=== PATIENT | female | born 1980 | race Caucasian/White ===

== ENCOUNTER 2017-07-21 16:32 | Emergency (ER) | payer BC, SELFPAY ==
[2017-07-21 16:56] VITALS: BP 135/77; PULSE 70; RESP 16; TEMP 36.8; O2SAT 99; BMI 23.8
--- NOTE | 2017-07-21 18:08 | HMH.EDUTC ---
[facility] [place] Disposition Clinical Impression: Lateral epicondylitis of elbow Qualifiers: Laterality: left Qualified Code(s): M77.12 - Lateral epicondylitis, left elbow Disposition: Home, Self-Care Condition on Discharge: Good Instructions: DI for Lateral Epicondylitis (Tennis Elbow) Additional Instructions: Read attached education Review the home exercises I gave you (printed from [employer]entials [employer] MS Care 4 Text) Ice 15-20 minutes 3-4 times a day Tennis Elbow band if you would like Naproxen twice a day since steroids didn't seem to help. * No additional anti-inflammatories like motrin, aleve, advil with the above amount of naproxen. You CAN still take Tylenol every 4 hours as needed if you need something more for pain. Prescriptions: Naproxen [Naprosyn 500mg tablet] 500 mg PO BID #28 tab Referrals: Kenneth Peterson MD [Primary Care Provider] - (For any new, worsening or persistant symptoms. If not improving and you feel you need a joint injection, see PCP for referral unless he is able to do it. 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 Started w/ mild intermittent pain in elbow and has progressed to nearly constant ache w/ pain in left AC worse with full extension or flexion of elbow or when gripping with left hand. 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 Left thumb starting to feel numb at times but reports it really isn't numb just feels that way . Worse w/ certain movements, especially if carrying something in the palm of her hand. Just finished steroids for pneumonia but no improvement in pain. Tylenol hasn't helped. Hasn't taken or tried anything else. Hasn't seen PCP, Dr. Peterson, for this. Same symptoms but in right wrist years ago. Started, progressed and felt this same way. Saw sports medicine and resolved w/ joint injection. - Related Data Home Medications Medication Instructions Recorded Confirmed diazePAM [diazePAM 5mg Tablet] 5 mg PO DAILY 07/21/17 07/21/17 Previous Rx's Medication Instructions Recorded Naproxen [Naprosyn 500mg tablet] 500 mg PO BID #28 tab 07/21/17 Allergies Allergy/AdvReac Type Severity Reaction Status Date / Time No Known Allergies Allergy Verified 07/21/17 17:03 - Worker's Comp Is this a Worker's Comp case?: No [facility] History I have reviewed the patient's past medical history: Yes (anxiety) Other Surgeries: Yes: Other (hysterectomy) - *Social History Smoking Status: Current every day smoker Tobacco Type: cigarettes Alcohol Intake: never - Psychiatric History Expresses thoughts of harming self/others: None Suicide Plan Description: No Plan ROS Obtained: Yes Systems reviewed as appropriate & no additional complaints - Constitutional Constitutional: Denies body ache, Denies fever(s) - Cardiovascular Cardiovascular: Denies chest pain - Respiratory Respiratory: No dyspnea - Muscul
--- NOTE | 2017-07-21 18:11 | ED_ITS ---
[facility] [place] Clinical Impression: Lateral epicondylitis of elbow Qualifiers: Laterality: left Qualified Code(s): M77.12 - Lateral epicondylitis, left elbow Disposition: Home, Self-Care Condition on Discharge: Good Instructions: DI for Lateral Epicondylitis (Tennis Elbow) Additional Instructions: Read attached education Review the home exercises I gave you (printed from Essentials for MS Care 4 Text ) Ice 15-20 minutes 3-4 times a day Tennis Elbow band if you would like Naproxen twice a day since steroids didn't seem to help. * No additional anti-inflammatories like motrin, aleve, advil with the above amount of naproxen. You CAN still take Tylenol every 4 hours as needed if you need something more for pain. Prescriptions: Naproxen [Naprosyn 500mg tablet] 500 mg PO BID #28 tab Referrals: Kenneth Peterson MD [Primary Care Provider] - (For any new, worsening or persistant symptoms. If not improving and you feel you need a joint injection, see PCP for referral unless he is able to do it. 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 Started w/ mild intermittent pain in elbow and has progressed to nearly constant ache w/ pain in left AC worse with full extension or flexion of elbow or when gripping with left hand. 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 Left thumb starting to feel numb at times but reports it really isn't numb just feels that way . Worse w/ certain movements, especially if carrying something in the palm of her hand. Just finished steroids for pneumonia but no improvement in pain. Tylenol hasn't helped. Hasn't taken or tried anything else. Hasn't seen PCP, Dr. Peterson, for this. Same symptoms but in right wrist years ago. Started, progressed and felt this same way. Saw sports medicine and resolved w/ joint injection. - Related Data Home Medications Medication Instructions Recorded Confirmed diazePAM [diazePAM 5mg Tablet] 5 mg PO DAILY 07/21/17 07/21/17 Previous Rx's Medication Instructions Recorded Naproxen [Naprosyn 500mg tablet] 500 mg PO BID #28 tab 07/21/17 Allergies Allergy/AdvReac Type Severity Reaction Status Date / Time No Known Allergies Allergy Verified 07/21/17 17:03 - Worker's Comp Is this a Worker's Comp case?: No H History I have reviewed
== END 2017-07-21 18:21 | disposition home or self-care (01) ==
PROVIDERS: Emergency Provider Nurse Practitioner Family; Family Provider Family Medicine; PCP Family Medicine
DX: M77.12 Lateral epicondylitis, left elbow (principal); F41.9 Anxiety disorder, unspecified; Z79.899 Other long term (current) drug therapy; F17.210 Nicotine dependence, cigarettes, uncomplicated
CPT/HCPCS: 99202

== ENCOUNTER → 2017-08-25 10:45 | Outpatient (CLI) | payer BC, SELFPAY ==
--- NOTE | 2017-08-25 10:49 | CT_ITS ---
CT abdomen pelvis wo con CLINICAL INDICATION: ITS.REASON: KIDNEY STONES,DYSURIA ORDERING PHYSICIAN: Giana Orona PATIENT AGE: 36 years COMPARISON: 09/22/2016 TECHNIQUE: Axial images obtained with sagittal and coronal reformats. PROCEDURE: Oral Contrast: None IV Contrast: None . FINDINGS: Lower thorax: There is a pectus excavatum deformity. Minimal atelectatic or fibrotic changes are present in the left lung base. Prior cholecystectomy. No focal liver lesion. The spleen, pancreas, and adrenal glands are unremarkable. There is a 6 mm nonobstructing stone in the mid aspect of the right kidney. There are 3 nonobstructing stones in the left kidney with the largest in the lower pole and 3 mm. No hydronephrosis. No ureteral calculi. Urinary bladder is decompressed and has an unremarkable appearance. No intestinal obstruction or free air. No focal inflammatory change. Prior hysterectomy. No pelvic mass or abnormal fluid collection. No acute bony anomalies. IMPRESSION: Nonobstructive bilateral renal calculi as described above. Otherwise negative CT abdomen pelvis without contrast
== END ==
PROVIDERS: Family Provider Family Medicine; PCP Family Medicine; Visit Provider Nurse Practitioner
DX: N20.0 Calculus of kidney (principal); R30.0 Dysuria
CPT/HCPCS: 74176

== ENCOUNTER → 2017-09-22 10:57 | Outpatient (CLI) | payer BC, SELFPAY ==
--- NOTE | 2017-09-22 11:03 | MR_ITS ---
MR lumbar spine wo/w con COMPARISON: Plain films lumbar spine 03/17/2016 HISTORY: Low back pain with radiation down both legs TECHNIQUE: Standard sagittal and axial sequences were performed along with a myelogram sequence and post gadolinium T1 axial and T1 sagittal images. FINDINGS: There is normal curvature and alignment. The marrow signal is normal in all lumbar vertebrae. The spinal canal is normal in size throughout. There is no abnormal disc protrusion. The facet joints appear normal throughout the lumbar spine. The myelogram sequence is entirely normal. Post gadolinium sequences show no abnormal enhancement. IMPRESSION: Unremarkable MRI scan of the lumbar spine without and with gadolinium contrast
== END ==
PROVIDERS: Family Provider Family Medicine; PCP Family Medicine; Visit Provider Nurse Practitioner
DX: M54.5 Low back pain (principal)
CPT/HCPCS: 72158; 76376; A9576

== ENCOUNTER → 2017-10-04 12:50 | Outpatient (CLI) | payer BC, SELFPAY ==
[2017-10-04 14:00] LABS: Free T4 (Free Thyroxine) 0.95 ng/dl (0.76-1.46); Thyroid Stimulating Hormone 0.98 uIU/ml (0.358-3.740)
[2017-10-05 08:25] LABS: Thyroid Peroxidase Antibodies 53 IU/mL (0-34)
[2017-10-05 15:34] LABS: Thyroglobulin Level 1.4 IU/mL (0.0-0.9); Triiodothyronine (T3) Free 3.3 pg/mL (2.0-4.4)
[2017-10-06 12:35] LABS: T4 (Thyroxine) 8.6 ug/dl (4.7-13.3)
== END ==
PROVIDERS: Visit Provider Internal Medicine Endocrinology, Diabetes & Metabolism
DX: E03.8 Other specified hypothyroidism (principal); E06.3 Autoimmune thyroiditis
CPT/HCPCS: 36415; 84436; 84439; 84443; 84481; 86376; 86800

== ENCOUNTER → 2018-02-27 13:44 | Outpatient (CLI) | payer BC, SELFPAY ==
[2018-02-27 16:22] LABS: Free T4 (Free Thyroxine) 1.19 ng/dl (0.76-1.46)
[2018-03-02 08:25] LABS: Triiodothyronine (T3) Free 3.4 pg/mL (2.0-4.4)
== END ==
PROVIDERS: Visit Provider Internal Medicine Endocrinology, Diabetes & Metabolism
DX: E03.8 Other specified hypothyroidism (principal); E06.3 Autoimmune thyroiditis
CPT/HCPCS: 36415; 84439; 84443; 84481

== ENCOUNTER → 2018-05-23 16:40 | Outpatient (CLI) | payer BC, SELFPAY ==
[2018-05-24 00:01] LABS: Free T4 (Free Thyroxine) 1.23 ng/dl (0.76-1.46); Thyroid Stimulating Hormone 0.03 uIU/ml (0.358-3.740)
[2018-05-25 16:13] LABS: Triiodothyronine (T3) Free 4.2 pg/mL (2.0-4.4)
== END ==
PROVIDERS: Visit Provider Internal Medicine Endocrinology, Diabetes & Metabolism
DX: E03.8 Other specified hypothyroidism (principal); E06.3 Autoimmune thyroiditis
CPT/HCPCS: 36415; 84436; 84439; 84443; 84480; 84481

== ENCOUNTER 2018-07-06 12:07 | Outpatient (CLI) | payer BC, SELFPAY ==
[2018-07-06 12:15] VITALS: BP 111/72; PULSE 70; RESP 20; TEMP 36.9; O2SAT 95
[2018-07-06 13:10] VITALS: BP 112/75; PULSE 68; RESP 20; TEMP 36.9; O2SAT 95
[2018-07-06 14:10] VITALS: BP 122/74; PULSE 68; RESP 20; TEMP 36.9; O2SAT 95
[2018-07-06 15:00] VITALS: BP 112/74; PULSE 68; RESP 20; TEMP 36.9; O2SAT 95
[2018-07-06 15:30] VITALS: BP 115/77; PULSE 68; RESP 20; TEMP 36.9; O2SAT 95
== END 2018-07-06 15:30 | disposition home or self-care (01) ==
LOC: INF 12:09
PROVIDERS: PCP Nurse Practitioner; Visit Provider Nurse Practitioner
DX: J18.1 Lobar pneumonia, unspecified organism (principal)
CPT/HCPCS: 96360; 96361; 96367; J2543

== ENCOUNTER → 2018-08-10 10:08 | Outpatient (CLI) | payer BC, SELFPAY ==
--- NOTE | 2018-08-10 10:17 | XR_ITS ---
XR chest 2V HISTORY: ITS.REASON: CHRONIC COUGHING, SOB, TOBACCO ABUSE ORDERING PHYSICIAN: Sandrita Whiting PATIENT AGE: 37 years COMPARISON: 10/09/2017 FINDINGS: Prominent pectus excavatum deformity is present with silhouetting out of the right heart The cardiomediastinal silhouette and pulmonary vascularity are within normal limits. The lungs are clear without infiltrates, suspicious nodules, or pleural effusions. No acute bony abnormalities. IMPRESSION: Pectus excavatum, no change with no acute finding
== END ==
PROVIDERS: PCP Family Medicine; Visit Provider Nurse Practitioner Family
DX: R06.02 Shortness of breath (principal); R05 Cough; Z72.0 Tobacco use
CPT/HCPCS: 71046

== ENCOUNTER → 2018-08-28 09:00 | Outpatient (CLI) | payer BC, SELFPAY ==
--- NOTE | 2018-08-28 09:06 | XR_ITS ---
XR abdomen min 2V HISTORY: ITS.REASON: RT FLANK PAIN ORDERING PHYSICIAN: Kenneth Peterson MD PATIENT AGE: 37 years COMPARISON: None FINDINGS: There are bilateral renal calculi measuring up to 3 mm in the upper pole on the right and 3 x 1 mm in the lower pole on the left. There are surgical clips in the right upper and right lower upper quadrant. Pelvic calcifications are present and may be due to phleboliths. IMPRESSION: Bilateral nephrolithiasis
== END ==
PROVIDERS: PCP Family Medicine; Visit Provider Family Medicine
DX: R10.9 Unspecified abdominal pain (principal)
CPT/HCPCS: 74019

== ENCOUNTER → 2019-07-11 09:50 | Outpatient (CLI) | payer BC, SELFPAY ==
--- NOTE | 2019-07-11 09:54 | CT_ITS ---
PROCEDURE: CT HEAD/BRAIN WO/W CON CLINICAL INDICATION: MIGRAINE, TINGLING Headache with blurred vision COMPARISON: No exams were available for comparison TECHNIQUE: IV Contrast: 100ML OPITRAY 320 Axial images obtained. All CT scans at the facility use one or more dose reduction, viz: automated exposure control, ma/kV adjustment per patient size (including targeted exams where dose is matched to indication, i.e. head), or iterative reconstruction technique. FINDINGS: No midline shift, mass effect, intracranial hemorrhage, hydrocephalus, or extra-axial fluid collection is evident. No enhancing lesions are evident. The calvarium has an unremarkable appearance. No mastoid effusion. Moderate opacification involves the right and central aspect of the sphenoid sinus with an air-fluid level IMPRESSION: 1. No acute intracranial findings. 2. Sphenoid sinus disease Dictated by: Lboo Drummond MD 07/11/2019 12:23 Electronically signed by Lobo Drummond MD in [place] 07/11/2019 12:23
== END ==
PROVIDERS: PCP Family Medicine; Visit Provider Family Medicine
DX: G43.909 Migraine, unspecified, not intractable, without status migrainosus (principal); R20.2 Paresthesia of skin
CPT/HCPCS: 70470; Q9967

== ENCOUNTER → 2020-01-21 15:02 | Outpatient (POV) | payer BC, SELFPAY | PROVIDERS: PCP Internal Medicine Adolescent Medicine; Visit Provider Dermatology | DX: Z00.00 Encounter for general adult medical examination without abnormal findings (principal) ==

== ENCOUNTER 2020-06-11 16:02 | Emergency (ER) | payer BC, SELFPAY ==
[2020-06-11 16:13] VITALS: BP 122/74; PULSE 84; RESP 16; TEMP 36.9; O2SAT 98; BMI 29.8
--- NOTE | 2020-06-11 16:19 | HMH.EDUTC ---
[facility] [place] Disposition Clinical Impression: Cellulitis and abscess of right leg Disposition: Home, Self-Care Condition on Discharge: Good Instructions: Trimethoprim/Sulfamethoxazole (Alternative Therapy), Cellulitis, Cephalexin, Mupirocin, DI for Skin Abscess Additional Instructions: *Start antibiotic(s) immediately and be sure to take as ordered for the FULL length of time although you may be feeling better or start to see improvement in the next 24-48 hours *Monitor closely. Outlined redness so that you can monitor easier. Follow up immediately for new or worsening symptoms including but not limited to redness, swelling, streaking from site fever or chills. *Warm compress 15 minutes 3-4 times day *Never squeeze or pop these on your own. Seek immediate medical attention next time this occurs *Monitor Temp. Tylenol every 4 hours as needed and ibuprofen every 6 hours as needed (as long as your primary care doctor has told you that it is ok to take both. For fever, aches, pain. ER if no less that 101 despite Tylenol and ibuprofen Follow up with your family doctor/primary care physician in the next 48-72 hours if no improvement Follow up in the next 48 hours to get your wound culture results Return if needed Straight to ER if any life threatening symptoms Prescriptions: Sulfamethoxazole/Trimethoprim [Bactrim DS tablet] 1 each PO BID 10 Days #20 tab Transmission Status: Received by [facility] cephALEXin [Keflex 500mg Cap] 500 mg PO Q6H #40 cap Transmission Status: Received by [facility] Mupirocin Calcium [Mupirocin 2% Cream 15gm] 1 applicatio TP BID #1 tube Transmission Status: Received by [facility] Referrals: Kenneth Peterson MD [Primary Care Provider] - As needed Time of Disposition: 16:30 Medical Decision Making - Alcon Inquiry Pt receiving controlled substance: No Alcon was queried for this patient: No Vital Signs: 06/11/20 16:13 06/11/20 16:39 Temperature 98.4 F 98.1 F Temperature Source Oral Oral Pulse Rate 87 Pulse Rate [Right] 84 Respiratory Rate 16 16 Blood Pressure 133/87 Blood Pressure [Right Arm] 122/74 Blood Pressure Mean [Right Arm] 90 Blood Pressure Source Automatic Cuff Blood Pressure Source [Right Arm] Automatic Cuff Blood Pressure Position Sitting Blood Pressure Position [Right Arm] Sitting 02 Sat by Pulse Oximetry 98 Oxygen Delivery Method Room Air Room Air [facility] [place] HPI - General Stated complaint: spot on R thigh Time Seen by Provider: 06/11/20 16:19 Mode of Arrival: Ambulatory Source of Information: Patient Limitations: No Limitations Description of Symptoms (Recalled from Triage Doc. by RN): Pt has large knot on the inside of her right thigh HEENT Symptoms (Recalled from RN notes): No Resp Symptoms (Recalled from RN notes): No Skin Symptoms (Recalled from RN notes): Yes (pt has large knot on the inside of her right thigh) MS Symptoms (Recalled from RN notes): No Functional Status (Recalled from RN notes): na - History of Present Illness Provider Complaint: Patient states that she has had several small pimple like lesions on the inside of her right thigh area that she has popped and they went away States that she noticed she had red warm area that had hard center on her right upper thigh area that today seems to be more sore, tender to the touch and warm - Related Data Home Medications Medication Instructions Recorded Confirmed Venlafaxine HCl [Effexor Xr] 37.5 mg PO DAILY 10/09/17 04/16/19 estradiol 2 mg tablet See Rx Instructions PO .COMPLEX 90 10/09/17 04/16/19 Days #90 Previous Rx's Medication Instructions Recorded Mupirocin Calcium [Mupirocin 2% 1 applicatio TP BID #1 tube 06/11/20 Cream 15gm] Sulfamethoxazole/Trimethoprim 1 each PO BID 10 Days #20 tab 06/11/20 [Bactrim DS tablet] cephALEXin [Keflex 500mg Cap] 500 mg PO Q6H #40 cap 06/11/20 Allergies Allergy/AdvReac Type Severity Reaction Status Date / Time No Known Allergies
[2020-06-11 16:39] VITALS: BP 133/87; PULSE 87; RESP 16; TEMP 36.7; O2SAT 98
== END 2020-06-11 16:40 | disposition home or self-care (01) ==
PROVIDERS: Emergency Provider Nurse Practitioner; PCP Family Medicine
DX: L03.115 Cellulitis of right lower limb (principal); F41.8 Other specified anxiety disorders; E03.9 Hypothyroidism, unspecified; F17.210 Nicotine dependence, cigarettes, uncomplicated; Z79.899 Other long term (current) drug therapy
CPT/HCPCS: 87070; 87205; 99201

== ENCOUNTER 2020-06-14 09:22 | Emergency (ER) | payer BC, SELFPAY ==
[2020-06-14] VITALS (7 sets, daily range): BP systolic 111–143; BP diastolic 68–82; PULSE 54–88; RESP 16–20; TEMP 36.6; O2SAT 97–100; BMI 25.8; BMI 258201.4
--- NOTE | 2020-06-14 09:21 | ECG_ITS ---
APPROVED REPORT Exam: Resting ECG HR:65 bpm ECG Measurements Heart Rate 65 AXES VA 148 P 46 QRSd 86 QRS -12 QT 444 T 6 QTc 461 Conclusion Normal sinus rhythm Prolonged QT Abnormal ECG Electronically signed by : Kenneth Mcqueen, 06/16/2020 19:38:37
--- NOTE | 2020-06-14 09:25 | XR_ITS ---
PROCEDURE: XR CHEST PORTABLE CLINICAL HISTORY: chest pain COMPARISON: CR CXR2V XR chest 2V from 10/09/2017 CR CXR2V XR chest 2V from 08/10/2018 FINDINGS: There is a pectus deformity which is causing obscuration of the right heart border and increased density in the right lower lobe. No evidence of CHF. Normal heart size. The lungs are clear without infiltrates, suspicious nodules, or pleural effusions. No acute bony abnormalities. IMPRESSION: Pectus deformity otherwise negative Dictated by: Lobo Drummond MD 06/14/2020 10:55 Lobo Drummond MD in [place] 06/14/2020 10:55
[2020-06-14 09:53] LABS: Basophils # 0.1 K/mm3 (0-0.2); Basophils % 0.6 % (0.1-2.0); Eosinophils # 0.2 K/mm3 (0.0-0.4); Eosinophils % 1.3 % (0.1-12.0); Hematocrit 46.7 % (37.0-47.0); Hemoglobin 14.5 g/dL (12.2-16.2); Lymphocytes # 3.2 K/mm3 (0.7-4.5); Lymphocytes % 25.9 % (10-50); Mean Corpuscular Hemoglobin 29.1 pg (27.0-31.2); Mean Corpuscular Volume 93.8 fl (81-99); Mean Platelet Volume 9.2 fl (7.4-10.4); Monocytes # 0.5 K/mm3 (0.1-1.0); Monocytes % 4.1 % (1.7-9.3); Neutrophils # 8.4 K/mm3 (1.8-7.8); Neutrophils % 68.1 % (37.0-80.0); Platelet Count 210 K/mm3 (142-424); Red Blood Count 4.98 M/mm3 (4.20-5.40); Red Cell Distribution Width 13.3 % (11.5-17.5); White Blood Count 12.4 K/mm3 (4.8-10.8)
--- NOTE | 2020-06-14 10:00 | PC.NURSE ---
FAMILY AT BEDSIDE UPDATED ON PLAN OF CARE
[2020-06-14 10:05] LABS: Chloride 106 mmol/L (98-107)
[2020-06-14 10:06] LABS: Potassium 4.5 mmoL/L (3.5-5.1); Sodium 140 mmol/L (136-145)
--- NOTE | 2020-06-14 10:06 | HMH.EDGENADL ---
ED Disposition Clinical Impression: Odynophagia, Atypical chest pain, Abscess of right thigh Disposition: Home, Self-Care Condition on Discharge: Good Instructions: DI for Atypical Chest Pain, DI for Skin Abscess Additional Instructions: Continue clindamycin, drink a full glass of water with each dose. Protonix as prescribed. See Dr. Diaz tomorrow for treatment of your abscess. Nothing to eat or drink after midnight tonight. Call him 8-9 AM tomorrow to set up appointment to be seen tomorrow morning and then he will arrange surgery for tomorrow afternoon. Additional instructions for CHEST PAIN: See your physician as soon as possible for further evaluation. Return immediately if worsening chest pain, vomiting, shortness of breath, fever, coughing of blood. Prescriptions: Pantoprazole Sodium [Protonix 40mg tablet] 40 mg PO DAILY #15 tab Transmission Status: Pending to [facility] Referrals: Kenneth Peterson MD [Primary Care Provider] - - Critical Care Critical Care Time: No Attestation: On , the high probability of a clinically significant, sudden or life threatening deterioration of the following system(s) required my full and direct attention, intervention and personal management. The time I documented below is in addition to time spent performing reported procedures but includes the following listed in this critical care notation. Medical Decision Making - Medical Records Medical records reviewed: Yes: I reviewed the patient's medical records. MR Comment: Reviewed urgent treatment center visit 06/11/2020. The abscess was aspirated at that time and culture was sent. No growth. The patient was started on Bactrim, Keflex, and mupirocin. - Alcon Inquiry Pt receiving controlled substance: No Vital Signs: 06/14/20 09:23 06/14/20 10:23 06/14/20 10:53 Temperature 98 F Temperature Source Oral Pulse Rate [Radial] 78 63 61 Respiratory Rate 16 16 16 Blood Pressure [Right Arm] 143/78 H 135/80 120/70 Blood Pressure Mean [Right Arm] 99 98 86 Blood Pressure Source [Right Arm] Automatic Cuff Automatic Cuff Blood Pressure Position [Right Arm] Sitting Sitting Sitting 02 Sat by Pulse Oximetry 98 100 97 Oxygen Delivery Method Room Air 06/14/20 12:53 Temperature Temperature Source Pulse Rate [Radial] 54 L Respiratory Rate 20 Blood Pressure [Right Arm] 111/69 Blood Pressure Mean [Right Arm] 83 Blood Pressure Source [Right Arm] Automatic Cuff Blood Pressure Position [Right Arm] Sitting 02 Sat by Pulse Oximetry Oxygen Delivery Method - Lab Data Lab Results 06/14/20 09:30: WBC 12.4 H, RBC 4.98, Hgb 14.5, Hct 46.7, MCV 93.8, MCH 29.1, MCHC 31.0 L, RDW 13.3, Plt Count 210, MPV 9.2, Neut % (Auto) 68.1, Lymph % (Auto) 25.9, [place] % (Auto) 4.1, Eos % (Auto) 1.3, Baso % (Auto) 0.6, Neut # (Auto) 8.4 H, Lymph # (Auto) 3.2, [place] # (Auto) 0.5, Eos # (Auto) 0.2, Baso # (Auto) 0.1 06/14/20 09:30: Sodium 140, Potassium 4.5, Chloride 106, Carbon Dioxide 26, Anion Gap 12.5, BUN 14, Creatinine 0.70, Estimated Creat Clear 126, Estimated GFR 94, Est GFR ( Amer) 114, Glucose 95, Calcium 9.3, Total Bilirubin 0.8, Direct Bilirubin 0.4, Conjugated Bilirubin 0.0, Indirect Bilirubin 0.4, Unconjugated Bilirubin 0.4, AST 46 H, ALT 25, Alkaline Phosphatase 74, Troponin I < 0.01, Total Protein 8.0, Albumin 4.6, Amylase 75, Lipase 96 06/14/20 10:40: Urine Color Yellow, Urine Appearance Clear, Urine pH 7.0, Ur Specific Roberts 1.010, Urine Protein Negative, Urine Glucose (UA) Negative, Urine Ketones Negative, Urine Blood Trace-l, Urine Nitrate Negative, Urine Bilirubin Negative, Urine Urobilinogen 0.2, Ur Leukocyte Esterase Negative, Urine RBC None, Urine WBC None, Ur Squamous Epith Cells 3-5, Urine Bacteria None 06/14/20 12:45: Troponin I < 0.01 Result diagrams: 06/14/20 09:30 06/14/20 09:30 Orders (Tests/Meds): ED MEDICATIONS Generic Name Dose Route Start Last Admin Trade Name Freq PRN Reason Stop Dose
[2020-06-14 10:08] LABS: Amylase 75 U/L (30-110)
[2020-06-14 10:09] LABS: Alanine Aminotransferase 25 U/L (12-78); Albumin Level 4.6 g/dl (3.5-5.0); Alkaline Phosphatase 74 U/L (38-126); Anion Gap 12.5 mEq/L (5-15); Aspartate Amino Transferase 46 U/L (14-36); Bilirubin,Direct 0.4 mg/dl (0.0-0.4); Bilirubin,Indirect 0.4 mg/dL (0.0-0.9); Bilirubin,Total 0.8 mg/dl (0.2-1.3); Bilirubin,Unconjugated 0.4 mg/dL (0.0-1.1); Blood Urea Nitrogen 14 mg/dl (7-17); Calcium 9.3 mg/dl (8.4-10.2); Carbon Dioxide 26 mmol/L (22.0-30.0); Creatinine Clearance Estimated 126 mL/min (50-200); Estimated Glomerular Filt Rate 94 ml/min (>60); GFR (African American) 114 ML/MIN (>60); Glucose 95 mg/dl (74-100); Lipase 96 U/L (23-300)
[2020-06-14 10:28] LABS: Troponin I < 0.01 ng/ml (0.00-0.034)
[2020-06-14 11:06] LABS: Microscopic, Urine URINE MICROSCOPIC (MICROSCOPIC)
[2020-06-14 11:08] LABS: Appearance,Urine CLEAR (Clear); Bilirubin,Urine Negative (Negative); Blood, Urine TRACE-L (Negative); Color,Urine YELLOW (Yellow); Glucose,Urine (UA) Negative (Negative); Ketones,Urine Negative (Negative); Leukocyte Esterase,Urine Negative (Negative); Nitrate,Urine Negative (Negative); Protein,Urine Negative (Negative); Urobilinogen,Urine 0.2 EU/dl (0.2)
--- NOTE | 2020-06-14 11:13 | PC.NURSE ---
paged dr kat
--- NOTE | 2020-06-14 12:00 | PC.NURSE ---
PT OFFERS NO C/O AT PRESENT
[2020-06-14 13:16] LABS: Troponin I < 0.01 ng/ml (0.00-0.034)
--- NOTE | 2020-06-14 14:00 | PC.NURSE ---
IV INFUSING NO COMPLICATIONS
== END 2020-06-14 15:02 | disposition home or self-care (01) ==
PROVIDERS: Emergency Provider Emergency Medicine; PCP Family Medicine
DX: R13.10 Dysphagia, unspecified (principal); R07.89 Other chest pain; L02.415 Cutaneous abscess of right lower limb; E03.9 Hypothyroidism, unspecified; F41.8 Other specified anxiety disorders; F17.210 Nicotine dependence, cigarettes, uncomplicated
CPT/HCPCS: 71045; 80048; 80076; 81001; 82150; 83690; 84484; 85025; 93005; 96365; 96375; 96376; 99284; J2405; J3370

== ENCOUNTER 2020-06-15 11:25 | Day surgery (SDC) | payer BC, SELFPAY ==
[2020-06-15] VITALS (13 sets, daily range): BP systolic 104–140; BP diastolic 59–85; PULSE 58–72; RESP 12–20; TEMP 36.3–36.6; O2SAT 92–99; BMI 27.7
[2020-06-15 12:28] LABS: Coronavirus 19 IgG Antibody Negative (Negative); Coronavirus 19 IgM Antibody Negative (Negative)
--- NOTE | 2020-06-15 15:45 | P.OP_ITS ---
Date of procedure: 06/15/20 Pre-op Diagnosis:: Right thigh abscess Post-op Diagnosis:: Same Procedure performed:: Incision and drainage right thigh abscess with debridement of skin and subcutaneous tissues Surgeon:: Александр Diaz MD CAR STORER:: Nigel Pereira Anesthesia: LMA Estimated blood loss (mL): 10 Clinical Note:: Patient is a 39-year-old female referred by the emergency department for right thigh abscess. She states that this area has been present for about 1 week. She denies any inciting event. It started as a small purplish area. She was s een in the [facility] several days ago and started on oral antibiotics. She followed up with her primary care provider on 06/13/20 and antibiotics were switched to clindamycin for possible MRSA. Discussion was held at that time that she may require referral to surgery for incision and drainage. She presented to the emergency department the following day on 06/14/2020 for other issues and the abscess was asked to be addressed as well. Consideration was being given for possible incision and drainage under local however patient had reservations due to the severe tenderness and large size. Surgery was contacted and arrangements were made for outpatient follow-up today. She was seen in the office earlier today. She had an appreciable abscess and soft tissue infection of the right medial proximal thigh. Plan was made for incision and drainage. Operative findings:: Subcutaneous abscess. There was some evidence of ischemia and early necrosis of the superficial tissues and limited debridement of this was carried out. Operative note:: Patient was taken to the operating room. She was given preoperative intravenous antibiotics. In the operating room she was placed in a supine position. Anesthesia was induced via LMA. She was positioned in semifrog-leg position to allow access to the area of soft tissue infection. The area was prepped and draped in the standard surgical fashion. Limited incision was made in the central area of fluctuance. There was thick pus which exuded from the incision. This was sent for culture. The wound was probed. There was some debris which was evacuated. Even prior to incision that there appeared to be some ischemia and early necrosis of the overlying skin. Limited debridement was carried out of this using electrocautery. Wound was probed and any loculations were freed. Wound was irrigated. Hemostasis was achieved with electrocautery. Local anesthetic was infiltrated. Wound was packed with saline moistened 4 x 4 gauze and covered with clean dry sterile dressing. Condition: stable Disposition: PACU Specimens:: Debrided tissue, culture sent Complications:: None immediately apparent
--- NOTE | 2020-06-15 15:49 | P.PN_ITS ---
[facility] Anesthesia Checklist - Structural Data Admitted From: Home Planned Operative Procedure/s: I/d r leg abcess Consent for Planned Operative Procedure(s) Verified: Yes - Additional verifications Anesthesia Reactions: No Hx Blood Transfusions: No Blood Transfusion Reaction: No - Airway Assessment C-Spine Mobility Assessed: Yes TMJ Mobility Assessed: Yes Dentition: Good Dentition - Neurological Assessment Level of Consciousness: Awake, Alert, Appropriate - Anesthesia Plan Anesthesia Risk discussed: Yes Anesthesia Plan: Verified ASA Class: I Anesthesia Type: General [facility] History I have reviewed the patient's past medical history: Yes Medical History: Reports:: Anxiety, Depression Denies:: Cancer, Diabetes Mellitus Type 1, Diabetes Mellitus Type 2, Hypertension, Internal Pacemaker, MRSA, Seizures *Have you ever received a pneumonia vaccine?: No *Have you received a flu vaccine this season?: Yes Other Medical History: Reports: Thyroid Disease. Denies: Blood Transfusion Reaction Anesthesia experience/problems:: none Other Surgeries: Yes: , Hysterectomy-Total, Other. No: Pacemaker Amputation: No Fractures: No - *Social History Last grade of school completed: High school graduate Smoking Status: Current every day smoker Tobacco Type: cigarettes # Packs/Day (cigarettes): 1 Alcohol Intake: never Substance Use Type: denies use *Occupational Status:: employed Housing: house Household Members: spouse *Travel in the last 8 weeks: None - Psychiatric History Pschychiatric History:: Reports:: Anxiety, Depression Family Hx:: No significant family history
--- NOTE | 2020-06-15 15:50 | HMH.ANESI ---
[facility] Anesthesia Record Part I Intake, IV Amount: 1,500 Estimated blood loss (mL): 0 Urine output (mL): 0 Blood Pressure: 119/72 SaO2: 93 Pulse Rate: 72 Respiratory Rate: 12 Temperature: 97.7 F Patient is:: Awake, Stable Stable to PACU at:: 15:45
== END 2020-06-15 16:58 | disposition home or self-care (01) ==
LOC: OR 11:25
PROVIDERS: PCP Family Medicine; Visit Provider Surgery
PROC: (CPT 10061; principal; 2020-06-15 14:15)
DX: L02.415 Cutaneous abscess of right lower limb (principal); F41.9 Anxiety disorder, unspecified; F32.9 Major depressive disorder, single episode, unspecified; E07.9 Disorder of thyroid, unspecified; Z72.0 Tobacco use
CPT/HCPCS: 10061; 36415; 86328; 87070; 87075; 87205; 96374; J2405

== ENCOUNTER 2020-06-16 12:50 | Outpatient (CLI) | payer BC, SELFPAY | END 2020-06-16 13:12 | disposition home or self-care (01) | LOC: INF 12:51 | PROVIDERS: PCP Family Medicine; Visit Provider Surgery | DX: L02.415 Cutaneous abscess of right lower limb (principal); Z48.01 Encounter for change or removal of surgical wound dressing | CPT/HCPCS: G0463 ==

== ENCOUNTER 2020-06-17 12:45 | Outpatient (CLI) | payer BC, SELFPAY | END 2020-06-17 13:00 | disposition home or self-care (01) | LOC: INF 12:45 | PROVIDERS: Visit Provider Surgery | DX: L02.415 Cutaneous abscess of right lower limb (principal); Z48.01 Encounter for change or removal of surgical wound dressing | CPT/HCPCS: G0463 ==

== ENCOUNTER 2020-06-18 12:40 | Outpatient (CLI) | payer BC, SELFPAY | END 2020-06-18 13:00 | disposition home or self-care (01) | LOC: INF 12:43 | PROVIDERS: Visit Provider Surgery | DX: L03.115 Cellulitis of right lower limb (principal); Z48.01 Encounter for change or removal of surgical wound dressing | CPT/HCPCS: G0463 ==

== ENCOUNTER 2020-06-19 12:48 | Outpatient (CLI) | payer BC, SELFPAY | END 2020-06-19 13:05 | disposition home or self-care (01) | LOC: INF 12:48 | PROVIDERS: Visit Provider Surgery | DX: L03.115 Cellulitis of right lower limb (principal); Z48.01 Encounter for change or removal of surgical wound dressing | CPT/HCPCS: G0463 ==

== ENCOUNTER → 2020-06-20 12:46 | Outpatient (CLI) | payer BC, SELFPAY ==
[2020-06-20 13:37] VITALS: BP 134/79; PULSE 85; RESP 18; TEMP 36.7; O2SAT 98; BMI 27.4
== END ==
PROVIDERS: PCP Family Medicine; Visit Provider Surgery
DX: L02.415 Cutaneous abscess of right lower limb (principal); Z48.01 Encounter for change or removal of surgical wound dressing
CPT/HCPCS: G0463

== ENCOUNTER → 2020-06-21 12:49 | Outpatient (CLI) | payer BC, SELFPAY ==
[2020-06-21 13:00] VITALS: BP 118/86; PULSE 68; RESP 19; TEMP 36.9; O2SAT 100
== END ==
PROVIDERS: PCP Family Medicine; Visit Provider Surgery
DX: L02.415 Cutaneous abscess of right lower limb (principal); Z48.01 Encounter for change or removal of surgical wound dressing
CPT/HCPCS: G0463

== ENCOUNTER 2020-06-23 12:57 | Outpatient (CLI) | payer BC, SELFPAY | END 2020-06-23 13:05 | disposition home or self-care (01) | LOC: INF 12:57 | PROVIDERS: Visit Provider Surgery | DX: L03.115 Cellulitis of right lower limb (principal); Z48.01 Encounter for change or removal of surgical wound dressing | CPT/HCPCS: G0463 ==

== ENCOUNTER 2020-06-24 13:49 | Outpatient (CLI) | payer BC, SELFPAY | END 2020-06-24 14:00 | disposition home or self-care (01) | LOC: INF 13:49 | PROVIDERS: Visit Provider Surgery | DX: L03.115 Cellulitis of right lower limb (principal); Z48.01 Encounter for change or removal of surgical wound dressing | CPT/HCPCS: G0463 ==

== ENCOUNTER 2020-06-25 13:15 | Outpatient (CLI) | payer BC, SELFPAY | END 2020-06-25 13:30 | disposition home or self-care (01) | LOC: INF 13:29 | PROVIDERS: Visit Provider Surgery | DX: L03.115 Cellulitis of right lower limb (principal); Z48.01 Encounter for change or removal of surgical wound dressing | CPT/HCPCS: G0463 ==

== ENCOUNTER 2020-06-26 12:51 | Outpatient (CLI) | payer BC, SELFPAY | END 2020-06-26 13:15 | disposition home or self-care (01) | LOC: INF 12:52 | PROVIDERS: Visit Provider Surgery | DX: L03.115 Cellulitis of right lower limb (principal); Z48.01 Encounter for change or removal of surgical wound dressing | CPT/HCPCS: G0463 ==

== ENCOUNTER 2020-07-13 17:17 | Emergency (ER) | payer BC, SELFPAY ==
[2020-07-13 18:40] VITALS: BP 120/81; PULSE 74; RESP 19; TEMP 36.9; O2SAT 99; BMI 27.4
--- NOTE | 2020-07-13 18:57 | HMH.EDUTC ---
[facility] [place] Disposition Clinical Impression: Urinary problem in female Disposition: Home, Self-Care Condition on Discharge: Good Additional Instructions: Make sure that you are drinking plenty of fluids to help to flush out the kidney Follow up with your family Doctor if symptoms continue or worsen Follow up with Dr Hein in Urology if needed Straight to ER if any life threatening symptoms Referrals: Kenneth Peterson MD [Primary Care Provider] - As needed Fred Hein MD [Staff Physician] - Time of Disposition: 19:10 Medical Decision Making - Alcon Inquiry Pt receiving controlled substance: No Alcon was queried for this patient: No Vital Signs: 07/13/20 18:40 Temperature 98.4 F Temperature Source Oral Pulse Rate [Right Brachial] 74 Respiratory Rate 19 Blood Pressure [Right Arm] 120/81 Blood Pressure Mean [Right Arm] 94 Blood Pressure Source [Right Arm] Automatic Cuff Blood Pressure Position [Right Arm] Sitting 02 Sat by Pulse Oximetry 99 Oxygen Delivery Method Room Air - Lab Data Lab results reviewed: Yes: I reviewed the patient's lab results. Medical Decision Narrative: Discussed UA results with patient and she still denies low back ache or gross hematuria Reports feeling of urgency and frequency discussed that we could transfer patient to ED for further evaluation and patient declined [facility] [place] HPI - General Stated complaint: Burning and frequency of urinating Time Seen by Provider: 07/13/20 18:57 Mode of Arrival: Ambulatory Source of Information: Patient Limitations: No Limitations Description of Symptoms (Recalled from Triage Doc. by RN): PATIENT C/O FREQUENT URINATION AND PAIN WITH URINATION X 4 DAYS HEENT Symptoms (Recalled from RN notes): No Resp Symptoms (Recalled from RN notes): No Skin Symptoms (Recalled from RN notes): No MS Symptoms (Recalled from RN notes): No Functional Status (Recalled from RN notes): WNL - History of Present Illness Provider Complaint: Patient states that she has been having feeling of frequency and urgency for last several days State that she thinks she may have passed a kidney stone a few weeks back. States that she noticed she was urinating more freqently than usual and had a little burning when she urinated and was concerned that she may have a UTI and wanted to get checked States that she has took over the counter AZO but not helped much - Related Data Home Medications Medication Instructions Recorded Confirmed estradiol 2 mg tablet See Rx Instructions PO .COMPLEX 90 10/09/17 07/13/20 Days #90 Levothyroxine Sodium [Synthroid 50 mcg PO DAILY 06/15/20 07/13/20 50mcg (0.05mg) tab] Mupirocin Calcium [Mupirocin 2% 1 applicatio TP BID 06/15/20 07/13/20 Cream 15gm] cephALEXin [Keflex 500mg Cap] 500 mg PO Q6H 06/15/20 06/22/20 Allergies Allergy/AdvReac Type Severity Reaction Status Date / Time No Known Allergies Allergy Verified 06/22/20 11:18 - Worker's Comp Is this a Worker's Comp case?: No [facility] History - Hepatitis A Screen Drug use history?: No High risk sexual behaviors?: No History of sexually transmitted infection?: No Currently employed?: No Childcare worker?: No Do you have indoor plumbing?: Yes Do you have electricity?: Yes Attestation statement:: This patient has been screened for Hepatitis A risk factors. I have reviewed the patient's past medical history: Yes Medical History: Reports:: Anxiety, Depression Denies:: Cancer, Diabetes Mellitus Type 1, Diabetes Mellitus Type 2, Hypertension, Internal Pacemaker, MRSA, Seizures Other Medical History: Reports: Thyroid Disease. Denies: Blood Transfusion Reaction Other Surgeries: Yes: , Hysterectomy-Total, Other. No: Pacemaker Amputation: No Fractures: No Comment: I & D thigh - Social History Smoking Status: Current every day smoker Tobacco Type: cigarettes # Packs/Day (cigarettes): 1 Alcohol Intake: never Substance Use Type: denies use Occupational Status: other
[2020-07-13 19:22] VITALS: BP 120/81; PULSE 74; RESP 19; TEMP 36.9; O2SAT 99
[2020-07-13 20:51] LABS: Apearance,Urine Clear (Clear); Bilirubin,Urine Negative (Negative); Blood, Urine Trace (Negative); Color,Urine Yellow (Yellow); Glucose,Urine (UA) Negative (Negative); Ketones,Urine 15 (Negative); PH,Urine 6.5 (5.0-8.5); Protein,Urine Negative (Negative); Specific Gravity, Urine 1.015 (1.005-1.030)
[2020-07-13 20:52] LABS: UTC Leukocyte Esterase,Urine Negative (Negative); UTC Nitrate,Urine Negative (Negative); Urobilinogen,Urine 1 EU/dl (0.2)
== END 2020-07-13 19:23 | disposition home or self-care (01) ==
PROVIDERS: Emergency Provider Nurse Practitioner; PCP Family Medicine
DX: N39.9 Disorder of urinary system, unspecified (principal); F41.8 Other specified anxiety disorders; F17.210 Nicotine dependence, cigarettes, uncomplicated; Z79.899 Other long term (current) drug therapy
CPT/HCPCS: 81003; 99202; G0463

== ENCOUNTER → 2021-03-01 12:03 | Outpatient (CLI) | payer BC, SELFPAY | PROVIDERS: PCP Family Medicine; Visit Provider Family Medicine | DX: Z20.822 Contact with and (suspected) exposure to COVID-19 (principal) | CPT/HCPCS: U0003 ==

== ENCOUNTER → 2021-04-29 09:01 | Outpatient (CLI) | payer BC, SELFPAY ==
--- NOTE | 2021-04-29 09:05 | XR_ITS ---
PROCEDURE: XR FOOT WT BEARING LT 3V CLINICAL INDICATION: pain COMPARISON: No exams were available for comparison FINDINGS: No fracture or dislocation. No lytic or blastic change. There is normal mineralization. The joint spaces are well-preserved. No significant degenerative/arthritic changes. No erosive changes evident. Other findings:None. IMPRESSION: No acute findings. Dictated by: Lobo Drummond MD 04/29/2021 14:22 Lobo Drummond MD in [place] 04/29/2021 14:22
--- NOTE | 2021-04-29 09:05 | XR_ITS ---
PROCEDURE: XR FOOT WT BEARING RT 3V CLINICAL INDICATION: pain COMPARISON: No exams were available for comparison FINDINGS: No fracture or dislocation. No lytic or blastic change. There is normal mineralization. The joint spaces are well-preserved. No significant degenerative/arthritic changes. No erosive changes evident. Other findings:Small calcaneal spur IMPRESSION: No acute findings. Dictated by: Lobo Drummond MD 04/29/2021 14:22 Lobo Drummond MD in [place] 04/29/2021 14:22
== END ==
PROVIDERS: PCP Family Medicine; Visit Provider Podiatrist
DX: M79.672 Pain in left foot (principal); M79.671 Pain in right foot
CPT/HCPCS: 73630

== ENCOUNTER 2021-07-01 09:38 | Emergency (ER) | payer BC, SELFPAY ==
[2021-07-01 10:47] VITALS: BP 138/72; PULSE 73; RESP 18; TEMP 36.8; O2SAT 100; BMI 28.2
--- NOTE | 2021-07-01 11:30 | HMH.EDUTC ---
[facility] [place] Clinical Impression: Splinter, Felon of digit Disposition: Home, Self-Care Condition on Discharge: Good Instructions: DI for Splinter Removal, DI for Felon Additional Instructions: Follow up with your regular doctor. You should follow up even if your finger begins to feel better because fingers are very important and infection in a finger can make you very sick. Take ibuprofen for pain. I sent in a prescription for ibuprofen 800 mg. Take the anitbiotics as directed. Apply the topical antibiotic as directed. If your symptoms worsen, please return and go to the ER. They could give medication in your IV that would make removal of the splinter more tolerable for you. GO TO THE ER FOR ANY WORSENING SYMPTOMS OR CONCERNS Soak your finger in warm epsom salts water three times per day for at least 10 minutes each time. Elevate your finger as much times as possible to help reduce swelling. This will reduce the pain also. I encourage your to stay home from work and keep your finger elevated as much time as possible for the next couple of days to help decrease swelling and pain. Prescriptions: Sulfamethoxazole/Trimethoprim [Bactrim DS tablet] 1 each PO BID 10 Days #20 tab Transmission Status: Received by [facility] Mupirocin [Bactroban 2% Ointment 22gm tube] 1 applicatio TP TID 7 Days #1 gm Transmission Status: Received by [facility] cephALEXin [cephALEXin 500mg capsule] 500 mg PO Q6H 10 Days #40 cap Transmission Status: Received by [facility] Referrals: Kenneth Peterson MD [Primary Care Provider] - Forms: Work/School Release Time of Disposition: 13:09 Medical Decision Making - Medical Records Medical records reviewed: No: I reviewed the patient's medical records. - Alcon Inquiry Pt receiving controlled substance: No Vital Signs: 07/01/21 10:47 07/01/21 13:16 Temperature 98.2 F 98.2 F Temperature Source Oral Pulse Rate 73 Pulse Rate [Left] 73 Respiratory Rate 18 18 Blood Pressure 138/72 Blood Pressure [Right Arm] 138/72 Blood Pressure Mean [Right Arm] 94 02 Sat by Pulse Oximetry 100 Orders (Tests/Meds): ED MEDICATIONS Discontinued Medications Generic Name Dose Route Start Last Admin Trade Name Freq PRN Reason Stop Dose Admin Ceftriaxone Sodium 1 gm 07/01/21 12:58 Ceftriaxone 1gm Vial IM 07/01/21 12:59 ONCE ONE Lidocaine HCl 0 ml 07/01/21 11:39 07/01/21 11:40 Lidocaine 1% Pf 2ml Ampule SQ 07/01/21 11:40 2 mg ONCE ONE Administration Lidocaine HCl 0 ml 07/01/21 12:58 Lidocaine 1% 5ml Pf Vial IM 07/01/21 12:59 ONCE ONE Tetanus/Reduced Diphtheria/Acell Pertussis 0.5 ml 07/01/21 11:34 07/01/21 11:41 Tet/Diphth/Pert-Adult 0.5ml Syringe IM 07/01/21 11:35 0.5 ml .ONCE ONE Administration Medical Decision Narrative: She refused an x-ray of the finger to evaluate for foreign body. She refused to allow me to do a digital block on the finger. I tried a local injection of lidocaine. I was unable to get it numb enough this way to prevent her from hurting during the procedure. She requested for me to stop and prescribe antibiotics because of pain during the procedure. [facility] [place] - General Stated complaint: right pointer finger infected splinter Time Seen by Provider: 07/01/21 11:30 Mode of Arrival: Ambulatory Source of Information: Patient Limitations: No Limitations Description of Symptoms (Recalled from Triage Doc. by RN): pt states she got a splinter in her R index finger on 06/29. pt states she has gotten part of it out. pts finger is swollen and red. HEENT Symptoms (Recalled from RN notes): No Resp Symptoms (Recalled from RN notes): No Skin Symptoms (Recalled from RN notes): Yes (splinter in R index finger) MS Symptoms (Recalled from RN notes): No Functional Status (Recalled from RN notes): wnl - History of Present Illness Provider Complaint: She states that 3 days ago she was
[2021-07-01 13:16] VITALS: BP 138/72; PULSE 73; RESP 18; TEMP 36.8
== END 2021-07-01 13:33 | disposition home or self-care (01) ==
PROVIDERS: Emergency Provider Nurse Practitioner Family; PCP Family Medicine
DX: S60.450A Superficial foreign body of right index finger, initial encounter (principal); Z23 Encounter for immunization
CPT/HCPCS: 10120; 90471; 90715; 96372; 99203; G0463

== ENCOUNTER → 2021-07-29 12:56 | Outpatient (CLI) | payer BC, SELFPAY | PROVIDERS: Visit Provider Nurse Practitioner | DX: Z20.822 Contact with and (suspected) exposure to COVID-19 (principal) | CPT/HCPCS: C9803; U0003; U0005 ==

== ENCOUNTER 2021-07-31 09:04 | Emergency (ER) | payer BC, SELFPAY ==
[2021-07-31 09:28] VITALS: BP 116/83; PULSE 68; RESP 18; TEMP 37.1; O2SAT 100; BMI 32.2
--- NOTE | 2021-07-31 10:05 | HMH.EDUTC ---
[facility] [place] Disposition Clinical Impression: Close exposure to COVID-19 virus Disposition: Home, Self-Care Condition on Discharge: Good Instructions: DI for COVID-19 (Suspected or Confirmed ) Additional Instructions: covid swab was sent to lab, call tomorrow for results. self isolate until test results are known to be negative No sign of a bacterial infection. Likely viral. Viruses can take 7-14 days to run their course. Nasal saline and bulb syringe or nose Yany to remove nasal drainage to help with nasal congestion. Hard to eat, drink, sleep with nasal congestion so important to keep this cleaned out. Monitor temp. Tylenol or Motrin as needed for pain or fever Encourage fluids, water, Gatorade, Powerade, Pedialyte if /toddler/child Warm salt water gargles Warm fluids Sore throat lozenges Sleep elevated Humidifier/vaporizer Follow-up immediately for new or worsening symptoms or no noticeable improvement over the next 48-72 hours. Referrals: Kenneth Peterson MD [Primary Care Provider] - Time of Disposition: 10:09 Medical Decision Making - Alcon Inquiry Pt receiving controlled substance: No Vital Signs: 07/31/21 09:28 Temperature 98.8 F Temperature Source Oral Pulse Rate [Left] 68 Respiratory Rate 18 Blood Pressure [Right Arm] 116/83 Blood Pressure Mean [Right Arm] 94 02 Sat by Pulse Oximetry 100 Orders (Tests/Meds): ORDERS Category Date Time Status Covid-19 Nasal PCR ([facility]) Routine Lab 07/31/21 09:30 Received [facility] [place] HPI - General Chief complaint: Urgent [facility] Stated complaint: body aches, chills, congestion, h/a Time Seen by Provider: 07/31/21 10:06 Mode of Arrival: Ambulatory Source of Information: Patient Limitations: No Limitations Description of Symptoms (Recalled from Triage Doc. by RN): pt c/o myalgia, chills, congestion and GARCIA. son is positive for covid. HEENT Symptoms (Recalled from RN notes): Yes (GARCIA and congestion) Resp Symptoms (Recalled from RN notes): No Skin Symptoms (Recalled from RN notes): No MS Symptoms (Recalled from RN notes): No Functional Status (Recalled from RN notes): wnl - Related Data Home Medications Medication Instructions Recorded Confirmed estradiol 2 mg tablet See Rx Instructions PO .COMPLEX 90 10/09/17 07/13/20 Days #90 Levothyroxine Sodium [Synthroid 50 mcg PO DAILY 06/15/20 07/13/20 50mcg (0.05mg) tab] Mupirocin Calcium [Mupirocin 2% 1 applicatio TP BID 06/15/20 07/13/20 Cream 15gm] cephALEXin [Keflex 500mg Cap] 500 mg PO Q6H 06/15/20 06/22/20 Previous Rx's Medication Instructions Recorded Mupirocin [Bactroban 2% Ointment 1 applicatio TP TID 7 Days #1 gm 07/01/21 22gm tube] Sulfamethoxazole/Trimethoprim 1 each PO BID 10 Days #20 tab 07/01/21 [Bactrim DS tablet] cephALEXin [cephALEXin 500mg 500 mg PO Q6H 10 Days #40 cap 07/01/21 capsule] Allergies Allergy/AdvReac Type Severity Reaction Status Date / Time No Known Allergies Allergy Verified 06/22/20 11:18 - Worker's Comp Is this a Worker's Comp case?: No [facility] History - Hepatitis A Screen Drug use history?: No High risk sexual behaviors?: No History of sexually transmitted infection?: No Currently employed?: No Childcare worker?: No Do you have indoor plumbing?: Yes Do you have electricity?: Yes Attestation statement:: This patient has been screened for Hepatitis A risk factors. I have reviewed the patient's past medical history: Yes Medical History: Reports:: Anxiety, Depression Denies:: Cancer, Diabetes Mellitus Type 1, Diabetes Mellitus Type 2, Hypertension, Internal Pacemaker, MRSA, Seizures Other Medical History: Reports: Thyroid Disease. Denies: Blood Transfusion Reaction Other Surgeries: Yes: , Hysterectomy-Total, Other. No: Pacemaker Amputation: No Fractures: No Comment: I & D thigh - Social History Smoking Status: Current every day smoker Tobacco Type: cigarettes # Packs/Day (cigarettes): 1 Alcohol Int
[2021-07-31 10:25] VITALS: BP 116/83; PULSE 68; RESP 18; TEMP 37.1
== END 2021-07-31 10:26 | disposition home or self-care (01) ==
PROVIDERS: Emergency Provider Nurse Practitioner Family; PCP Family Medicine
DX: Z20.822 Contact with and (suspected) exposure to COVID-19 (principal); R51.9 Headache, unspecified; F41.8 Other specified anxiety disorders; F17.210 Nicotine dependence, cigarettes, uncomplicated
CPT/HCPCS: 99202; C9803; G0463; U0003; U0005

== ENCOUNTER 2022-01-01 17:17 | Emergency (ER) | payer BC, SELFPAY ==
[2022-01-01 17:30] VITALS: BP 129/88; PULSE 104; RESP 22; TEMP 37; O2SAT 99; BMI 30.8
[2022-01-01 17:43] LABS: Coronavirus 19, PCR Not Detected (NotDetected); Influenza A, PCR Not Detected (NotDetected); Influenza B, PCR Not Detected (NotDetected)
--- NOTE | 2022-01-01 18:05 | HMH.EDUTC ---
[facility] [place] Clinical Impression: Strep sore throat Disposition: Home, Self-Care Condition on Discharge: Good Instructions: DI for Strep Throat Additional Instructions: Start antibiotics today be sure to take it as ordered with the full length of time although you should start feeling better in 24-48 hours. Change toothbrush and toothpaste 24-48 hours after starting antibiotics Tylenol or Motrin as needed for fever or pain Encourage fluids, water, Gatorade, Powerade, try cold fluids, popsicles, ice cream will make it feel better You are contagious for 24 hours. Avoid kissing anyone, no eating or drinking after anyone. You are contagious. Follow-up the ER for new or worsening symptoms or no noticeable improvement over the next 24-48 hours. Follow-up with PCP this week. Prescriptions: Azithromycin [Zithromax 250mg tab] 250 mg PO DIRECTED #4 tab Transmission Status: Pending to [facility] Referrals: Guerline Guthrie MD [Primary Care Provider] - Time of Disposition: 19:04 Medical Decision Making - Alcon Inquiry Pt receiving controlled substance: No Vital Signs: 01/01/22 17:30 01/01/22 18:50 Temperature 98.6 F 98.6 F Temperature Source Oral Pulse Rate 104 H Pulse Rate [Right Brachial] 104 H Respiratory Rate 22 22 Blood Pressure 129/88 Blood Pressure [Right Arm] 129/88 Blood Pressure Mean [Right Arm] 101 Blood Pressure Source [Right Arm] Automatic Cuff Blood Pressure Position [Right Arm] Sitting 02 Sat by Pulse Oximetry 99 Oxygen Delivery Method Room Air - Lab Data Lab Results 01/01/22 17:35: SARS-CoV-2 (PCR) Not detected, Influenza A Untype (PCR) Not detected, Influenza Type B (PCR) Not detected 01/01/22 18:20: Group A Strep Rapid Negative Orders (Tests/Meds): ORDERS Category Date Time Status Strep Screen Confirmation Stat Micro 01/01/22 18:20 Received [facility] [place] HPI - General Chief complaint: Urgent [facility] Stated complaint: body aches, chills Time Seen by Provider: 01/01/22 18:05 Mode of Arrival: Ambulatory Source of Information: Patient Limitations: No Limitations Description of Symptoms (Recalled from Triage Doc. by RN): PATIENT C/O BODY ACHES, CHILLS, AND HEADACHE SINCE THIS MORNING HEENT Symptoms (Recalled from RN notes): Yes Resp Symptoms (Recalled from RN notes): No Skin Symptoms (Recalled from RN notes): No MS Symptoms (Recalled from RN notes): No Functional Status (Recalled from RN notes): WNL - History of Present Illness Provider Complaint: 41 yr old female presents for body aches, fever,chills and lugo that started this am - Related Data Home Medications Medication Instructions Recorded Confirmed estradiol 2 mg tablet See Rx Instructions PO .COMPLEX 90 10/09/17 07/13/20 Days #90 Levothyroxine Sodium [Synthroid 50 mcg PO DAILY 06/15/20 07/13/20 50mcg (0.05mg) tab] Mupirocin Calcium [Mupirocin 2% 1 applicatio TP BID 06/15/20 07/13/20 Cream 15gm] cephALEXin [Keflex 500mg Cap] 500 mg PO Q6H 06/15/20 06/22/20 Previous Rx's Medication Instructions Recorded Mupirocin [Bactroban 2% Ointment 1 applicatio TP TID 7 Days #1 gm 07/01/21 22gm tube] Sulfamethoxazole/Trimethoprim 1 each PO BID 10 Days #20 tab 07/01/21 [Bactrim DS tablet] cephALEXin [cephALEXin 500mg 500 mg PO Q6H 10 Days #40 cap 07/01/21 capsule] Azithromycin [Zithromax 250mg 250 mg PO DIRECTED #4 tab 01/01/22 tab] Allergies Allergy/AdvReac Type Severity Reaction Status Date / Time No Known Allergies Allergy Verified 06/22/20 11:18 - Worker's Comp Is this a Worker's Comp case?: No [facility] History - Hepatitis A Screen Attestation statement:: This patient has been screened for Hepatitis A risk factors. I have reviewed the patient's past medical history: Yes Medical History: Reports:: Anxiety, Depression Denies:: Cancer, Diabetes Mellitus Type 1, Diabetes Mellitus Type 2, Hypertension, Internal Pacemaker, MRSA, Seizures O
[2022-01-01 18:50] VITALS: BP 129/88; PULSE 104; RESP 22; TEMP 37; O2SAT 99
[2022-01-01 18:56] LABS: Strep Scrn Group A (Rapid) Negative (Negative)
== END 2022-01-01 19:14 | disposition home or self-care (01) ==
PROVIDERS: Emergency Provider Nurse Practitioner Family; PCP Family Medicine
DX: J02.9 Acute pharyngitis, unspecified (principal); R51.9 Headache, unspecified; R50.9 Fever, unspecified; M79.10 Myalgia, unspecified site; F17.210 Nicotine dependence, cigarettes, uncomplicated
CPT/HCPCS: 87430; 99212; C9803; G0463; U0003; U0005

== ENCOUNTER 2022-05-15 18:58 | Emergency (ER) | payer BC, SELFPAY ==
--- NOTE | 2022-05-15 19:08 | CT_ITS ---
PROCEDURE INFORMATION: Exam: CT Abdomen And Pelvis Without Contrast Exam date and time: 05/15/2022 8:26 PM Age: 41 years old Clinical indication: Abdominal pain; Flank; Left; Prior surgery; Surgery date: 6+ months; Surgery type: Choleycystectomy, appendectomy, hysterectomy, c-sections. ; Additional info: Concern for nephrolitiasis TECHNIQUE: Imaging protocol: Computed tomography of the abdomen and pelvis without contrast. Radiation optimization: All CT scans at this facility use at least one of these dose optimization techniques: automated exposure control; mA and/or kV adjustment per patient size (includes targeted exams where dose is matched to clinical indication); or iterative reconstruction. COMPARISON: [facility] CT abdomen pelvis wo con 08/25/2017 11:37 AM FINDINGS: Liver: Normal. No mass. Gallbladder and bile ducts: Gallbladder is absent. Pancreas: Normal. No ductal dilation. Spleen: Normal. No splenomegaly. Adrenal glands: Normal. No mass. Kidneys and ureters: Left hydronephrosis secondary to a 2 mm calculus at the UVJ. Nonobstructing bilateral nephrolithiasis. Stomach and bowel: Unremarkable. No obstruction. No mucosal thickening. Appendix: No evidence of appendicitis. Intraperitoneal space: Unremarkable. No free air. No significant fluid collection. Vasculature: Unremarkable. No abdominal aortic aneurysm. Lymph nodes: Unremarkable. No enlarged lymph nodes. Urinary bladder: Unremarkable as visualized. Reproductive: Status post hysterectomy. Bones/joints: Pectus deformity is noted. Soft tissues: Tiny fat containing umbilical hernia. There is a healed anterior abdominal wall incision. Other findings: Stigmata of old granulomatous disease. IMPRESSION: 1. Left hydronephrosis secondary to a 2 mm calculus at the UVJ. 2. Nonobstructing bilateral nephrolithiasis.
--- NOTE | 2022-05-15 19:20 | HMH.EDGENADL ---
Discharge Plan Disposition Patient Disposition: Home, Self-Care Condition: Good Prescriptions Prescriptions: New tamsulosin [Flomax] 0.4 mg capsule 0.4 mg PO Q24H Qty: 14 0RF ketorolac 10 mg tablet 10 mg PO Q8H PRN (Reason: pain) 5 Days Qty: 20 0RF Referrals Follow up/Referrals: Falguni Colin APRN [Primary Care Provider] - See instructions Clinical Impressions Clinical Impression: Nephrolithiasis Instructions Patient Instructions: DI for Kidney Stones Discharge ED Provider: Hayder Hill General Adult HPI General Chief complaint: Abdominal Pain Stated complaint: adm pain left side Time Seen by Provider: 05/15/22 19:00 History of Present Illness HPI narrative: Patient is a 41-year-old female who presents with left-sided back and abdominal pain. She says that she got acute onset of left-sided flank pain that radiates around her abdomen into her groin. She says that it feels exactly like her previous episodes of kidney stones and that she almost feels like the stone is moving. She rates the pain as a 10/10. She has noted some dysuria. Denies any hematuria. She feels nauseous but has not vomited. Denies any diarrhea or constipation. Related Data Previous Rx's Medication Instructions Recorded ketorolac 10 mg tablet 10 mg PO Q8H PRN pain 5 days #20 05/15/22 tabs tamsulosin 0.4 mg capsule (Flomax) 0.4 mg PO Q24H #14 caps 05/15/22 Allergies Allergy/AdvReac Type Severity Reaction Status Date / Time No Known Allergies Allergy Verified 06/22/20 11:18 PFSH PFSH Social History Smoking Status: Current every day smoker tobacco type: cigarettes packs per day: 1 alcohol intake: never substance use type: denies use current occupational status: other Travel in the last 8 weeks: None household members: spouse and children housing: house current occupation: [employer] caffeine: Yes ROS Obtained: Yes All systems reviewed & no additional complaints except as documented A 14 point review of system was performed and otherwise negative except per HPI Physical Exam General General appearance: alert and in no apparent distress Comment: Appears in significant pain in bed Head Head exam: atraumatic, normocephalic and normal inspection Eye Eye exam: Present normal appearance, PERRL and EOMI ENT ENT exam: Present normal exam, normal oropharynx, mucous membranes moist, TM's normal bilaterally and normal external ear exam Neck Neck exam: Present normal inspection, full ROM and trachea midline; Absent meningismus or lymphadenopathy Chest Chest inspection: Present normal inspection and symmetric chest wall rise; Absent tenderness Respiratory Respiratory exam: Present normal lung sounds bilaterally; Absent respiratory distress Cardiovascular Cardiovascular exam: Present regular rate and normal rhythm; Absent JVD Abdominal Exam Abdominal exam: Present soft and normal bowel sounds; Absent distention, tenderness or guarding Extremities Exam Extremities exam: Present normal inspection, full ROM and normal capillary refill; Absent calf tenderness Back Exam Back exam: Present normal inspection and CVA tenderness (L); Absent tenderness or CVA tenderness (R) Neurological Exam Neurological exam: Present alert and oriented X3 Psychiatric Psychiatric exam: Present normal affect and normal mood Skin Skin exam: Present warm, dry, intact and normal color Lymphatic Lymphatic Findings: no adenopathy Medical Decision Making Medical Records Medical records reviewed: Yes I reviewed the patient's medical records. [place] Inquiry Pt receiving controlled substance: No Vital Signs: 05/15/22 19:31 Temperature 98 F Temperature Source Oral Pulse Rate [Apical] 64 Respiratory Rate 18 Blood Pressure [Right Arm] 146/66 H Blood Pressure Mean [Right Arm] 92 Blood Pressure Source [Right Arm] Automatic Cuff Blood Pressure Position [Right Arm] Sitting 02 Sat by Pulse Oximetry 98 Oxygen Delivery
[2022-05-15 19:31] VITALS: BP 146/66; PULSE 64; RESP 18; TEMP 36.6; O2SAT 98; BMI 26.6
[2022-05-15 19:39] LABS: Basophils # 0.1 K/mm3 (0-0.2); Basophils % 1.1 % (0.1-2.0); Eosinophils # 0.1 K/mm3 (0.0-0.4); Eosinophils % 1.1 % (0.1-12.0); Hematocrit 47.6 % (37.0-47.0); Hemoglobin 15.4 g/dL (12.2-16.2); Lymphocytes # 3.5 K/mm3 (0.7-4.5); Lymphocytes % 30.1 % (10-50); Mean Corpuscular HGB Conc 32.4 g/dL (31.8-35.4); Mean Corpuscular Hemoglobin 29.4 pg (27.0-31.2); Mean Corpuscular Volume 90.8 fl (81-99); Mean Platelet Volume 8.6 fl (7.4-10.4); Monocytes # 0.5 K/mm3 (0.1-1.0); Monocytes % 4.1 % (1.7-9.3); Neutrophils # 7.5 K/mm3 (1.8-7.8); Neutrophils % 63.7 % (37.0-80.0); Platelet Count 257 K/mm3 (142-424); Red Blood Count 5.25 M/mm3 (4.20-5.40); Red Cell Distribution Width 13.2 % (11.5-17.5); White Blood Count 11.8 K/mm3 (4.8-10.8)
[2022-05-15 19:45] LABS: Alanine Aminotransferase 30 U/L (12-78); Albumin Level 4.4 g/dl (3.5-5.0); Albumin/Globulin Ratio 1.5 (1.1-1.8); Alkaline Phosphatase 160 U/L (38-126); Aspartate Amino Transferase 40 U/L (14-36); Bilirubin,Total 0.3 mg/dl (0.2-1.3); Blood Urea Nitrogen 9 mg/dl (7-17); Calcium 9.6 mg/dl (8.4-10.2); Carbon Dioxide 25 mmol/L (22.0-30.0); Chloride 105 mmol/L (98-107); Creatinine Clearance Estimated 131 mL/min (50-200); Estimated Glomerular Filt Rate 93 ml/min (>60); GFR (African American) 113 ML/MIN (>60); Glucose 107 mg/dl (74-100); Sodium 141 mmol/L (136-145); Total Protein,Serum 7.4 g/dl (6.3-8.2)
[2022-05-15 20:05] LABS: Microscopic, Urine URINE MICROSCOPIC (MICROSCOPIC)
[2022-05-15 20:11] LABS: Appearance,Urine CLEAR (Clear); Bilirubin,Urine Negative (Negative); Blood, Urine 1+ (Negative); Color,Urine YELLOW (Yellow); Glucose,Urine (UA) Negative (Negative); Ketones,Urine Negative (Negative); Leukocyte Esterase,Urine Negative (Negative); Nitrate,Urine Negative (Negative); Protein,Urine Negative (Negative); Specific Gravity, Urine 1.025 (1.005-1.030)
--- NOTE | 2022-05-15 20:22 | PC.NURSE ---
Dr. Hill at [facility]
[2022-05-15 20:33] LABS: WBC,Urine Occasional #/hpf (0-3)
[2022-05-15 20:34] LABS: Bacteria,Urine 2+ /lpf
[2022-05-15 20:57] VITALS: BP 142/65; PULSE 62; RESP 18; TEMP 36.6; O2SAT 99
--- NOTE | 2022-05-15 21:01 | PC.NURSE ---
Rechecked pt condition. No needs or complaints at this time.
[2022-05-15 23:43] LABS: C-Reactive Protein < 0.2 mg/L (0-4)
== END 2022-05-15 21:02 | disposition home or self-care (01) ==
PROVIDERS: Emergency Provider Student in an Organized Health Care Education/Training Program; PCP Nurse Practitioner Family
DX: N13.2 Hydronephrosis with renal and ureteral calculous obstruction (principal); R11.0 Nausea; R51.9 Headache, unspecified; F17.210 Nicotine dependence, cigarettes, uncomplicated; Z79.899 Other long term (current) drug therapy
CPT/HCPCS: 74176; 80053; 81001; 85025; 86140; 87086; 99285; J2405

== ENCOUNTER 2023-06-11 10:42 | Emergency (ER) | payer BC, SELFPAY ==
[2023-06-11 11:30] VITALS: BP 131/89; PULSE 74; RESP 18; TEMP 37; O2SAT 99; BMI 31.3
--- NOTE | 2023-06-11 11:32 | EXP.UTC ---
Discharge Plan Disposition Patient Disposition: Home, Self-Care Condition: Good Prescriptions Prescriptions: New fluconazole 150 mg tablet 150 mg PO ONCE Qty: 2 0RF Referrals Follow up/Referrals: Guerline Guthrie MD [Primary Care Provider] - See instructions Activity Restrictions/Add. Instructions Additional Instructions/Restrictions: Drink plenty of fluids. Take tylenol or ibuprofen for pain or fever. Take the medications as directed. Follow up with your regular doctor. GO TO THE ER FOR ANY WORSENING SYMPTOMS Clinical Impressions Clinical Impression: Vagina, candidiasis Instructions Patient Instructions: DI for Vaginal Yeast Infection, Fluconazole Discharge ED Provider: Geovanni Barrios [facility] HPI General Stated complaint: burning sensation and pressure. when urinating Time Seen by Provider: 06/11/23 11:32 History of Present Illness Provider Complaint: She states that for the past 2 days she has had redness and irritation in her perineal area. Related Data Previous Rx's Medication Instructions Recorded fluconazole 150 mg tablet 150 mg PO ONCE 2 doses #2 tabs 06/11/23 Allergies Allergy/AdvReac Type Severity Reaction Status Date / Time No Known Allergies Allergy Verified 06/11/23 11:44 [facility] Disclaimer: The information contained in this section may have been updated after the patient was seen, as this information can be updated by other users. Medical History Abscess of right thigh Atypical chest pain Cellulitis and abscess of right leg Dyspareunia Felon of digit History of endometriosis Lateral epicondylitis of elbow Nephrolithiasis Overweight (BMI 25.0-29.9) Stress incontinence in female Tobacco user Surgical History History of hysterectomy with bilateral oophorectomy Social History Smoking Status: Current every day smoker tobacco type: cigarettes packs per day: 1 alcohol intake: never substance use type: denies use current occupational status: other Travel in the last 8 weeks: None household members: spouse and children housing: house 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 ROS Obtained: Yes All systems reviewed & no additional complaints except as documented Constitutional Constitutional: Reports system reviewed and no additional complaints, except as documented, Denies chills and Denies fever(s) Eyes Eyes: Denies eye discharge ENT Ears, Nose, Mouth, and Throat: Denies dysphagia, Denies sore throat and Denies throat swelling Cardiovascular Cardiovascular: Denies chest pain and Denies dyspnea Respiratory Respiratory: Denies chest congestion, Denies cough and Denies dyspnea Gastrointestinal Gastrointestingal: Denies abdominal pain, constipation, diarrhea, dysphagia, nausea or vomiting Genitourinary Female Genitourinary: Reports as per HPI, Reports dysuria, Denies urinary frequency, Denies urinary incontinence, Reports urinary hesitancy and Denies urinary urgency Musculoskeletal Musculoskeletal: Denies arthralgias and Reports back pain Integumentary/Breasts Skin/Breast: Denies rash Neurologic Neurologic: Denies paresthesias Allergic/Immunologic Allergic/Immunologic: Denies throat swelling Physical Exam General General appearance: alert and in no apparent distress Head Head exam: atraumatic, normocephalic and normal inspection Eye Eye exam: Present normal appearance, PERRL and EOMI ENT ENT exam: Present normal exam, normal oropharynx, mucous membranes moist, TM's normal bilaterally and normal external ear exam Neck Neck exam: Present normal inspection, full ROM and trachea midline; Absent meningismus or lymphadenopathy Chest Chest inspection: Present normal inspection and symmetric chest wall rise; Absent tenderness Respiratory Respiratory exam: Present normal lung sounds bilaterally; Absent respiratory distress Cardiovascular Cardio
[2023-06-11 12:10] LABS: Apearance,Urine Cloudy (Clear); Bilirubin,Urine Negative (Negative); Blood, Urine 1+ (Negative); Color,Urine Dark Yellow (Yellow); Glucose,Urine (UA) Negative (Negative); Ketones,Urine Negative (Negative); PH,Urine 5.5 (5.0-8.5); Protein,Urine Negative (Negative); UTC Leukocyte Esterase,Urine Negative (Negative); UTC Nitrate,Urine Negative (Negative); Urobilinogen,Urine 0.2 EU/dl (0.2)
[2023-06-11 12:18] VITALS: BP 131/89; PULSE 74; RESP 18; TEMP 37; O2SAT 99
== END 2023-06-11 12:18 | disposition home or self-care (01) ==
PROVIDERS: Emergency Provider Nurse Practitioner Family; PCP Family Medicine
DX: B37.31 Acute candidiasis of vulva and vagina (principal); R30.0 Dysuria; F17.210 Nicotine dependence, cigarettes, uncomplicated
CPT/HCPCS: 81003; 87086; 99212; 99214; G0463

== ENCOUNTER 2023-06-11 21:35 | Emergency (ER) | payer BC, SELFPAY ==
[2023-06-11 21:36] VITALS: BP 143/106; PULSE 79; RESP 19; TEMP 36.2; O2SAT 97; BMI 31.3
[2023-06-11 21:43] VITALS: BP 143/106; PULSE 78; O2SAT 97
--- NOTE | 2023-06-11 22:18 | CT_ITS ---
PROCEDURE INFORMATION: Exam: CT Abdomen And Pelvis Without Contrast Exam date and time: 06/11/2023 10:35 PM Age: 42 years old Clinical indication: Abdominal pain; Flank; Left; Additional info: Left flank pain TECHNIQUE: Imaging protocol: Computed tomography of the abdomen and pelvis without contrast. Radiation optimization: All CT scans at this facility use at least one of these dose optimization techniques: automated exposure control; mA and/or kV adjustment per patient size (includes targeted exams where dose is matched to clinical indication); or iterative reconstruction. REPORTING DATA: Count of CT and Cardiac NM exams in prior 12 months: This patient has received 0 known CTs and 0 known cardiac nuclear medicine studies in the 12 months prior to the current study. COMPARISON: CT ABDOMEN PELVIS WO CON 05/15/2022 8:26 PM FINDINGS: Liver: Normal. No mass. Gallbladder and bile ducts: Cholecystectomy. Pancreas: Normal. No ductal dilation. Spleen: Normal. No splenomegaly. Adrenal glands: Normal. No mass. Kidneys and ureters: There is 3 mm obstructing stone in the proximal left ureter seen on image 40, series 3 and on image 33, series 1001. There is mild left-sided hydroureteronephrosis. Additional 3 mm stone in the distal left ureter. Stomach and bowel: Unremarkable. No obstruction. No mucosal thickening. Appendix: No evidence of appendicitis. Intraperitoneal space: Unremarkable. No free air. No significant fluid collection. Vasculature: Unremarkable. No abdominal aortic aneurysm. Lymph nodes: Unremarkable. No enlarged lymph nodes. Urinary bladder: Unremarkable as visualized. Reproductive: Hysterectomy. Bones/joints: Pectus excavatum. Soft tissues: Unremarkable. IMPRESSION: 1. Two left-sided ureteral stones. The upper stone results in mild left-sided hydroureteronephrosis. 2. Pectus excavatum. 3. Bilateral nephrolithiasis.
--- NOTE | 2023-06-11 22:20 | HMH.EDGENADL ---
Discharge Plan Disposition Patient Disposition: Home, Self-Care Prescriptions Prescriptions: New ibuprofen 800 mg tablet 800 mg PO TID PRN (Reason: pain) 7 Days Qty: 20 0RF hydrocodone-acetaminophen 5-325 mg tablet 1 tab PO Q6H PRN (Reason: pain) 3 Days Qty: 12 0RF tamsulosin [Flomax] 0.4 mg capsule 0.4 mg PO DAILY 7 Days Qty: 7 0RF ondansetron 4 mg tablet,disintegrating 4 mg PO Q6H PRN (Reason: nausea and vomiting) 5 Days Qty: 20 0RF No Action fluconazole 150 mg tablet 150 mg PO ONCE Qty: 2 0RF Referrals Follow up/Referrals: Guerline Guthrie MD [Primary Care Provider] - See instructions Rickie Sahu MD [Staff Physician] - See instructions (Kidney stones) Clinical Impressions Clinical Impression: Hydronephrosis concurrent with and due to calculi of kidney and ureter Instructions Patient Instructions: DI for Low Back Pain, DI for Kidney Stones Discharge ED Provider: Yamilka Parsons General Adult HPI <Yamilka Parsons MD - Last Filed: 06/11/23 23:00> General Chief complaint: Back Pain/Injury Stated complaint: back pain Time Seen by Provider: 06/11/23 22:12 Mode of Arrival: Ambulatory Source of Information: Patient Limitations: No Limitations Description of Symptoms (Recalled from ER Triage Doc. by RN): Patient reports bladder pressure x 3 days. Went to [facility] today for concerns of yeast infection. Patient states approximately 8pm began having sharp left, lower back pain and nausea without emesis. Patient also reports urinary frequency without much volume. History of Present Illness HPI narrative: Patient is a 42-year-old female with a known history of kidney stones has had multiple in the past including ones that required lithotripsy presents today with left flank pain. States she has had some urinary pressure over the last several days but the pain started today has intermittent and severe on the left side radiating to her left groin. States this feels very similar to a kidney stone. She denies any fevers or chills or any urinary symptoms. Denies any other symptoms. Related Data Previous Rx's Medication Instructions Recorded fluconazole 150 mg tablet 150 mg PO ONCE 2 doses #2 tabs 06/11/23 hydrocodone 5 mg-acetaminophen 325 1 tab PO Q6H PRN pain 3 days #12 06/11/23 mg tablet tabs ibuprofen 800 mg tablet 800 mg PO TID PRN pain 7 days #20 06/11/23 tabs ondansetron 4 mg disintegrating 4 mg PO Q6H PRN nausea and 06/11/23 tablet vomiting 5 days #20 tabs tamsulosin 0.4 mg capsule (Flomax) 0.4 mg PO DAILY 7 days #7 caps 06/11/23 Allergies Allergy/AdvReac Type Severity Reaction Status Date / Time No Known Allergies Allergy Verified 06/11/23 11:44 PFS <Yamilka Parsons MD - Last Filed: 06/11/23 23:00> [facility] Disclaimer: The information contained in this section may have been updated after the patient was seen, as this information can be updated by other users. Medical History Abscess of right thigh Atypical chest pain Cellulitis and abscess of right leg Dyspareunia Felon of digit History of endometriosis Lateral epicondylitis of elbow Nephrolithiasis Overweight (BMI 25.0-29.9) Stress incontinence in female Tobacco user Surgical History History of hysterectomy with bilateral oophorectomy Social History Smoking Status: Current every day smoker tobacco type: cigarettes packs per day: 1 alcohol intake: never substance use type: denies use current occupational status: other Travel in the last 8 weeks: None household members: spouse and children housing: house 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 <Yamilka Parsons MD - Last Filed: 06/11/23 23:00> ROS Obtained: Yes All systems reviewed & no additional complaints except as documented Physical Exam <Yamilka Parsons MD - Last Filed: 06/11/23 23:00> General General appearance: in distress (In pain) Res
[2023-06-11 22:23] LABS: Microscopic, Urine URINE MICROSCOPIC (MICROSCOPIC)
[2023-06-11 22:27] LABS: Basophils # 0.1 K/mm3 (0-0.2); Basophils % 0.8 % (0.1-2.0); Eosinophils # 0.2 K/mm3 (0.0-0.4); Eosinophils % 2.2 % (0.1-12.0); Hematocrit 47.2 % (37.0-47.0); Hemoglobin 15.8 g/dL (12.2-16.2); Lymphocytes # 4.4 K/mm3 (0.7-4.5); Lymphocytes % 39.7 % (10-50); Mean Corpuscular HGB Conc 33.4 g/dL (31.8-35.4); Mean Corpuscular Hemoglobin 30.2 pg (27.0-31.2); Mean Corpuscular Volume 90.5 fl (81-99); Mean Platelet Volume 8.6 fl (7.4-10.4); Monocytes # 0.6 K/mm3 (0.1-1.0); Monocytes % 5.8 % (1.7-9.3); Neutrophils # 5.7 K/mm3 (1.8-7.8); Neutrophils % 51.5 % (37.0-80.0); Platelet Count 209 K/mm3 (142-424); Red Blood Count 5.21 M/mm3 (4.20-5.40); Red Cell Distribution Width 13.5 % (11.5-17.5)
[2023-06-11 22:29] LABS: Chloride 103 mmol/L (98-107); Potassium 3.8 mmoL/L (3.5-5.1); Sodium 138 mmol/L (136-145)
[2023-06-11 22:29] LABS: Appearance,Urine CLEAR (Clear); Bilirubin,Urine Negative (Negative); Blood, Urine 3+ (Negative); Color,Urine YELLOW (Yellow); Glucose,Urine (UA) Negative (Negative); Ketones,Urine Negative (Negative); Leukocyte Esterase,Urine 1+ (Negative); Nitrate,Urine Negative (Negative); Protein,Urine Negative (Negative); Specific Gravity, Urine 1.025 (1.005-1.030); Urobilinogen,Urine 0.2 EU/dl (0.2)
[2023-06-11 22:32] LABS: Alanine Aminotransferase 47 U/L (12-78); Albumin Level 4.5 g/dl (3.5-5.0); Albumin/Globulin Ratio 1.4 (1.1-1.8); Alkaline Phosphatase 95 U/L (38-126); Anion Gap 11.8 mEq/L (5-15); Aspartate Amino Transferase 46 U/L (14-36); Bilirubin,Total 0.4 mg/dl (0.2-1.3); Blood Urea Nitrogen 21 mg/dl (7-17); Carbon Dioxide 27 mmol/L (22.0-30.0); Creatinine Clearance Estimated 134 mL/min (50-200); Estimated Glomerular Filt Rate 79 ml/min (>60); GFR (African American) 96 ML/MIN (>60); Globulin 3.3 g/dL (1.3-3.2); Total Protein,Serum 7.8 g/dl (6.3-8.2)
[2023-06-11 22:33] LABS: Calcium 9.3 mg/dl (8.4-10.2); Glucose 104 mg/dl (74-100)
[2023-06-11 22:44] LABS: Bacteria,Urine Trace /lpf; Calcium Oxalate Crystals,Urine 1+ /lpf; RBC,Urine 20-50 #/hpf (0-3); WBC,Urine Occasional #/hpf (0-3)
[2023-06-11 23:53] VITALS: BP 140/95; PULSE 72; RESP 15; TEMP 36.8; O2SAT 96
== END 2023-06-11 23:57 | disposition home or self-care (01) ==
PROVIDERS: Emergency Provider Student in an Organized Health Care Education/Training Program; PCP Family Medicine
DX: N13.2 Hydronephrosis with renal and ureteral calculous obstruction (principal); M54.50 Low back pain, unspecified; R11.0 Nausea; F17.210 Nicotine dependence, cigarettes, uncomplicated
CPT/HCPCS: 74176; 80053; 81001; 85025; 96361; 96374; 96375; 99285; J2405

== ENCOUNTER → 2023-06-20 14:01 | Outpatient (CLI) | payer BC, SELFPAY ==
--- NOTE | 2023-06-20 14:05 | CT_ITS ---
FINAL REPORT TECHNIQUE: Axial images through the abdomen and pelvis were performed without contrast. This study was performed with techniques to keep radiation doses as low as reasonably achievable, (ALARA). Individualized dose reduction techniques using automated exposure control or adjustment of mA and/or kV according to the patient's size were employed. CLINICAL HISTORY: DYSURIA,KIDNEY STONES COMPARISON: 06/11/2023 FINDINGS: Abdomen: The lung bases are clear. The liver parenchyma is homogeneous. The gallbladder is absent. The spleen, pancreas, and adrenals are unremarkable. There are small bilateral nonobstructing kidney stones. There appears to be 2 small minimally obstructing distal left ureteral stones, largest measures 5 mm. Findings are well seen on image 45 of series 601 and image 66 of series 602. Previously, 1 stone was seen at this location. There is minimal left hydronephrosis. Pelvis: The urinary bladder is unremarkable. The appendix is not visualized. There is no pelvic mass or inflammation. IMPRESSION: Bilateral nonobstructing renal stones. Minimal left hydronephrosis secondary to distal left ureteral stones. Reviewed, Interpreted and Dictated by Pawan Molina MD Transcribed by Annika Demarco Authenticated and [facility]
== END ==
LOC: RAD 14:02
PROVIDERS: PCP Family Medicine; Visit Provider Nurse Practitioner
DX: N20.0 Calculus of kidney (principal); R30.0 Dysuria
CPT/HCPCS: 74176

== ENCOUNTER 2023-07-01 23:47 | Emergency (ER) | payer BC, SELFPAY ==
--- NOTE | 2023-07-01 23:54 | PC.NURSE ---
in room talking with patient at this time.
[2023-07-01 23:56] VITALS: BP 137/107; PULSE 71; RESP 20; TEMP 36.6; O2SAT 99; BMI 30.7
--- NOTE | 2023-07-02 00:01 | CT_ITS ---
PROCEDURE INFORMATION: Exam: CT Abdomen And Pelvis With Contrast Exam date and time: 07/02/2023 12:11 AM Age: 42 years old Clinical indication: Abdominal pain; Additional info: Severe L pain, recent lithotripsy/stent removal TECHNIQUE: Imaging protocol: Computed tomography of the abdomen and pelvis with contrast. Radiation optimization: All CT scans at this facility use at least one of these dose optimization techniques: automated exposure control; mA and/or kV adjustment per patient size (includes targeted exams where dose is matched to clinical indication); or iterative reconstruction. Contrast material: ISOVUE; Contrast volume: 75 ml; Contrast route: IV; REPORTING DATA: Count of CT and Cardiac NM exams in prior 12 months: This patient has received 2 known CTs and 0 known cardiac nuclear medicine studies in the 12 months prior to the current study. COMPARISON: CT ABDOMEN PELVIS WO CON 06/20/2023 2:13 PM FINDINGS: Lungs: No acute finding. Liver: Normal. No mass. Gallbladder and bile ducts: The gallbladder is absent. There is no biliary ductal dilation. Pancreas: Normal. No ductal dilation. Spleen: Normal. No splenomegaly. Adrenal glands: Normal. No mass. Kidneys and ureters: 2 x 8 mm calcification versus several adjacent calcifications in the lower pole right kidney. No right hydronephrosis. 2 mm upper pole and 1 mm lower pole calcifications in the left kidney. There is mild left hydroureteronephrosis with stranding of the periureteric fat throughout the course of the ureter. No ureteral calculus is noted. Several distal ureteral calculi were present on the prior exam. There is subtle delay in the left nephrogram with significant delay in the left pyelogram. No collecting system contrast is noted within the left kidney on delayed images with the right kidney collecting system diffusely opacified. Vascular calcification is noted adjacent to the left ureter within the pelvis image 85 series 3. Stomach and bowel: Unremarkable. No obstruction. No mucosal thickening. Appendix: No evidence of appendicitis. Intraperitoneal space: Unremarkable. No free air. No significant fluid collection. Vasculature: Unremarkable. No abdominal aortic aneurysm. Lymph nodes: Unremarkable. No enlarged lymph nodes. Urinary bladder: Unremarkable as visualized. Reproductive: Unremarkable as visualized. Bones/joints: Unremarkable. No acute fracture. Soft tissues: Unremarkable. IMPRESSION: Mild left hydroureteronephrosis with delay in the left nephrogram and pyelogram. No obstructing stone is evident. There are inflammatory changes surrounding the course of the ureter most significant distally. The cause of the obstruction is likely secondary to ureteral edema distally either secondary to the previous stones or reported recent ureteral stent. Bilateral intrarenal calculi are evident.
--- NOTE | 2023-07-02 00:03 | PC.NURSE ---
Patient to CT
[2023-07-02 00:31] VITALS: BP 142/78; PULSE 65; O2SAT 97
[2023-07-02 00:41] LABS: Appearance,Urine CLEAR (Clear); Blood, Urine 3+ (Negative); Color,Urine YELLOW (Yellow); Glucose,Urine (UA) Negative (Negative); Ketones,Urine Negative (Negative); Leukocyte Esterase,Urine Negative (Negative); Microscopic, Urine URINE MICROSCOPIC (MICROSCOPIC); Nitrate,Urine Negative (Negative); Protein,Urine 2+ (Negative); Specific Gravity, Urine >= 1.030 (1.005-1.030); Urobilinogen,Urine 0.2 EU/dl (0.2)
[2023-07-02 00:47] LABS: Bilirubin,Urine 1+ (Negative)
--- NOTE | 2023-07-02 00:49 | HMH.EDGENADL ---
Discharge Plan Disposition Patient Disposition: Home, Self-Care Prescriptions Prescriptions: No Action hydrocodone-acetaminophen 5-325 mg tablet 1 tab PO Q6H PRN (Reason: pain) 3 Days Qty: 12 0RF Referrals Follow up/Referrals: Guerline Guthrie MD [Primary Care Provider] - See instructions Activity Restrictions/Add. Instructions Additional Instructions/Restrictions: Please follow-up with your primary care provider and with your urology. Please return to the emergency department if you develop any new or worsening symptoms or become concerned for your health. Clinical Impressions Clinical Impression: Hydroureter, Acute left flank pain Hydronephrosis Qualifiers: Hydronephrosis type: other Qualified Code(s): N13.39 - Other hydronephrosis Instructions Patient Instructions: DI for Urinary Tract Infection (UTI), DI for Urinary Tract Infection in Children Discharge ED Provider: Kingsley Liz Adult HPI General Chief complaint: Urogenital-Female Stated complaint: Severe pain from kidney stone procedure 06/30 Time Seen by Provider: 07/01/23 23:55 Mode of Arrival: Ambulatory Limitations: No Limitations Description of Symptoms (Recalled from ER Triage Doc. by RN): 42 year old female with compliants of left sided suprapubic pain, left sided flank pain, and left sided lower back pain. Patient states she had a procedure to break up kidney stones yesterday at the [facility], a uretral stent was placed. Patient states that the stent started coming out approx 2 hours ago, so she pulled it the rest of the way out. Has had severe pain since. Patient states she has vomited once [employer]. Last Pain medication was 5mg Percocet at 1030PM tonight. History of Present Illness HPI narrative: 42-year-old female, history as reported below presents with acute left flank and groin pain. She was noted to have kidney stones on recent imaging. They were unchanged on repeat imaging and she had a lithotripsy and ureteral stent placement within the last 24 hours with the [facility] urologists. Unfortunately the stent migrated partially out today, so she pulled out the rest of the way. Since that time, a few hours prior to arrival, she has been in excruciating pain despite taking prescribed Percocets at home. Related Data Previous Rx's Medication Instructions Recorded hydrocodone 5 mg-acetaminophen 325 1 tab PO Q6H PRN pain 3 days #12 06/11/23 mg tablet tabs Allergies Allergy/AdvReac Type Severity Reaction Status Date / Time No Known Allergies Allergy Verified 06/11/23 11:44 [facility] Disclaimer: The information contained in this section may have been updated after the patient was seen, as this information can be updated by other users. Medical History Abscess of right thigh Atypical chest pain Cellulitis and abscess of right leg Dyspareunia Felon of digit History of endometriosis Kidney stone Lateral epicondylitis of elbow Nephrolithiasis Overweight (BMI 25.0-29.9) Stress incontinence in female Tobacco user Surgical History History of hysterectomy with bilateral oophorectomy Social History Smoking Status: Current every day smoker tobacco type: cigarettes packs per day: 1 alcohol intake: never substance use type: denies use current occupational status: other Travel in the last 8 weeks: None household members: spouse and children housing: house current occupation: [employer] caffeine: Yes ROS Obtained: Yes All systems reviewed & no additional complaints except as documented Physical Exam General General appearance: alert and in distress Head Head exam: atraumatic and normocephalic Eye Eye exam: Present normal appearance, PERRL and EOMI ENT ENT exam: Present normal oropharynx and normal external ear exam Neck Neck exam: Present normal inspection and full ROM Chest Chest inspec
[2023-07-02 00:52] LABS: Alanine Aminotransferase 42 U/L (12-78); Alkaline Phosphatase 78 U/L (38-126); Aspartate Amino Transferase 40 U/L (14-36); Basophils # 0.1 K/mm3 (0-0.2); Basophils % 0.6 % (0.1-2.0); Bilirubin,Total 0.2 mg/dl (0.2-1.3); Blood Urea Nitrogen 12 mg/dl (7-17); Calcium 8.9 mg/dl (8.4-10.2); Carbon Dioxide 23 mmol/L (22.0-30.0); Chloride 106 mmol/L (98-107); Creatinine Clearance Estimated 145 mL/min (50-200); Eosinophils # 0.1 K/mm3 (0.0-0.4); Eosinophils % 0.3 % (0.1-12.0); Estimated Glomerular Filt Rate 93 ml/min (>60); GFR (African American) 112 ML/MIN (>60); Glucose 105 mg/dl (74-100); Hematocrit 46.7 % (37.0-47.0); Hemoglobin 15.2 g/dL (12.2-16.2); Lymphocytes # 6.1 K/mm3 (0.7-4.5); Lymphocytes % 32.3 % (10-50); Mean Corpuscular HGB Conc 32.5 g/dL (31.8-35.4); Mean Corpuscular Hemoglobin 29.5 pg (27.0-31.2); Mean Corpuscular Volume 90.8 fl (81-99); Mean Platelet Volume 8.8 fl (7.4-10.4); Monocytes % 5.4 % (1.7-9.3); Neutrophils # 11.5 K/mm3 (1.8-7.8); Neutrophils % 61.4 % (37.0-80.0); Platelet Count 237 K/mm3 (142-424); Red Blood Count 5.14 M/mm3 (4.20-5.40); Red Cell Distribution Width 13.5 % (11.5-17.5); White Blood Count 18.8 K/mm3 (4.8-10.8)
[2023-07-02 00:53] LABS: Albumin Level 4.4 g/dl (3.5-5.0); Albumin/Globulin Ratio 1.3 (1.1-1.8); Globulin 3.3 g/dL (1.3-3.2); Total Protein,Serum 7.7 g/dl (6.3-8.2)
[2023-07-02 00:57] LABS: MANUAL DIFFERENTIAL MANUAL DIFFERENTIAL (MANUAL DIFF)
[2023-07-02 01:00] LABS: Bacteria,Urine Trace /lpf; Calcium Oxalate Crystals,Urine Trace /lpf; RBC,Urine 50-100 #/hpf (0-3); Squamous Epithelial Cell,Urine Occasional #/hpf (0-5); WBC,Urine Occasional #/hpf (0-3)
[2023-07-02 01:01] VITALS: BP 97/51; PULSE 62; O2SAT 95
[2023-07-02 01:02] LABS: Anion Gap 14.5 mEq/L (5-15); Potassium 3.5 mmoL/L (3.5-5.1); Sodium 140 mmol/L (136-145)
--- NOTE | 2023-07-02 01:12 | PC.NURSE ---
Patient resting in bed comfortably at this time with no complaints of pain or nausea.
[2023-07-02 01:19] LABS: Lymphocytes % 39 % (10-50); Monocytes % 1 % (2-9); Neutrophils % 60 % (42-76); Platelet Estimate Normal; RBC Morphology Normal; Total Cells Counted 100
[2023-07-02 02:02] VITALS: BP 93/57; PULSE 64; RESP 16; TEMP 36.7; O2SAT 98
== END 2023-07-02 02:07 | disposition home or self-care (01) ==
PROVIDERS: Emergency Provider Emergency Medicine; PCP Family Medicine
DX: R10.0 Acute abdomen (principal); N13.4 Hydroureter; N13.39 Other hydronephrosis; F17.210 Nicotine dependence, cigarettes, uncomplicated; Z87.442 Personal history of urinary calculi
CPT/HCPCS: 74177; 80053; 81001; 85007; 85025; 96374; 96375; 99285; J2405; Q9967

== ENCOUNTER 2023-09-21 07:59 | Emergency (ER) | payer BC, SELFPAY ==
[2023-09-21 08:05] VITALS: BP 126/89; PULSE 70; RESP 18; TEMP 36.8; O2SAT 100; BMI 32.1
--- NOTE | 2023-09-21 08:09 | XR_ITS ---
FINAL REPORT CLINICAL HISTORY: pain, no injury COMPARISON: None FINDINGS: LEFT FOOT: Three views of the left foot were obtained. There is no acute fracture or dislocation. The joint spaces are intact. There is no soft tissue abnormality. A small plantar calcaneal spur is present. IMPRESSION: No acute bony abnormality. Small plantar calcaneal spur. Reviewed, Interpreted and Dictated by Александр Mullen III, MD Transcribed by Lyly Stein Authenticated and . [facility]
--- NOTE | 2023-09-21 08:42 | EXP.UTC ---
Discharge Plan Disposition Patient Disposition: Home, Self-Care Condition: Good Prescriptions Prescriptions: New ibuprofen [IBU] 800 mg tablet 800 mg PO Q8HP PRN (Reason: Moderate Pain) Qty: 30 0RF Referrals Follow up/Referrals: Guerline Guthrie MD [Primary Care Provider] - See instructions Hemalatha Boogie DPM [Staff Physician] - See instructions Activity Restrictions/Add. Instructions Additional Instructions/Restrictions: Rest the extremity, Elevate the extremity as tolerated while you are resting. Take ibuprofen for pain (if you can take this). Follow up with Dr. Boogie (podiatry) or your home care specialist of choice. I put in a referral to Dr. Bogoie, but you need to call her office and schedule an appointment. Her office phone number will be on this paperwork. Follow up with your regular doctor. GO TO THE ER FOR ANY WORSENING SYMPTOMS Clinical Impressions Clinical Impression: Pain in right foot, Hx of stress fracture Instructions Patient Instructions: DI for Foot Pain Discharge ED Provider: Geovanni Barrios [facility] General Stated complaint: left foot pain Mode of Arrival: Ambulatory Source of Information: Patient Limitations: No Limitations Time Seen by Provider: 09/21/23 08:42 Description of Symptoms (Recalled from Triage Doc. by RN): PATIENT C/O LEFT FOOT PAIN THAT STARTED MONDAY NIGHT. NO KNOWN INJURY HEENT Symptoms (Recalled from RN notes): No Resp Symptoms (Recalled from RN notes): No Skin Symptoms (Recalled from RN notes): No MS Symptoms (Recalled from RN notes): Yes Functional Status (Recalled from RN notes): WNL History of Present Illness Provider Complaint: She states that for the past 2 days she has had right foot pain. Her pain is located on the bottom her foot near the base of her toes. She denies any injury, but she has been on her feet due to her job more than normal recently. She has a history of having a stress fracture in that foot about 2 years ago. She states that she had pain in this exact location and it felt exactly like this when she had the stress fracture. At that time she went to a home care specialist in [place] and was treated successfully. She is not a diabetic. Related Data Previous Rx's Medication Instructions Recorded ibuprofen 800 mg tablet (IBU) 800 mg PO Q8HP PRN Moderate Pain 09/21/23 #30 tabs Allergies Allergy/AdvReac Type Severity Reaction Status Date / Time No Known Allergies Allergy Verified 06/11/23 11:44 Worker's Comp Is this a Worker's Comp case?: No [facility] Disclaimer: The information contained in this section may have been updated after the patient was seen, as this information can be updated by other users. Medical History (Updated 09/21/23 @ 08:57 by Geovanni Barrios APRN) Kidney stone Tobacco user Stress incontinence in female History of endometriosis Dyspareunia Overweight (BMI 25.0-29.9) Nephrolithiasis Felon of digit Abscess of right thigh Atypical chest pain Cellulitis and abscess of right leg Lateral epicondylitis of elbow Surgical History History of hysterectomy with bilateral oophorectomy Social History Smoking Status: Current every day smoker tobacco type: cigarettes packs per day: 1 alcohol intake: never substance use type: denies use current occupational status: other Travel in the last 8 weeks: None household members: spouse and children housing: house current occupation: [employer] caffeine: Yes ROS Obtained: Yes All systems reviewed & no additional complaints except as documented Constitutional Constitutional: Denies chills and Denies fever(s) Eyes Eyes: Denies eye discharge ENT Ears, Nose, Mouth, and Throat: Denies dizziness, Denies otalgia and Denies sore throat Cardiovascular Cardiovascular: Denies chest pain Respiratory Respiratory: Denies shortness of breath, Denies chest congestion, Denies cough, Denies stridor and Denies wheezing Gastrointestinal Gastrointestingal: Denies nausea or vomiting Musculoskeletal Musculoskeletal: Reports as per HPI Integumentary/Breasts Skin/Breast: Denies redness, Denies rash and Denies wounds Neurologic Neurologic: Denies dizziness and Denies paresthesias Allergic/Immunologic Allergic/Immunologic: Denies wheezing Physical Exam General General appearance: alert and in no apparent distress Head Head exam: atraumatic, normocephalic and normal inspection Eye Eye exam: Present normal appearance, PERRL and EOMI ENT ENT exam: Present normal exam, normal oropharynx, mucous membranes moist, TM's normal bilaterally and normal external ear exam Neck Neck exam: Present normal inspection, full ROM and trachea midline; Absent meningismus or lymphadenopathy Chest Chest inspection: Present normal inspection and symmetric chest wall rise; Absent tenderness Respiratory Respiratory exam: Present normal lung sounds bilaterally; Absent respiratory distress Cardiovascular Cardiovascular exam: Present regular rate and normal rhythm; Absent JVD Abdominal Exam Abdominal exam: Present soft and normal bowel sounds; Absent distention, tenderness or guarding Extremities Exam Extremities exam: Present normal capillary refill; Absent calf tenderness Expanded Lower Extremity Exam Right: Knee exam: Present normal inspection, full ROM and knee extension intact; Absent tenderness Lower leg exam: Present normal inspection, full ROM and Achilles tendon intact; Absent tenderness or Homans' sign Ankle exam: Present normal inspection and full ROM; Absent tenderness, tenderness over talofibular lig or anterior draw sign Foot/toe exam: Present full ROM, tenderness and swelling; Absent abrasion, laceration, ecchymosis, deformity, crepitus, dislocation, erythema, amputation, puncture wound, foreign body, calcaneal tenderness, tenderness at base of 5th metatarsal, nail avulsion or subungual hematoma Bottom foot image: 1. area of tenderness, pain and swelling. Neurovascular/Tendon exam: Present normal capillary refill and normal 2-point discrimination; Absent pulse deficit, motor deficit, sensory deficit, tendon deficit, extremity cold to touch or pallor Gait: observed and limited by pain Back Exam Back exam: Present normal inspection; Absent tenderness Neurological Exam Neurological exam: Present alert and oriented X3 Psychiatric Psychiatric exam: Present normal affect and normal mood Skin Skin exam: Present warm, dry, intact and normal color Lymphatic Lymphatic Findings: no adenopathy Medical Decision Making Medical Records Medical records reviewed: No I reviewed the patient's medical records. [place] Inquiry Pt receiving controlled substance: No Vital Signs: 09/21/23 08:05 Temperature 98.3 F Temperature Source Oral Pulse Rate [Left Brachial] 70 Respiratory Rate 18 Blood Pressure [Left Arm] 126/89 Blood Pressure Mean [Left Arm] 101 Blood Pressure Source [Left Arm] Automatic Cuff Blood Pressure Position [Left Arm] Sitting 02 Sat by Pulse Oximetry 100 Oxygen Delivery Method Room Air Orders (Tests/Meds): ORDERS Category Date Time Status Foot XR left minimum 3 views [XR foot LT min 3V] Stat Exams 09/21/23 08:09 Taken Radiology Data #1: Image(s): Foot/Toes Image Reviewed: Yes I reviewed the patient's radiology image and Yes I have reviewed radiologist's interpretation Preliminary Findings: Normal/NAD and No Fracture Seen FINAL REPORT CLINICAL HISTORY: pain, no injury COMPARISON: None FINDINGS: LEFT FOOT: Three views of the left foot were obtained. There is no acute fracture or dislocation. The joint spaces are intact. There is no soft tissue abnormality. A small plantar calcaneal spur is present. IMPRESSION: No acute bony abnormality. Small plantar calcaneal spur. Reviewed, Interpreted and Dictated by Александр Mullen III, MD Transcribed by Lyly Stein Authenticated and [facility]
[2023-09-21 09:07] VITALS: BP 126/89; PULSE 70; RESP 18; TEMP 36.8; O2SAT 100
== END 2023-09-21 09:19 | disposition home or self-care (01) ==
PROVIDERS: Emergency Provider Nurse Practitioner Family; PCP Family Medicine
DX: M79.672 Pain in left foot (principal); F17.210 Nicotine dependence, cigarettes, uncomplicated; M77.32 Calcaneal spur, left foot
CPT/HCPCS: 73630; 99214

== ENCOUNTER 2024-01-09 04:08 | Emergency (ER) | payer BC, SELFPAY ==
[2024-01-09 04:09] VITALS: BP 136/76; PULSE 80; RESP 18; TEMP 36.8; O2SAT 100; BMI 29.5
[2024-01-09 04:22] VITALS: BP 119/84; PULSE 71; RESP 18; TEMP 36.8; O2SAT 100
--- NOTE | 2024-01-09 04:24 | CT_ITS ---
PROCEDURE INFORMATION: Exam: CT Abdomen And Pelvis With Contrast Exam date and time: 01/09/2024 4:46 AM Age: 43 years old Clinical indication: Abdominal pain; Additional info: Epigastric pain TECHNIQUE: Imaging protocol: Computed tomography of the abdomen and pelvis with contrast. Radiation optimization: All CT scans at this facility use at least one of these dose optimization techniques: automated exposure control; mA and/or kV adjustment per patient size (includes targeted exams where dose is matched to clinical indication); or iterative reconstruction. Contrast material: ISOVUE; Contrast volume: 75 ml; Contrast route: IV; COMPARISON: CT ABDOMEN PELVIS W CON 07/02/2023 12:11 AM FINDINGS: Tubes, catheters and devices: Surgical clips right pelvis. Diaphragm: A small hiatal hernia is present. Liver: Normal. No mass. Gallbladder and biliary ducts: There has been a cholecystectomy. There is a mild, expected degree of biliary dilation. Pancreas: Normal. No ductal dilation. Spleen: Normal. No splenomegaly. Adrenal glands: Normal. No mass. Kidneys and ureters: Punctate nephrolithiasis bilaterally. No hydronephrosis or ureteral calculi. Stomach and bowel: There is no evidence of intestinal perforation or obstruction. Stomach is decompressed. Appendix: No evidence of appendicitis. Intraperitoneal space: Unremarkable. No free air. No significant fluid collection. Vasculature: Unremarkable. No abdominal aortic aneurysm. Lymph nodes: Unremarkable. No enlarged lymph nodes. Urinary bladder: Unremarkable as visualized. Reproductive: Unremarkable as visualized. Bones/joints: Severe pectus excavatum deformity again noted with mass effect on the anterior heart. Soft tissues: Unremarkable. IMPRESSION: 1. Small hiatal hernia again noted. 2. Severe pectus excavatum deformity again noted with mass effect on the anterior heart. 3. Bilateral nonobstructing nephrolithiasis. 4. Postoperative changes cholecystectomy again noted.
[2024-01-09 04:32] LABS: Basophils # 0.1 K/mm3 (0-0.2); Basophils % 1.1 % (0.1-2.0); Eosinophils # 0.2 K/mm3 (0.0-0.4); Eosinophils % 1.7 % (0.1-12.0); Hematocrit 47.8 % (37.0-47.0); Hemoglobin 15.7 g/dL (12.2-16.2); Lymphocytes # 3.7 K/mm3 (0.7-4.5); Lymphocytes % 32.2 % (10-50); Mean Corpuscular HGB Conc 32.8 g/dL (31.8-35.4); Mean Corpuscular Hemoglobin 30.4 pg (27.0-31.2); Mean Corpuscular Volume 92.5 fl (81-99); Mean Platelet Volume 8.7 fl (7.4-10.4); Monocytes # 0.6 K/mm3 (0.1-1.0); Monocytes % 4.9 % (1.7-9.3); Neutrophils # 6.8 K/mm3 (1.8-7.8); Neutrophils % 60.1 % (37.0-80.0); Platelet Count 189 K/mm3 (142-424); Red Blood Count 5.16 M/mm3 (4.20-5.40); White Blood Count 11.4 K/mm3 (4.8-10.8)
[2024-01-09 04:36] LABS: Alanine Aminotransferase 40 U/L (12-78); Albumin Level 4.4 g/dl (3.5-5.0); Albumin/Globulin Ratio 1.3 (1.1-1.8); Alkaline Phosphatase 90 U/L (38-126); Aspartate Amino Transferase 36 U/L (14-36); Bilirubin,Total 0.5 mg/dl (0.2-1.3); Blood Urea Nitrogen 12 mg/dl (7-17); Calcium 9.9 mg/dl (8.4-10.2); Carbon Dioxide 26 mmol/L (22.0-30.0); Chloride 107 mmol/L (98-107); Creatinine Clearance Estimated 139 mL/min (50-200); Estimated Glomerular Filt Rate 92 ml/min (>60); GFR (African American) 112 ML/MIN (>60); Globulin 3.3 g/dL (1.3-3.2); Glucose 104 mg/dl (74-100); Lipase 159 U/L (23-300); Sodium 139 mmol/L (136-145); Total Protein,Serum 7.7 g/dl (6.3-8.2)
[2024-01-09] MEDS: BELLADONNA ALKALOIDS 60 ML ML PO (04:38)
[2024-01-09] MEDS: ONDANSETRON 4MG/2ML VIAL 4 MG IV (04:38)
[2024-01-09] MEDS: ACETAMINOPHEN 500MG TAB 1000 MG PO (04:38)
[2024-01-09] MEDS: KETOROLAC 30MG/ML VIAL 30 MG IV (04:38)
[2024-01-09] MEDS: LACTATED RINGERS 1000ML 1,000 ML 999 ML IV (04:38)
[2024-01-09] MEDS: IOPAMIDOL-370 (76%);100ML BOTTLE 75 ML IV (04:54)
[2024-01-09] MEDS: SODIUM CHLORIDE 0.9% 10ML SYR (RAD ONLY) 10 ML IV ×2 (04:54→05:56)
--- NOTE | 2024-01-09 05:07 | HMH.EDGENADL ---
Discharge Plan Disposition Patient Disposition: Home, Self-Care Condition: Good Prescriptions Prescriptions: New ondansetron 4 mg tablet,disintegrating 4 mg PO Q6H PRN (Reason: nausea and vomiting) 4 Days Qty: 16 0RF No Action ibuprofen [IBU] 800 mg tablet 800 mg PO Q8HP PRN (Reason: Moderate Pain) Qty: 30 0RF levothyroxine 50 mcg tablet 50 mcg PO DAILY Zepbound 5 mg/0.5 mL pen injector 0.25 mg SQ WEEKLY Patient Comments: INJECT 5 MG SUBCUTANEOUSLY ONCE A WEEK Referrals Follow up/Referrals: Guerline Guthrie MD [Primary Care Provider] - See instructions Pebbles Moss APRN [Staff Physician] - See instructions (F/u for epigastric pain, has hiatal hernia) Александр Diaz MD [Staff Physician] - See instructions (Epigastric pain in the setting of small hiatal hernia) Activity Restrictions/Add. Instructions Additional Instructions/Restrictions: You have been evaluated in the ED for your complaints. You may follow-up with your PCP in the next 3 to 5 days. Please return to ED for any new or worsening symptoms. Please continue to take Zofran as needed. I have provided you with follow-up information with gastroenterology and general surgery. Clinical Impressions Clinical Impression: Epigastric abdominal pain, Hernia, hiatal Instructions Patient Instructions: DI for Acute Abdominal Pain Discharge ED Provider: Kingsley Liz General Adult HPI <Kingsley Liz MD - Last Filed: 01/09/24 06:59> General Chief complaint: Abdominal Pain Stated complaint: abd pain, nausea Time Seen by Provider: 01/09/24 04:10 Mode of Arrival: Ambulatory Source of Information: Patient Limitations: No Limitations Description of Symptoms (Recalled from ER Triage Doc. by RN): Pt presents to ED for R abd pain. Pt states the pain doesn't move or radiate and it's only on the R side. Pt states she also has nausea but no vomiting or diarrhea. Pt is A&O*4 at this time. History of Present Illness HPI narrative: 43-year-old female with history of of appendectomy, cholecystectomy, hysterectomy, bilateral oophorectomy, prior kidney stones, obesity on tirzepatide presents with abdominal pain. She reports it started the evening around 730, epigastric and right upper quadrant in location, with associated nausea but no vomiting. She denies chest pain shortness of breath. Denies any fever or recent illness. Related Data Home Medications Medication Instructions Recorded Confirmed levothyroxine 50 mcg tablet 50 mcg PO DAILY thyroid 01/09/24 01/09/24 tirzepatide (weight loss) 5 mg/0.5 0.25 mg SQ WEEKLY 01/09/24 01/09/24 mL subcutaneous pen injector (Zepbound) Previous Rx's Medication Instructions Recorded ibuprofen 800 mg tablet (IBU) 800 mg PO Q8HP PRN Moderate Pain 09/21/23 #30 tabs ondansetron 4 mg disintegrating 4 mg PO Q6H PRN nausea and 01/09/24 tablet vomiting 4 days #16 tabs Allergies Allergy/AdvReac Type Severity Reaction Status Date / Time No Known Allergies Allergy Verified 06/11/23 11:44 PFS <Kingsley Liz MD - Last Filed: 01/09/24 06:59> [facility] Disclaimer: The information contained in this section may have been updated after the patient was seen, as this information can be updated by other users. Medical History (Updated 01/09/24 @ 09:00 by Marcelo Rinaldi DO) Kidney stone Tobacco user Stress incontinence in female History of endometriosis Dyspareunia Overweight (BMI 25.0-29.9) Nephrolithiasis Felon of digit Abscess of right thigh Atypical chest pain Cellulitis and abscess of right leg Lateral epicondylitis of elbow Surgical History History of hysterectomy with bilateral oophorectomy Social History Smoking Status: Current every day smoker tobacco type: cigarettes packs per day: 1 alcohol intake: never substance use type: denies use current occupational status: other Travel in the last 8 weeks: None household members: spouse and children housing: house 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 <Kingsley Liz MD - Last Filed: 01/09/24 06:59> ROS Obtained: Yes All systems reviewed & no additional complaints except as documented Physical Exam <Kingsley Liz MD - Last Filed: 01/09/24 06:59> General General appearance: alert Comment: Uncomfortable appearing Head Head exam: atraumatic and normocephalic Eye Eye exam: Present normal appearance, PERRL and EOMI ENT ENT exam: Present normal oropharynx and normal external ear exam Neck Neck exam: Present normal inspection and full ROM Chest Chest inspection: Present normal inspection and symmetric chest wall rise; Absent tenderness Respiratory Respiratory exam: Present normal lung sounds bilaterally; Absent respiratory distress Cardiovascular Cardiovascular exam: Present regular rate and normal rhythm Abdominal Exam Abdominal exam: Present soft and tenderness (Epigastric); Absent distention or guarding Extremities Exam Extremities exam: Present normal inspection; Absent edema or joint swelling Back Exam Back exam: Present normal inspection; Absent tenderness Neurological Exam Neurological exam: Present alert and oriented X3; Absent motor sensory deficit Psychiatric Psychiatric exam: Present normal affect and normal mood Skin Skin exam: Present warm, dry and normal color Lymphatic Lymphatic Findings: no adenopathy Medical Decision Making <Kingsley Liz MD - Last Filed: 01/09/24 06:59> Medical Records Medical records reviewed: Yes I reviewed the patient's medical records. Alcon Inquiry Pt receiving controlled substance: No Alcon was queried for this patient: No Vital Signs: 01/09/24 04:09 01/09/24 04:22 Temperature 98.3 F 98.3 F Temperature Source Oral Oral Pulse Rate 71 Pulse Rate [Left] 80 Respiratory Rate 18 18 Blood Pressure 119/84 Blood Pressure [Right Arm] 136/76 Blood Pressure Mean [Right Arm] 96 02 Sat by Pulse Oximetry 100 100 Oxygen Delivery Method Room Air Room Air Lab Data Lab results reviewed: Yes I reviewed the patient's lab results. Lab Results 01/09/24 04:20: WBC 11.4 H, RBC 5.16, Hgb 15.7, Hct 47.8 H, MCV 92.5, MCH 30.4, MCHC 32.8, RDW 14.0, Plt Count 189, MPV 8.7, Neut % (Auto) 60.1, Lymph % (Auto) 32.2, [place] % (Auto) 4.9, Eos % (Auto) 1.7, Baso % (Auto) 1.1, Neut # (Auto) 6.8, Lymph # (Auto) 3.7, [place] # (Auto) 0.6, Eos # (Auto) 0.2, Baso # (Auto) 0.1, Sodium 139, Potassium 4.0, Chloride 107, Carbon Dioxide 26, Anion Gap 10.0, BUN 12, Creatinine 0.70, Estimated Creat Clear 139, Estimated GFR 92, Est GFR ( Amer) 112, Glucose 104 H, Calcium 9.9, Total Bilirubin 0.5, AST 36, ALT 40, Alkaline Phosphatase 90, Troponin I < 0.01, Total Protein 7.7, Albumin 4.4, Globulin 3.3 H, Albumin/Globulin Ratio 1.3, Lipase 159 01/09/24 04:20 01/09/24 04:20 Orders (Tests/Meds): ED MEDICATIONS Generic Name Dose Route Start Last Admin Trade Name Freq PRN Reason Stop Dose Admin Sodium Chloride 10 ml 01/09/24 04:54 01/09/24 05:56 Sodium Chloride 0.9% 10ml Syr (Rad Only) IV 02/08/24 04:53 10 ml NEEDED PRN Administration Maintain IV Site Discontinued Medications Generic Name Dose Route Start Last Admin Trade Name Freq PRN Reason Stop Dose Admin Acetaminophen 1,000 mg 01/09/24 04:24 01/09/24 04:38 Acetaminophen 500mg Tab PO 01/09/24 04:25 1,000 mg ONCE ONE Administration Belladonna Alkaloids 60 ml 01/09/24 04:24 01/09/24 04:38 Belladonna Alkaloids 60 Ml Ml PO 01/09/24 04:25 60 ml ONCE ONE Administration Droperidol 2.5 mg 01/09/24 05:51 01/09/24 05:57 Droperidol 5mg/2ml Vial IV 01/09/24 05:52 2.5 mg ONCE ONE Administration Fentanyl 50 mcg 01/09/24 05:28 01/09/24 05:51 Fentanyl 50mcg Patch TD 01/09/24 05:29 Not Given ONCE ONE Fentanyl Citrate 50 mcg 01/09/24 05:30 01/09/24 05:33 Fentanyl 100mcg/2ml Vial IV 01/09/24 05:31 50 mcg ONCE ONE Administration Fentanyl Citrate 50 mcg 01/09/24 05:34 01/09/24 05:38 Fentanyl 100mcg/2ml Vial IV 01/09/24 05:35 50 mcg ONCE ONE Administration Lactated Ringer's 1,000 mls @ 999 mls/hr 01/09/24 04:30 01/09/24 04:38 Lactated Ringer's 1000 Ml Bag IV 01/09/24 05:30 999 mls/hr .Q1H1M KEVIN Administration Iopamidol 75 ml 01/09/24 04:54 01/09/24 04:54 Iopamidol-370 (76%);100ml Bottle IV 01/09/24 04:55 75 ml ONCE ONE Administration Iopamidol 100 ml 01/09/24 05:54 01/09/24 05:55 Iopamidol-370 (76%);100ml Bottle IV 01/09/24 05:55 100 ml ONCE ONE Administration Ketorolac Tromethamine 30 mg 01/09/24 04:24 01/09/24 04:38 Ketorolac 30mg/Ml Vial IV 01/09/24 04:25 30 mg ONCE ONE Administration Morphine Sulfate 4 mg 01/09/24 05:13 01/09/24 05:15 Morphine 4mg/Ml Syringe IV 01/09/24 05:14 4 mg ONCE ONE Administration Ondansetron HCl 4 mg 01/09/24 04:24 01/09/24 04:38 Ondansetron 4mg/2ml Vial IV 01/09/24 04:25 4 mg ONCE ONE Administration Sodium Chloride 50 ml 01/09/24 05:54 01/09/24 05:55 0.9 % Sodium Chloride 50 Ml Vial IV 01/09/24 05:55 50 ml ONCE ONE Administration ORDERS Category Date Time Status CT abdomen pelvis w con Stat Cat Scan 01/09/24 04:[address] angio abdomen pelvis Stat Cat Scan 01/09/24 05:27 Completed CTA Chest [CT angio chest - dissection] Stat Cat Scan 01/09/24 05:27 Completed CBC w/Auto Diff [Complete Blood Count Auto Diff] Stat Lab 01/09/24 04:20 Completed CMP [Comprehensive Metabolic Panel] Stat Lab 01/09/24 04:20 Completed Lipase Stat Lab 01/09/24 04:20 Completed Trop I [Troponin I] Stat Lab 01/09/24 04:20 Completed Troponin I Q3H Lab 01/09/24 11:00 Ordered UA [Urinalysis and Microscopic] Stat Lab 01/09/24 04:24 Ordered ECG Data Tracing #1: I reviewed this ECG and interpreted as documented below: Sinus rhythm, rate of 68, no concerning ST or T wave changes, no QT prolongation ECG initial impression date: 01/09/24 ECG initial impression time: 05:12 HEART Score History (anamnesis): Slightly suspicious ECG: Normal Age: <45 years Risk factors: No known risk factors Troponin: </= normal limit HEART Score: 0 Medical Decision Narrative: 43-year-old female with history of cholecystectomy, appendectomy, hysterectomy, bilateral oophorectomy, obesity on tirzepatide for the last 3 months presents with several hours of epigastric abdominal pain and nausea. History was obtained interactive discussion with patient, family, chart review. On arrival, patient is [afebrile, hemodynamically stable, satting appropriately, alert, oriented x4, GCS 15], moving all extremities spontaneously. Full physical exam performed and significant for mild epigastric abdominal tenderness. Differential includes but is not limited to pancreatitis, gastritis, gastroenteritis, renal pathology, aortic pathology, bowel obstruction, bowel perforation, ACS. Patient was given Tylenol, Toradol, GI cocktail, morphine for symptomatic management and correction of underlying abnormalities. Workup initiated including CBC CMP lipase UA CT abdomen pelvis with IV contrast. On re-evaluation, patient had already received initial meds and CT scan. She had sudden onset severe right-sided thoracoabdominal pain shooting into her back. She was screaming and writhing in pain in the bed. We gave 50 of fentanyl x 2 without significant improvement in symptoms. She was also given 2.5 mg of droperidol. She was sent back to CT for CTA's of the chest abdomen pelvis. Laboratory workup independently interpreted by me and significant for no significant leukocytosis, normal renal function, no significant electrolyte derangement, negative initial troponin, negative lipase. Imaging independently interpreted by me and significant for no apparent aortic pathology or evidence of mesenteric ischemia, normal pancreas without inflammation, no significant bowel wall thickening or perforation. See radiology read for full review of final results. At this time care handed off to oncoming physician. <Marcelo Rinaldi, DO - Last Filed: 01/09/24 09:01> Vital Signs: 01/09/24 04:09 01/09/24 04:22 Temperature 98.3 F 98.3 F Temperature Source Oral Oral Pulse Rate 71 Pulse Rate [Left] 80 Respiratory Rate 18 18 Blood Pressure 119/84 Blood Pressure [Right Arm] 136/76 Blood Pressure Mean [Right Arm] 96 02 Sat by Pulse Oximetry 100 100 Oxygen Delivery Method Room Air Room Air Lab Data Lab Results 01/09/24 04:20: WBC 11.4 H, RBC 5.16, Hgb 15.7, Hct 47.8 H, MCV 92.5, MCH 30.4, MCHC 32.8, RDW 14.0, Plt Count 189, MPV 8.7, Neut % (Auto) 60.1, Lymph % (Auto) 32.2, [place] % (Auto) 4.9, Eos % (Auto) 1.7, Baso % (Auto) 1.1, Neut # (Auto) 6.8, Lymph # (Auto) 3.7, [place] # (Auto) 0.6, Eos # (Auto) 0.2, Baso # (Auto) 0.1, Sodium 139, Potassium 4.0, Chloride 107, Carbon Dioxide 26, Anion Gap 10.0, BUN 12, Creatinine 0.70, Estimated Creat Clear 139, Estimated GFR 92, Est GFR ( Amer) 112, Glucose 104 H, Calcium 9.9, Total Bilirubin 0.5, AST 36, ALT 40, Alkaline Phosphatase 90, Troponin I < 0.01, Total Protein 7.7, Albumin 4.4, Globulin 3.3 H, Albumin/Globulin Ratio 1.3, Lipase 159 Orders (Tests/Meds): ED MEDICATIONS Generic Name Dose Route Start Last Admin Trade Name Freq PRN Reason Stop Dose Admin Sodium Chloride 10 ml 01/09/24 04:54 01/09/24 05:56 Sodium Chloride 0.9% 10ml Syr (Rad Only) IV 02/08/24 04:53 10 ml NEEDED PRN Administration Maintain IV Site Discontinued Medications Generic Name Dose Route Start Last Admin Trade Name Freq PRN Reason Stop Dose Admin Acetaminophen 1,000 mg 01/09/24 04:24 01/09/24 04:38 Acetaminophen 500mg Tab PO 01/09/24 04:25 1,000 mg ONCE ONE Administration Belladonna Alkaloids 60 ml 01/09/24 04:24 01/09/24 04:38 Belladonna Alkaloids 60 Ml Ml PO 01/09/24 04:25 60 ml ONCE ONE Administration Droperidol 2.5 mg 01/09/24 05:51 01/09/24 05:57 Droperidol 5mg/2ml Vial IV 01/09/24 05:52 2.5 mg ONCE ONE Administration Fentanyl 50 mcg 01/09/24 05:28 01/09/24 05:51 Fentanyl 50mcg Patch TD 01/09/24 05:29 Not Given ONCE ONE Fentanyl Citrate 50 mcg 01/09/24 05:30 01/09/24 05:33 Fentanyl 100mcg/2ml Vial IV 01/09/24 05:31 50 mcg ONCE ONE Administration Fentanyl Citrate 50 mcg 01/09/24 05:34 01/09/24 05:38 Fentanyl 100mcg/2ml Vial IV 01/09/24 05:35 50 mcg ONCE ONE Administration Lactated Ringer's 1,000 mls @ 999 mls/hr 01/09/24 04:30 01/09/24 04:38 Lactated Ringer's 1000 Ml Bag IV 01/09/24 05:30 999 mls/hr .Q1H1M KEVIN Administration Iopamidol 75 ml 01/09/24 04:54 01/09/24 04:54 Iopamidol-370 (76%);100ml Bottle IV 01/09/24 04:55 75 ml ONCE ONE Administration Iopamidol 100 ml 01/09/24 05:54 01/09/24 05:55 Iopamidol-370 (76%);100ml Bottle IV 01/09/24 05:55 100 ml ONCE ONE Administration Ketorolac Tromethamine 30 mg 01/09/24 04:24 01/09/24 04:38 Ketorolac 30mg/Ml Vial IV 01/09/24 04:25 30 mg ONCE ONE Administration Morphine Sulfate 4 mg 01/09/24 05:13 01/09/24 05:15 Morphine 4mg/Ml Syringe IV 01/09/24 05:14 4 mg ONCE ONE Administration Ondansetron HCl 4 mg 01/09/24 04:24 01/09/24 04:38 Ondansetron 4mg/2ml Vial IV 01/09/24 04:25 4 mg ONCE ONE Administration Sodium Chloride 50 ml 01/09/24 05:54 01/09/24 05:55 0.9 % Sodium Chloride 50 Ml Vial IV 01/09/24 05:55 50 ml ONCE ONE Administration ORDERS Category Date Time Status CT abdomen pelvis w con Stat Cat Scan 01/09/24 04:[address] angio abdomen pelvis Stat Cat Scan 01/09/24 05:27 Completed CTA Chest [CT angio chest - dissection] Stat Cat Scan 01/09/24 05:27 Completed CBC w/Auto Diff [Complete Blood Count Auto Diff] Stat Lab 01/09/24 04:20 Completed CMP [Comprehensive Metabolic Panel] Stat Lab 01/09/24 04:20 Completed Lipase Stat Lab 01/09/24 04:20 Completed Trop I [Troponin I] Stat Lab 01/09/24 04:20 Completed Troponin I Q3H Lab 01/09/24 11:00 Ordered UA [Urinalysis and Microscopic] Stat Lab 01/09/24 04:24 Ordered HEART Score HEART Score: 0 Medical Decision Narrative: 43-year-old female with history of cholecystectomy, appendectomy, hysterectomy, bilateral oophorectomy, obesity on tirzepatide for the last 3 months presents with several hours of epigastric abdominal pain and nausea. History was obtained interactive discussion with patient, family, chart review. On arrival, patient is [afebrile, hemodynamically stable, satting appropriately, alert, oriented x4, GCS 15], moving all extremities spontaneously. Full physical exam performed and significant for mild epigastric abdominal tenderness. Differential includes but is not limited to pancreatitis, gastritis, gastroenteritis, renal pathology, aortic pathology, bowel obstruction, bowel perforation, ACS. Patient was given Tylenol, Toradol, GI cocktail, morphine for symptomatic management and correction of underlying abnormalities. Workup initiated including CBC CMP lipase UA CT abdomen pelvis with IV contrast. On re-evaluation, patient had already received initial meds and CT scan. She had sudden onset severe right-sided thoracoabdominal pain shooting into her back. She was screaming and writhing in pain in the bed. We gave 50 of fentanyl x 2 without significant improvement in symptoms. She was also given 2.5 mg of droperidol. She was sent back to CT for CTA's of the chest abdomen pelvis. Laboratory workup independently interpreted by me and significant for no significant leukocytosis, normal renal function, no significant electrolyte derangement, negative initial troponin, negative lipase. Imaging independently interpreted by me and significant for no apparent aortic pathology or evidence of mesenteric ischemia, normal pancreas without inflammation, no significant bowel wall thickening or perforation. See radiology read for full review of final results. At this time care handed off to oncoming physician. Dr. Rinaldi: I did reassess patient on and off and she was resting well in bed. Her symptoms were well-controlled at this time. CT imaging showed a small hiatal hernia. No vascular pathology on CTA chest or CT abdomen and pelvis. On second reassessment patient mario medically stable in no acute distress. Continues to be resting well in bed much improved symptoms. I discussed ED workup and results as well as current plan to discharge home with supportive care in the setting of a reassuring lab workup and CT scans. Will provide her with gastroenterology referral. She states that she has plenty of Zofran at home. Provided her with return ED precautions and instructions concerning follow-up. She verbalized understanding and agreed with plan. Subsequently discharged hemodynamically stable and in no acute distress. Procedures <Kingsley Liz MD - Last Filed: 01/09/24 06:59> Risk/Benefits of Procedure(s) Were Explained: Yes Critical Care <Kingsley Liz MD - Last Filed: 01/09/24 06:59> Critical Care Time Critical Care Time: No
--- NOTE | 2024-01-09 05:11 | ECG_ITS ---
APPROVED REPORT Exam: Resting ECG HR:68 bpm ECG Measurements Heart Rate 68 AXES IA 189 P 60 QRSd 97 QRS 18 QT 407 T 36 QTc 424 Conclusion SINUS RHYTHM LOW QRS VOLTAGE IN PRECORDIAL LEADS [QRS DEFLECTION < 1.0 mV IN CHEST LEADS] POSSIBLE RIGHT VENTRICULAR CONDUCTION DELAY [RSR (QR) IN V1/V2] BORDERLINE ECG UNCONFIRMED REPORT Electronically signed by : MIGEL HORTON, 01/10/2024 04:35:22
[2024-01-09] MEDS: MORPHINE 4MG/ML SYRINGE 4 MG IV (05:15)
[2024-01-09 05:19] LABS: Troponin I < 0.01 ng/ml (0.00-0.034)
--- NOTE | 2024-01-09 05:27 | CT_ITS ---
PROCEDURE INFORMATION: Exam: CTA Chest With Contrast Exam date and time: 01/09/2024 5:47 AM Age: 43 years old Clinical indication: Pain; Chest pressure; Additional info: Severe pain upper abd/chest with radiation to back TECHNIQUE: Imaging protocol: Computed tomographic angiography of the chest with contrast. Exam focused on the arteries. 3D rendering (Not supervised by radiologist): MIP and/or 3D reconstructed images were created by the technologist. Radiation optimization: All CT scans at this facility use at least one of these dose optimization techniques: automated exposure control; mA and/or kV adjustment per patient size (includes targeted exams where dose is matched to clinical indication); or iterative reconstruction. Contrast material: ISOVUE; Contrast volume: 100 ml; Contrast route: INTRAVENOUS (IV); COMPARISON: CR XR CHEST PORTABLE 06/14/2020 10:58 AM FINDINGS: Pulmonary arteries: Normal. No pulmonary emboli. Aorta: Normal caliber of the thoracic aorta, no dissection. Lungs: Mild dependent atelectasis bilaterally. No focal consolidation. Pleural spaces: Unremarkable. No pneumothorax. No pleural effusion. Heart: Severe pectus excavatum deformity again noted with mass effect on the right heart. Lymph nodes: Unremarkable. No enlarged lymph nodes. Diaphragm: A small hiatal hernia is present. Bones/joints: Unremarkable. No acute fracture. Soft tissues: Unremarkable. IMPRESSION: 1. Normal caliber thoracic aorta, no dissection. 2. Severe pectus excavatum deformity again noted with mass effect on the right heart. 3. Small hiatal hernia.
--- NOTE | 2024-01-09 05:27 | CT_ITS ---
PROCEDURE INFORMATION: Exam: CTA Abdomen and Pelvis With Contrast Exam date and time: 01/09/2024 5:47 AM Age: 43 years old Clinical indication: Abdominal pain; Acute; Additional info: Severe abd pain radiation to back TECHNIQUE: Imaging protocol: Computed tomographic angiography of the abdomen and pelvis with contrast. Exam focused on the arteries. 3D rendering (Not supervised by radiologist): MIP and/or 3D reconstructed images were created by the technologist. Radiation optimization: All CT scans at this facility use at least one of these dose optimization techniques: automated exposure control; mA and/or kV adjustment per patient size (includes targeted exams where dose is matched to clinical indication); or iterative reconstruction. Contrast material: ISOVUE; Contrast volume: 100 ml; Contrast route: INTRAVENOUS (IV); COMPARISON: CT ANGIO ABDOMEN PELVIS 01/09/2024 5:47 AM FINDINGS: Aorta: No aortic aneurysm. No aortic dissection. Celiac trunk and mesenteric arteries: There is [id number] narrowing at the origin of the SMA which may be due to arcuate ligament impression. No occlusion or significant stenosis. Renal arteries: No occlusion or significant stenosis. Right iliac arteries: No occlusion or significant stenosis. Left iliac arteries: No occlusion or significant stenosis. Liver: No mass. Gallbladder and biliary ducts: There has been a cholecystectomy. Pancreas: Unremarkable. No mass. No ductal dilation. Spleen: Unremarkable. No splenomegaly. Adrenal glands: Unremarkable. No mass. Kidneys and ureters: Bilateral nephrolithiasis is better seen on the comparison exam. No hydronephrosis. Normal enhancement of renal parenchyma. Stomach and bowel: Unremarkable. No obstruction. No mucosal thickening. Appendix: No evidence of appendicitis. Intraperitoneal space: Unremarkable. No free air. No significant fluid collection. Lymph nodes: Unremarkable. No enlarged lymph nodes. Urinary bladder: Unremarkable. No mass. Reproductive: There has been a hysterectomy. Bones/joints: No acute fracture. Soft tissues: Unremarkable. IMPRESSION: 1. Normal caliber abdominal aorta without dissection evident. 2. Postoperative changes cholecystectomy and hysterectomy.
--- NOTE | 2024-01-09 05:28 | PC.NURSE ---
Patient's spouse came to curtain and reported patient was having increased pain. This RN and Jung Olsen RN assessed patient who reports severe, sharp right upper quadrant pain that radiates through to her back. Patient is sitting upright holding right side. Notified provider who presented to bedside and assessed patient. Orders received and administered.
[2024-01-09] MEDS: FENTANYL 100MCG/2ML VIAL 50 MCG IV ×2 (05:33→05:38)
--- NOTE | 2024-01-09 05:33 | PC.NURSE ---
spoke with dinah at [facility]; they will stop the fentanyl patch.
[2024-01-09] MEDS: 0.9 % SODIUM CHLORIDE 50 ML VIAL IV (05:55)
[2024-01-09] MEDS: IOPAMIDOL-370 (76%);100ML BOTTLE 100 ML IV (05:55)
[2024-01-09] MEDS: droPERidol 5MG/2ML VIAL 2.5 MG IV (05:57)
[2024-01-09 09:05] VITALS: BP 120/87; PULSE 71; RESP 13; TEMP 36.7; O2SAT 100
== END 2024-01-09 09:06 | disposition home or self-care (01) ==
PROVIDERS: Emergency Provider Emergency Medicine; PCP Family Medicine
DX: R10.13 Epigastric pain (principal); K44.9 Diaphragmatic hernia without obstruction or gangrene; R11.0 Nausea; F17.210 Nicotine dependence, cigarettes, uncomplicated
CPT/HCPCS: 71275; 74174; 74177; 80053; 83690; 84484; 85025; 93005; 96361; 96374; 96375; 99285; J1790; J1885; J2270; J2405; J3010; J7120; Q9967

== ENCOUNTER 2024-08-10 08:32 | Emergency (ER) | payer BC, SELFPAY ==
[2024-08-10 08:45] VITALS: BP 114/73; PULSE 75; RESP 19; TEMP 37.1; O2SAT 99; BMI 25.4
--- NOTE | 2024-08-10 08:55 | ED_ITS ---
Discharge Plan Disposition Patient Disposition: Home, Self-Care Condition: Good Prescriptions Prescriptions: New benzonatate 100 mg capsule 100 mg PO TID PRN (Reason: cough) Qty: 30 0RF No Action levothyroxine 50 mcg tablet 50 mcg PO DAILY Zepbound 5 mg/0.5 mL pen injector 0.25 mg SQ WEEKLY Patient Comments: INJECT 5 MG SUBCUTANEOUSLY ONCE A WEEK Referrals Follow up/Referrals: Guerline Guthrie MD [Primary Care Provider] - See instructions Activity Restrictions/Add. Instructions Additional Instructions/Restrictions: *Monitor Temp, Over the counter Motrin or Tylenol as directed/as needed Tylenol every 4 hours and Motrin every 6 hours (as long as your family doctor has told you that you can take it) for fever or pain. and straight to ER if unable to lower temp less than 101.0 after medication given *Warm salt water gargles may help to soothe the throat *Throat Lozenges? *Warm fluids like tea with honey may help to soothe the throat? *Sleep elevated *Humidifier/Vaporizer Follow up IMMEDIATELY for new or worsening symptoms or no Noticeable improvement over the next 48-72 hours. 911 for difficulty breathing or swallowing You were tested for today for Mini Respiratory Panel that includes COVID19, Influenza A&B, RhinoVirus and RSV your test result should be back in the next few hours, and your result be available on the [facility] [employer] [facility] portal Clinical Impressions Clinical Impression: Viral syndrome Stand Alone Forms Stand Alone Forms: Work/School Release Instructions Patient Instructions: DI for Viral Syndrome, DI for Fever (Symptom) -- Adult Print Language Print Language: Mexican Discharge ED Provider: Faith Diop [facility] [place] HPI General Stated complaint: body aches, chills, headache Mode of Arrival: Ambulatory Source of Information: Patient Limitations: No Limitations Time Seen by Provider: 08/10/24 08:55 Description of Symptoms (Recalled from Triage Doc. by RN): PATIENT C/O BODY ACHES, CHILLS, FEVER, CONGESTION AND HEADACHE SINCE YESTERDAY HEENT Symptoms (Recalled from RN notes): Yes Resp Symptoms (Recalled from RN notes): No Skin Symptoms (Recalled from RN notes): No MS Symptoms (Recalled from RN notes): No Functional Status (Recalled from RN notes): WNL History of Present Illness Provider Complaint: Patient states that she started feeling bad yesterday with body aches, chills, fever, nasal congestion and headache so today when she was still not feeling any better she came in to get checked worried she may have flu or something Related Data Home Medications ?Medication ?Instructions ?Recorded ?Confirmed levothyroxine 50 mcg tablet 50 mcg PO DAILY thyroid 01/09/24 08/10/24 tirzepatide (weight loss) 5 mg/0.5 0.25 mg SQ WEEKLY 01/09/24 08/10/24 mL subcutaneous pen injector (Zepbound) Previous Rx's ?Medication ?Instructions ?Recorded benzonatate 100 mg capsule 100 mg PO TID PRN cough #30 caps 08/10/24 Allergies Allergy/AdvReac Type Severity Reaction Status Date / Time No Known Allergies Allergy Verified 06/11/23 11:44 Worker's Comp Is this a Worker's Comp case?: No [facility] Disclaimer: The information contained in this section may have been updated after the patient was seen, as this information can be updated by other users. Medical History (Updated 08/10/24 @ 09:07 by Faith Diop APRN) Kidney stone Tobacco user Stress incontinence in female History of endometriosis Dyspareunia Overweight (BMI 25.0-29.9) Nephrolithiasis Felon of digit Abscess of right thigh Atypical chest pain Cellulitis and abscess of right leg Lateral epicondylitis of elbow Surgical History History of hysterectomy with bilateral oophorectomy Social History Smoking Status: Current every day smoker tobacco type: cigarettes packs per day: 1 alcohol intake: never substance use type: denies use current occupational status: other Travel in the last 8 weeks: None household members: spouse and children housing: house 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 Have you lived/traveled outside [place] in past 30 days?: No Contact w/someone who lives/traveled outside US past 30 days?: No Exposure to someone with infectious disease in past 14 days?: No Do you have a fever (greater than 100.4 F or 38 C)?: No Have you tested positive for COVID-19: No Exposed to someone with COVID-19 in past 14 days?: No Do you have a sore throat?: Yes Do you have a cough?: No Do you have any weakness?: No Do you have any diarrhea?: No Are you experiencing any unusual bleeding?: No Do you have any muscle aches/pain?: No Do you have any abdominal pain?: No Are you experiencing loss of taste or smell?: No ROS Obtained: Yes All systems reviewed & no additional complaints except as documented and Yes Systems reviewed as appropriate & no additional complaints except as documented Constitutional Constitutional: Reports system reviewed and no additional complaints, except as documented, Reports as per HPI, Reports body ache, Reports chills, Reports fever(s) and Reports headache(s) Eyes Eyes: Reports system reviewed and no additional complaints, except as documented and Reports as per HPI ENT Ears, Nose, Mouth, and Throat: Reports system reviewed and no additional complaints, except as documented, Reports as per HPI, Reports headache(s), Reports nasal congestion and Reports nasal discharge Cardiovascular Cardiovascular: Reports system reviewed and no additional complaints, except as documented and Reports as per HPI Respiratory Respiratory: Reports system reviewed and no additional complaints, except as documented and Reports as per HPI Gastrointestinal Gastrointestingal: Reports system reviewed and no additional complaints, except as documented and as per HPI Neurologic Neurologic: Reports headache(s) Physical Exam General General appearance: alert and in no apparent distress ENT ENT exam: Present mucous membranes moist Expanded ENT Exam Nose exam: Absent sinus tenderness Throat exam: Present normal inspection Respiratory Respiratory exam: Present normal lung sounds bilaterally; Absent respiratory distress or wheezes Cardiovascular Cardiovascular exam: Present regular rate, normal rhythm and normal heart sounds Abdominal Exam Abdominal exam: Present soft and normal bowel sounds; Absent distention or tenderness Neurological Exam Neurological exam: Present alert, oriented X3 and normal gait Medical Decision Making Medical Records Screening: Per USPSTF and CDC recommendations, given the prevalence of disease in our region, it is our hospital?s policy to screen for HIV and viral Hepatitis for all patients aged 18 and over and those with ongoing risk factors. Alcon Inquiry Pt receiving controlled substance: No Alcon was queried for this patient: No Vital Signs: 08/10/24 08:45 Temperature 98.7 F Temperature Source Oral Pulse Rate [Left Brachial] 75 Respiratory Rate 19 Blood Pressure [Left Arm] 114/73 Blood Pressure Mean [Left Arm] 86 Blood Pressure Source [Left Arm] Automatic Cuff Blood Pressure Position [Left Arm] Sitting 02 Sat by Pulse Oximetry 99 Oxygen Delivery Method Room Air Lab Data Lab results reviewed: Yes I reviewed the patient's lab results.
[2024-08-10 09:10] VITALS: BP 114/73; PULSE 75; RESP 19; TEMP 37.1; O2SAT 99
[2024-08-10 09:11] LABS: UTC Influenza A Antigen Negative (Negative); UTC Influenza B Antigen Negative (Negative)
[2024-08-10 09:45] LABS: Coronavirus 19, PCR Not Detected (NotDetected); Human Rhinovirus Not Detected (NotDetected); Influenza A, PCR Not Detected (NotDetected); Influenza B, PCR Not Detected (NotDetected); Respiratory Syncytial Virus Not Detected (NotDetected)
== END 2024-08-10 09:15 | disposition home or self-care (01) ==
PROVIDERS: Emergency Provider Nurse Practitioner; PCP Family Medicine
DX: B34.9 Viral infection, unspecified (principal)
CPT/HCPCS: 87631; 87804; 99213; G0381

== ENCOUNTER 2024-10-22 22:58 | Emergency (ER) | payer BC, SELFPAY ==
--- NOTE | 2024-10-22 23:07 | ECG_ITS ---
APPROVED REPORT Exam: Resting ECG HR:70 bpm ECG Measurements Heart Rate 70 AXES NJ 162 P 72 QRSd 95 QRS -12 QT 419 T 68 QTc 439 Conclusion SINUS RHYTHM POSSIBLE RIGHT VENTRICULAR CONDUCTION DELAY [RSR (QR) IN V1/V2] No STEMI Electronically signed by : DORYS LAMBERT, 10/23/2024 06:37:42
--- NOTE | 2024-10-22 23:10 | CT_ITS ---
PROCEDURE INFORMATION: Exam: CT Head Without Contrast Exam date and time: 10/22/2024 11:48 PM Age: 43 years old Clinical indication: Stroke-like symptoms; Other: Tingling left forearm; Additional info: Tingling L forearm TECHNIQUE: Imaging protocol: Computed tomography of the head without contrast. Radiation optimization: All CT scans at this facility use at least one of these dose optimization techniques: automated exposure control; mA and/or kV adjustment per patient size (includes targeted exams where dose is matched to clinical indication); or iterative reconstruction. Other technique: STROKE PROTOCOL was implemented. COMPARISON: CT HEAD/BRAIN WO/W CON 07/11/2019 10:55 AM FINDINGS: Brain: No acute abnormality. No edema or mass effect. No hemorrhage. Cerebral ventricles: No acute abnormality. No significant ventriculomegaly. Paranasal sinuses: No significant or acute abnormality. No air-fluid levels. Mastoid air cells: No acute abnormality. No significant mastoid effusion. Bones: No acute osseous abnormality. No acute fracture. Soft tissues: No significant soft tissue abnormalities. IMPRESSION: No evidence of acute intracranial abnormality. ASSESSMENT: ASPECTS (Aleksandra Stroke Program Early CT Score) is 10.
--- NOTE | 2024-10-22 23:10 | CT_ITS ---
PROCEDURE INFORMATION: Exam: CTA Head With Contrast, Arteriography Exam date and time: 10/22/2024 11:50 PM Age: 43 years old Clinical indication: Stroke-like symptoms; Other: Tingling left forearm; Additional info: Tingling L forearm no identifiable deficit TECHNIQUE: Imaging protocol: Computed tomographic angiography of the head with contrast. Exam focused on the arteries. 3D rendering (Not supervised by radiologist): MIP and/or 3D reconstructed images were created by the technologist. Radiation optimization: All CT scans at this facility use at least one of these dose optimization techniques: automated exposure control; mA and/or kV adjustment per patient size (includes targeted exams where dose is matched to clinical indication); or iterative reconstruction. Contrast material: ISOVUE; Contrast volume: 80 ml; Contrast route: INTRAVENOUS (IV); COMPARISON: CT HEAD/BRAIN WO CON 10/22/2024 11:48 PM FINDINGS: ANTERIOR CIRCULATION: Right internal carotid artery: Intracranial segment is patent with no significant stenosis. No aneurysm. Right middle cerebral artery: No occlusion or significant stenosis. No aneurysm. Right anterior cerebral artery: No occlusion or significant stenosis. No aneurysm. Left internal carotid artery: Intracranial segment is patent with no significant stenosis. No aneurysm. Left middle cerebral artery: No occlusion or significant stenosis. No aneurysm. Left anterior cerebral artery: No occlusion or significant stenosis. No aneurysm. POSTERIOR CIRCULATION: Right vertebral artery: No occlusion or significant stenosis. No aneurysm. Left vertebral artery: No occlusion or significant stenosis. No aneurysm. Basilar artery: No occlusion or significant stenosis. No aneurysm. Right posterior cerebral artery: No occlusion or significant stenosis. No aneurysm. Left posterior cerebral artery: No occlusion or significant stenosis. No aneurysm. Brain: No acute abnormality. No edema, mass effect or midline shift. No hemorrhage. Cerebral ventricles: No acute findings. No hydrocephalus. Bones/joints: No acute osseous abnormality. No acute fracture. Soft tissues: No significant soft tissue abnormalities. IMPRESSION: No evidence of significant intracranial vascular disease or acute large vessel occlusion.
--- NOTE | 2024-10-22 23:10 | CT_ITS ---
PROCEDURE INFORMATION: Exam: CTA Neck With Contrast Exam date and time: 10/22/2024 11:50 PM Age: 43 years old Clinical indication: Stroke-like symptoms; Other: Tingling left forearm; Additional info: Tingling L forearm no identifiable deficit TECHNIQUE: Imaging protocol: Computed tomographic angiography of the neck with contrast. Exam focused on the cervical segments of the vasculature. 3D rendering (Not supervised by radiologist): MIP and/or 3D reconstructed images were created by the technologist. Radiation optimization: All CT scans at this facility use at least one of these dose optimization techniques: automated exposure control; mA and/or kV adjustment per patient size (includes targeted exams where dose is matched to clinical indication); or iterative reconstruction. Contrast material: ISOVUE; Contrast volume: 80 ml; Contrast route: INTRAVENOUS (IV); COMPARISON: CT ANGIO CHEST 01/09/2024 5:47 AM FINDINGS: Right common carotid artery: Patent enhancing right common carotid artery. No significant stenosis. No dissection or occlusion. Right internal carotid artery: No acute abnormality. Extracranial segment is patent without stenosis with respect to the distal ICA lumen. No dissection or occlusion. Right external carotid artery: Patent enhancing right external carotid artery. No occlusion or significant stenosis. Left common carotid artery: Patent enhancing left common carotid artery. No significant stenosis. No dissection or occlusion. Left internal carotid artery: No acute abnormality. Extracranial segment is patent without stenosis with respect to the distal ICA lumen. No dissection or occlusion. Left external carotid artery: Patent enhancing left external carotid artery. No occlusion or significant stenosis. Right vertebral artery: Patent enhancing right vertebral artery. No significant stenosis. No dissection or occlusion. Left vertebral artery: Patent enhancing left vertebral artery. No significant stenosis. No dissection or occlusion. Soft tissues: No significant soft tissue abnormalities. Bones/joints: C5-C6 cervical spondylosis and degenerative changes with moderate right and moderate to severe left foraminal stenosis.. IMPRESSION: 1. No evidence of significant carotid or vertebral arterial vascular disease at this time. 2. C5-C6 cervical spondylosis and degenerative changes with bilateral foraminal stenosis left greater than right. REFERENCES: NASCET CRITERIA. The degree of stenosis in the cervical segment of the internal carotid artery is based on NASCET criteria. Normal is no stenosis. Mild is less than 50% stenosis. Moderate is 50-69% stenosis. Severe is 70% to 99% stenosis. Total occlusion is no detectable patent lumen.
--- NOTE | 2024-10-22 23:12 | XR_ITS ---
PROCEDURE INFORMATION: Exam: XR Chest Exam date and time: 10/22/2024 11:28 PM Age: 43 years old Clinical indication: Left-sided and other: Left arm pain; Additional info: L arm pain TECHNIQUE: Imaging protocol: Radiologic exam of the chest. Views: 2 views. COMPARISON: CT ANGIO CHEST 01/09/2024 5:47 AM FINDINGS: Lungs: No significant or acute findings. No consolidation. Pleural spaces: No significant costophrenic angle blunting. No pneumothorax. Heart/Mediastinum: Heart size is normal. Bones/joints: Pectus excavatum deformity of the chest. IMPRESSION: 1. No acute abnormality demonstrated. 2. Pectus excavatum deformity of the chest.
--- OUTSIDE RECORDS SUMMARY | 2024-10-22 23:13 | XMS_ITS | Clinical Summary ---
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 Problems Includes: Problems addressed during this encounter and other active Problems All Visits Onset Date Resolved Date Provider Condition S tatus Pain in Both Feet 07/20/2021 Jose Ludwig DPM Active Last Documented On 2 8:40AM ; [facility], [facility] Pain in the Left Foot 02/11/2020 Jose Ludwig DPM Active Last Documented On 0 9:52AM ; [facility], [facility] Plan of Treatment No Plan of Treatment Recorded Assessments Includes: Assessments from this encounter No Assessments Recorded Medical Equipment - Implanted Devices Includes: Current Devices No Medical Equipment Recorded Medications Includes: Medications discussed during this encounter and other current Medications Current Medications (continue as prescribed) Synthroid 50 MCG Oral Tablet 07/20/2021 Provider: Diagnosis: Last Documented On 2 8:44AM By Yudy Carbone [facility], [facility] Estradiol 2 MG Oral Tablet 07/20/2021 Provider: Diagnosis: Last Documented On 2 8:44AM By Yudy Martins ; [facility], [facility] Medications Administered Includes: Administered Medications from this encounter No Administered Medications Recorded Results Includes: Results discussed during this encounter No Results Recorded For Specified Dates History of Present Illness Includes: History of Present Illness from this encounter No History of Present Illness Recorded Social History No Social History Recorded - Smoking Status Unknown Medical History Includes: Medical History addressed during this encounter No Medical History Recorded Family History Includes: Family History addressed during this encounter No Family History Recorded Review of Systems Includes: Review of Systems from this encounter No Review of Systems Recorded Mental Status Includes: Mental Status from this encounter No Mental Status Recorded Functional Status Includes: Functional Status from this encounter No Functional Status Recorded Physical Exam Includes: Physical Exam from this encounter No Physical Exam Recorded Allergies Includes: Active Allergies No Known Allergies Encounters Encounter Provider Location Date Check-In Time Check-Out Time Diagnosis BRACE YANELIS Ludwig DPM [facility] 02/21/2020 11:32AM 11:59PM Insurance Includes: Active Insurance Policies Plan Name Member ID Group # Subscriber Relationship Effect jerry Dates - [facility] [id number] Jing, Kash Clinical Notes Includes: Clinical Notes from this encounter No Clinical Notes Recorded
--- OUTSIDE RECORDS SUMMARY | 2024-10-22 23:13 | XMS_ITS ---
Care Plan - [facility], [facility] Created on: October 22, 2024 Yoon Ch .0 : 1980 Sex: Female Author Organization [facility], [facility] Address [address] [place] [address] Phone Care Team Providers Care Entry Level Account Manager Name Role Phone Boom COBOS, David Garcia Unavailable [phone] TREY COBOS, AVIS Unavailable [phone]
--- OUTSIDE RECORDS SUMMARY | 2024-10-22 23:14 | XMS_ITS | Clinical Summary ---
Author Organization [facility] , [facility] Address [address] [place] [address] Phone Care Team Providers Care Marketing Copywriter Name Role Phone Boom COBOS, David Garcia Unavailable [phone] TREY COBOS, AVIS Unavailable [phone] Reason for Visit and Chief Complaint The Chief Complaint is: left foot pain Problems Includes: Problems addressed during this encounter and other active Problems Current Visit Onset Date Resolved Date Provider Conditio n Status Pain in Both Feet 07/20/2021 Jose Ludwig DP Active Last Documented On 2 8:40AM ; [facility] Past Visits Onset Date Resolved Date Provider Condition Status Pain in the Left Foot 02/11/2020 Jose Ludwig DPBrent Active Last Documented On 0 9:52AM ; [facility] Plan of Treatment I had a lengthy discussion with this patient regarding the findings. I did review the history. This patient has plantar fasciitis symptoms minimally on the right side however this could also be explained by tarsal tunnel entrapment. She has rather convincing tarsal tunnel entrapment symptoms on the right side and minimally on the left. She was responded beautifully to a year and a half ago to a tarsal tunnel injection by Dr. Galarza of pain management on that left side. I think she would be a candidate for that injection on the right side and possibly a repeat injection on the left side. She also thinks gabapentin periodically and sporadically utilized has been beneficial over the past year. I did advise her of the gabapentin generally works better if it is taken consistently. I did place her back on gabapentin 100 mg daily at bedtime. She can discuss that with Dr. Galarza if he wants to continue on that medication. I do not see a surgical indication. I did advise her that surgical intervention for tarsal tunnel entrapment in my experience has not been highly fruitful and if injection therapy is working I think that is a better course of action. She is understanding and agreeable with that plan of care. We will see her back as needed. - Last Documented On 07/20/2021 9:46AM ; [facility], [facility] Referrals To Diagnosis Consult for Pain Management Note: sukh galarza Last Documented On 2 3:16PM ; [facility], [facility] Instructions to patient Intervention and counseling on cessation of tobacco use Last Documented On 2 8:41AM ; [facility], [facility] Lose weight Last Documented On 2 8:41AM ; [facility], [facility] Assessments Includes: Assessments from this encounter Findings Tarsal tunnel syndrome with moderate symptoms right and mild symptoms of left - Last Documented On 07/20/2021 9:46AM ; [facility], [facility] Instructions Includes: Instructions from this encounter Instructions to patient Intervention and counseling on cessation of tobacco use Last Documented On 2 8:41AM ; [facility], [facility] Lose weight Last Documented On 2 8:41AM ; [facility], [facility] Medical Equipment - Implanted Devices Includes: Current Devices No Medical Equipment Recorded Medications Includes: Medications discussed during this encounter and other current Medications Discontinued / Stopped on this date on 02/11/2020 Estrogens Conjugated 1.25 MG Oral Tablet Provider: Diagnosis: Last Documented On 2 8:44AM By Yudy Martins ; [facility], [facility] New / Renewed during this visit Jose Ludwig DPBrent on 07/20/2021 Gabapentin 100 MG Oral Capsule Provider: Jose Ludwig DPBrent 30 day supply: 30 capsule, 0 refills Diagnosis: 1 every bedtime Pharmacy: [facility] [place] [id number] [id number] - Last Documented On 2 10:00AM By Dr. Ludwig ; [facility], [facility] Current Medications (continue as prescribed) Synthroid 50 MCG Oral Tablet 07/20/2021 Provider: Diagnosis: Last Documented On 2 8:44AM By Yudy JONES [facility] Estradiol 2 MG Oral Tablet 07/20/2021 Provider: Diagnosis: Last Documented On 2 8:44AM By Yudy Martins ; [facility] Past Medications on file Gabapentin 100 MG Oral Capsule 02/21/2020 - 03/22/2020 Provider: Jose Ludwig DPM Diagnosis: twice a day Last Documented On 0 11:10AM By Lalo JONES [facility] Gabapentin 100 MG Oral Capsule 02/11/2020 - 03/12/2020 Provider: Jose Ludwig DPBrent Diagnosis: 1 every bedtime Last Documented On 0 10:27AM By Agustina Vasquez ; [facility], [facility] Medications Administered Includes: Administered Medications from this encounter No Administered Medications Recorded Vital Signs Includes: Vital Signs from this encounter Vital Name 07/20/2021 08:41A Blood Pressure Sitting (mmHg) 112/80 Pulse Rate-Sitting (bpm) 71 Height (in) 66 Weight (lb) 180 Body Mass Index (kg/m2) 29.1 Body Surface Area (m2) 1.9 Note: [facility] Last Documented: On 07/20/2021 8:45AM ; [facility] Results Includes: Results discussed during this encounter No Results Recorded For Specified Dates History of Present Illness Includes: History of Present Illness from this encounter HPI Yoon Ch is a 40 year old female. - Symptoms giving away. - Allergy list reviewed - Problem list reviewed - Medication reconciliation performed - Medication list reviewed with patient - Previous history of new onset pain 2019 - Pain is occasional (25% of the time) - Pain is throbbing - Pain is dull, aching - Patient pain level from 1-10: 8 - No previous treatment. this is a 40-year-old female who is known to me who returns for evaluation of what she thinks is tarsal tunnel entrapment starting up on her right side. I last saw her in April 2020 and we were dealing with tarsal tunnel entrapment on the left side. Just prior to that visit she had a tarsal tunnel injection by Dr. Galarza of pain management on that left side and that did work very well for her. She has utilize gabapentin sporadically when she does have some neuritic symptoms and that seemingly has worked over the past year or so but that right side is increasingly painful with pain in the tarsal tunnel which wakes her up at night. Social History Description Last Updated No recent change in diet 07/20/2021 Last Documented On 2 9:46AM ; [facility] Yes, current smoker. 07/20/2021 Last Documented On 2 9:46AM ; [facility] Smoker 02/11/2020 Last Documented On 2 8:41AM ; [facility] No caffeine use 02/11/2020 Last Documented On 2 8:41AM ; [facility] No recent change in diet 02/11/2020 Last Documented On 2 8:41AM ; [facility] Not exercising regularly 02/11/2020 Last Documented On 2 8:41AM ; [facility] Not using alcohol 02/11/2020 Last Documented On 2 8:41AM ; [facility] Not using drugs 02/11/2020 Last Documented On 2 8:41AM ; [facility] Yes, current smoker. 02/11/2020 Last Documented On 2 8:41AM ; [facility] Smoking Status Unknown Procedures and Surgical History Includes: Procedures from this encounter Procedures Code Diagnosis Performing Provider Service L ocation Service Date intervention and counseling on cessation of tobacco use 4000F Last Documented On 2 8:41AM ; [facility], [facility] use of tobacco assessment performed 1000F Last Documented On 2 8:41AM ; [facility] an EMG was performed 89927 Last Documented On 2 8:41AM ; [facility], [facility] an MRI was performed 02/18/2020-L ankle [place] MRI [id number] Last Documented On 2 8:41AM ; [facility] Surgical History Last Updated History of appendectomy 07/20/2021 Last Documented On 2 9:46AM ; [facility] History of History of Gallbladder 2021 Last Documented On 2 9:46AM ; [facility], [facility] History of hysterectomy 07/20/2021 Last Documented On 2 9:46AM ; [facility], [facility] Medical History Includes: Medical History addressed during this encounter Description Last Updated History of Thyroid Disease 07/20/2021 Last Documented On 2 9:46AM ; [facility], [facility] History of Gallbladder 02/11/2020 Last Documented On 2 8:41AM ; [facility], [facility] Hysterectomy 02/11/2020 Last Documented On 2 8:41AM ; [facility], [facility] No recent immunization for flu 0 Last Documented On 2 8:41AM ; [facility], [facility] No recent immunization for pneumococcal pneumonia 02/11/2020 Last Documented On 2 8:41AM ; [facility], [facility] Thyroid Disease 02/11/2020 Last Documented On 2 8:41AM ; [facility], [facility] Family History Includes: Family History addressed during this encounter Description Last Updated Diabetes mellitus 07/20/2021 Last Documented On 2 9:46AM ; [facility], [facility] Family history of cancer 02/11/2020 Last Documented On 2 8:41AM ; [facility], [facility] Family history of hypertension 0 Last Documented On 2 8:41AM ; [facility], [facility] Review of Systems Includes: Review of Systems from this encounter Systemic: Not feeling tired, no recent weight loss, and no recent weight gain. Head: Headache. No sinus pain. Eyes: No vision problems and no Cataracts. Glasses/Contacts. No Glaucoma. Otolaryngeal: No hearing loss and no tinnitus. Cardiovascular: No chest pain or discomfort, no palpitations, no Hypertension, and no High Cholesterol. Pulmonary: No daytime asthma symptoms and no chronic cough. No wheezing. Gastrointestinal: Heartburn. No abdominal pain. No Indigestion. Acid Reflux. No Peptic Ulcer, no GI Stomach Bleed, and no Ulcers. Endocrine: Hot flashes. No muscle weakness and no Diabetes. Hypothyroid. No Hyperthyroid. Hematologic: No easy bleeding, no tendency for easy bruising, and no Anemia. Musculoskeletal: No Arthritis and no lower back pain. No soft tissue swelling. Pain localized to one or more joints. Neurological: No dizziness, no convulsions, and no numbness. Psychological: Anxiety. No emotional lability, no depression, and no insomnia. Not crying for no reason. Skin: No dry skin. No Ulcers, no Scars, and no rash. Allergic and Immunologic: Complaint of seasonal allergic reaction. REVIEWED W/ PATIENT 07/20/21 Mental Status Includes: Mental Status from this encounter Description Anxiety Functional Status Includes: Functional Status from this encounter No Functional Status Recorded Physical Exam Includes: Physical Exam from this encounter Allergies Includes: Active Allergies No Known Allergies Encounters Encounter Provider Location Date Check-In Time Check-Out Time Diagnosis NEW PROBLEM/[facility] 07/20/19 22 8:25AM 9:39AM Insurance Includes: Active Insurance Policies Plan Name Member ID Group # Subscriber Relationship Effect jerry Dates - [facility] [id number] Kash Ch Clinical Notes Includes: Clinical Notes from this encounter No Clinical Notes Recorded
--- OUTSIDE RECORDS SUMMARY | 2024-10-22 23:14 | XMS_ITS | Data Portability ---
Author Organization [facility] Address [address] [place] [address] Care Team Providers Care Smasher Name Role Phone NATALY DEL VALLE Neurologist [phone] DANIEL MENA Primary Care Provider [phone] CAR FRANKLIN Primary Care Provider [phone] Assessment Encounter Date Assessment Date Assessment LastModified by Organization Details LastModified Time 10/30/2019 10/30/2019 Migraine headaches. Discussed options. She has not seen benefit with Aimovig so far. I suggested trying the higher dose for the next month at least, 140 mg. Will send that in, and I discussed how to download coupon. If this is not beneficial, then would need to consider other preventative medicine - eg venlafaxine or propranolol or amitriptyline. WIth her history of recurrent kidney stones, I would try to avoid topimarate. WIll also send in rizatriptan prn. Suggested minimizing both butalbital and ibuprofen, in case there is any component of analgesic rebound. f/u in about six weeks, but she knows to call anytime if needed. [email or web address] Not available 10/30/2019 13:27:20 06/16/2023 06/16/2023 42-year-old female with history of urolithiasis. She was seen in the ER at [facility] 06/11/2023. She was told she has 2 left ureteral stones. She was discharged home with hydrocodone and Flomax. She will continue taking Flomax and use hydrocodone as needed for pain. She was given a strainer and specimen cup in case she is able to catch the stones. We have requested the CT records from [facility]. I will contact her if the CT scan shows anything different than what we have discussed today. She continues to have suprapubic pressure but, UA is negative. Sending urine for microscopic evaluation. I have ordered a CT scan to be done in 1 week if her symptoms continue. Plan: Continue tamsulosin and hydrocodone as needed. Strain urine. Urine micro pending. Check CT in 1 week if symptoms have not resolved. [email or web address] Not available 06/16/2023 09:32:41 06/23/2023 06/23/2023 42-year-old female with history of urolithiasis. She was seen in the ER at [facility] 06/11/2023. She was told she has 2 left ureteral stones. She was given an IM injection of ketorolac 30 mg today in the office. She will continue taking Flomax and use oxycodone 7.5 mg and ketorolac 10 mg for pain management. She will continue straining her urine. She would like to schedule surgery SHEMAR. She was instructed to go to the ER if pain worsens and is not controlled with medications prescribed. We will contact her with next available surgery date. Plan: Continue tamsulosin and pain medication as needed. Go to ER in [place] if symptoms fail to improve or worsen. [email or web address] Not available 06/23/2023 10:48:42 06/30/2023 06/30/2023 SURGERY DATE: 06/30/2023 PREOPERATIVE DIAGNOSIS: Left ureteral stones. POSTOPERATIVE DIAGNOSIS: Left ureteral stones. PROCEDURE: 1. Cystoscopy, left ureteroscopy, laser lithotripsy, basket stone extraction, and stent placement. 2. Fluoroscopy, supervision and interpretation. ANESTHESIA: General. ESTIMATED BLOOD LOSS: None. COMPLICATIONS: None. SPECIMENS: Stone fragments for analysis. FINDINGS: Normal-appearing urethra and bladder. Left ureteroscopy showed 2 stones in the distal ureter, which were fragmented and extracted. There was proper placement of the stent. SURGEON: Kenneth Hernandez MD INDICATIONS: A 42-year-old female with a history of urolithiasis. She underwent right ESWL in 2018. She had left renal colic and CT scans at [facility] showed 2 left distal ureteral stones. She has been unable to pass the stones and opts for stone extraction. DRAIN: Left ureteral stent 6-Latvian x 24 cm, strings intact. OPERATIVE NOTE: After informed consent, the patient was taken to the operating room in stable condition. Anesthesia was induced without complications. She was placed in the lithotomy position. The genitalia and groins were prepped and draped. A time-out was taken to identify the correct patient and procedure and side. A 22-Latvian cystoscope was placed per urethra into the bladder. Inspection revealed a normal bladder. A 0.035 hydrophilic guidewire was inserted into the left ureter and advanced up to the level of the kidney under fluoroscopy guidance without difficulty. Left ureteroscopy was performed with a semi-rigid ureteroscope and another 0.035 hydrophilic guidewire for guidance. The distal ureter was tight. The stones were identified in the distal ureter. A 200 micron holmium laser was used to fragment the stones into smaller pieces. A 1.9-Latvian ZeroTip basket was used to extract the fragments into the bladder. Followup ureteroscopy into the upper ureter showed no other stones. The ureteroscope was withdrawn and removed. The cystoscope was placed over the wire into the bladder. A 6-Latvian x 24 cm double-J ureteral stent was passed over the wire and up to the level of the kidney under fluoroscopy guidance without difficulty. The wire was removed and there was good curl in the renal pelvis and in the bladder. The string was left intact. The stone fragments were flushed from the bladder. The bladder was drained. The scope was removed. Lidocaine jelly was placed per urethra. The strings were tied and cut short and tucked into the vagina. She was awakened from anesthesia and taken to recovery room in satisfactory condition. DISPOSITION: She will be discharged home in the care of her when stable and able to void. She was provided another prescription for Percocet. She has tamsulosin. She was instructed to remove the stent and strings in 4 days on Monday and may come to the office if needed. She has scheduled followup in about 3 weeks. [email or web address] Not available 07/03/2023 07:06:43 07/05/2023 07/05/2023 42-year-old female with a history of urolithiasis. She underwent right ESWL in 2018 and left ureteroscopic laser lithotripsy 06/30/2023. The stent came out the following day. She has had ongoing significant left flank and abdominal pain. She went to the emergency room twice. A CT scan at [facility] 07/04/2023 showed left hydroureter but no ureteral stones and bilateral 1 to 2 mm renal stones. She is taking cefdinir, Percocet 5 mg, and ketorolac. A urine culture 07/04/2023 showed mixed bacteria. She might benefit from tamsulosin. If she continues to be symptomatic, I would consider left ureteroscopy and replacement of stent. Plan: Continue Percocet and ketorolac as needed. Use ibuprofen after ketorolac runs out. Start tamsulosin. She will notify me if she does not improve. [email or web address] Not available 07/07/2023 09:05:21 Plan of Treatment Reminders Order Date Submit Date Provider Last Modified By Organization Details Last Modified Time Details Appointments None recorded. Lab urinalysis , dipstick 2022 023 [email or web address] Not available 3 16:51:11 urinalysis , dipstick 2022 023 [email or web address] Not available 3 10:21:53 urinalysis , dipstick 2022 023 evickers Not available 3 09:18:13 urinalysis , microscopi c 2022 023 [email or web address] [facility], [address] [place] [address], [id number], 14:33:15 Referral None recorded. Procedures None recorded. Surgeries None recorded. Imaging CT, abdomen + pelvis, w/o contrast 2022 023 [email or web address] [facility], [address] [place] [address], [id number], 3 10:14:32 Medication Orders tamsulosin 0.4 mg capsule 2022 023 [facility], [address], [address], [place], [address], 3 17:01:32 Percocet 5 mg-325 mg tablet 2022 023 [facility], [address] [place], [address], [place], [address], 3 16:51:46 oxycodone- acetaminop hen 7.5 mg-325 mg tablet 2022 023 [facility], [address] [place] [address], [address], [place], [address], 3 10:28:54 ketorolac 10 mg tablet 2022 023 [facility], [address] [place] [address], [address], [place], [address], 3 10:28:52 ketorolac 30 mg/mL injection solution 2022 023 [facility] Not available 3 12:09:08 tamsulosin 0.4 mg capsule 2022 023 [facility], [facility] [address] [place], [address], [place], [address], 3 09:29:11 hydrocodon e 5 mg-acetami nophen 325 mg tablet 2022 023 [facility], [facility] [address] [place], [address], [place], [address], 3 09:24:17 Aimovig Autoinject or 140 mg/mL subcutaneo us auto-injec tor 2019 020 INTERFACE [facility], [address] [place] [address], [address], [place], [address], 0 13:25:39 rizatripta n 10 mg tablet 2019 020 INTERFACE [facility], [address] [place], [address], [place], [address], 0 13:25:41 Patient TargetsNo targets recorded. Patient InstructionsNo instructions recorded. Reason for Referral None Reported. Results Created Date Observation Date Name Description Value Unit Range Abnormal Flag Note LastModifiedBy Organization Detail LastModifiedTime 06/16/20 23 06/16/2023 urina lysis , dipst ick Unknown Analyte Yellow Not Available [facility] [address] [place], [address], 06/16/2023 09:03:01 06/16/20 23 06/16/2023 urina lysis , dipst ick Unknown Analyte Clear Not Available [facility] [address] [place], [address], 06/16/2023 09:03:01 06/16/2006/16/2023 urina lysis , dipst ick Unknown Analyte 1.020 Not Available [facility] [address] [place] [address], [address], 06/16/2023 09:03:01 06/16/20 23 06/16/2023 urina lysis , dipst ick Unknown Analyte 5.0 Not Available [facility] [address] [place], [address], 06/16/2023 09:03:01 06/16/20 23 06/16/2023 urina lysis , dipst ick Unknown Analyte Negati ve Not Available [facility] [address] [place] [address], [address], 06/16/2023 09:03:01 06/16/20 23 06/16/2023 urina lysis , dipst ick Unknown Analyte Negati ve Not Available [facility] [address] [place], [address], 06/16/2023 09:03:01 06/16/20 23 06/16/2023 urina lysis , dipst ick Unknown Analyte Negati ve Not Available [facility] [address] [place] [address], [address], 06/16/2023 09:03:01 06/16/20 23 06/16/2023 urina lysis , dipst ick Unknown Analyte Normal Not Available [facility] [address] [place], [address], 06/16/2023 09:03:01 06/16/20 23 06/16/2023 urina lysis , dipst ick Unknown Analyte Negati ve Not Available [facility] [address] [place], [address], 06/16/2023 09:03:01 06/16/20 23 06/16/2023 urina lysis , dipst ick Unknown Analyte Normal Not Available [facility] [address] [place], [address], 06/16/2023 09:03:01 06/16/20 23 06/16/2023 urina lysis , dipst ick Unknown Analyte Negati ve Not Available [facility] [address] [place], [address], 06/16/2023 09:03:01 06/16/20 23 06/16/2023 urina lysis , dipst ick Unknown Analyte Negati ve Not Available [facility] [address] [place], [address], 06/16/2023 09:03:01 06/16/20 23 06/16/2023 urina lysis , dipst ick Unknown Analyte Clean Catch Not Available [facility] [address] [place], [address], 06/16/2023 09:03:01 06/16/20 23 06/16/2023 urina lysis , dipst ick Unknown Analyte Visual Not Available [facility] [address] [place], [address], 06/16/2023 09:03:01 06/23/20 23 06/23/2023 urina lysis , dipst ick Unknown Analyte Yellow Not Available [facility] [address] [place], [address], 06/23/2023 08:14:06 06/23/20 23 06/23/2023 urina lysis , dipst ick Unknown Analyte Clear Not Available [facility] [address] [place], [address], 06/23/2023 08:14:06 06/23/20 23 06/23/2023 urina lysis , dipst ick Unknown Analyte 1.005 Not Available [facility] [address] [place], [address], 06/23/2023 08:14:06 06/23/20 23 06/23/2023 urina lysis , dipst ick Unknown Analyte 5.0 Not Available [facility] [address] [place] [address], [address], 06/23/2023 08:14:06 06/23/20 23 06/23/2023 urina lysis , dipst ick Unknown Analyte Negati ve Not Available [facility] [address] [place], [address], 06/23/2023 08:14:06 06/23/20 23 06/23/2023 urina lysis , dipst ick Unknown Analyte Negati ve Not Available [facility] [address] [place] [address], [address], 06/23/2023 08:14:06 06/23/20 23 06/23/2023 urina lysis , dipst ick Unknown Analyte Negati ve Not Available [facility] [address] [place] [address], [address], 06/23/2023 08:14:06 06/23/20 23 06/23/2023 urina lysis , dipst ick Unknown Analyte Normal Not Available [facility] [address] [place], [address], 06/23/2023 08:14:06 06/23/20 23 06/23/2023 urina lysis , dipst ick Unknown Analyte Negati ve Not Available [facility] [address] [place], [address], 06/23/2023 08:14:06 06/23/20 23 06/23/2023 urina lysis , dipst ick Unknown Analyte Normal Not Available [facility] [address] [place], [address], 06/23/2023 08:14:06 06/23/20 23 06/23/2023 urina lysis , dipst ick Unknown Analyte Negati ve Not Available [facility] [address] [place], [address], 06/23/2023 08:14:06 06/23/20 23 06/23/2023 urina lysis , dipst ick Unknown Analyte Negati ve Not Available [facility] [address] [place] [address], [address], 06/23/2023 08:14:06 06/23/20 23 06/23/2023 urina lysis , dipst ick Unknown Analyte Clean Catch Not Available [facility] [address] [place], [address], 06/23/2023 08:14:06 06/23/20 23 06/23/2023 urina lysis , dipst ick Unknown Analyte Visual Not Available [facility] [address] [place], [address], 06/23/2023 08:14:06 06/30/20 23 06/30/2023 urina lysis panel , auto Unknown Analyte Clean Catch Not Available [facility] [address], [address], 06/30/2023 14:46:14 06/30/20 23 06/30/2023 urina lysis panel , auto Unknown Analyte Yellow Not Available [facility] [address] [place] [address], [place], [address], 06/30/2023 14:46:14 06/30/20 23 06/30/2023 urina lysis panel , auto Unknown Analyte Clear Not Available [facility] [address] [place] [address], [place], [address], 06/30/2023 14:46:14 06/30/20 23 06/30/2023 urina lysis panel , auto Unknown Analyte 1.[address] [facility] [address] [place] [address], [address], 06/30/2023 14:46:14 06/30/20 23 06/30/2023 urina lysis panel , auto Unknown Analyte 1.003- 1.035 Not Available [facility] [address] [place] [address], [place], [address], 06/30/2023 14:46:14 06/30/20 23 06/30/2023 urina lysis panel , auto Unknown Analyte 5.[address] [facility] [address] [place] [address], [address], 06/30/2023 14:46:14 06/30/20 23 06/30/2023 urina lysis panel , auto Unknown Analyte 5.0-8. 0 Not [address] [facility] [address] [place] [address], [address], 06/30/2023 14:46:14 06/30/20 23 06/30/2023 urina lysis panel , auto Unknown Analyte 75 Patrica/ul (+) Not Available [facility] [address] [place] [address] [place], [address], 06/30/2023 14:46:14 06/30/20 23 06/30/2023 urina lysis panel , auto Unknown Analyte Negati ve Not Available [facility] [address] [place] [address], [place], [address], 06/30/2023 14:46:14 06/30/20 23 06/30/2023 urina lysis panel , auto Unknown Analyte Negati ve Not Available [facility] [address] [place] [address], [address], 06/30/2023 14:46:14 06/30/20 23 06/30/2023 urina lysis panel , auto Unknown Analyte Negati ve Not Available [facility] [address] [place] [address], [address], 06/30/2023 14:46:14 06/30/20 23 06/30/2023 urina lysis panel , auto Unknown Analyte Trace Not Available [facility] [address] [place] [address], [address], 06/30/2023 14:46:14 06/30/20 23 06/30/2023 urina lysis panel , auto Unknown Analyte Negati ve Not Available [facility] [address] [place] [address], [address], 06/30/2023 14:46:14 06/30/20 23 06/30/2023 urina lysis panel , auto Unknown Analyte Normal Not Available [facility] [address] [place] [address], [address], 06/30/2023 14:46:14 06/30/20 23 06/30/2023 urina lysis panel , auto Unknown Analyte Normal Not Available [facility] [address] [place] [address], [address], 06/30/2023 14:46:14 06/30/20 23 06/30/2023 urina lysis panel , auto Unknown Analyte 15 mg/dl (Sm) Not Available [facility] [address] [place] [address], [place], [address], 06/30/2023 14:46:14 06/30/20 23 06/30/2023 urina lysis panel , auto Unknown Analyte Negati ve Not Available [facility] [address] [place] [address], [place], [address], 06/30/2023 14:46:14 06/30/20 23 06/30/2023 urina lysis panel , auto Unknown Analyte Normal Not Available [facility] [address] [place] [address], [place], [address], 06/30/2023 14:46:14 06/30/20 23 06/30/2023 urina lysis panel , auto Unknown Analyte Normal 1 mg/dl Not Available [facility] [address] [place] [address], [place], [address], 06/30/2023 14:46:14 06/30/20 23 06/30/2023 urina lysis panel , auto Unknown Analyte 1 mg/dl (+) Not Available [facility] [address] [place] [address], [place], [address], 06/30/2023 14:46:14 06/30/20 23 06/30/2023 urina lysis panel , auto Unknown Analyte Negati ve Not Available [facility] [address] [place] [address], [address], 06/30/2023 14:46:14 06/30/20 23 06/30/2023 urina lysis panel , auto Unknown Analyte 250 Bandar/ul Not Available [facility] [address] [place] [address], [place], [address], 06/30/2023 14:46:14 06/30/20 23 06/30/2023 urina lysis panel , auto Unknown Analyte Negati ve Not Available [facility] [address] [address], [place], [address], 06/30/2023 14:46:14 07/04/20 23 07/13/2023 STONE JUAN SIS composition SEE BELOW normal Calci um Oxala te Dihyd rate (Wedd ellit e) 15% Calci um Oxala te Monoh ydrat e (Whew ellit e) 70% Carbo lisy Apati te (Dahl lite) 15% See Note 1 Not Available [facility] [address] [place], [address], 07/13/2023 14:59:00 07/04/20 23 07/13/2023 STONE JUAN SIS weight 0.017 g normal Note 1 This test was devel oped and its juan tical perfo rmanc e joe cteri stics have been deter mined by [facility]. It has not been clear ed or appro john by the FDA. This assay has been valid ated pursu ant to the CLIA regul ation s and is used for clini cody purpo ses. Not Available [facility] [address] [place], [address], 07/13/2023 14:59:00 07/05/20 23 07/05/2023 urina lysis , dipst ick Unknown Analyte Yellow Not Available [facility] [address] [place], [address], 07/05/2023 16:15:03 07/05/20 23 07/05/2023 urina lysis , dipst ick Unknown Analyte Clear Not Available [facility] [address] [place], [address], 07/05/2023 16:15:03 07/05/20 23 07/05/2023 urina lysis , dipst ick Unknown Analyte 1.025 Not Available [facility] [address] [place], [address], 07/05/2023 16:15:03 07/05/20 23 07/05/2023 urina lysis , dipst ick Unknown Analyte 5.0 Not Available [facility] [address] [place], [address], 07/05/2023 16:15:03 07/05/20 23 07/05/2023 urina lysis , dipst ick Unknown Analyte Negati ve Not Available [facility] [address] [place] [address], [address], 07/05/2023 16:15:03 07/05/20 23 07/05/2023 urina lysis , dipst ick Unknown Analyte Negati ve Not Available [facility] [address] [place] [address], [address], 07/05/2023 16:15:03 07/05/20 23 07/05/2023 urina lysis , dipst ick Unknown Analyte Negati ve Not Available [facility] [address] [place] [address], [address], 07/05/2023 16:15:03 07/05/20 23 07/05/2023 urina lysis , dipst ick Unknown Analyte Normal Not Available [facility] [address] [place] [address], [address], 07/05/2023 16:15:03 07/05/20 23 07/05/2023 urina lysis , dipst ick Unknown Analyte Negati ve Not Available [facility] [address] [place] [address], [address], 07/05/2023 16:15:03 07/05/20 23 07/05/2023 urina lysis , dipst ick Unknown Analyte Normal Not Available [facility] [address] [place], [address], 07/05/2023 16:15:03 07/05/20 23 07/05/2023 urina lysis , dipst ick Unknown Analyte Negati ve Not Available [facility] [address] [place], [address], 07/05/2023 16:15:03 07/05/20 23 07/05/2023 urina lysis , dipst ick Unknown Analyte Negati ve Not Available [facility] [address] [place], [address], 07/05/2023 16:15:03 07/05/20 23 07/05/2023 urina lysis , dipst ick Unknown Analyte Clean Catch Not Available [facility] [address] [place], [address], 07/05/2023 16:15:03 07/05/20 23 07/05/2023 urina lysis , dipst ick Unknown Analyte Visual Not Available [facility] [address] [place], [address], 07/05/2023 16:15:03 06/27/20 23 06/20/2023 CT, abdom en, w/o contr ast No observ ation record ed. BARCODE Not Available 2022 16:13:31 07/28/19 24 07/28/2023 CT, abdom en + pelvi s, w/wo contr ast [facility] [address] [place] [address] Mitesh joe Name: JV Wong : 983 Mitesh diaz Orderi ng Provid er: VITOR HERNANDEZ EXAM DATE: 2023 EXAM: CT ABD/PE LVIS W/WO CONTRA ST [facility] AL INFORM ATION: Lithot ripsy 2022. Persis tent left flank pain. Hydron ephros is on outsid e CT TECHNI QUE: No POC testin g for eGFR was perfor med due to absenc e of risk factor s. Multip le axial CT images of the abdome n were obtain ed before and in the combin ed nephro graphi c and excret ory phases after a split inject ion of 100 mL Omnipa que 350 (1 x 100 mL bottle of [facility] [address]-9 1). None was wasted and discar ded. Bowel was marked with water. COMPAR SHANE: Outsid e CT [address] ABDOME N: LOWER THORAX : Lung bases are clear. No obviou s cardia c abnorm ality. URINAR Y TRACT: Both kidney s are normal in locati on, size, shape, outlin e and parenc hymal thickn ess. 2 mm nonobs tructi ng stones are seen in the right kidney . 1 mm nonobs tructi ng stones are seen in the left kidney . Previo usly seen left distal ureter ic stones are presen t. Bilate ral parenc hymal enhanc ement is normal withou t delay. No focal renal lesion is seen. There is adequa te opacif icatio n of collec ting system s and ureter s withou t dilata tion. Previo usly seen left hydron ephros is is not visual ized on today' s examin ation. No fillin g defect is seen. Urinar y bladde r is normal in outlin e and wall thickn ess withou t fillin g defect or mass. OTHER UPPER ABDOMI NAL ORGANS : Gallbl adder is surgic ally absent . Liver, spleen , pancre as, and adrena ls are normal . BOWEL AND MESENT BANDAR: Stomac h, small bowel and colon are normal . No mesent nicci lympha denopa thy or perito lane free fluid. RETROP ERITON EUM: Aorta, IVC and their branch es are patent and normal . No retrop eriton eal lympha denopa thy. ABDOMI NAL WALL AND SKELET AL STRUCT URES: Normal . FINDIN GS ON CT PELVIS : PELVIC CAVITY : Rectum and sigmoi d colon are normal . Uterus is surgic ally absent . Ovarie s are not visual ized. No pelvic or inguin al lympha denopa thy, mass or fluid. MUSCUL OSKELE GEETHA STRUCT URES: Normal . IMPRES RAJWINDER: 1. Small nonobs tructi ng bilate ral renal stones . 2. Previo usly seen distal left ureter ic stone is not presen t any longer . Previo usly seen left hydron ephros is is resolv ed. 3. No new abnorm ality. Interp reted By: Ambar Pedro MD Electr onical ly Signed By: Ambar Pedro MD on 024 11:54 AM [facility] [address] [place] [address] Dr, [place], [address], 08/01/2023 10:26:29 Result Notes None recorded. Problems Name Problem SNOMED Code Status Onset Date Resolution Date Notes Provider Name and Address Organization Details Recorded Time Blood in urine 67168377 Active 2015 Provide r: Mika Schaefer;St at[facility]: Active Not Available [facility] 6 08:00:13 Microscopic hematuria 131937004 Active 2015 Provide r: Mika Schaefer;St atus: Active Not Available [facility] 6 08:00:13 Kidney stone 53222612 Active 2015 Provide r: Mika Schaefer;St atus: Active Not Available [facility] 6 08:00:13 Problem Notes Documentation Provider Name and Address Organization Details Recorded Time Neurologist Consult Note : [facility] ? ? [address] [facility] [id number], MICHELLE (id #[id number], : 1980) [facility] [address] [facility] [address] [place] [address] Date: 10/30/2019RE: Yoon Hernandez, : 1980, PT ID #[id number] Arrington MD / [facility], [facility], I would like to thank you for referring Yoon Hernandez to our practice for consultation and evaluation. I have enclosed a copy of the office evaluation for your records. Sincerely, Electronically Signed by: Sherron COOK Reason/DateNone recorded 10/30/2019 - 01:00PM - NEUROLOGY [facility] History of Present Illness Visit today is being conducted via telehealth using both audio and video. Patient has expressed an understanding of the telehealth process and has consented. This is a 38 year-old female seen at the request of Dr. Arrington for evaluation of headaches. For about 8 mos, she has been bothered by frequent migraines. Bad migraines occur about once per week, manifest as throbbing pain, often on the right side, a/w nausea +/- emesis at worst. MIld photophobia. Movement, walking around aggravate the pain. These can last 2-3 days. No clear triggers. She has had hysterectomy and so cannot say menses is associated. In between the migraines, she tends to keep a low-grade headache most days, usually on the right. While these have been frequent for 8 mos, she has been prone to headaches for a long time, and before she would still get up to three a week, sometimes migrainous. In early July, she had head CT which showed sphenoid sinusitis, and she was seen by Dr. Arrington and there was plan for surgery but followup scan did not show this. In the past, she would take handfuls of Advil prn for headache. She was given Aimovig 70 mg samples about 7 -8 weeks ago by her PCP and has used this twice. No SE, but she cannot tell any big difference. She was given butalbital/APAP, and that helps - takes that usually three days/week now. Takes ibuprofen usually the other four days. She has never taken any other prescription meds for headache. Never tried triptans. Review of SystemsAdditionally reports: no f/c, wt loss. no chest pain, SOB. She is prone to kidney stones. No focal neurological symptoms. She has had blurred vision at times and has been seen by two eye doctors and apparently nothing abnl found. No diplopia. No pulsatile tinnitus. She works third shift at [employer] in [place]. sleeps during the day, variably well.other systems neg or above.Physical ExamPatient is a 38-year-old female. very pleasant in no distress. speech clear and fluent. face symmetric. exam otherwise limited.Procedure DocumentationNone recordedAssessment/PlanMigrai ne headaches. Discussed options. She has not seen benefit with Aimovig so far. I suggested trying the higher dose for the next month at least, 140 mg. Will send that in, and I discussed how to download coupon. If this is not beneficial, then would need to consider other preventative medicine - eg venlafaxine or propranolol or amitriptyline. WIth her history of recurrent kidney stones, I would try to avoid topimarate. WIll also send in rizatriptan prn. Suggested minimizing both butalbital and ibuprofen, in case there is any component of analgesic rebound. f/u in about six weeks, but she knows to call anytime if needed. 1. RomhwpozZ49.909: Migraine, unspecified, not intractable, without status migrainosus Aimovig Autoinjector 140 mg/mL subcutaneous auto-injector -Inject 1 mL every month by subcutaneous route for 30 days. ? Qty: 1 1 mL syringe(s) ? Refills: 5 ? Pharmacy: [facility] rizatriptan 10 mg tablet -one at onset of migraine; may repeat in 2 hours if needed max 2 in 24 hrs. ? Qty: 9 tablet(s) ? Refills: 6 ? Pharmacy: [facility] 2. Migraine without auraG43.009: Migraine without aura, not intractable, without status migrainosus Return to Office to see NATALY DEL VALLE MD at NEUROLOG[facility] on or around 12/11/2019 BELIA ARRINGTON MD [address] [place] [address], [phone], [facility] 11/01/2019 08:54:00 Urology Note : [facility] ? ? [address] [place] [id number], Michelle (id #[id number], : 1980) [facility] [address] [place] [phone] Date: 06/16/2023RE: Yoon Hernandez : 1980, PT ID #[id number] Arrington MD, I would like to thank you for referring Yoon Hernandez to our practice for consultation and evaluation. I have enclosed a copy of the office evaluation for your records. Sincerely, Electronically Signed by: SHERICE SLOAN APRN, NPEncounter Reason/Date kidney stones 06/16/2023 - 09:00AM - UROLOGY SB History of Present Yrdzmpb96-svne-iuw female with history of urolithiasis. She is a previous patient of Dr. Crespo. She underwent right ESWL in 2018. Follow-up KUBs were negative for stones. She noticed increased suprapubic pressure about 2 weeks ago. She thought she had a yeast infection and has been treating herself with hpoo-wtn-rtvnkiw yeast cream. On Monday evening, she developed severe left flank pain. She was seen in the ER at [facility]. She says a CT scan showed 2 left ureteral stones. She was told 1 stone was in the mid ureter and the other was closer to the bladder. She was given hydrocodone and Flomax. She says left flank pain has resolved but she continues to have suprapubic pain. She has not passed any stones to her knowledge. She is a smoker.Review of Systems Patient reports no fever. She reports no chest pain. She reports no shortness of breath. She reports no abdominal pain. She reports no incontinence, no difficulty urinating, no hematuria, normal urinary flowing, and no dysuria. She reports no arthralgias/joint pain. She reports no rashes. She reports no headaches. She reports no fatigue. Physical ExamWell nourished, healthy appearing female, no acute distress. AOx3, friendly attitude. UA negative.Procedure DocumentationPost Void Residual; Ultrasound:Post Void Residual Source: Ultrasound Volume: 24mlAssessment/Fauz65-gake-wb d female with history of urolithiasis. She was seen in the ER at [facility] 06/11/2023. She was told she has 2 left ureteral stones. She was discharged home with hydrocodone and Flomax. She will continue taking Flomax and use hydrocodone as needed for pain. She was given a strainer and specimen cup in case she is able to catch the stones. We have requested the CT records from [facility]. I will contact her if the CT scan shows anything different than what we have discussed today. She continues to have suprapubic pressure but, UA is negative. Sending urine for microscopic evaluation. I have ordered a CT scan to be done in 1 week if her symptoms continue. Plan: Continue tamsulosin and hydrocodone as needed. Strain urine. Urine micro pending. Check CT in 1 week if symptoms have not resolved. 1. Kidney xdczbN61.0: Calculus of kidney URINALYSIS, DIPSTICK - ?Specimen source: Urine clean catch Urine Collection Type: Midstream URINE MICROSCOPIC, CULTURE IF INDICATED - ?Specimen source: URINE, CLEAN CATCH tamsulosin 0.4 mg capsule - Take 1 capsule(s) every day by oral route for 30 days. ? Qty: (30)?capsule ? Refills: 1 ? Pharmacy: [facility] hydrocodone 5 mg-acetaminophen 325 mg tablet - Take 1 tablet(s) every 6 hours by oral route for 5 days. ? Qty: (20)?tablet ? Refills: 0 ? Pharmacy: [facility] CT R/O KIDNEY STONES (A/P W/O) Weight (lbs): 186 Place of service: OFFICE Procedure code: 33160 URINALYSIS, DIPSTICK Urine Collection Type: Midstream Urinalysis Dipstick (auto) Result Reference Range Color Yellow Appearance Clear Specific gravity 1.020 pH 5.0 Leukocyte Esterase Negative Nitrite Negative Protein Negative Glucose Normal Ketones Negative Urobilinogen Normal Bilirubin Negative Blood Negative Specimen Source Clean Catch Urine Dip Method Visual Comments Return to Office Patient will return to the office as needed Rosaila neal [facility] 09/18/2023 11:27:19 Urology Note : [facility] ? ? [address] [place] [phone], Michelle (id #[id number], : 1980) [address],??[place]?[phone] Phone:?? Fax:?? Encounter Summary - Progress Note Date Printed: ?06/23/2023 Documents sent via fax will include the followingmessage: This fax may contain sensitive and confidential personal health information that is being sent for the sole use of the intended recipient. Unintended recipients are directed to securely destroy any materials received. You are hereby notified that the unauthorized disclosure or other unlawful use of this fax or any personal health information is prohibited. To the extent patient information contained in this fax is subject to 42 CFR Part 2, this regulation prohibits unauthorized disclosure of these records. If you received this fax in error, please visit [email or web address] to notify the sender and confirm that the information will be destroyed. If you do not have internet access, please call to notify the sender and confirm that the information will be destroyed. Thank you for your attention and cooperation. [ID:[id number]] Patient Yoon Hernandez (42yo, F) #[id number] 1980 ?? Patient Demographics: Address [address] [place] [phone] ? Work Phone ?? Encounter Notes: Encounter Reason/Date left ureteral stones 06/23/2023 - 09:40AM - UROLOGY SB History of Present Znfdgdy83-grhd-oax female with history of urolithiasis. She is a previous patient of Dr. Crespo. She underwent right ESWL in 2018. Follow-up KUBs were negative for stones. She noticed increased suprapubic pressure about 2 weeks ago. She thought she had a yeast infection and has been treating herself with qgfe-ltg-fegldjf yeast cream. On Monday evening, she developed severe left flank pain. She was seen in the ER at [facility]. She says a CT scan showed 2 left ureteral stones. She was told 1 stone was in the mid ureter and the other was closer to the bladder. She was given hydrocodone and Flomax.She is a smoker. HPI: She returns today for follow-up with left distal uretral stones. She was seen by me one week ago.A CT scan at [facility] 3 weeks ago showed 2 left ureteral stones measuring 3mm. The mid left uretral stone was partially obstructing causing mild left hydronephrosis. At the time of our visit, left flank pain had resolve.d We planned to follow-up today to recheck CT and symptoms. On 06/20/23, she returned to the ER with worsening left flank pain. A second CT scan showed both stones were in the left distal ureter with the largest measuring 5 mm. She brought the disc and report today which will be uploaded into her chart. She continues to have severe pain despite using hydrocodone as needed. She says she is miserable and unable to work. Review of Systems Patient reportsback pain (left)but reports no arthralgias/joint pain. She reports no fever. She reports no chest pain. She reports no shortness of breath. She reports no abdominal pain. She reports no incontinence, no difficulty urinating, no hematuria, normal urinary flowing, and no dysuria. She reports no rashes. She reports no fatigue. [id number] 09:55 Ht: 5 ft 6 in Wt: 186 lbs BMI: 30 Results/Interpretations URINALYSIS, DIPSTICK Urinalysis Dipstick (auto) Result Reference Range Color Yellow Appearance Clear Specific gravity 1.005 pH 5.0 Leukocyte Esterase Negative Nitrite Negative Protein Negative Glucose Normal Ketones Negative Urobilinogen Normal Bilirubin Negative Blood Negative Specimen Source Clean Catch Urine Dip Method Visual Comments Physical ExamWell nourished, healthy appearing female, no acute distress. AOx3, friendly attitude. UA negative. Procedure DocumentationNone recorded Assessment and Mzko30-dncq-ite female with history of urolithiasis. She was seen in the ER at [facility] 06/11/2023. She was told she has 2 left ureteral stones. She was given an IM injection of ketorolac 30 mg today in the office. She will continue taking Flomax and use oxycodone 7.5 mg and ketorolac 10 mg for pain management. She will continue straining her urine. She would like to schedule surgery SHEMAR. She was instructed to go to the ER if pain worsens and is not controlled with medications prescribed. We will contact her with next available surgery date. Plan: Continue tamsulosin and pain medication as needed. Go to ER in [place] if symptoms fail to improve or worsen. 1. Kidney lhkpaC82.0: Calculus of kidney URINALYSIS, DIPSTICK - ?Specimen source: Urine clean catch oxycodone-acetaminophen 7.5 mg-325 mg tablet - Take 1 tablet(s) every 6 hours by oral route for 5 days. ? Qty: (20)?tablet ? Refills: 0 ? Pharmacy: [facility] ketorolac 10 mg tablet - Take 1 tablet(s) every 6 hours by oral route for 5 days. ? Qty: (20)?tablet ? Refills: 0 ? Pharmacy: [facility] ketorolac 30 mg/mL injection solution - Inject 1 mL by intravenous route. ? Quantity: (30)?mg ? Lot #: [id number] ? Route: Intramuscular ? Site: Hip, Left ? Braid Maker: [place] ? Exp Date: 06/02/2023 ? Administered URINALYSIS, DIPSTICK Urinalysis Dipstick (auto) Result Reference Range Color Yellow Appearance Clear Specific gravity 1.005 pH 5.0 Leukocyte Esterase Negative Nitrite Negative Protein Negative Glucose Normal Ketones Negative Urobilinogen Normal Bilirubin Negative Blood Negative Specimen Source Clean Catch Urine Dip Method Visual Comments Return to Office Patient will return to the office as needed Patient Medical History: Allergies List Reviewed Allergies NKDA Medications Reviewed Medications NameDate Source Aimovig Autoinjector 140 mg/mL subcutaneous auto-injectorInject 1 mL every month by subcutaneous route for 30 days.12/08/19?filled [facility] Aimovig Autoinjector 70 mg/mL subcutaneous auto-injectorwas given samples took 3-4 wreeks ago10/30/19?entered Darlyn Bañuelos azithromycin 250 mg ifuugq31/31/23?filled surescripts cephALEXin 500 mg afsuflv77/13/20?filled [facility] diclofenac sodium 50 mg tablet,delayed arydzcz03/29/20?filled [facility] estradioL 2 mg egsoud13/11/20?filled [facility] fluconazole 150 mg pvctyo12/03/23?filled surescripts fluocinolone 0.025 % topical aihzruha74/21/20?filled [facility] HYDROcodone 5 mg-acetaminophen 325 mg tabletTake 1 tablet(s) every 6 hours by oral route for 5 days.06/16/23?prescribed SHERICE SLOAN APRN ibuprofen 800 mg ymikbq67/04/23?filled surescripts ketorolac 10 mg tabletTake 1 tablet(s) every 6 hours by oral route for 5 days.06/23/23?prescribed SHERICE SLOAN APRN ketorolac 30 mg/mL injection solutionInject 1 mL by intravenous route. ? Administer Note: injection given without jlgrwobyrvql08/15/23?adm inistered SHERICE SLOAN APRN meloxicam 7.5 mg /14/23?filled surescripts methocarbamoL 750 mg kinksw29/14/23?filled surescripts ondansetron 4 mg disintegrating vajznh18/04/23?filled surescripts oxyCODONE-acetaminophen 7.5 mg-325 mg tabletTake 1 tablet(s) every 6 hours by oral route for 5 days.06/23/23?prescribed SHERICE SLOAN APRN Paxlovid 300 mg (150 mg x 2)-100 mg tablets in a dose packFOLLOW PACKAGE NDDYDCWGCY91/31/23?fille d surescripts predniSONE 20 mg /20/20?filled [facility] rizatriptan 10 mg tabletone at onset of migraine; may repeat in 2 hours if needed max 2 in 24 hrs.10/30/19?filled [facility] sucralfate 1 gram /20/20?filled [facility] Synthroid 50 mcg /30/20?filled [facility] tamsulosin 0.4 mg capsuleTake 1 capsule(s) every day by oral route for 30 days.06/17/23?filled surescripts venlafaxine ER 75 mg capsule,extended release 24 hr07/22/22?filled surescripts Family HistoryReviewed Family History Unspecified Relation - Diabetes mellitus ?? - Family history of cancer Mother - Disorder of thyroid gland Father - Disorder of thyroid gland Past Medical HistoryReviewed Past Medical History Anxiety Disorder:Y Vaccine HistoryNone recorded Electronically Signed by: SHERICE SLOAN APRN, DRIER Rosalia Chase [facility], [place] - [facility] 09/18/2023 11:10:06 Urology Note : [facility] ? ? [address] [place] [phone], Michelle (id #[id number], : 1980) [address],??[place]?[address] Phone:?? Fax:?? Encounter Summary - Progress Note Date Printed: ?07/07/2023 Documents sent via fax will include the followingmessage: This fax may contain sensitive and confidential personal health information that is being sent for the sole use of the intended recipient. Unintended recipients are directed to securely destroy any materials received. You are hereby notified that the unauthorized disclosure or other unlawful use of this fax or any personal health information is prohibited. To the extent patient information contained in this fax is subject to 42 CFR Part 2, this regulation prohibits unauthorized disclosure of these records. If you received this fax in error, please visit [email or web address] to notify the sender and confirm that the information will be destroyed. If you do not have internet access, please call to notify the sender and confirm that the information will be destroyed. Thank you for your attention and cooperation. [ID:[id number]] Patient Yoon Hernandez (42yo, F) #[id number] 1980 ?? Patient Demographics: Address [address] [place] [address] [place] [phone] ? Work Phone ?? Encounter Notes: Encounter Reason/Date Pain after laser lithotripsy 07/05/2023 - 03:45PM - UROLOGY SB History of Present IllnessDiagnosis: Urolithiasis 42-year-old white female with a history of urolithiasis. She saw Dr. Schaefer in 2016 for back pain and bilateral renal stones. She underwent right ESWL [place] [address] Crespo. Stone analysis showed calcium oxalate and carbonate appetite. A Follow-up KUB showed no stones. She had suprapubic pressure and left flank pain. She went to the [facility] emergency room twice. CT scans 05/29/2023 and 06/28/2023 showed 2 left distal ureteral stones up to 5 mm and bilateral small renal stones. She underwent left ureteroscopic laser lithotripsy and stent 06/30/2023. 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 HPI: The patient is here with her for continued pain after laser lithotripsy last week. The stent came out partially the following day and she subsequently removed it. She went to the [facility] emergency room 07/01/[address] scan and [facility] emergency room 07/04/[address] scan showed left hydroureter but no ureteral stone, 2 mm left upper pole, 1 mm right mid, and cluster of 1 mm right lower pole stones. She was placed on cefdinir. A urine culture showed mixed bacteria. She had normal creatinine 0.94 and WBC 11.3. She continues to have severe left flank pain and has not been able to work. She is taking Percocet 5 mg and ketorolac. Review of Systems Patient reportsabdominal pain;Left flank and abdominal pain. She reports no fever. She reports no difficulty urinating. [id number] 16:22 Ht: 5 ft 6 in Wt: 186 lbs BMI: 30 Results/Interpretations URINALYSIS, DIPSTICK Urinalysis Dipstick (auto) Result Reference Range Color Yellow Appearance Clear Specific gravity 1.025 pH 5.0 Leukocyte Esterase Negative Nitrite Negative Protein Negative Glucose Normal Ketones Negative Urobilinogen Normal Bilirubin Negative Blood Negative Specimen Source Clean Catch Urine Dip Method Visual Comments Physical ExamNone recorded Procedure DocumentationNone recorded Assessment and Niws45-odkj-cop female with a history of urolithiasis. She underwent right ESWL in 2018 and left ureteroscopic laser lithotripsy 06/30/2023. The stent came out the following day. She has had ongoing significant left flank and abdominal pain. She went to the emergency room twice. A CT scan at [facility] 07/04/2023 showed left hydroureter but no ureteral stones and bilateral 1 to 2 mm renal stones. She is taking cefdinir, Percocet 5 mg, and ketorolac. A urine culture 07/04/2023 showed mixed bacteria. She might benefit from tamsulosin. If she continues to be symptomatic, I would consider left ureteroscopy and replacement of stent. Plan: Continue Percocet and ketorolac as needed. Use ibuprofen after ketorolac runs out. Start tamsulosin. She will notify me if she does not improve. 1. Kidney bvtdvT07.0: Calculus of kidney URINALYSIS, DIPSTICK - ?Specimen source: Urine clean catch 2. Renal ebcvbM03: Unspecified renal colic tamsulosin 0.4 mg capsule - Take 1 capsule(s) every day by oral route in the evening for 30 days. ? Qty: (30)?capsule ? Refills: 1 ? Pharmacy: [facility] 3. WcdutwoouprdiaR47.30: Unspecified hydronephrosis URINALYSIS, DIPSTICK Urinalysis Dipstick (auto) Result Reference Range Color Yellow Appearance Clear Specific gravity 1.025 pH 5.0 Leukocyte Esterase Negative Nitrite Negative Protein Negative Glucose Normal Ketones Negative Urobilinogen Normal Bilirubin Negative Blood Negative Specimen Source Clean Catch Urine Dip Method Visual Comments Return to Office Patient will return to the office as needed Patient Medical History: Allergies List Reviewed Allergies NKDA Medications Reviewed Medications NameDate Source Aimovig Autoinjector 140 mg/mL subcutaneous auto-injectorInject 1 mL every month by subcutaneous route for 30 days.12/08/19?filled [facility] Aimovig Autoinjector 70 mg/mL subcutaneous auto-injectorwas given samples took 3-4 wreeks ago10/30/19?entered Darlyn Bañuelos cefdinir 300 mg wgkbleq54/26/23?filled surescripts diclofenac sodium 50 mg tablet,delayed ccvekig15/29/20?filled [facility] estradioL 2 mg vuxwzf93/11/20?filled [facility] fluconazole 150 mg cxzoev92/03/23?filled surescripts fluocinolone 0.025 % topical mmkfequr60/21/20?filled [facility] HYDROcodone 5 mg-acetaminophen 325 mg tabletTake 1 tablet(s) every 6 hours by oral route for 5 days.06/16/23?prescribed SHERICE SLOAN APRN ibuprofen 800 mg dnohxn68/04/23?filled surescripts ketorolac 10 mg tabletTake 1 tablet(s) every 6 hours by oral route for 5 days.06/23/23?filled surescripts ketorolac 30 mg/mL injection solutionInject 1 mL by intravenous route. ? Administer Note: injection given without phupexcagttx32/15/23?adm inistered SHERICE SLOAN APRN meloxicam 7.5 mg /14/23?filled surescripts methocarbamoL 750 mg nvdown34/14/23?filled surescripts ondansetron 4 mg disintegrating hpihee41/04/23?filled surescripts oxyCODONE-acetaminophen 5 mg-325 mg tabletTake 1 tablet(s) every 4-6 hours by oral route as needed for 3 days.06/30/23?filled surescripts oxyCODONE-acetaminophen 7.5 mg-325 mg tabletTake 1 tablet(s) every 6 hours by oral route for 5 days.06/23/23?prescribed SHERICE SLOAN APRN Paxlovid 300 mg (150 mg x 2)-100 mg tablets in a dose packFOLLOW PACKAGE [id number]/31/23?fille d surescripts predniSONE 20 mg mherkh71/20/20?filled [employer] rizatriptan 10 mg tabletone at onset of migraine; may repeat in 2 hours if needed max 2 in 24 hrs.10/30/19?filled [employer] sucralfate 1 gram bcwryh26/20/20?filled [employer] Synthroid 50 mcg dudlyv14/30/20?filled [employer] tamsulosin 0.4 mg capsuleTake 1 capsule(s) every day by oral route in the evening for 30 days.07/05/23?prescribed KENNETH HERNANDEZ MD venlafaxine ER 75 mg capsule,extended release 24 hr07/22/22?filled surescripts Family HistoryReviewed Family History Unspecified Relation - Diabetes mellitus ?? - Family history of cancer Mother - Disorder of thyroid gland Father - Disorder of thyroid gland Past Medical HistoryReviewed Past Medical History Anxiety Disorder:Y Kidney Stones:Y Vaccine HistoryNone recorded Electronically Signed by: KENNETH [facility]DEZ [facility] 11:26:29 Procedures Surgical History Date Name Laterality Status Provider Name and Address Organization Details Recorded Time 06/16/20 23 Post Void Residual; Ultrasound completed Korin Fuller [facility] 06/16/2023 09:23:37 07/26/19 20 Tympanogram completed KARLO CORONA, AUD [address] [place], [address], [facility] 07/26/2019 17:03:11 07/26/19 20 Audiogram completed NICOLE TROTTER [address] [place], [address], [facility] 07/26/2019 17:03:10 07/16/19 20 Endoscopy Nasal; Diagnostic completed BELIA ARRINGTON MD [address] [place], [address], [facility] 07/16/2019 14:10:05 09/08/19 18 EXTRA CORPOREAL SHOCK WAVE LITHOTRIPSY (SURG) [facility] 11/01/2017 10:40:36 Cholecystectomy completed Hazel Jaime [facility] 08/30/2017 11:05:27 delivery completed Hazel Jaime [facility] 08/30/2017 11:05:34 Hysterectomy completed Hazel Sandoval [facility] 08/30/2017 11:05:39 Kidney Stones completed KENNETH HERNANDEZ MD [address] [place] [address], [phone], [facility] 06/30/2023 16:38:12 Imaging Results Imaging Date Name Status LastModified by Organiz ation Details LastModified Time 06/20/2023 CT, abdomen, w/o contrast completed [facility] Information not available 06/27/2023 16:13:31 07/28/2023 CT, abdomen + pelvis, w/wo contrast completed [address] [facility] [address] , [place], [address], 08/01/2023 10:26:29 Procedure Notes None recorded. Medical Equipment None Reported. Allergies No known drug allergies Medications Name Sig Start Date Stop Date Status Note LastModified by Organization Details LastModified Time amoxicill in 500 mg capsule 07/16 completed Not Available Not Available Not Available promethaz ine-DM 6.25 mg-15 mg/5 mL oral syrup 07/16 completed Not Available Not Available Not Available venlafaxi ne ER 37.5 mg capsule,e xtended release 24 hr 07/16 completed Not Available Not Available Not Available venlafaxi ne ER 75 mg capsule,e xtended release 24 hr active Not Available Not Available Not Available azithromy caprice 250 mg tablet 06/30 completed Not Available Not Available Not Available ibuprofen 800 mg tablet active Not Available Not Available Not Available fluconazo le 150 mg tablet active Not Available Not Available Not Available citalopra m 10 mg tablet 08/30 completed Not Available Not Available Not Available hydrocodo ne 5 mg-acetam inophen 325 mg tablet Take by oral route for 5 days. active Not Available Not Available No t Available sucralfat e 1 gram tablet active Not Available Not Available Not Available prednison e 20 mg tablet active Not Available Not Available Not Available rizatript an 10 mg tablet one at onset of migraine ; may repeat in 2 hours if neededma x 2 in 24 hrs. active Not Available Not Available No t Available penicilli n V potassium 500 mg tablet 07/16 completed Not Available Not Available Not Available sulfameth oxazole 800 mg-trimet hoprim 160 mg tablet 07/16 completed Not Available Not Available Not Available butalbita l-acetami nophen-ca ffeine 50 mg-325 mg-40 mg tablet 07/16 completed Not Available Not Available Not Available ketorolac 10 mg tablet Take 1 tablet every 6 hours by oral route for 5 days. active Not Available Not Available No t Available Macrobid 100 mg capsule Two times a day 08/30 completed Duration : 3 days;Suraj quency: bid;Medi cation Descript ion: nitrofur antoin; Dosage:1 ; Route:or al; refills: 0; Quantity :6 capsule Not Available Not Available Not Available meloxicam 7.5 mg tablet active Not Available Not Available Not Available oxycodone -acetamin ophen 5 mg-325 mg tablet Take 1 tablet every 4-6 hours by oral route as needed for 3 days. active Not Available Not Available No t Available amitripty line 25 mg tablet 07/16 completed Not Available Not Available Not Available methocarb michael 750 mg tablet active Not Available Not Available No t Available tamsulosi n 0.4 mg capsule Take 1 capsule every day by oral route in the evening for 30 days. 2022 active Not Available Not Available Not Avai lable trazodone 100 mg tablet 07/16 completed Not Available Not Available Not Available dicyclomi ne 20 mg tablet 07/16 completed Not Available Not Available Not Available Celexa 20 mg tablet Daily 08/30 completed Frequenc y: daily;Me dication Descript ion: citalopr am; Dosage:1 ; Route:or al; refills: 5; Quantity :30 tablet Not Available Not Available Not Available benzonata te 100 mg capsule 07/16 completed Not Available Not Available Not Available cephalexi n 500 mg capsule 06/30 completed Not Available Not Available Not Available oseltamiv ir 75 mg capsule 10/29 completed Not Available Not Available Not Available promethaz ine 25 mg tablet 08/30 completed Not Available Not Available Not Available Synthroid 75 mcg tablet 07/16 completed Not Available Not Available Not Available Synthroid 50 mcg tablet active Not Available Not Available Not Available sertralin e 25 mg tablet 08/30 completed Not Available Not Available Not Available omeprazol e 20 mg capsule,d elayed release 09/13 completed Not Available Not Available Not Available estradiol 2 mg tablet active Not Available Not Available Not Available diclofena c sodium 50 mg tablet,de layed release active Not Available Not Available Not Available zolpidem 5 mg tablet 08/30 completed Not Available Not Available Not Available fluocinol one 0.025 % topical ointment active Not Available Not Available Not Available diazepam 10 mg tablet Three times a day 08/30 completed Duration : 10 days;Ins truction s: 1 tablet three times daily as needed for spasm ;Frequen cy: tid;Alt Frequenc y: as direct.; Medicati on Descript ion: diazepam ; Dosage:1 ; Route:or al; refills: 0; Quantity :30 tablet Not Available Not Available Not Available levofloxa caprice 500 mg tablet 07/16 completed Not Available Not Available Not Available oxycodone -acetamin ophen 7.5 mg-325 mg tablet Take by oral route for 5 days. 2022 active Not Available Not Available Not Avai lable levofloxa caprice 750 mg tablet 08/30 completed Not Available Not Available Not Available albuterol sulfate HFA 90 mcg/actua tion aerosol inhaler 07/16 completed Not Available Not Available Not Available SSD 1 % topical cream 08/30 completed Not Available Not Available Not Available brompheni ramine-ps eudoephed rine-DM 2 mg-30 mg-10 mg/5 mL oral syrup 07/16 completed Not Available Not Available Not Available ondansetr on 4 mg disintegr ating tablet active Not Available Not Available Not Available cefdinir 300 mg capsule active Not Available Not Available Not Available fluticaso ne propionat e 50 mcg/actua tion nasal spray,carol pension [place] 2 sprays twice a day by intranas al route for 30 days. 10/29 completed Not Available Not Available Not Available naproxen 500 mg tablet 07/16 completed Not Available Not Available Not Available diazepam 5 mg tablet 07/16 completed Not Available Not Available Not Available amoxicill in 875 mg-potass ium clavulana te 125 mg tablet 10/29 completed Not Available Not Available Not Available Twinrix (PF) 720 SAI unit-20 mcg/mL intramusc ular syringe 07/16 completed Not Available Not Available Not Available ketorolac 30 mg/mL injection solution Inject 1 mL by intraven ous route. 2022 active Not Available Not Available Not Avai lable Suprep Bowel Prep Kit 17.5 gram-3.13 gram-1.6 gram oral solution 07/16 completed Not Available Not Available Not Available Estroven 08/30 completed Medicati on Descript ion: miscella neous; Route:or al; refills: 0 Not Available Not Available Not Available Aimovig Autoinjec tor 70 mg/mL subcutane ous auto-inje ctor was given samples took 3-4 wreeks ago active Not Available Not Available No t Available Aimovig Autoinjec tor 140 mg/mL subcutane ous auto-inje ctor Inject 1 mL every month by subcutan eous route for 30 days. active Not Available Not Available No t Available Paxlovid 300 mg (150 mg x 2)-100 mg tablets in a dose pack FOLLOW PACKAGE DIRECTIO NS active Not Available Not Available No t Available Vitals Date Recorded Body height Provider Name an d Address Organization Details Last Updated DateTime 10/30/2019 167.64 cm Darlyn Bañuelos [facility] 10/30/2019 12:42:44 Date Recorded Body height Body mass index (BMI) Body weight Provider Name and Address Organization Details Last Updated DateTime 06/16/2023 167.64 cm 30 kg/m2 57824.18 g [facility] 06/16/2023 09:20:38 Date Recorded Body height Body mass index (BMI) Body weight Provider Name and Address Organization Details Last Updated DateTime 06/23/2023 167.64 cm 30 kg/m2 63206.18 g [facility] 06/23/2023 09:55:20 Date Recorded Body height Body mass index (BMI) Body weight Provider Name and Address Organization Details Last Updated DateTime 07/05/2023 167.64 cm 30 kg/m2 71957.18 g Korin Fuller [facility] 07/05/2023 16:22:42 Social History Question Answer Notes LastModified by Organizat ion Details LastModified Time Tobacco Smoking Status Current Every Day [facility]/30[facility] 11:04:58 What Is Your Level Of Alcohol Consumption? None [email or web address] Information not available 08/30/2017 How Much Tobacco Do You Chew? 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 09/13/2017 Information not available 08/27/2019 What Is Your Relationship Status? [email or web address] Information not available 06/23/2023 Do You Or Have You Ever Used Smokeless Tobacco? Never Used Smokeless Tobacco Information not available 07/16/2019 How Much Tobacco Do You Smoke? No Information not available 07/16/2019 How Many Years Have You Smoked Tobacco? 22 Information not available 07/16/2019 Sex: Unknown Functional Status None recorded. Mental Status None recorded. Family History Relationship Description Onset Age of this Age Resolved Age Notes LastModified by Organization Details LastModified Time Unspecified Relation Diabetes mellitus [email or web address] Not available 2017 11:04:45 Unspecified Relation Family history of malignant neoplasm [email or web address] Not available 2017 11:04:56 Mother Disorder of thyroid gland Not available 2019 09:53:53 Father Disorder of thyroid gland Not available 2019 09:53:53 Medical History Condition Response Anxiety Disorder Y Diabetes N Bleeding Disorder N Kidney Stones Y Anesthesia Complications N Migraines Y Hypertension N Gynecological HistoryNo gynecological history recorded. Obstetrics History GPAL:G 0 P 0 0 0 0 Past Encounters Encounter ID Performer Location Encounter Start Date Encounter Closed Date Diagnosis/Indication Diagnosis SNOMED-CT Code Diagnosis ICD10 Code Diagnosis Note [id number] KEVIN CRESPO MD UROLOGY [address] [place] [address] 08/30/2017 10:34:06 09/04/2017 08:26:34 Kidney stone 54896288 N20.0 Pt with persistent R flank pain. KUB today shows a lot of cartilagin ous change of ribs and cannot see R kidney well. She would like to treat the R sided stone. I discussed with her that if it is not obstructin g it is not the source of her pain but she would like to treat it. Will set up ESWL. Blood in urine 36586769 R31.9 [id number] KEVIN CRESPO MD UROLOGY [facility] [address] [place] [address] 09/13/2017 13:28:22 09/25/2017 08:46:17 Kidney stone 11199726 N20.0 KUB difficult to see the stone due to cartilagin ous changes of ribs. Discussed that the stone was in a non-obstru cting position prior to ESWL and unlikely to make a difference in her pain. She now has bilateral mid back pain and MRI recently showed no significan t abnormalit ies. Discussed conservati ve options of musculoske letal pain. [id number] BELIA ARRINGTON MD [place] [facility] [address] [place] [address] 07/16/2019 09:21:10 07/18/2019 18:22:05 Sphenoidal sinusitis 68032928 J32.3 -REC. RIGHT SPHENOIDOT KENIA/ETHMOI DECTOMY FOR DIAGNOSIS AND TREATMENT Asymmetric al sensorineural hearing loss 327471086 H90.5 -LEFT SNHL MILD [id number] NICOLE TROTTER [facility] [address] [place] [address] 07/26/2019 17:02:34 07/26/2019 17:04:05 Sensorineural hearing loss in left ear 6277282342 9109 H90.42 Bilateral tinnitus 57099 57809 102 H93.13 Ear pressu re sensation 574256362 H93.8X3 Dizziness and giddiness 745893663 R42 [id number] BELIA ARRINGTON MD [facility] [address] [place] [address] 07/30/2019 09:58:13 08/02/2019 17:10:20 Sphenoidal sinusitis 85396395 J32.3 -REC. RIGHT SPHENOIDOT KENIA/ETHMOI DECTOMY FOR DIAGNOSIS AND TREATMENT Asymmetric al sensorineural hearing loss 330044788 H90.5 -LEFT SNHL MILD Headache 77749926 R51 Anxiety 05717918 F41.9 Posterior rhinorrhea 758 76768 R09.82 [id number] JOEY CARSON III, MD [place] [facility] [address] [place] [address] 08/09/2019 13:31:16 08/12/2019 09:23:00 Chronic sinusitis 97959209 J32.9 Nasal mucosa dry 2840995 2 J34.89 Tobacco user 096118929 Z 72.0 Hypertroph y of nasal turbinates 55785119 J34.3 Hypertroph y of tonsils 79007928 J35.1 Cryptic tonsil 975034310 J35.8 Headache 08210249 R51 [id number] BELIA ARRINGTON MD [place] [facility] [address] [place] [address] 08/14/2019 09:06:57 08/14/2019 10:17:18 Chronic sinusitis 71799654 J32.9 Nasal mucosa dry 0727468 2 J34.89 Tobacco user 097355888 Z 72.0 Hypertroph y of nasal turbinates 17480891 J34.3 Headache 24189937 R51 Sneezing 46424202 R06.7 Cough 64159872 R05 Posterior rhinorrhea 758 91319 R09.82 [id number] NATALY DEL VALLE MD NEUROLOGY [facility] [address] [place] [address] 10/30/2019 12:42:30 10/30/2019 13:30:35 Migraine 12362764 G43.909 Migraine without aura 56 203708 G43.009 [id number] SHERICE SLOAN APRN UROLOGY [facility] [address] [place] [address] 06/16/2023 08:38:40 06/16/2023 11:09:42 Kidney stone 28625748 N20.0 [id number] SHERICE SLOAN APRN UROLOGY [facility] [address] [place] [address] 1 06/23/2023 09:49:54 06/23/2023 12:40:22 Kidney stone 09246943 N20.0 [id number] KENNETH HERNANDEZ MD SURGERY SCHEDULE [address] [place] [address] 1 06/30/2023 13:56:36 06/30/2023 13:59:45 Ureteric stone 70466429 N20.1 Postoperative pain 36422 9007 G89.18 [id number] KENNETH HERNANDEZ MD UROLOGY [facility] [address] [place] [address] 1 07/05/2023 15:35:48 07/08/2023 04:14:27 Kidney stone 87915885 N20.0 Renal colic 1150080 N23 Hydronephrosis 17157520 N13.30 Health Concerns Section Related Observation LastModified by Organization Detai ls LastModified Time None Recorded Concern Status LastModified by Organization Details LastModified Time None Recorded Advance Directives Directive None Recorded Payers Encounter Date Sequence Insurance Name Policy Number Policy Reilly Covered Member ID Reilly Member ID Guarantor Name 10/30/2019 1 [place] [id number] Kash Forbesin [id number] Yoon Hernandez 06/16/2023 1 [place] [id number] Kash Hernandez [id number] Yoon Hernandez 06/23/2023 1 [place] [id number] Kash Hernandez [id number] Yoon Hernandez 06/30/2023 1 [place] [id number] Kash Forbesin [id number] Yoon Hernandez 07/05/2023 1 [place] [id number] Kash Forbesin [id number] Yoon Hernandez Notes Date Note Type Note Provider Name and Address Organization Details Recorded Time 10/30/2019 text/html Visit today is being conducted via telehealth using both audio and video. Patient has expressed an understanding of the telehealth process and has consented. This is a 38 year-old female seen at the request of Dr. Arrington for evaluation of headaches. For about 8 mos, she has been bothered by frequent migraines. Bad migraines occur about once per week, manifest as throbbing pain, often on the right side, a/w nausea +/- emesis at worst. MIld photophobia. Movement, walking around aggravate the pain. These can last 2-3 days. No clear triggers. She has had hysterectomy and so cannot say menses is associated. In between the migraines, she tends to keep a low-grade headache most days, usually on the right. While these have been frequent for 8 mos, she has been prone to headaches for a long time, and before she would still get up to three a week, sometimes migrainous. In early July, she had head CT which showed sphenoid sinusitis, and she was seen by Dr. Arrington and there was plan for surgery but followup scan did not show this. In the past, she would take handfuls of Advil prn for headache. She was given Aimovig 70 mg samples about 7 -8 weeks ago by her PCP and has used this twice. No SE, but she cannot tell any big difference. She was given butalbital/APAP, and that helps - takes that usually three days/week now. Takes ibuprofen usually the other four days. She has never taken any other prescription meds for headache. Never tried triptans. 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 She is a previous patient of Dr. Crespo. She underwent right ESWL in 2018. Follow-up KUBs were negative for stones. She noticed increased suprapubic pressure about 2 weeks ago. She thought she had a yeast infection and has been treating herself with wefu-gin-pymmsjf yeast cream. On Monday evening, she developed severe left flank pain. She was seen in the ER at [facility]. She says a CT scan showed 2 left ureteral stones. She was told 1 stone was in the mid ureter and the other was closer to the bladder. She was given hydrocodone and Flomax. She says left flank pain has resolved but she continues to have suprapubic pain. She has not passed any stones to her knowledge. She is a smoker. SHERICE SLOAN APRN [address] 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 She is a previous patient of Dr. Crespo. She underwent right ESWL in 2018. Follow-up KUBs were negative for stones. She noticed increased suprapubic pressure about 2 weeks ago. She thought she had a yeast infection and has been treating herself with pybv-znz-znutrzs yeast cream. On Monday evening, she developed severe left flank pain. She was seen in the ER at [facility]. She says a CT scan showed 2 left ureteral stones. She was told 1 stone was in the mid ureter and the other was closer to the bladder. She was given hydrocodone and Flomax.She is a smoker. HPI: She returns today for follow-up with left distal uretral stones. She was seen by me one week ago.A CT scan at [facility] 3 weeks ago showed 2 left ureteral stones measuring 3mm. The mid left uretral stone was partially obstructing causing mild left hydronephrosis. At the time of our visit, left flank pain had resolve.d We planned to follow-up today to recheck CT and symptoms. On 06/20/23, she returned to the ER with worsening left flank pain. A second CT scan showed both stones were in the left distal ureter with the largest measuring 5 mm. She brought the disc and report today which will be uploaded into her chart. She continues to have severe pain despite using hydrocodone as needed. She says she is miserable and unable to work. SHERICE SLOAN APRN [address] [place], [address], [facility] 06/23/2023 10:52:32 07/05/2023 text/html Diagnosis: Urolithiasis 42-year-old white female with a history of urolithiasis. She saw Dr. Schaefer in 2016 for back pain and bilateral renal stones. She underwent right ESWL [place] [address] Crespo. Stone analysis showed calcium oxalate and carbonate appetite. A Follow-up KUB showed no stones. She had suprapubic pressure and left flank pain. She went to the [facility] emergency room twice. CT scans 05/29/2023 and 06/28/2023 showed 2 left distal ureteral stones up to 5 mm and bilateral small renal stones. She underwent left ureteroscopic laser lithotripsy and stent 06/30/2023. 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 HPI: The patient is here with her for continued pain after laser lithotripsy last week. The stent came out partially the following day and she subsequently removed it. She went to the [facility] emergency room 07/01/[address] scan and [facility] emergency room 07/04/[address] scan showed left hydroureter but no ureteral stone, 2 mm left upper pole, 1 mm right mid, and cluster of 1 mm right lower pole stones. She was placed on cefdinir. A urine culture showed mixed bacteria. She had normal creatinine 0.94 and WBC 11.3. She continues to have severe left flank pain and has not been able to work. She is taking Percocet 5 mg and ketorolac. KENNETH HERNANDEZ MD [facility] [place], [address], [facility] 07/07/2023 09:05:41 OBGyn Episode No OBEpisode recorded.
--- OUTSIDE RECORDS SUMMARY | 2024-10-22 23:14 | XMS_ITS | Clinical Summary ---
Author Organization [facility] , [facility] Address [address] [place] [address] Phone Care Team Providers Care Quarter Seamer Name Role Phone Boom COBOS, David Garcia Unavailable [phone] TREY COBOS, AVIS Unavailable [phone] Reason for Referral Date Encounter Description Provider Reason for Referral 04/03/20 Follow Up Jose Ludwig DPM Referral To Physician - to see pcp for bp Reason for Visit and Chief Complaint The Chief Complaint is: left foot pain Problems Includes: Problems addressed during this encounter and other active Problems All Visits Onset Date Resolved Date Provider Condition S tatus Pain in Both Feet 07/20/2021 Jose Ludwig DPM Active Last Documented On 2 8:40AM ; [facility] Pain in the Left Foot 02/11/2020 Jose Ludwig DPM Active Last Documented On 0 9:52AM ; [facility] Plan of Treatment I do lengthy discussion with this patient regarding the findings. I did review the history. She has persistent convincing evidence of tarsal tunnel entrapment clinically and with confirmation of electro physiologically. The cast seemed to increased pressure in that area therefore she could not tolerate that. The increased dose of gabapentin has not helped her. She continues to have plantar fasciitis symptoms. She is at a point that she says something has to give. She is miserable with pain daily. My hope would be that a diagnostic/therapeutic corticosteroid injection by pain management, Dr. Galarza, would be beneficial and either give her relief of that symptomatology or at least further confirmed that an open tarsal tunnel release will be required. A plantar fascial release is probably in the future however with partial tearing proven on MRI of the surgical success rate of that type of plantar fascial release is much lower than typical. I have discussed this in great detail with this patient on multiple occasions and again today. She is understanding of this. - Last Documented On 04/03/2020 9:04AM ; [facility], [facility] Referrals To Diagnosis Consult for Pain Management Note: Dr. Tanmay Galarza Last Documented On 0 9:04AM ; [facility], [facility] Instructions to patient Intervention and counseling on cessation of tobacco use Last Documented On 0 8:27AM ; [facility], [facility] Assessments Includes: Assessments from this encounter Findings Tarsal tunnel entrapment with continued neuritic symptoms despite gabapentin utilization. - Last Documented On 04/03/2020 9:04AM ; [facility], [facility] Chronic severe plantar fasciitis with partial tearing per MRI with chronic pain left - Last Documented On 04/03/2020 9:04AM ; [facility], [facility] Instructions Includes: Instructions from this encounter Instructions to patient Intervention and counseling on cessation of tobacco use Last Documented On 0 8:27AM ; [facility], [facility] Medical Equipment - Implanted Devices Includes: Current Devices No Medical Equipment Recorded Medications Includes: Medications discussed during this encounter and other current Medications Current Medications (continue as prescribed) Synthroid 50 MCG Oral Tablet 07/20/2021 Provider: Diagnosis: Last Documented On 2 8:44AM By Yudy Carbone [facility], [facility] Estradiol 2 MG Oral Tablet 07/20/2021 Provider: Diagnosis: Last Documented On 2 8:44AM By Yudy Martins ; [facility], [facility] Past Medications on file Gabapentin 100 MG Oral Capsule 07/20/2021 - 08/19/2021 Provider: Jose Ludwig DPBrent Diagnosis: 1 every bedtime Last Documented On 2 10:00AM By Dr. Ludwig ; [facility], [facility] Gabapentin 100 MG Oral Capsule 02/21/2020 - 03/22/2020 Provider: Jose Ludwig DPBrent Diagnosis: twice a day Last Documented On 0 11:10AM By Lalo Sandoval ; [facility], [facility] Gabapentin 100 MG Oral Capsule 02/11/2020 - 03/12/2020 Provider: Jose Ludwig DPM Diagnosis: 1 every bedtime Last Documented On 0 10:27AM By Agustina Vasquez ; [facility], [facility] Medications Administered Includes: Administered Medications from this encounter No Administered Medications Recorded Vital Signs Includes: Vital Signs from this encounter Vital Name 04/03/2020 08:26A Blood Pressure Sitting R 119/81 Pulse Rate-Sitting (bpm) 77 Height (in) 66 Weight (lb) 190 Body Mass Index (kg/m2) 30.7 Body Surface Area (m2) 2.0 Note: Carolin Last Documented: On 04/03/2020 8:30AM ; [facility], [facility] Results Includes: Results discussed during this encounter No Results Recorded For Specified Dates History of Present Illness Includes: History of Present Illness from this encounter EZIO Ch is a 39 year old female. - Allergy list reviewed - Problem list reviewed - Medication list reviewed with patient - Medication reconciliation performed This is a 39-year-old female who is seen for evaluation of the foot ankle and lower leg on the left side. This patient has had months of pain in the left foot and ankle. She has seen other physicians and surgeons about this. When I last saw her we agreed to cast immobilization which she only tolerated for 4 days and claimed that it made her neuritic pain worse. She therefore came to the office and had the cast removed and was placed in an immobilizing boot. She tells me she has been utilizing a knee scooter or powered wheelchair around her place of employment and has substantially limited her weightbearing activities on the left side since I last saw her. She has increased her gabapentin to twice a day and does not think it has helped at all. This patient has had an MRI which indicated severe plantar fasciitis with partial tearing as well. She has been through all manner of conservative care and continues to have both plantar fasciitis symptoms as well as neuritic symptoms. Social History Description Last Updated Smoker 02/11/2020 Last Documented On 0 8:26AM ; [facility], [facility] No caffeine use 02/11/2020 Last Documented On 0 8:26AM ; [facility] No recent change in diet 02/11/2020 Last Documented On 0 8:26AM ; [facility], [facility] Not exercising regularly 02/11/2020 Last Documented On 0 8:26AM ; [facility] Not using alcohol 02/11/2020 Last Documented On 0 8:26AM ; [facility] Not using drugs 02/11/2020 Last Documented On 0 8:26AM ; [facility], [facility] Yes, current smoker. 02/11/2020 Last Documented On 0 8:26AM ; [facility], [facility] Smoking Status Unknown Procedures and Surgical History Includes: Procedures from this encounter Procedures Code Diagnosis Performing Provider Service L ocation Service Date intervention and counseling on cessation of tobacco use 4000F Last Documented On 0 8:27AM ; [facility], [facility] use of tobacco assessment performed 1000F Last Documented On 0 8:27AM ; [facility], [facility] referral to physician to see pcp for bp Last Documented On 0 8:27AM ; [facility] an EMG was performed 06868 Last Documented On 0 8:27AM ; [facility] an MRI was performed 02/18/2020-L ankle [facility] [place] [id number] Last Documented On 0 8:27AM ; [facility] Medical History Includes: Medical History addressed during this encounter Description Last Updated History of Gallbladder 02/11/2020 Last Documented On 0 8:26AM ; [facility] Hysterectomy 02/11/2020 Last Documented On 0 8:26AM ; [facility] No recent immunization for flu 0 Last Documented On 0 8:26AM ; [facility] No recent immunization for pneumococcal pneumonia 02/11/2020 Last Documented On 0 8:26AM ; [facility] Thyroid Disease 02/11/2020 Last Documented On 0 8:26AM ; [facility] Family History Includes: Family History addressed during this encounter Description Last Updated Family history of cancer 02/11/2020 Last Documented On 0 8:26AM ; [facility] Family history of hypertension 0 Last Documented On 0 8:26AM ; [facility], [facility] Review of Systems Includes: Review of Systems from this encounter Systemic: Not feeling tired (fatigue), no recent weight loss, and no recent weight gain. Head: Headache. No sinus pain. Eyes: No vision problems and no Cataracts. Glasses/Contacts. No Glaucoma. Otolaryngeal: No hearing loss and no tinnitus. Cardiovascular: No chest pain or discomfort, no palpitations, no Hypertension, and no High Cholesterol. Pulmonary: No daytime asthma symptoms and no chronic cough. No wheezing. Gastrointestinal: No heartburn and no abdominal pain. No Indigestion, no Acid Reflux, no Peptic Ulcer, no GI Stomach Bleed, and no Ulcers. Endocrine: Hot flashes. No muscle weakness, no Diabetes, and no Hypothyroid. Hyperthyroid. Hematologic: No easy bleeding, no tendency [...] and Immunologic: Complaint of seasonal allergic reaction. Mental Status Includes: Mental Status from this encounter Description Anxiety Functional Status Includes: Functional Status from this encounter No Functional Status Recorded Physical Exam Includes: Physical Exam from this encounter Allergies Includes: Active Allergies No Known Allergies Encounters Encounter Provider Location Date Check-In Time Check- Out Time Diagnosis Follow Up [facility] 0 8:18AM 8:55AM Insurance Includes: Active Insurance Policies Plan Name Member ID Group # Subscriber Relationship Effect jerry Dates - [facility] [id number] Jing Kash Clinical Notes Includes: Clinical Notes from this encounter No Clinical Notes Recorded
--- OUTSIDE RECORDS SUMMARY | 2024-10-22 23:14 | XMS_ITS | Clinical Summary ---
Author Organization [facility] , [facility] Address [address] [place] [address] Phone Care Team Providers Care Gardening Instructor Name Role Phone Boom COBOS, David Garcia Unavailable [phone] TREY COBOS, AVIS Unavailable [phone] Reason for Visit and Chief Complaint The Chief Complaint is: left foot pain Problems Includes: Problems addressed during this encounter and other active Problems All Visits Onset Date Resolved Date Provider Condition S tatus Pain in Both Feet 07/20/2021 Jose Ludwig [facility] Active Last Documented On 2 8:40AM ; [facility] Pain in the Left Foot 02/11/2020 Jose Ludwig DPM Active Last Documented On 0 9:52AM ; [facility] Plan of Treatment I do lengthy discussion with this patient regarding the findings. I did review her history. She has a multiyear history of foot and ankle pain on the left side. She came to me after having tried a significant volume of conservative treatment options and modalities without much relief of symptomatology. We finally have the plantar fasciitis symptoms settle down. The diagnostic injection provided by Dr. Galarza of pain management has clearly identified her tarsal tunnel entrapment as being her largest source of pain. The vast majority of her plantar foot pain has resolved after that injection. She does not have any evidence of plantar fasciitis on clinical exam today. At this point, it is unclear exactly what we should do. I am not significantly in favor of a tarsal tunnel release as I have not seen this type of surgical intervention be successful in the long run. There is typically scar tissue formation with at least some persistence of neuritic symptomatology. She also complains of subjective dysesthesias and numbness of the fifth toe left foot which might seem to indicate sural nerve entrapment or possibly something more proximal. 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 She seems to be frustrated at this point. I simply do not think tarsal tunnel surgery is going to work out well. I did offer to make a referral to [facility] and see if she wishes to pursue that and if they wish to pursue tarsal tunnel release. She is agreeable. We will forward our records to them. I did offer to place her on gabapentin, she declines. She simply tells me that she will not return to Dr. Galarza for any additional injections. She tells me it was too painful although it was tremendously beneficial for her. I have no additional treatment recommendations for this patient. - Last Documented On 05/01/2020 10:40AM ; [facility], [facility] Referrals To Diagnosis Consult with Orthopedic Blaine Reece MD Note: - Dr. Reece Last Documented On 0 11:14AM ; [facility], [facility] Instructions to patient Intervention and counseling on cessation of tobacco use Last Documented On 0 9:35AM ; [facility], [facility] Lose weight Last Documented On 0 10:01AM ; [facility], [facility] Assessments Includes: Assessments from this encounter Findings Tarsal tunnel entrapment with continued neuritic symptoms despite gabapentin utilization, improved after diagnostic injection by Dr. Galarza of pain management.. - Last Documented On 05/01/2020 10:40AM ; [facility], [facility] Chronic severe plantar fasciitis with partial tearing per MRI with chronic pain left, not currently clinically symptomatic. - Last Documented On 05/01/2020 10:40AM ; [facility], [facility] Instructions Includes: Instructions from this encounter Instructions to patient Intervention and counseling on cessation of tobacco use Last Documented On 0 9:35AM ; [facility], [facility] Lose weight Last Documented On 0 10:01AM ; [facility], [facility] Medical Equipment - Implanted Devices Includes: Current Devices No Medical Equipment Recorded Medications Includes: Medications discussed during this encounter and other current Medications Current Medications (continue as prescribed) Synthroid 50 MCG Oral Tablet 07/20/2021 Provider: Diagnosis: Last Documented On 2 8:44AM By Yudy Carbone [facility], [facility] Estradiol 2 MG Oral Tablet 07/20/2021 Provider: Diagnosis: Last Documented On 2 8:44AM By Yudy Martins ; [facility], [facility] Past Medications on file Gabapentin 100 MG Oral Capsule 07/20/2021 - 08/19/2021 Provider: Jose Ludwig DPM Diagnosis: 1 every bedtime Last Documented On 2 10:00AM By Dr. Ludwig ; [facility], [facility] Gabapentin 100 MG Oral Capsule 02/21/2020 - 03/22/2020 Provider: Jose Ludwig DPM Diagnosis: twice a day Last Documented On 0 11:10AM By Lalo Sandoval ; [facility], [facility] Gabapentin 100 MG Oral Capsule 02/11/2020 - 03/12/2020 Provider: Jose Ludwig DPM Diagnosis: 1 every bedtime Last Documented On 0 10:27AM By Agustina Vasquez ; [facility], [facility] Medications Administered Includes: Administered Medications from this encounter No Administered Medications Recorded Vital Signs Includes: Vital Signs from this encounter Vital Name 05/01/2020 09:35A Blood Pressure Sitting (mmHg) 120/77 Pulse Rate-Sitting (bpm) 76 Height (in) 66 Weight (lb) 190 Body Mass Index (kg/m2) 30.7 Body Surface Area (m2) 2.0 Note: Devendra Last Documented: On 05/01/2020 10:01A M ; [facility], [facility] Results Includes: Results discussed during this encounter No Results Recorded For Specified Dates History of Present Illness Includes: History of Present Illness from this encounter EZIO Ch is a 39 year old female. - Allergy list reviewed - Problem list reviewed - Medication list reviewed with patient - Medication reconciliation performed This is a 39-year-old female who is seen for follow-up of chronic left foot and ankle pain. This patient was last seen by me about a month ago. She has had a multiyear history of foot and ankle pain that has been treated by a variety of physicians. She came to me as a second opinion with evidence of chronic severe plantar fasciitis with a partial tear and further workup including electrophysiologic examination seem to indicate a component of tarsal tunnel entrapment. It was my opinion at her most recent visit that her symptoms are really more related to tarsal tunnel entrapment. She has previously been on gabapentin with some intermittent relief of symptoms. I sent her to Dr. Galarza of pain management and he gave her a diagnostic injection into the tarsal tunnel which substantially improved her symptoms. She tells me she is better today than she has been in a long time. The pain on the plantar aspect of her foot has resolved. Her pain seems to be subjectively immediately medial to the medial malleolus region and more specifically posterior to the medial malleolus. She is able to work at this point. She is not utilizing a knee scooter at work. She is fully ambulatory. She certainly is improved over previous examinations but does still subjectively have pain. She does not relate post-static dyskinesia symptoms as she previously has. Social History Description Last Updated Smoker 02/11/2020 Last Documented On 0 9:35AM ; [facility], [facility] No caffeine use 02/11/2020 Last Documented On 0 9:35AM ; [facility], [facility] No recent change in diet 02/11/2020 Last Documented On 0 9:35AM ; [facility], [facility] Not exercising regularly 02/11/2020 Last Documented On 0 9:35AM ; [facility], [facility] Not using alcohol 02/11/2020 Last Documented On 0 9:35AM ; [facility], [facility] Not using drugs 02/11/2020 Last Documented On 0 9:35AM ; [facility], [facility] Yes, current smoker. 02/11/2020 Last Documented On 0 9:35AM ; [facility], [facility] Smoking Status Unknown Procedures and Surgical History Includes: Procedures from this encounter Procedures Code Diagnosis Performing Provider Service L ocation Service Date intervention and counseling on cessation of tobacco use 4000F Last Documented On 0 9:35AM ; [facility], [facility] use of tobacco assessment performed 1000F Last Documented On 0 9:35AM ; [facility], [facility] an EMG was performed 05204 Last Documented On 0 9:35AM ; [facility], [facility] an MRI was performed 02/18/2020-L ankle [facility] [id number] Last Documented On 0 9:35AM ; [facility], [facility] Medical History Includes: Medical History addressed during this encounter Description Last Updated History of Gallbladder 02/11/2020 Last Documented On 0 9:35AM ; [facility] Hysterectomy 02/11/2020 Last Documented On 0 9:35AM ; [facility], [facility] No recent immunization for flu 0 Last Documented On 0 9:35AM ; [facility], [facility] No recent immunization for pneumococcal pneumonia 02/11/2020 Last Documented On 0 9:35AM ; [facility], [facility] Thyroid Disease 02/11/2020 Last Documented On 0 9:35AM ; [facility], [facility] Family History Includes: Family History addressed during this encounter Description Last Updated Family history of cancer 02/11/2020 Last Documented On 0 9:35AM ; [facility], [facility] Family history of hypertension 0 Last Documented On 0 9:35AM ; [facility] Review of Systems Includes: Review of [...] of seasonal allergic reaction. REVIEWED W/ PATIENT 05/01/20 Mental Status Includes: Mental Status from this encounter Description Anxiety Functional Status Includes: Functional Status from this encounter No Functional Status Recorded Physical Exam Includes: Physical Exam from this encounter Allergies Includes: Active Allergies No Known Allergies Encounters Encounter Provider Location Date Check-In Time Check- Out Time Diagnosis [facility] 0 9:35AM 10:35AM Insurance Includes: Active Insurance Policies Plan Name Member ID Group # Subscriber Relationship Effect jerry Dates 1 - [facility] [id number] Kash Ch Clinical Notes Includes: Clinical Notes from this encounter No Clinical Notes Recorded
--- OUTSIDE RECORDS SUMMARY | 2024-10-22 23:14 | XMS_ITS ---
Author Organization [facility], [facility] Address [address] [place] [address] Phone Care Team Providers Care Doorkeeper Name Role Phone Boom COBOS, David Garcia Unavailable [phone] TREY COBOS, AVIS Unavailable [phone] Reason for Referral Date Encounter Description Provider Reason for Referral 04/03/20 Follow Up Jose Ludwig DPBrent Referral To Physician - to see pcp for bp 02/21/20 Follow Up Jose Ludwig DPBrent Referral To Physician - to see pcp for bp Problems Includes: Active, inactive, and resolved Problems All Visits Onset Date Resolved Date Provider Condition S tatus Pain in Both Feet 07/20/2021 Jose Ludwig DPM Active Last Documented On 2 8:40AM ; [facility], [facility] Pain in the Left Foot 02/11/2020 Jose Ludwig DPM Active Last Documented On 0 9:52AM ; [facility], [facility] Plan of Treatment Referrals To Diagnosis Consult for Pain Management Note: Dr. Tanmay Galarza Last Documented On 0 9:04AM ; [facility], [facility] Consult with Orthopedic Blaine Reece MD Note: - Dr. Reece Last Documented On 0 11:14AM ; [facility], [facility] Consult for Pain Management Note: sukh galarza Last Documented On 2 3:16PM ; [facility], [facility] Instructions to patient Intervention and counseling on cessation of tobacco use Last Documented On 2 8:41AM ; [facility], [facility] Lose weight Last Documented On 2 8:41AM ; [facility] Intervention and counseling on cessation of tobacco use Last Documented On 0 9:35AM ; [facility] Lose weight Last Documented On 0 10:01AM ; [facility] Intervention and counseling on cessation of tobacco use Last Documented On 0 8:27AM ; [facility] Intervention and counseling on cessation of tobacco use Last Documented On 0 10:20AM ; [facility] Intervention and counseling on cessation of tobacco use Last Documented On 0 9:49AM ; [facility] Assessments Includes: Assessments for all patient encounters No Assessments Recorded Instructions Includes: Instructions for all patient encounters Instructions to patient Intervention and counseling on cessation of tobacco use Last Documented On 2 8:41AM ; [facility] Lose weight Last Documented On 2 8:41AM ; [facility] Intervention and counseling on cessation of tobacco use Last Documented On 0 9:35AM ; [facility] Lose weight Last Documented On 0 10:01AM ; [facility] Intervention and counseling on cessation of tobacco use Last Documented On 0 8:27AM ; [facility] Intervention and counseling on cessation of tobacco use Last Documented On 0 10:20AM ; [facility] Intervention and counseling on cessation of tobacco use Last Documented On 0 9:49AM ; [facility] Medical Equipment - Implanted Devices Includes: Current and historical Devices No Medical Equipment Recorded Medications Includes: Current and historical Medications Current Medications (continue as prescribed) Synthroid 50 MCG Oral Tablet 07/20/2021 Provider: Diagnosis: Last Documented On 2 8:44AM By Yudy Martins ; [facility] Estradiol 2 MG Oral Tablet 07/20/2021 Provider: Diagnosis: Last Documented On 2 8:44AM By Yudy Martins ; [facility] Past Medications on file Gabapentin 100 MG Oral Capsule 07/20/2021 - 08/19/2021 Provider: Jose Ludwig DPM Diagnosis: 1 every bedtime Last Documented On 2 10:00AM By Dr. Ludwig ; [facility] Gabapentin 100 MG Oral Capsule 02/21/2020 - 03/22/2020 Provider: Jose Ludwig DPM Diagnosis: twice a day Last Documented On 0 11:10AM By Lalo Sandoval ; [facility] Gabapentin 100 MG Oral Capsule 02/11/2020 - 03/12/2020 Provider: Jose Ludwig DPM Diagnosis: 1 every bedtime Last Documented On 0 10:27AM By Agustina Vasquez ; [facility] Estrogens Conjugated 1.25 MG Oral Tablet 02/11/2020 - 07/20/2021 Provider: Diagnosis: Last Documented On 2 8:44AM By Yudy Martins ; [facility] Synthroid 50 MCG Oral Tablet 02/11/2020 - 07/20/2021 P maxwellder: Diagnosis: Last Documented On 2 8:44AM By Yudy Martins ; [facility], [facility] Medications Administered Includes: Administered Medications in patient's chart No Administered Medications Recorded Results Includes: Results from 10/23/2023 through 10/22/2024 No Results Recorded For Specified Dates History of Present Illness History of Present Illness not supported for this document type No History of Present Illness Recorded Social History Description Last Updated No recent change in diet 07/20/2021 Last Documented On 2 9:46AM ; [facility] Yes, current smoker. 07/20/2021 Last Documented On 2 9:46AM ; [facility] Smoker 02/11/2020 Last Documented On 0 11:12AM ; [facility] No caffeine use 02/11/2020 Last Documented On 0 11:12AM ; [facility] No recent change in diet 02/11/2020 Last Documented On 0 11:12AM ; [facility] Not exercising regularly 02/11/2020 Last Documented On 0 11:12AM ; [facility] Not using alcohol 02/11/2020 Last Documented On 0 11:12AM ; [facility] Not using drugs 02/11/2020 Last Documented On 0 11:12AM ; [facility] Yes, current smoker. 02/11/2020 Last Documented On 0 11:12AM ; [facility], [facility] Smoking Status Unknown Procedures and Surgical History Surgical History Last Updated History of appendectomy 07/20/2021 Last Documented On 2 9:46AM ; [facility], [facility] History of History of Gallbladder 2021 Last Documented On 2 9:46AM ; [facility] History of hysterectomy 07/20/2021 Last Documented On 2 9:46AM ; [facility], [facility] Medical History Includes: Medical History in patient's chart Description Last Updated History of Thyroid Disease 07/20/2021 Last Documented On 2 9:46AM ; [facility] History of Gallbladder 02/11/2020 Last Documented On 0 11:12AM ; [facility] Hysterectomy 02/11/2020 Last Documented On 0 11:12AM ; [facility] No recent immunization for flu 0 Last Documented On 0 11:12AM ; [facility] No recent immunization for pneumococcal pneumonia 02/11/2020 Last Documented On 0 11:12AM ; [facility] Thyroid Disease 02/11/2020 Last Documented On 0 11:12AM ; [facility] Family History Includes: Family History in patient's chart Description Last Updated Diabetes mellitus 07/20/2021 Last Documented On 2 9:46AM ; [facility] Family history of cancer 02/11/2020 Last Documented On 0 11:12AM ; [facility] Family history of hypertension 0 Last Documented On 0 11:12AM ; [facility], [facility] Review of Systems Review of Systems not supported for this document type No Review of Systems Recorded Mental Status Description Anxiety Functional Status No Functional Status Recorded Physical Exam Physical Exam not supported for this document type No Physical Exam Recorded Allergies Includes: Active, inactive, and resolved Allergies No Known Allergies Insurance Includes: Active Insurance Policies Plan Name Member ID Group # Subscriber Relationship Effect jerry Dates - [facility] [id number] Kash Ch Clinical Notes Includes: Signed Clinical Notes starting from 06/23/2022 No Clinical Notes Recorded
--- OUTSIDE RECORDS SUMMARY | 2024-10-22 23:14 | XMS_ITS | Clinical Summary ---
Author Organization [facility] Address [address] [place] [address] Phone Care Team Providers Care Cross Cut Saw Operator Name Role Phone Boom COBOS, David Garcia Unavailable [phone] TREY COBOS, AVIS Unavailable [phone] Reason for Visit and Chief Complaint CAST CHECK Problems Includes: Problems addressed during this encounter and other active Problems All Visits Onset Date Resolved Date Provider Condition S tatus Pain in Both Feet 07/20/2021 Jose Ludwig DPBrent Active Last Documented On 2 8:40AM ; [facility] Pain in the Left Foot 02/11/2020 Jose Ludwig DPBrent Active Last Documented On 0 9:52AM ; [facility], [facility] Plan of Treatment No Plan of Treatment Recorded Assessments Includes: Assessments from this encounter No Assessments Recorded Medical Equipment - Implanted Devices Includes: Current Devices No Medical Equipment Recorded Medications Includes: Medications discussed during this encounter and other current Medications Current Medications (continue as prescribed) Synthroid 50 MCG Oral Tablet 07/20/2021 Provider: Diagnosis: Last Documented On 2 8:44AM By [facility]udy Carbone [facility] Estradiol 2 MG Oral Tablet 07/20/2021 Provider: Diagnosis: Last Documented On 2 8:44AM By Yudy Martins ; [facility], [facility] Medications Administered Includes: Administered Medications from [...] Location Date Check-In Time Check-Out Time Diagnosis CAST CHECK [facility] 0 9:21AM 9:51AM Insurance Includes: Active Insurance Policies Plan Name Member ID Group # Subscriber Relationship Effect jerry Dates - [facility] [id number] ChKash stewart Clinical Notes Includes: Clinical Notes from this encounter No Clinical Notes Recorded
--- NOTE | 2024-10-22 23:23 | ED_ITS ---
Discharge Plan Disposition Patient Disposition: Home, Self-Care Condition: Good Prescriptions Prescriptions: New lidocaine 5 % adhesive patch,medicated See Rx Instructions .ROUTE .COMPLEX Qty: 15 0RF Rx Instructions: Apply to most painful area and leave on for 12 hours. Remove and leave off for 12 hours before using a new patch. methocarbamol 500 mg tablet 500 mg PO TID PRN (Reason: muscle spasm) Qty: 90 0RF apixaban 5 mg tablet 5 mg PO BID 90 Days Qty: 194 0RF Rx Instructions: Take 2 tablets (10mg) by mouth twice daily for 7 days. Then take 1 tablet (5mg) twice daily until you run out. No Action levothyroxine 50 mcg tablet 50 mcg PO DAILY Referrals Follow up/Referrals: Guerline Guthrie MD [Primary Care Provider] - See instructions Activity Restrictions/Add. Instructions Additional Instructions/Restrictions: You were evaluated in the ER and are believed to be appropriate for discharge at this time. Continue taking home medications as previously prescribed. The hospital will call you early today with a time for your ultrasound. Make sure you answer any unfamiliar numbers to help with scheduling. Take the prescribed apixaban (Eliquis) as directed. Call your primary care doctor immediately for the results of your ultrasound as well as instructions for your Eliquis. If your ultrasound is negative then you should stop taking this medication. Use the prescribed lidocaine patch and methocarbamol (muscle relaxer) as directed. The muscle relaxer may make you tired. Do not drive or operate machinery after taking it. Return to the ER with any new, worsening, or otherwise concerning symptoms. Clinical Impressions Clinical Impression: Arm pain, left, Tingling of left upper extremity Print Language Print Language: Hebrew Discharge ED Provider: Lor Benavidez General Adult HPI General Chief complaint: PAIN Stated complaint: Pain in left arm,from elbow down its tingling Time Seen by Provider: 10/22/24 23:01 History of Present Illness HPI narrative: 43-year-old female with a history of hypothyroid, total hysterectomy presents to the ER with concerns of left arm pain. Patient reports approximately 3 hours prior to arrival she started having pain in the back of the upper left arm and it is radiating down into the left arm. She states the left forearm from the elbow down is tingling. She states she has sensation but it feels like [id number]. She reports she has not been sleeping well recently and has been under increased stress. She reports no traumatic injury. She does not have pain in her neck. She has no history of CAD or stroke. She has no numbness or weakness. She states she has a history of chronic headaches but has no new or changing headache at this time. No vision changes, hearing changes, dizziness, lightheadedness, no chest pain or difficulty breathing, no nausea or vomiting. No recent fevers, chills, or symptoms of being ill. No other associated symptoms. Patient reports when her symptoms were not going away she called the nurse line with her insurance who encouraged her to come to the ER for evaluation. Related Data Home Medications ?Medication ?Instructions ?Recorded ?Confirmed levothyroxine 50 mcg tablet 50 mcg PO DAILY thyroid 01/09/24 10/22/24 Previous Rx's ?Medication ?Instructions ?Recorded apixaban 5 mg tablet 5 mg PO BID 90 days #194 tabs 10/23/24 lidocaine 5 % topical patch See Rx Instructions topical 10/23/24 .COMPLEX #15 ea methocarbamol 500 mg tablet 500 mg PO TID PRN muscle spasm #90 10/23/24 tabs Allergies Allergy/AdvReac Type Severity Reaction Status Date / Time No Known Allergies Allergy Verified 06/11/23 11:44 [facility] Disclaimer: The information contained in this section may have been updated after the patient was seen, as this information can be updated by other users. Medical History (Updated 10/23/24 @ 03:10 by Lor Benavidez MD) Kidney stone Tobacco user Stress incontinence in female History of endometriosis Dyspareunia Overweight (BMI 25.0-29.9) Nephrolithiasis Felon of digit Abscess of right thigh Atypical chest pain Cellulitis and abscess of right leg Lateral epicondylitis of elbow Surgical History History of hysterectomy with bilateral oophorectomy Social History Smoking Status: Current every day smoker tobacco type: cigarettes packs per day: 1 alcohol intake: never substance use type: denies use current occupational status: other Travel in the last 8 weeks: None household members: spouse and children housing: house current occupation: [employer] caffeine: Yes Have you lived/traveled outside US in past 30 days?: No Contact w/someone who lives/traveled outside US past 30 days?: No Exposure to someone with infectious disease in past 14 days?: No Do you have a fever (greater than 100.4 F or 38 C)?: No Have you tested positive for COVID-19: No Exposed to someone with COVID-19 in past 14 days?: No Do you have a sore throat?: No Do you have a cough?: No Do you have any weakness?: No Do you have any diarrhea?: No Are you experiencing any unusual bleeding?: No Do you have any muscle aches/pain?: No Do you have any abdominal pain?: No Are you experiencing loss of taste or smell?: No Other Medical History Have you received the Flu Vaccine for this season: Yes Have you received the Pneumonia Vaccine: No ROS Obtained: Yes Systems reviewed as appropriate & no additional complaints except as documented per HPI Physical Exam General General appearance: alert and in no apparent distress Head Head exam: atraumatic and normocephalic Eye Eye exam: Present PERRL and EOMI ENT ENT exam: Present mucous membranes moist Neck Neck exam: Present normal inspection, full ROM and other; Absent tenderness (No midline tenderness however patient has tenderness of the left trapezius muscle with evidence of spasm and tender trigger point) Chest Chest inspection: Present symmetric chest wall rise Respiratory Respiratory exam: Present normal lung sounds bilaterally; Absent respiratory distress, wheezes or stridor Cardiovascular Cardiovascular exam: Present regular rate and normal rhythm Abdominal Exam Abdominal exam: Present soft; Absent distention or tenderness Extremities Exam Extremities exam: Present full ROM Neurological Exam Neurological exam: Present alert, oriented X3, CN II-XII intact and normal gait; Absent motor sensory deficit (NIH 0, 2 point discrimination intact throughout, proprioception intact, motor and sensation intact. Patient's only complaint is feeling pins and needles with touch) Psychiatric Psychiatric exam: Present normal affect and normal mood Skin Skin exam: Present warm and dry Medical Decision Making Medical Records Medical records reviewed: Yes I reviewed the patient's medical records. Screening: Per USPSTF and CDC recommendations, given the prevalence of disease in our region, it is our hospital?s policy to screen for HIV and viral Hepatitis for all patients aged 18 and over and those with ongoing risk factors. MR Comment: In August of this year patient was evaluated in [facility] and prescribed benzonatate for cough Alcon Inquiry Pt receiving controlled substance: No Vital Signs: 10/22/24 23:27 10/23/24 01:25 10/23/24 03:13 Temperature 98.2 F 98.0 F Temperature Source Oral Oral Pulse Rate 61 65 Pulse Rate [Right Radial] 67 Respiratory Rate 20 15 16 Blood Pressure 106/64 L 116/74 Blood Pressure [Right Arm] 103/66 L Blood Pressure Mean [Right Arm] 78 Blood Pressure Source Automatic Cuff Blood Pressure Source [Right Arm] Automatic Cuff Blood Pressure Position Supine Sitting Blood Pressure Position [Right Arm] Supine 02 Sat by Pulse Oximetry 100 98 Oxygen Delivery Method Room Air Room Air Room Air Lab Data Lab Results 10/22/24 23:23: WBC 12.3 H, RBC 4.69, Hgb 14.3, Hct 43.1, MCV 91.9, MCH 30.5, MCHC 33.2, RDW 13.3, Plt Count 220, MPV 10.3, Neut % (Auto) 55.7, Lymph % (Auto) 35.0, [place] % (Auto) 6.7, Eos % (Auto) 1.7, Baso % (Auto) 0.6, Neut # (Auto) 6.9, Lymph # (Auto) 4.3, [place] # (Auto) 0.8, Eos # (Auto) 0.2, Baso # (Auto) 0.1, PT 10.9, INR 0.97, D-Dimer 0.71 H, Sodium 141, Potassium 4.0, Chloride 104, Carbon Dioxide 25, Anion Gap 16.0 H, BUN 14, Creatinine 0.80, Estimated Creat Clear 96, Estimated GFR 79, Est GFR ( Amer) 96, Glucose 80, Calcium 9.3, Total Bilirubin 0.4, AST 32, ALT 35, Alkaline Phosphatase 69, Troponin I < 0.01, Total Protein 7.0, Albumin 4.0, Globulin 3.0, Albumin/Globulin Ratio 1.3 10/23/24 01:33: Troponin I < 0.01 10/22/24 23:23 10/22/24 23:23 Orders (Tests/Meds): ED MEDICATIONS Discontinued Medications Generic Name Dose Route Start Last Admin Trade Name Freq PRN Reason Stop Dose Admin Acetaminophen 1,000 mg 10/22/24 23:10 10/22/24 23:24 Acetaminophen 500mg Tab PO 10/22/24 23:11 1,000 mg ONCE ONE Administration Apixaban 10 mg 10/23/24 01:29 10/23/24 01:47 Apixaban 5mg Tablet PO 10/23/24 01:30 10 mg ONCE ONE Administration Aspirin 324 mg 10/22/24 23:10 10/22/24 23:24 Aspirin 81mg Chewable Tablet PO 10/22/24 23:11 324 mg ONCE ONE Administration Bupivacaine HCl 5 mg 10/23/24 00:19 10/23/24 00:29 Bupivacaine 0.5% 10ml Vial IJ 10/23/24 00:20 5 mg ONCE ONE Administration Dexamethasone Sodium Phosphate 2 mg 10/23/24 00:18 10/23/24 00:28 Dexamethasone 4mg/Ml 1ml Vial IM 10/23/24 00:19 2 mg ONCE ONE Administration Iopamidol 80 ml 10/22/24 23:57 10/22/24 23:58 Iopamidol-370 (76%);100ml Bottle IV 10/22/24 23:58 80 ml ONCE ONE Administration Sodium Chloride 50 ml 10/22/24 23:57 10/22/24 23:58 0.9 % Sodium Chloride 50 Ml Vial IV 10/22/24 23:58 50 ml ONCE ONE Administration Sodium Chloride 10 ml 10/22/24 23:57 10/22/24 23:58 Sodium Chloride 0.9% 10ml Syr (Rad Only) IV 10/22/24 23:58 10 ml ONCE ONE Administration ORDERS Category Date Time Status CT angio head Stat Cat Scan 10/22/24 23:[address] angio neck Stat Cat Scan 10/22/24 23:[address] head/brain wo con Stat Cat Scan 10/22/24 23:10 Completed POCUS Point of Care (ER Only) Stat Exams 10/22/24 23:23 Completed XR chest 2V Stat Exams 10/22/24 23:12 Completed Complete Blood Count Auto Diff Stat Lab 10/22/24 23:23 Completed Comprehensive Metabolic Panel Stat Lab 10/22/24 23:23 Completed D-Dimer Stat Lab 10/22/24 23:23 Completed HIV Combo Routine Lab 10/22/24 23:23 Received Hepatitis C Ab Qual. W/ RFX Routine Lab 10/22/24 23:23 Received Prothrombin Time INR Stat Lab 10/22/24 23:23 Completed Troponin I Q3H Lab 10/23/24 01:33 Completed Troponin I Q3H Lab 10/23/24 05:15 Ordered Troponin I Stat Lab 10/22/24 23:23 Completed Medical Decision Narrative: In summary, this 43-year-old female history with history of hypothyroid presents to the emergency department today with left arm pain, tingling without known traumatic injury. On initial evaluation patient is hemodynamically stable, afebrile, exam is atraumatic, patient has a pins and needle sensation with touch of the left upper extremity distal to the elbow but no neurologic deficits, NIH 0, tender palpable trigger point in the left trapezius muscle, remainder of exam benign. Differential diagnosis includes but is not limited to ACS, radiculopathy, muscle spasm, I have very low suspicion for stroke since patient does not have identifiable deficit and is describing more of a neuropathic pain than sensory loss and has no motor association, however this was also considered. With an NIH of 0, patient was not stroke alerted but was sent for emergent CT scans. I have also considered DVT though I consider this less likely as well since patient has no tender palpable cord or swelling. Ruling out the most morbid conditions drove my assessment. ECG personally interpreted demonstrates normal sinus rhythm, rate 70, normal axis, normal IL and QTc. No STEMI. Patient received aspirin, Tylenol initially for treatment. Labs personally reviewed demonstrate slight leukocytosis WBC 12.3 nonspecific nonactionable, no anemia, normal platelets, PT/INR normal, CMP nonactionable, initial troponin undetectably low less than 0.01. Chest x-ray personally interpreted does not demonstrate acute intrathoracic abnormality, see radiology read for final interpretation. CT head personally interpreted does not demonstrate acute intracranial abnormality. See radiology read for final interpretation. I received a phone call from [facility] radiologist Dr. Tsai at 0017 that patient did not have any acute vascular findings in the head or neck on CT angiography. He did state patient has degenerative changes at C5-C6 including bilateral foraminal stenosis left greater than right which he believes may be contributing to the patient's left upper extremity complaints. See radiology read for full interpretation. D-dimer slightly elevated at 0.71. This increased my concern for the possibility of DVT. I evaluated the left upper extremity with DVT ultrasound and did not appreciate a DVT, however with a slightly elevated D-dimer and patient still having some pain in the arm though it is improving some, I recommended management with anticoagulation until outpatient DVT ultrasound can be performed. She is comfortable with this plan. Apixaban administered and prescribed. Outpatient order for formal DVT ultrasound has been placed. Patient was given the copy of the form to bring to her appointment. The patient reports slight improvement of symptoms and has an overall reassuring workup, I do suspect the most likely etiology of her symptoms are from musculoskeletal/radiculopathy etiology. With patient having a palpable tender trigger point, I did provide trigger point injection to the left trapezius muscle. See procedure note for details. Repeat troponin also undetectably low less than 0.01. Patient is appropriate for discharge at this time. I prescribed lidocaine patches and methocarbamol for MSK pain, I also prescribed apixaban for empiric DVT treatment until patient has her formal DVT ultrasound. Patient was given instructions on symptomatic monitoring and management, follow up instructions, and return precautions for the emergency department. Patient indicated understanding and was discharged in stable condition. Procedures Risk/Benefits of Procedure(s) Were Explained: Yes (Verbal consent provided by patient) Miscellaneous Procedure Procedure Performed: Limited DVT ultrasound Indication: Limited compression ultrasonography of the left upper was performed to evaluate for non-compressibility of the deep veins in the patient. The ultrasound was performed with the following indications, as noted in the H&P: Left arm pain Identified structures: Left [Ulnar vein, radial vein, cephalic vein, basilic vein, axillary vein.] Findings: Upper extremity: Left UV good compressibility Left RV: Good compressibility Left Cephalic vein: Good compressibility Left Basilic vein: Good compressibility Left Axillary vein: Good compressibility Impression: Normal left upper extremity DVT ultrasound Images were saved to permanent archive The study was technically adequate CPT: 08048-67-HW [id number] 28825-32 (complete bilateral study) This study was performed by me, and I personally interpreted all images/videos. Based on my clinical judgement, these images were adequate and did not necessitate further imaging. Trigger point injection Indication: Pain, tenderness with obvious trigger point Location: Mid left trapezius muscle Procedure details: Trigger point palpated and isolated, location marked. Area cleansed with chlorhexidine. 2.5 mg (0.5 mL) bupivacaine and 2 mg (0.5 mL) dexamethasone injected into the trigger point. Aspiration was performed during insertion of the needle. Patient tolerated procedure well. No complications. Critical Care Critical Care Time Critical Care Time: No
[2024-10-22] MEDS: ASPIRIN 81MG CHEWABLE TABLET 324 MG PO (23:24)
[2024-10-22] MEDS: ACETAMINOPHEN 500MG TAB 1000 MG PO (23:24)
[2024-10-22 23:27] VITALS: BP 103/66; PULSE 67; RESP 20; TEMP 36.8; O2SAT 100; BMI 22.7
[2024-10-22 23:47] LABS: Basophils # 0.1 K/mm3 (0-0.2); Basophils % 0.6 % (0.1-2.0); Eosinophils # 0.2 K/mm3 (0.0-0.4); Eosinophils % 1.7 % (0.1-12.0); Hematocrit 43.1 % (37.0-47.0); Hemoglobin 14.3 g/dL (12.2-16.2); Lymphocytes # 4.3 K/mm3 (0.7-4.5); Mean Corpuscular HGB Conc 33.2 g/dL (31.8-35.4); Mean Corpuscular Hemoglobin 30.5 pg (27.0-31.2); Mean Corpuscular Volume 91.9 fl (81-99); Mean Platelet Volume 10.3 fl (7.4-10.4); Monocytes # 0.8 K/mm3 (0.1-1.0); Monocytes % 6.7 % (1.7-9.3); Neutrophils # 6.9 K/mm3 (1.8-7.8); Neutrophils % 55.7 % (37.0-80.0); Nucleated Red Blood Cells # 0 10^3/uL; Nucleated Red Blood Cells % 0 %; Platelet Count 220 K/mm3 (142-424); Red Blood Count 4.69 M/mm3 (4.20-5.40); Red Cell Distribution Width 13.3 % (11.5-17.5); Red Cell Distribution Width-SD 45.2 fL; White Blood Count 12.3 K/mm3 (4.8-10.8)
[2024-10-22] MEDS: 0.9 % SODIUM CHLORIDE 50 ML VIAL IV (23:58)
[2024-10-22] MEDS: IOPAMIDOL-370 (76%);100ML BOTTLE 80 ML IV (23:58)
[2024-10-22] MEDS: SODIUM CHLORIDE 0.9% 10ML SYR (RAD ONLY) 10 ML IV (23:58)
[2024-10-23 00:01] LABS: Alanine Aminotransferase 35 U/L (12-78); Albumin/Globulin Ratio 1.3 (1.1-1.8); Alkaline Phosphatase 69 U/L (38-126); Aspartate Amino Transferase 32 U/L (14-36); Bilirubin,Total 0.4 mg/dl (0.2-1.3); Calcium 9.3 mg/dl (8.4-10.2); Carbon Dioxide 25 mmol/L (22.0-30.0); Chloride 104 mmol/L (98-107); Glucose 80 mg/dl (74-100); INR 0.97 (0.9-1.1); Prothrombin Time 10.9 seconds (10.1-12.5); Sodium 141 mmol/L (136-145)
[2024-10-23 00:02] LABS: Blood Urea Nitrogen 14 mg/dl (7-17); Creatinine Clearance Estimated 96 mL/min (50-200); Estimated Glomerular Filt Rate 79 ml/min (>60); GFR (African American) 96 ML/MIN (>60)
[2024-10-23 00:11] LABS: D-Dimer 0.71 ug/mL (0.0-0.5)
[2024-10-23] MEDS: DEXAMETHASONE 4MG/ML 1ML VIAL 2 MG IM (00:28)
[2024-10-23] MEDS: BUPIVACAINE 0.5% 10ML VIAL 5 MG IJ (00:29)
[2024-10-23 00:30] LABS: Troponin I < 0.01 ng/ml (0.00-0.034)
--- NOTE | 2024-10-23 01:14 | PC.NURSE ---
Outpatient order given to patient for outpatient DVT study. Results to be called to PCP Cinthia Orona APRN at Dr. Somers office on [facility] once completed.
[2024-10-23 01:25] VITALS: BP 106/64; PULSE 61; RESP 15; O2SAT 98
[2024-10-23] MEDS: APIXABAN 5MG TABLET 10 MG PO (01:47)
[2024-10-23 02:17] LABS: Troponin I < 0.01 ng/ml (0.00-0.034)
[2024-10-23 03:13] VITALS: BP 116/74; PULSE 65; RESP 16; TEMP 36.7; O2SAT 99
[2024-10-23 04:54] LABS: HIV Combo NEGATIVE (Negative)
[2024-10-23 05:02] LABS: Hepatitis C Ab Qual. W/ RFX NEGATIVE (Negative)
== END 2024-10-23 03:14 | disposition home or self-care (01) ==
PROVIDERS: Emergency Provider Emergency Medicine; PCP Family Medicine
DX: M50.322 Other cervical disc degeneration at C5-C6 level (principal); M99.71 Connective tissue and disc stenosis of intervertebral foramina of cervical region; M79.18 Myalgia, other site; Z11.4 Encounter for screening for human immunodeficiency virus [HIV]; Z11.59 Encounter for screening for other viral diseases
CPT/HCPCS: 20552; 70450; 70496; 70498; 71046; 80053; 84484; 85025; 85378; 85610; 86803; 87389; 93005; 99285; J1100; Q9967

== ENCOUNTER 2024-10-23 13:37 | Outpatient (CLI) | payer BC, SELFPAY ==
--- OUTSIDE RECORDS SUMMARY | 2024-10-23 13:40 | XMS_ITS | Clinical Summary ---
Author Organization [facility] Address [address] [place] [address] Phone Care Team Providers Care Arbitrator Name Role Phone Boom COBOS, David Garcia Unavailable Unavaila desiree YANG MD, AVIS Unavailable [phone] Reason for Visit and Chief Complaint BRACE FITTING Problems Includes: Problems addressed during this encounter and other active Problems All Visits Onset Date Resolved Date Provider Condition S tatus Pain in Both Feet 07/20/2021 Jose Ludwig DPM Active Last Documented On 2 8:40AM ; [facility] Pain in the Left Foot 02/11/2020 Jose Ludwig DPM Active Last Documented On 0 9:52AM ; [facility] Plan of Treatment No Plan of Treatment Recorded Assessments Includes: Assessments from this encounter No Assessments Recorded Medical Equipment - Implanted Devices Includes: Current Devices No Medical Equipment Recorded Medications Includes: Medications discussed during this encounter and other current Medications Current Medications (continue as prescribed) Synthroid 50 MCG Oral Tablet 07/20/2021 Provider: Diagnosis: Last Documented On 2 8:44AM By Yudy Carbone [facility] Estradiol 2 MG Oral Tablet 07/20/2021 Provider: Diagnosis: Last Documented On 2 8:44AM By Yudy Martins ; [facility] Medications Administered Includes: Administered Medications [...] # Subscriber Relationship Effect jerry Dates - [facility] [id number] Jing, Kash Clinical Notes Includes: Clinical Notes from this encounter No Clinical Notes Recorded
--- OUTSIDE RECORDS SUMMARY | 2024-10-23 13:40 | XMS_ITS ---
Care Plan - [facility] Created on: October 23, 2024 Yoon Ch .0 : 1980 Sex: Female Author Organization [facility] Address [address] [place] [address] Phone Care Team Providers Care Finish Molder Name Role Phone Boom COBOS, David Garcia Unavailable [phone] TREY COBOS, AVIS Unavailable [phone]
--- OUTSIDE RECORDS SUMMARY | 2024-10-23 13:40 | XMS_ITS | Clinical Summary ---
Author Organization [facility] Address [address] [place] [address] Phone Care Team Providers Care Cement Rubber Name Role Phone Boom COBOS, David Garcia [...] Active Last Documented On 2 8:40AM ; [facility] Pain in the Left Foot 02/11/2020 Jose Ludwig DPM Active Last Documented On 0 9:52AM ; [facility] Plan of Treatment I do lengthy discussion [...] - Last Documented On 04/03/2020 9:04AM ; [facility] Referrals To Diagnosis Consult for Pain Management Note: Dr. Tanmay Galarza Last Documented On 0 9:04AM ; [facility] Instructions to patient Intervention and counseling on cessation of tobacco use Last Documented On 0 8:27AM ; [facility] Assessments Includes: Assessments from this encounter Findings Tarsal tunnel entrapment with continued neuritic symptoms despite gabapentin utilization. - Last Documented On 04/03/2020 9:04AM ; [facility] Chronic severe plantar fasciitis with partial tearing per MRI with chronic pain left - Last Documented On 04/03/2020 9:04AM ; [facility] Instructions Includes: Instructions from this encounter Instructions to patient Intervention and counseling on cessation of tobacco use Last Documented On 0 8:27AM ; [facility] Medical Equipment - Implanted Devices Includes: Current Devices No Medical Equipment Recorded Medications Includes: Medications discussed during this encounter and other current Medications Current Medications (continue as prescribed) Synthroid 50 MCG Oral Tablet 07/20/2021 Provider: Diagnosis: Last Documented On 2 8:44AM By Yudy Carbone [facility] Estradiol 2 MG Oral Tablet 07/20/2021 Provider: Diagnosis: Last Documented On 2 8:44AM By Yudy Martins ; [facility] Past Medications on file Gabapentin 100 MG Oral Capsule 07/20/2021 - 08/19/2021 Provider: Jose Ludwig DPBrent Diagnosis: 1 every bedtime Last Documented On 2 10:00AM By Dr. Ludwig ; [facility] Gabapentin 100 MG Oral Capsule 02/21/2020 - 03/22/2020 Provider: Jose Ludwig DPBrent Diagnosis: twice a day Last Documented On 0 11:10AM By Lalo Sandoval ; [facility] Gabapentin 100 MG Oral Capsule 02/11/2020 - 03/12/2020 Provider: Jose Ludwig DPM Diagnosis: 1 every bedtime Last Documented On 0 10:27AM By Agustina Vasquez ; [facility] Medications Administered Includes: Administered Medications from this encounter No Administered Medications Recorded Vital Signs Includes: Vital Signs from this encounter Vital Name 04/03/2020 08:26A Blood Pressure Sitting R 119/81 Pulse Rate-Sitting (bpm) 77 Height (in) 66 Weight (lb) 190 Body Mass Index (kg/m2) 30.7 Body Surface Area (m2) 2.0 Note: Carolin Last Documented: On 04/03/2020 8:30AM ; [facility] Results Includes: Results discussed during this [...] Last Documented On 0 8:26AM ; [facility] No caffeine use 02/11/2020 Last Documented On 0 8:26AM ; [facility] No recent change in diet 02/11/2020 Last Documented On 0 8:26AM ; [facility] Not exercising regularly 02/11/2020 Last Documented On 0 8:26AM ; [facility] Not using alcohol 02/11/2020 Last Documented On 0 8:26AM ; [facility] Not using drugs 02/11/2020 Last Documented On 0 8:26AM ; [facility] Yes, current smoker. 02/11/2020 Last Documented On 0 8:26AM ; [facility] Smoking Status Unknown Procedures and Surgical History Includes: Procedures from this encounter Procedures Code Diagnosis Performing Provider Service L ocation Service Date intervention and counseling on cessation of tobacco use 4000F Last Documented On 0 8:27AM ; [facility] use of tobacco assessment performed 1000F Last Documented On 0 8:27AM ; [facility] referral to physician to see pcp for bp Last Documented On 0 8:27AM ; [facility] an EMG was performed 73191 Last Documented On 0 8:27AM ; [facility] an MRI was performed 02/18/2020-L ankle BGO MRI [id number] Last Documented On 0 8:27AM ; [facility] Medical History Includes: Medical History addressed during this encounter Description Last Updated History of Gallbladder 02/11/2020 Last Documented On 0 8:26AM ; [facility] Hysterectomy 02/11/2020 Last Documented On 0 8:26AM ; [facility] No recent immunization for flu 0 Last Documented On 0 8:26AM ; [facility] No recent immunization for pneumococcal pneumonia 02/11/2020 Last Documented On 0 8:26AM ; [facility] Thyroid Disease 02/11/2020 Last Documented On 0 8:26AM ; [facility] Family History Includes: Family History addressed during this encounter Description Last Updated Family history of cancer 02/11/2020 Last Documented On 0 8:26AM ; [facility] Family history of hypertension 0 Last Documented On 0 8:26AM ; [facility] Review of Systems Includes: Review of [...] Check- Out Time Diagnosis [facility] 8:18AM 8:55AM Insurance Includes: Active Insurance Policies Plan Name Member ID Group # Subscriber Relationship Effect jerry Dates - [facility] [id number] Jing Kash Clinical Notes Includes: Clinical Notes from this encounter No Clinical Notes Recorded
--- OUTSIDE RECORDS SUMMARY | 2024-10-23 13:40 | XMS_ITS | Clinical Summary ---
Author Organization [facility] , [facility] Address [address] [place] [address] Phone Care Team Providers Care Eyeglass Frames Inspector Name Role Phone Boom COBOS, David Garcia [...] Active Last Documented On 2 8:40AM ; [facility] Past Visits Onset Date Resolved Date Provider Condition Status Pain in the Left Foot 02/11/2020 Jose Ludwig DPBrent Active Last Documented On 0 9:52AM ; [facility] Plan of Treatment I had a lengthy [...] - Last Documented On 07/20/2021 9:46AM ; [facility], [facility] Referrals To Diagnosis Consult for Pain Management Note: sukh galarza Last Documented On 2 3:16PM ; [facility], [facility] Instructions to patient Intervention and counseling on cessation of tobacco use Last Documented On 2 8:41AM ; [facility], [facility] Lose weight Last Documented On 2 8:41AM ; [facility], [facility] Assessments Includes: Assessments from this encounter Findings Tarsal tunnel syndrome with moderate symptoms right and mild symptoms of left - Last Documented On 07/20/2021 9:46AM ; [facility], [facility] Instructions Includes: Instructions from this encounter Instructions to patient Intervention and counseling on cessation of tobacco use Last Documented On 2 8:41AM ; [facility], [facility] Lose weight Last Documented On 2 8:41AM ; [facility], [facility] Medical Equipment - Implanted Devices Includes: Current Devices No Medical Equipment Recorded Medications Includes: Medications discussed during this encounter and other current Medications Discontinued / Stopped on this date on 02/11/2020 Estrogens Conjugated 1.25 MG Oral Tablet Provider: Diagnosis: Last Documented On 2 8:44AM By Yudy Martins ; [facility], [facility] New / Renewed during this visit Jose Ludwig DPBrent on 07/20/2021 Gabapentin 100 MG Oral Capsule Provider: Jose Ludwig DPBrent 30 day supply: 30 capsule, 0 refills Diagnosis: 1 every bedtime Pharmacy: [facility] [employer] [place] [address], [facility] [id number] - Last Documented On 2 10:00AM By Dr. Ludwig ; [facility], [facility] Current Medications (continue as prescribed) Synthroid 50 MCG Oral Tablet 07/20/2021 Provider: Diagnosis: Last Documented On 2 8:44AM By Yudy JONES [facility] Estradiol 2 MG Oral Tablet 07/20/2021 Provider: Diagnosis: Last Documented On 2 8:44AM By Yudy Martins ; [facility] Past Medications on file Gabapentin 100 MG Oral Capsule 02/21/2020 - 03/22/2020 Provider: Jose Ludwig DPM Diagnosis: twice a day Last Documented On 0 11:10AM By Lalo JONES [facility] Gabapentin 100 MG Oral Capsule 02/11/2020 - 03/12/2020 Provider: Jose Ludwig DPBrent Diagnosis: 1 every bedtime Last Documented On 0 10:27AM By Agustina Vasuqez ; [facility], [facility] Medications Administered Includes: Administered Medications from this encounter No Administered Medications Recorded Vital Signs Includes: Vital Signs from this encounter Vital Name 07/20/2021 08:41A Blood Pressure Sitting (mmHg) 112/80 Pulse Rate-Sitting (bpm) 71 Height (in) 66 Weight (lb) 180 Body Mass Index (kg/m2) 29.1 Body Surface Area (m2) 1.9 Note: [facility] Last Documented: On 07/20/2021 8:45AM ; [facility] Results Includes: Results discussed during [...] Documented On 2 8:41AM ; [facility], [facility] use of tobacco assessment performed 1000F Last Documented On 2 8:41AM ; [facility] an EMG was performed 73197 Last Documented On 2 8:41AM ; [facility], [facility] an MRI was performed 02/18/2020-L ankle [facility] MRI [id number] Last Documented On 2 8:41AM ; [facility] Surgical History Last Updated History of appendectomy 07/20/2021 Last Documented On 2 9:46AM ; [facility] History of History of Gallbladder 2021 Last Documented On 2 9:46AM ; [facility], [facility] History of hysterectomy 07/20/2021 Last Documented On 2 9:46AM ; [facility], [facility] Medical History Includes: Medical History addressed during this encounter Description Last Updated History of Thyroid Disease 07/20/2021 Last Documented On 2 9:46AM ; [facility], [facility] History of Gallbladder 02/11/2020 Last Documented On 2 8:41AM ; [facility], [facility] Hysterectomy 02/11/2020 Last Documented On 2 8:41AM ; [facility], [facility] No recent immunization for flu 0 Last Documented On 2 8:41AM ; [facility], [facility] No recent immunization for pneumococcal pneumonia 02/11/2020 Last Documented On 2 8:41AM ; [facility], [facility] Thyroid Disease 02/11/2020 Last Documented On 2 8:41AM ; [facility], [facility] Family History Includes: Family History addressed during this encounter Description Last Updated Diabetes mellitus 07/20/2021 Last Documented On 2 9:46AM ; [facility], [facility] Family history of cancer 02/11/2020 Last Documented On 2 8:41AM ; [facility], [facility] Family history of hypertension 0 Last Documented On 2 8:41AM ; [facility], [facility] Review of Systems Includes: Review of [...] Time Diagnosis NEW PROBLEM/EST PT [facility] 07/20/19 22 8:25AM 9:39AM Insurance Includes: Active Insurance Policies Plan Name Member ID Group # Subscriber Relationship Effect jerry Dates - [facility] [id number] Kash Ch Clinical Notes Includes: Clinical Notes from this encounter No Clinical Notes Recorded
--- OUTSIDE RECORDS SUMMARY | 2024-10-23 13:40 | XMS_ITS | Clinical Summary ---
Author Organization [facility] Address [address] [place] [address] Phone Care Team Providers Care Reference Services Head Name Role Phone Boom COBOS, David Garcia [...] Active Last Documented On 2 8:40AM ; [facility] Pain in the Left Foot 02/11/2020 Jose Ludwig DPBrent Active Last Documented On 0 9:52AM ; [facility] Plan of Treatment No Plan of Treatment Recorded Assessments Includes: Assessments from this encounter No Assessments Recorded Medical Equipment - Implanted Devices Includes: Current Devices No Medical Equipment Recorded Medications Includes: Medications discussed during this encounter and other current Medications Current Medications (continue as prescribed) Synthroid 50 MCG Oral Tablet 07/20/2021 Provider: Diagnosis: Last Documented On 2 8:44AM By Yudy Car[facility] Estradiol 2 MG Oral Tablet 07/20/2021 Provider: Diagnosis: Last Documented On 2 8:44AM By Yudy Martins ; [facility] Medications Administered Includes: Administered Medications from this [...] Check-Out Time Diagnosis CAST CHECK Jose Ludwig [facility] 0 9:21AM 9:51AM Insurance Includes: Active Insurance Policies Plan Name Member ID Group # Subscriber Relationship Effect jerry Dates - [facility] [id number] ChKash stewart Clinical Notes Includes: Clinical Notes from this encounter No Clinical Notes Recorded
--- OUTSIDE RECORDS SUMMARY | 2024-10-23 13:41 | XMS_ITS | Clinical Summary ---
Author Organization [facility] , [facility] Address [address] [place] [address] Phone Care Team Providers Care Headlight Assembler Name Role Phone Boom COBOS, David Garcia Unavailable [phone] TREY COBOS, AVIS Unavailable [phone] Reason for Visit and Chief Complaint The Chief Complaint is: left foot pain Problems Includes: Problems addressed during this encounter and other active Problems All Visits Onset Date Resolved Date Provider Condition S tatus Pain in Both Feet 07/20/[address] [facility] Active Last Documented On 2 8:40AM ; [facility] Pain in the Left Foot 02/11/2020 Jose Ludwig DPM Active Last Documented On 0 9:52AM ; [facility] Plan of Treatment I do lengthy [...] did offer to make a referral to [facility] and see if she wishes to [...] - Last Documented On 05/01/2020 10:40AM ; [facility], [facility] Referrals To Diagnosis Consult with Orthopedic Blaine Reece MD Note: - Dr. Reece Last Documented On 0 11:14AM ; [facility], [facility] Instructions to patient Intervention and counseling on cessation of tobacco use Last Documented On 0 9:35AM ; [facility], [facility] Lose weight Last Documented On 0 10:01AM ; [facility], [facility] Assessments Includes: Assessments from this encounter Findings Tarsal tunnel entrapment with continued neuritic symptoms despite gabapentin utilization, improved after diagnostic injection by Dr. Galarza of pain management.. - Last Documented On 05/01/2020 10:40AM ; [facility], [facility] Chronic severe plantar fasciitis with partial tearing per MRI with chronic pain left, not currently clinically symptomatic. - Last Documented On 05/01/2020 10:40AM ; [facility], [facility] Instructions Includes: Instructions from this encounter Instructions to patient Intervention and counseling on cessation of tobacco use Last Documented On 0 9:35AM ; [facility], [facility] Lose weight Last Documented On 0 10:01AM ; [facility], [facility] Medical Equipment - Implanted Devices Includes: Current Devices No Medical Equipment Recorded Medications Includes: Medications discussed during this encounter and other current Medications Current Medications (continue as prescribed) Synthroid 50 MCG Oral Tablet 07/20/2021 Provider: Diagnosis: Last Documented On 2 8:44AM By Yudy Carbone [facility], [facility] Estradiol 2 MG Oral Tablet 07/20/2021 Provider: Diagnosis: Last Documented On 2 8:44AM By Yudy Martins ; [facility], [facility] Past Medications on file Gabapentin 100 MG Oral Capsule 07/20/2021 - 08/19/2021 Provider: Jose Ludwig DPM Diagnosis: 1 every bedtime Last Documented On 2 10:00AM By Dr. Ludwig ; [facility], [facility] Gabapentin 100 MG Oral Capsule 02/21/2020 - 03/22/2020 Provider: Jose Ludwig DPM Diagnosis: twice a day Last Documented On 0 11:10AM By Lalo Sandoval ; [facility], [facility] Gabapentin 100 MG Oral Capsule 02/11/2020 - 03/12/2020 Provider: Jose Ludwig DPM Diagnosis: 1 every bedtime Last Documented On 0 10:27AM By Agustina Vasquez ; [facility], [facility] Medications Administered Includes: Administered Medications from this encounter No Administered Medications Recorded Vital Signs Includes: Vital Signs from this encounter Vital Name 05/01/2020 09:35A Blood Pressure Sitting (mmHg) 120/77 Pulse Rate-Sitting (bpm) 76 Height (in) 66 Weight (lb) 190 Body Mass Index (kg/m2) 30.7 Body Surface Area (m2) 2.0 Note: Devendra Last Documented: On 05/01/2020 10:01A M ; [facility], [facility] Results Includes: Results discussed [...] 02/11/2020 Last Documented On 0 9:35AM ; [facility], [facility] No caffeine use 02/11/2020 Last Documented On 0 9:35AM ; [facility], [facility] No recent change in diet 02/11/2020 Last Documented On 0 9:35AM ; [facility], [facility] Not exercising regularly 02/11/2020 Last Documented On 0 9:35AM ; [facility], [facility] Not using alcohol 02/11/2020 Last Documented On 0 9:35AM ; [facility], [facility] Not using drugs 02/11/2020 Last Documented On 0 9:35AM ; [facility], [facility] Yes, current smoker. 02/11/2020 Last Documented On 0 9:35AM ; [facility], [facility] Smoking Status Unknown Procedures and Surgical History Includes: Procedures from this encounter Procedures Code Diagnosis Performing Provider Service L ocation Service Date intervention and counseling on cessation of tobacco use 4000F Last Documented On 0 9:35AM ; [facility], [facility] use of tobacco assessment performed 1000F Last Documented On 0 9:35AM ; [facility], [facility] an EMG was performed 73131 Last Documented On 0 9:35AM ; [facility], [facility] an MRI was performed 02/18/2020-L ankle [facility] MRI [id number] Last Documented On 0 9:35AM ; [facility], [facility] Medical History Includes: Medical History addressed during this encounter Description Last Updated History of Gallbladder 02/11/2020 Last Documented On 0 9:35AM ; [facility] Hysterectomy 02/11/2020 Last Documented On 0 9:35AM ; [facility], [facility] No recent immunization for flu 0 Last Documented On 0 9:35AM ; [facility], [facility] No recent immunization for pneumococcal pneumonia 02/11/2020 Last Documented On 0 9:35AM ; [facility], [facility] Thyroid Disease 02/11/2020 Last Documented On 0 9:35AM ; [facility], [facility] Family History Includes: Family History addressed during this encounter Description Last Updated Family history of cancer 02/11/2020 Last Documented On 0 9:35AM ; [facility], [facility] Family history of hypertension 0 Last Documented On 0 9:35AM ; [facility] Review of Systems Includes: Review of [...] Out Time Diagnosis Follow Up Jose Ludwig [facility] 0 9:35AM 10:35AM Insurance Includes: Active Insurance Policies Plan Name Member ID Group # Subscriber Relationship Effect jerry Dates 1 - [facility] [id number] Kash Ch Clinical Notes Includes: Clinical Notes from this encounter No Clinical Notes Recorded
--- OUTSIDE RECORDS SUMMARY | 2024-10-23 13:41 | XMS_ITS ---
Author Organization [facility], [facility] Address [address] [place] [address] Phone Care Team Providers Care Brusher Name Role Phone Boom COBOS, David Garcia [...] Active Last Documented On 2 8:40AM ; [facility], [facility] Pain in the Left Foot 02/11/2020 Jose Ludwig DPM Active Last Documented On 0 9:52AM ; [facility], [facility] Plan of Treatment Referrals To Diagnosis Consult for Pain Management Note: Dr. Tanmay Galarza Last Documented On 0 9:04AM ; [facility], [facility] Consult with Orthopedic Blaine Reece MD Note: [place] - Dr. Reece Last Documented On 0 11:14AM ; [facility], [facility] Consult for Pain Management Note: sukh galarza Last Documented On 2 3:16PM ; [facility], [facility] Instructions to patient Intervention and counseling on cessation of tobacco use Last Documented On 2 8:41AM ; [facility], [facility] Lose weight Last Documented On 2 [...] On [address] Ludwig ; [facility] Gabapentin 100 MG Oral Capsule 02/21/2020 - 03/22/2020 Provider: Jose Ludwig DPM Diagnosis: twice a day Last Documented On 0 11:10AM By Lalo Sandoval ; [facility] Gabapentin 100 MG Oral Capsule 02/11/2020 - 03/12/2020 Provider: Jose Ludwig DPM Diagnosis: 1 every bedtime Last Documented On 0 10:27AM By Agustina Vasquez ; [facility] Estrogens Conjugated 1.25 MG Oral Tablet 02/11/2020 - 07/20/2021 Provider: Diagnosis: Last Documented On 2 8:44AM By Yudy Martins ; [facility] Synthroid 50 MCG Oral Tablet 02/11/2020 - 07/20/2021 P maxwellder: Diagnosis: Last Documented On 2 8:44AM By Yudy Martins ; [facility], [facility] Medications Administered Includes: Administered Medications in patient's chart No Administered Medications Recorded Results Includes: Results from 10/24/2023 through 10/23/2024 No Results Recorded For Specified Dates History [...] 02/11/2020 Last Documented On 0 11:12AM ; [facility] Not using drugs 02/11/2020 Last Documented On 0 11:12AM ; [facility] Yes, current smoker. 02/11/2020 Last Documented On 0 11:12AM ; [facility], [facility] Smoking Status Unknown Procedures and Surgical History Surgical History Last Updated History of appendectomy 07/20/2021 Last Documented On 2 9:46AM ; [facility], [facility] History of History of Gallbladder 2021 Last Documented On 2 9:46AM ; [facility] History of hysterectomy 07/20/2021 Last Documented On 2 9:46AM ; [facility], [facility] Medical History Includes: Medical History in patient's chart Description Last Updated History of Thyroid Disease 07/20/2021 Last Documented On 2 9:46AM ; [facility] History of Gallbladder 02/11/2020 Last Documented On 0 11:12AM ; [facility] Hysterectomy 02/11/2020 Last Documented On 0 11:12AM ; [facility] No recent immunization for flu 0 Last Documented On 0 11:12AM ; [facility] No recent immunization for pneumococcal pneumonia 02/11/2020 Last Documented On 0 11:12AM ; [facility] Thyroid Disease 02/11/2020 Last Documented On 0 11:12AM ; [facility] Family History Includes: Family History in patient's chart Description Last Updated Diabetes mellitus 07/20/2021 Last Documented On 2 9:46AM ; [facility] Family history of cancer 02/11/2020 Last Documented On 0 11:12AM ; [facility] Family history of hypertension 0 Last Documented On 0 11:12AM ; [facility], [facility] Review of Systems Review of Systems not [...] # Subscriber Relationship Effect jerry Dates - [facility] [id number] Kash Ch Clinical Notes Includes: Signed Clinical Notes starting from 06/23/2022 No Clinical Notes Recorded
--- NOTE | 2024-10-23 13:42 | CA_ITS ---
FINAL REPORT TECHNIQUE: Graded compression, spectral analysis and ultrasound images of the venous system of the upper extremity were obtained. CLINICAL HISTORY: LUE PAIN,NUMBNESS/TINGLING LEFT FOREARM,NKI,HX DVT FINDINGS: The jugular vein, subclavian vein, axillary vein, brachial vein, cephalic vein and basilic venous system are fully compressible and demonstrate no evidence of thrombosis. IMPRESSION: No evidence of thrombosis of the venous system of the left upper extremity. Reviewed, Interpreted and Dictated by Pawan Molina MD Transcribed by Carol Lima Authenticated and [facility]
== END 2024-10-23 23:59 | disposition home or self-care (01) ==
LOC: RT 13:39
PROVIDERS: PCP Family Medicine; Visit Provider Emergency Medicine
DX: M79.602 Pain in left arm (principal)
CPT/HCPCS: 93971

== ENCOUNTER 2024-11-24 16:33 | Emergency (ER) | payer BC, SELFPAY ==
--- OUTSIDE RECORDS SUMMARY | 2024-11-24 16:39 | XMS_ITS | Data Portability ---
Author Organization [facility] - RICARDO [facility] DURYEA CLOSED Address [address] [facility] [address] [place] [address] Care Team Providers Care Associate Technician Name Role Phone NATALY DEL VALLE Neurologist [phone] DANIEL MENA Primary Care Provider CAR FRANKLIN Primary Care Provider Assessment Encounter Date Assessment Date Assessment LastModified [...] she knows to call anytime if needed. [email or web address] Not available 10/30/2019 13:27:20 06/16/2023 06/16/2023 42-year-old female with history of urolithiasis. She was seen in the ER at [facility] 06/11/2023. She was told she has 2 left ureteral stones. She was discharged home with hydrocodone and Flomax. She will continue taking Flomax and use hydrocodone as needed for pain. She was given a strainer and specimen cup in case she is able to catch the stones. We have requested the CT records from [facility]. I will contact her if the [...] She was seen in the ER at [facility] 06/11/2023. She was told she has [...] medication as needed. Go to ER in [place] if symptoms fail to improve or worsen. [...] left renal colic and CT scans at [facility] showed 2 left distal ureteral stones. She has been unable to pass the stones and opts for stone extraction. DRAIN: Left ureteral stent 6[place] x 24 cm, strings intact. OPERATIVE NOTE: After informed consent, the patient was taken to the operating room in stable condition. Anesthesia was induced without complications. She was placed in the lithotomy position. The genitalia and groins were prepped and draped. A time-out was taken to identify the correct patient and procedure and side. A 22-[place]izen [place] cystoscope was placed per urethra into the [...] fragment the stones into smaller pieces. A 1.9-[place] ZeroTip basket was used to extract the fragments into the bladder. Followup ureteroscopy into the upper ureter showed no other stones. The ureteroscope was withdrawn and removed. The cystoscope was placed over the wire into the bladder. A 6-[place] x 24 cm double-J ureteral stent was [...] emergency room twice. A CT scan at [facility] 07/04/2023 showed left hydroureter but [...] 09:18:13 urinalysis , microscopi c 2022 023 [facility], [address] [place] [address], [address], 14:33:15 Referral None recorded. Procedures None recorded. Surgeries None recorded. Imaging CT, abdomen + pelvis, w/o contrast 2022 023 [facility]ickers [facility], [address] [place] [address], [address], 3 10:14:32 Medication Orders tamsulosin 0.4 mg capsule [address] [facility], [address] [facility], [address], [place], [address], 3 17:01:32 Percocet 5 mg-325 mg tablet 2022 023 [facility], [address], [address], [place], [address], 3 16:51:46 oxycodone- acetaminop hen 7.5 mg-325 mg tablet 2022 023 [facility], [address] [place] [address], [address], [place], [address], 3 10:28:54 ketorolac 10 mg tablet 2022 023 [facility], [address] [place] [address], [address], [place], [address], 3 10:28:52 ketorolac 30 mg/mL injection solution 2022 023 [facility] Not available 3 12:09:08 tamsulosin 0.4 mg capsule 2022 023 [facility], [facility] [address] [facility], [address], [place], [address], 3 09:29:11 hydrocodon e 5 mg-acetami nophen 325 mg tablet 2022 023 [facility], [facility] [address] [facility], [address], [place], [address], 3 09:24:17 Aimovig Autoinject or 140 mg/mL subcutaneo us auto-injec tor 2019 020 [facility], [address] [place] [address], [address], [place], [address], 0 13:25:39 rizatripta n 10 mg tablet 2019 020 [facility], [address], [address], [place], [address], 0 13:25:41 Patient TargetsNo targets recorded. Patient InstructionsNo instructions recorded. Reason for Referral None Reported. Results Created Date Observation Date Name Description Value Unit Range Abnormal Flag Note LastModifiedBy Organization Detail LastModifiedTime 06/16/20 23 06/16/2023 urina lysis , dipst ick Unknown Analyte Yellow Not Available [facility] [address] [place], [address], 06/16/2023 09:03:01 06/16/20 23 06/16/2023 urina lysis , dipst ick Unknown Analyte Clear Not Available [facility] [address] [place], [address], 06/16/2023 09:03:01 06/16/2006/16/2023 urina lysis , dipst ick Unknown Analyte 1.020 Not Available [facility] [address] [place] [address], [address], 06/16/2023 09:03:01 06/16/20 23 06/16/2023 urina lysis , dipst ick Unknown Analyte 5.0 Not Available [facility] [address] [place], [address], 06/16/2023 09:03:01 06/16/20 23 06/16/2023 urina lysis , dipst ick Unknown Analyte Negati ve Not Available [facility] [address] [place] [address], [address], 06/16/2023 09:03:01 06/16/20 23 06/16/2023 urina lysis , dipst ick Unknown Analyte Negati ve Not Available [facility] [address] [place], [address], 06/16/2023 09:03:01 06/16/20 23 06/16/2023 urina lysis , dipst ick Unknown Analyte Negati ve Not Available [facility] [address] [place] [address], [address], 06/16/2023 09:03:01 06/16/20 23 06/16/2023 urina lysis , dipst ick Unknown Analyte Normal Not Available [facility] [address] [place], [address], 06/16/2023 09:03:01 06/16/20 23 06/16/2023 urina lysis , dipst ick Unknown Analyte Negati ve Not Available [facility] [address] [place], [address], 06/16/2023 09:03:01 06/16/20 23 06/16/2023 urina lysis , dipst ick Unknown Analyte Normal Not Available [facility] [address] [place], [address], 06/16/2023 09:03:01 06/16/20 23 06/16/2023 urina lysis , dipst ick Unknown Analyte Negati ve Not Available [facility] [address] [place], [address], 06/16/2023 09:03:01 06/16/20 23 06/16/2023 urina lysis , dipst ick Unknown Analyte Negati ve Not Available [facility] [address] [place], [address], 06/16/2023 09:03:01 06/16/20 23 06/16/2023 urina lysis , dipst ick Unknown Analyte Clean Catch Not Available [facility] [address] [place], [address], 06/16/2023 09:03:01 06/16/20 23 06/16/2023 urina lysis , dipst ick Unknown Analyte Visual Not Available [facility] [address] [place], [address], 06/16/2023 09:03:01 06/23/20 23 06/23/2023 urina lysis , dipst ick Unknown Analyte Yellow Not Available [facility] [address] [place], [address], 06/23/2023 08:14:06 06/23/20 23 06/23/2023 urina lysis , dipst ick Unknown Analyte Clear Not Available [facility] [address] [place], [address], 06/23/2023 08:14:06 06/23/20 23 06/23/2023 urina lysis , dipst ick Unknown Analyte 1.005 Not Available [facility] [address] [place], [address], 06/23/2023 08:14:06 06/23/20 23 06/23/2023 urina lysis , dipst ick Unknown Analyte 5.0 Not Available [facility] [address] [place] [address], [address], 06/23/2023 08:14:06 06/23/20 23 06/23/2023 urina lysis , dipst ick Unknown Analyte Negati ve Not Available [facility] [address] [place], [address], 06/23/2023 08:14:06 06/23/20 23 06/23/2023 urina lysis , dipst ick Unknown Analyte Negati ve Not Available [facility] [address] [place] [address], [address], 06/23/2023 08:14:06 06/23/20 23 06/23/2023 urina lysis , dipst ick Unknown Analyte Negati ve Not Available [facility] [address] [place] [address], [address], 06/23/2023 08:14:06 06/23/20 23 06/23/2023 urina lysis , dipst ick Unknown Analyte Normal Not Available [facility] [address] [place], [address], 06/23/2023 08:14:06 06/23/20 23 06/23/2023 urina lysis , dipst ick Unknown Analyte Negati ve Not Available [facility] [address] [place], [address], 06/23/2023 08:14:06 06/23/20 23 06/23/2023 urina lysis , dipst ick Unknown Analyte Normal Not Available [facility] [address] [place], [address], 06/23/2023 08:14:06 06/23/20 23 06/23/2023 urina lysis , dipst ick Unknown Analyte Negati ve Not Available [facility] [address] [place], [address], 06/23/2023 08:14:06 06/23/20 23 06/23/2023 urina lysis , dipst ick Unknown Analyte Negati ve Not Available [facility] [address] [place] [address], [address], 06/23/2023 08:14:06 06/23/20 23 06/23/2023 urina lysis , dipst ick Unknown Analyte Clean Catch Not Available [facility] [address] [place], [address], 06/23/2023 08:14:06 06/23/20 23 06/23/2023 urina lysis , dipst ick Unknown Analyte Visual Not Available [facility] [address] [place], [address], 06/23/2023 08:14:06 06/30/20 23 06/30/2023 urina lysis panel , auto Unknown Analyte Clean Catch Not Available [facility] [address], [address], 06/30/2023 14:46:14 06/30/20 23 06/30/2023 urina lysis panel , auto Unknown Analyte Yellow Not Available [facility] [address] [place] [address], [place], [address], 06/30/2023 14:46:14 06/30/20 23 06/30/2023 urina lysis panel , auto Unknown Analyte Clear Not Available [facility] [address] [place] [address], [place], [address], 06/30/2023 14:46:14 06/30/20 23 06/30/2023 urina lysis panel , auto Unknown Analyte 1.[address] [facility] [address] [place] [address], [address], 06/30/2023 14:46:14 06/30/20 23 06/30/2023 urina lysis panel , auto Unknown Analyte 1.003- 1.035 Not Available [facility] [address] [place] [address], [place], [address], 06/30/2023 14:46:14 06/30/20 23 06/30/2023 urina lysis panel , auto Unknown Analyte 5.[address] [facility] [address] [place] [address], [address], 06/30/2023 14:46:14 06/30/20 23 06/30/2023 urina lysis panel , auto Unknown Analyte 5.0-8. 0 [address] [facility] [address] [place] [address], [address], 06/30/2023 14:46:14 06/30/20 23 06/30/2023 urina lysis panel , auto Unknown Analyte 75 Patrica/ul (+) Not Available [facility] [address] [place] [address] [place], [address], 06/30/2023 14:46:14 06/30/20 23 06/30/2023 urina lysis panel , auto Unknown Analyte Negati ve Not Available [facility] [address] [place] [address], [place], [address], 06/30/2023 14:46:14 06/30/20 23 06/30/2023 urina lysis panel , auto Unknown Analyte Negati ve Not Available [facility] [address] [place] [address], [address], 06/30/2023 14:46:14 06/30/20 23 06/30/2023 urina lysis panel , auto Unknown Analyte Negati ve Not Available [facility] [address] [place] [address], [address], 06/30/2023 14:46:14 06/30/20 23 06/30/2023 urina lysis panel , auto Unknown Analyte Trace Not Available [facility] [address] [place] [address], [address], 06/30/2023 14:46:14 06/30/20 23 06/30/2023 urina lysis panel , auto Unknown Analyte Negati ve Not Available [facility] [address] [place] [address], [address], 06/30/2023 14:46:14 06/30/20 23 06/30/2023 urina lysis panel , auto Unknown Analyte Normal Not Available [facility] [address] [place] [address], [address], 06/30/2023 14:46:14 06/30/20 23 06/30/2023 urina lysis panel , auto Unknown Analyte Normal Not Available [facility] [address] [place] [address], [address], 06/30/2023 14:46:14 06/30/20 23 06/30/2023 urina lysis panel , auto Unknown Analyte 15 mg/dl (Sm) Not Available [facility] [address] [place] [address], [place], [address], 06/30/2023 14:46:14 06/30/20 23 06/30/2023 urina lysis panel , auto Unknown Analyte Negati ve Not Available [facility] [address] [place] [address], [place], [address], 06/30/2023 14:46:14 06/30/20 23 06/30/2023 urina lysis panel , auto Unknown Analyte Normal Not Available [facility] [address] [place] [address], [place], [address], 06/30/2023 14:46:14 06/30/20 23 06/30/2023 urina lysis panel , auto Unknown Analyte Normal 1 mg/dl Not Available [facility] [address] [place] [address], [place], [address], 06/30/2023 14:46:14 06/30/20 23 06/30/2023 urina lysis panel , auto Unknown Analyte 1 mg/dl (+) Not Available [facility] [address] [place] [address], [place], [address], 06/30/2023 14:46:14 06/30/20 23 06/30/2023 urina lysis panel , auto Unknown Analyte Negati ve Not Available [facility] [address] [place] [address], [address], 06/30/2023 14:46:14 06/30/20 23 06/30/2023 urina lysis panel , auto Unknown Analyte 250 Bandar/ul Not Available [facility] [address] [place] [address], [place], [address], 06/30/2023 14:46:14 06/30/20 23 06/30/2023 urina lysis panel , auto Unknown Analyte Negati ve Not Available [facility] [address] [address], [place], [address], 06/30/2023 14:46:14 07/04/20 23 07/13/2023 STONE JUAN SIS composition SEE BELOW normal Calci um Oxala te Dihyd rate (Wedd ellit e) 15% Calci um Oxala te Monoh ydrat e (Whew ellit e) 70% Carbo lisy Apati te (Dahl lite) 15% See Note 1 Not Available [facility] [address] [place], [address], 07/13/2023 14:59:00 07/04/20 23 07/13/2023 STONE JUAN SIS weight 0.017 g normal Note 1 This test was devel oped and its juan tical perfo rmanc e joe cteri stics have been deter mined by [employer] [facility]. It has not been clear ed or appro john by the FDA. This assay has been valid ated pursu ant to the CLIA regul ation s and is used for clini cody purpo ses. Not Available [facility] [address] [place], [address], 07/13/2023 14:59:00 07/05/20 23 07/05/2023 urina lysis , dipst ick Unknown Analyte Yellow Not Available [facility] [address] [place], [address], 07/05/2023 16:15:03 07/05/20 23 07/05/2023 urina lysis , dipst ick Unknown Analyte Clear Not Available [facility] [address] [place], [address], 07/05/2023 16:15:03 07/05/20 23 07/05/2023 urina lysis , dipst ick Unknown Analyte 1.025 Not Available [facility] [address] [place], [address], 07/05/2023 16:15:03 07/05/20 23 07/05/2023 urina lysis , dipst ick Unknown Analyte 5.0 Not Available [facility] [address] [place], [address], 07/05/2023 16:15:03 07/05/20 23 07/05/2023 urina lysis , dipst ick Unknown Analyte Negati ve Not Available [facility] [address] [place] [address], [address], 07/05/2023 16:15:03 07/05/20 23 07/05/2023 urina lysis , dipst ick Unknown Analyte Negati ve Not Available [facility] [address] [place] [address], [address], 07/05/2023 16:15:03 07/05/20 23 07/05/2023 urina lysis , dipst ick Unknown Analyte Negati ve Not Available [facility] [address] [place] [address], [address], 07/05/2023 16:15:03 07/05/20 23 07/05/2023 urina lysis , dipst ick Unknown Analyte Normal Not Available [facility] [address] [place] [address], [address], 07/05/2023 16:15:03 07/05/20 23 07/05/2023 urina lysis , dipst ick Unknown Analyte Negati ve Not Available [facility] [address] [place] [address], [address], 07/05/2023 16:15:03 07/05/20 23 07/05/2023 urina lysis , dipst ick Unknown Analyte Normal Not Available [facility] [address] [place], [address], 07/05/2023 16:15:03 07/05/20 23 07/05/2023 urina lysis , dipst ick Unknown Analyte Negati ve Not Available [facility] [address] [place], [address], 07/05/2023 16:15:03 07/05/20 23 07/05/2023 urina lysis , dipst ick Unknown Analyte Negati ve Not Available [facility] [address] [place], [address], 07/05/2023 16:15:03 07/05/20 23 07/05/2023 urina lysis , dipst ick Unknown Analyte Clean Catch Not Available [facility] [address] [place], [address], 07/05/2023 16:15:03 07/05/20 23 07/05/2023 urina lysis , dipst ick Unknown Analyte Visual Not Available [facility] [address] [place], [address], 07/05/2023 16:15:03 06/27/20 23 06/20/2023 CT, abdom en, w/o contr ast No observ ation record ed. BARCODE Not Available 2022 16:13:31 07/28/19 24 07/28/2023 CT, abdom en + pelvi s, w/wo contr ast [facility] [address] [place] [address] Mitesh joe Name: JV Wong : 89 [...] 350 (1 x 100 mL bottle of [facility] 59133- 1414-9 1). None was wasted and discar [...] OSKELE GEETHA STRUCT URES: Normal . IMPRES ARJWINDER: 1. Small nonobs tructi ng bilate ral renal stones . 2. Previo usly seen distal left ureter ic stone is not presen t any longer . Previo usly seen left hydron ephros is is resolv ed. 3. No new abnorm ality. Interp reted By: Ambar Pedro MD Electr onical ly Signed By: Ambar Pedro MD on 024 11:54 AM [facility] [address] [place] [address] Dr, [place], [address], 08/01/2023 10:26:29 Result Notes None recorded. Problems Name Problem SNOMED Code Status Onset Date Resolution Date Notes Provider Name and Address Organization Details Recorded Time Blood in urine 10355668 Active 2015 Provide r: Mika Schaefer;[facility]: Active Not Available [facility] 6 08:00:13 Microscopic hematuria 511686851 Active 2015 Provide r: Mika Schaefer;[facility]: Active Not Available [facility] 6 08:00:13 Kidney stone 66614532 Active 2015 Provide r: Mika Schaefer;[facility]: Active Not Available [facility] 6 08:00:13 Problem Notes Documentation Provider Name and Address Organization Details Recorded Time Neurologist Consult Note : [facility] ? ? [address] [facility] [facility] [facility] [id number], MICHELLE (id #[id number], : 1980) [facility] [address] [facility] [address] [place] [address] Date: 10/30/2019RE: Yoon Hernandez, : 1980, PT ID #[id number] Arrington MD / [facility], [facility], I would like to thank you for referring Yoon Hernandez to our practice for consultation and evaluation. I have enclosed a copy of the office evaluation for your records. Sincerely, Electronically Signed by: Sherron COOK Reason/DateNone recorded 10/30/2019 - 01:00PM - NEUROLOGY [facility] History of Present Illness Visit today is [...] pulsatile tinnitus. She works third shift at [employer] in [place]. sleeps during the day, variably well.other systems [...] knows to call anytime if needed. 1. SyabvzlzC08.909: Migraine, unspecified, not intractable, without status migrainosus Aimovig Autoinjector 140 mg/mL subcutaneous auto-injector -Inject 1 mL every month by subcutaneous route for 30 days. ? Qty: 1 1 mL syringe(s) ? Refills: 5 ? Pharmacy: [facility] rizatriptan 10 mg tablet -one at onset of migraine; may repeat in 2 hours if needed max 2 in 24 hrs. ? Qty: 9 tablet(s) ? Refills: 6 ? Pharmacy: [facility] 2. Migraine without auraG43.009: Migraine without aura, not intractable, without status migrainosus Return to Office to see NATALY DEL VALLE MD at NEUROLOGY [facility] on or around 12/11/2019 BELIA ARRINGTON MD [address] [place] [address], [address], [facility] 11/01/2019 08:54:00 Urology Note : [facility] ? ? [address] [place] [id number], Michelle (id #[id number], : 1980) [facility] [address] [place] [address] Date: 06/16/2023RE: Yoon Hernandez : 1980, PT ID #[id number] Arrington MD, I would like to thank you for referring Yoon Hernandez to our practice for consultation and evaluation. I have enclosed a copy of the office evaluation for your records. Sincerely, Electronically Signed by: SHERICE SLOAN APRN, NPEncounter Reason/Date kidney stones 06/16/2023 - 09:00AM - UROLOGY SB History of Present [id number]-jwny-[id number] female with history of urolithiasis. She is a previous patient of Dr. Crespo. She underwent right ESWL in 2018. Follow-up KUBs were negative for stones. She noticed increased suprapubic pressure about 2 weeks ago. She thought she had a yeast infection and has been treating herself with ibza-gna-junweli yeast cream. On Monday evening, she developed severe left flank pain. She was seen in the ER at [facility]. She says a CT scan showed [...] Residual; Ultrasound:Post Void Residual Source: Ultrasound Volume: 24mlAssessment/Riei73-wdbm-zq d female with history of urolithiasis. She was seen in the ER at [facility] 06/11/2023. She was told she has 2 left ureteral stones. She was discharged home with hydrocodone and Flomax. She will continue taking Flomax and use hydrocodone as needed for pain. She was given a strainer and specimen cup in case she is able to catch the stones. We have requested the CT records from [facility]. I will contact her if the [...] if symptoms have not resolved. 1. Kidney ffixyW35.0: Calculus of kidney URINALYSIS, DIPSTICK - ?Specimen source: Urine clean catch Urine Collection Type: Midstream URINE MICROSCOPIC, CULTURE IF INDICATED - ?Specimen source: URINE, CLEAN CATCH tamsulosin 0.4 mg capsule - Take 1 capsule(s) every day by oral route for 30 days. ? Qty: (30)?capsule ? Refills: 1 ? Pharmacy: [facility] hydrocodone 5 mg-acetaminophen 325 mg tablet - Take 1 tablet(s) every 6 hours by oral route for 5 days. ? Qty: (20)?tablet ? Refills: 0 ? Pharmacy: [facility] CT R/O KIDNEY STONES (A/P W/O) Weight (lbs): 186 Place of service: OFFICE Procedure code: 78805 URINALYSIS, DIPSTICK Urine Collection Type: Midstream Urinalysis Dipstick (auto) Result Reference Range Color Yellow Appearance Clear Specific gravity 1.020 pH 5.0 Leukocyte Esterase Negative Nitrite Negative Protein Negative Glucose Normal Ketones Negative Urobilinogen Normal Bilirubin Negative Blood Negative Specimen Source Clean Catch Urine Dip Method Visual Comments Return to Office Patient will return to the office as needed Rosalia neal [facility] 09/18/2023 11:27:19 Urology Note : [facility] ? ? [address] [place] [id number], Michelle (id #[id number], : 1980) [address],??[place]?[address] Phone:?? Fax:?? Encounter Summary - Progress Note [...] received this fax in error, please visit [email or web address] to notify the sender and confirm that the information will be destroyed. If you do not have internet access, please call to notify the sender and confirm that the information will be destroyed. Thank you for your attention and cooperation. [ID:[id number]] Patient Yoon Hernandez (42yo, F) #[id number] 1980 ?? Patient Demographics: Address [address] [place] [phone] ? Work Phone ?? Encounter Notes: Encounter Reason/Date left ureteral stones 06/23/2023 - 09:40AM - UROLOGY SB History of Present Hudyuhy31-gxfo-zep female with history of urolithiasis. She is a previous patient of Dr. Crespo. She underwent right ESWL in 2018. Follow-up KUBs were negative for stones. She noticed increased suprapubic pressure about 2 weeks ago. She thought she had a yeast infection and has been treating herself with dwco-grg-aitwmvx yeast cream. On Monday evening, she developed severe left flank pain. She was seen in the ER at [facility]. She says a CT scan showed 2 left ureteral stones. She was told 1 stone was in the mid ureter and the other was closer to the bladder. She was given hydrocodone and Flomax.She is a smoker. HPI: She returns today for follow-up with left distal uretral stones. She was seen by me one week ago.A CT scan at [facility] 3 weeks ago showed 2 [...] reports no rashes. She reports no fatigue. [id number] 09:55 Ht: 5 ft 6 in Wt: [...] UA negative. Procedure DocumentationNone recorded Assessment and Yoxv58-pkch-juh female with history of urolithiasis. She was seen in the ER at [facility] 06/11/2023. She was told she has [...] medication as needed. Go to ER in [place] if symptoms fail to improve or worsen. 1. Kidney btvxqV68.0: Calculus of kidney URINALYSIS, DIPSTICK - ?Specimen source: Urine clean catch oxycodone-acetaminophen 7.5 mg-325 mg tablet - Take 1 tablet(s) every 6 hours by oral route for 5 days. ? Qty: (20)?tablet ? Refills: 0 ? Pharmacy: [facility] ketorolac 10 mg tablet - Take 1 tablet(s) every 6 hours by oral route for 5 days. ? Qty: (20)?tablet ? Refills: 0 ? Pharmacy: [facility] ketorolac 30 mg/mL injection solution - Inject 1 mL by intravenous route. ? Quantity: (30)?mg ? Lot #: [id number] ? Route: Intramuscular ? Site: Hip, Left ? 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 Exp Date: 06/02/2023 ? Administered URINALYSIS, [...] wreeks ago10/30/19?entered Darlyn Bañuelos azithromycin 250 mg pywloa42/31/23?filled surescripts cephALEXin 500 mg qytjlko06/13/20?filled [facility] diclofenac sodium 50 mg tablet,delayed uwogkri51/29/20?filled [facility] estradioL 2 mg arlaxn88/11/20?filled [facility] fluconazole 150 mg lrgdxy91/03/23?filled surescripts fluocinolone 0.025 % topical /21/20?filled [facility] HYDROcodone 5 mg-acetaminophen 325 mg tabletTake 1 tablet(s) every 6 hours by oral route for 5 days.06/16/23?prescribed SHERICE SLOAN APRN ibuprofen 800 mg vilkwh67/04/23?filled surescripts ketorolac 10 mg tabletTake 1 tablet(s) every 6 hours by oral route for 5 days.06/23/23?prescribed SHERICE SLOAN APRN ketorolac 30 mg/mL injection solutionInject 1 mL by intravenous route. ? Administer Note: injection given without nbybgmvtrypu87/15/23?adm inistered SHERICE SLOAN APRN meloxicam 7.5 mg atwvqn89/14/23?filled surescripts methocarbamoL 750 mg /14/23?filled surescripts ondansetron 4 mg disintegrating halxww32/04/23?filled surescripts oxyCODONE-acetaminophen 7.5 mg-325 mg tabletTake 1 tablet(s) every 6 hours by oral route for 5 days.06/23/23?prescribed SHERICE SLOAN APRN Paxlovid 300 mg (150 mg x 2)-100 mg tablets in a dose packFOLLOW PACKAGE DUDOSFMJAE48/31/23?fille d surescripts predniSONE 20 mg ctmguh02/20/20?filled [facility] rizatriptan 10 mg tabletone at onset of migraine; may repeat in 2 hours if needed max 2 in 24 hrs.10/30/19?filled [facility] sucralfate 1 gram ocwjac77/20/20?filled [facility] Synthroid 50 mcg awczhv79/30/20?filled [facility] tamsulosin 0.4 mg capsuleTake 1 capsule(s) [...] recorded Electronically Signed by: SHERICE SLOAN APRN, DEVELOPMENT MANAGER [facility], [place] - [facility] 09/18/2023 11:10:06 Urology Note : [facility] ? ? [address] [place] [id number], Michelle (id #[id number], : 1980) [address],??[place]?[address] Phone:?? Fax:?? Encounter Summary - Progress Note [...] received this fax in error, please visit [email or web address] to notify the sender and confirm that the information will be destroyed. If you do not have internet access, please call to notify the sender and confirm that the information will be destroyed. Thank you for your attention and cooperation. [ID:[id number]] Patient Yoon Hernandez (42yo, F) #[id number] 1980 ?? Patient Demographics: Address [address] [place] [address] [place] [address] ? Work Phone ?? Encounter Notes: Encounter [...] left flank pain. She went to the [facility] emergency room twice. CT scans 05/29/2023 and 06/28/2023 showed 2 left distal ureteral stones up to 5 mm and bilateral small renal stones. She underwent left ureteroscopic laser lithotripsy and stent 06/30/2023. 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 HPI: The patient is here with her for continued pain after laser lithotripsy last week. The stent came out partially the following day and she subsequently removed it. She went to the [facility] emergency room 07/01/[address] scan and [facility] emergency room 07/04/2023 where a [...] no fever. She reports no difficulty urinating. [id number] 16:22 Ht: 5 ft 6 in Wt: 186 lbs BMI: 30 Results/Interpretations URINALYSIS, DIPSTICK Urinalysis Dipstick (auto) Result Reference Range Color Yellow Appearance Clear Specific gravity 1.025 pH 5.0 Leukocyte Esterase Negative Nitrite Negative Protein Negative Glucose Normal Ketones Negative Urobilinogen Normal Bilirubin Negative Blood Negative Specimen Source Clean Catch Urine Dip Method Visual Comments Physical ExamNone recorded Procedure DocumentationNone recorded Assessment and Slai01-uyor-nwu female with a history of urolithiasis. She underwent right ESWL in 2018 and left ureteroscopic laser lithotripsy 06/30/2023. The stent came out the following day. She has had ongoing significant left flank and abdominal pain. She went to the emergency room twice. A CT scan at [facility] 07/04/2023 showed left hydroureter but [...] if she does not improve. 1. Kidney utunbH93.0: Calculus of kidney URINALYSIS, DIPSTICK - ?Specimen source: Urine clean catch 2. Renal spjxiI33: Unspecified renal colic tamsulosin 0.4 mg capsule - Take 1 capsule(s) every day by oral route in the evening for 30 days. ? Qty: (30)?capsule ? Refills: 1 ? Pharmacy: [facility] 3. FwsiaogmhfkbstN73.30: Unspecified hydronephrosis URINALYSIS, DIPSTICK Urinalysis Dipstick (auto) [...] wreeks ago10/30/19?entered Darlyn Bañuelos cefdinir 300 mg /26/23?filled surescripts diclofenac sodium 50 mg tablet,delayed /29/20?filled [facility] estradioL 2 mg cahkcb21/11/20?filled [facility] fluconazole 150 mg mrpamx42/03/23?filled surescripts fluocinolone 0.025 % topical patrwtuh80/21/20?filled [facility] HYDROcodone 5 mg-acetaminophen 325 mg tabletTake 1 tablet(s) every 6 hours by oral route for 5 days.06/16/23?prescribed SHERICE SLOAN APRN ibuprofen 800 mg pgwlyh88/04/23?filled surescripts ketorolac 10 mg tabletTake 1 tablet(s) every 6 hours by oral route for 5 days.06/23/23?filled surescripts ketorolac 30 mg/mL injection solutionInject 1 mL by intravenous route. ? Administer Note: injection given without rdmkavsayxxo75/15/23?adm inistered SHERICE SLOAN APRN meloxicam 7.5 mg ucdnru22/14/23?filled surescripts methocarbamoL 750 mg /14/23?filled surescripts ondansetron 4 mg disintegrating /04/23?filled surescripts oxyCODONE-acetaminophen 5 mg-325 mg tabletTake 1 tablet(s) every 4-6 hours by oral route as needed for 3 days.06/30/23?filled surescripts oxyCODONE-acetaminophen 7.5 mg-325 mg tabletTake 1 tablet(s) every 6 hours by oral route for 5 days.06/23/23?prescribed SHERICE SLOAN APRN Paxlovid 300 mg (150 mg x 2)-100 mg tablets in a dose packFOLLOW PACKAGE XWSJAYAQWJ70/31/23?fille d surescripts predniSONE 20 mg /20/20?filled [facility] rizatriptan 10 mg tabletone at onset of migraine; may repeat in 2 hours if needed max 2 in 24 hrs.10/30/19?filled [facility] sucralfate 1 gram /20/20?filled [facility] Synthroid 50 mcg nldcup55/30/20?filled [facility] tamsulosin 0.4 mg capsuleTake 1 capsule(s) [...] Electronically Signed by: KENNETH HERNANDEZ MD [facility]/18/2023 11:26:29 Procedures Surgical History Date Name Laterality Status Provider Name and Address Organization Details Recorded Time 06/16/20 23 Post Void Residual; Ultrasound completed Korin Fuller [facility] 06/16/2023 09:23:37 07/26/19 20 Tympanogram completed KARLO CORONA, AUD [address] [place], [address], [facility] 07/26/2019 17:03:11 07/26/19 20 Audiogram completed NICOLE TROTTER [address] [place], [address], [facility] 07/26/2019 17:03:10 07/16/19 20 Endoscopy Nasal; Diagnostic completed BELIA ARRINGTON MD [address] [place], [address], [facility] 07/16/2019 14:10:05 09/08/19 18 EXTRA CORPOREAL SHOCK WAVE LITHOTRIPSY (SURG[facility] 11/01/2017 10:40:36 Cholecystectomy completed Hazel Jaime [facility] 08/30/2017 11:05:27 delivery completed Hazel Jaime [facility] 08/30/2017 11:05:34 Hysterectomy completed Hazel Sandoval [facility] 08/30/2017 11:05:39 Kidney Stones completed KENNETH HERNANDEZ MD [address] [place] [address], [address], [facility] 06/30/2023 16:38:12 Imaging Results Imaging Date Name Status LastModified by Organiz ation Details LastModified Time 06/20/2023 CT, abdomen, w/o contrast completed [facility] Information not available 06/27/2023 16:13:31 07/28/2023 CT, abdomen + pelvis, w/wo contrast completed [address] [facility] [address] , [place], [address], 08/01/2023 10:26:29 Procedure Notes None recorded. Medical [...] e 50 mcg/actua tion nasal spray,[facility] pension [place] 2 sprays twice a day by intranas [...] Updated DateTime 10/30/2019 167.64 cm Darlyn Bañuelos [facility] 10/30/2019 12:42:44 Date Recorded Body height Body mass index (BMI) Body weight Provider Name and Address Organization Details Last Updated DateTime 06/16/2023 167.64 cm 30 kg/m2 73584.18 g [facility] 06/16/2023 09:20:38 Date Recorded Body height Body mass index (BMI) Body weight Provider Name and Address Organization Details Last Updated DateTime 06/23/2023 167.64 cm 30 kg/m2 77825.18 g [facility] 06/23/2023 09:55:20 Date Recorded Body height Body mass index (BMI) Body weight Provider Name and Address Organization Details Last Updated DateTime 07/05/2023 167.64 cm 30 kg/m2 24380.18 g Korin Fuller [facility] 07/05/2023 16:22:42 Social History Question Answer Notes LastModified by Organizat [facility] Details LastModified Time Tobacco Smoking Status Current Every Day Smoker [facility] 08/30/2017 11:04:58 How Much Tobacco Do You Chew? None Information not available 07/16/2019 Marital Status [email or web address] Informatio n not available 08/30/2017 What Was The Date Of Your Most Recent Tobacco Screening? 09/13/2017 Information not available 08/27/2019 What Is Your Relationship Status? [email or web address] Information not available 06/23/2023 How Much Tobacco Do You Smoke? No Information not available 07/16/2019 How Many Years Have You Smoked Tobacco? 22 Information not available 07/16/2019 Sex: Unknown Functional Status Question Answer Note LastModified by Organizat ion Details LastModified Time What is your level of alcohol consumption? None [email or web address] Information not available 08/30/2017 Do you or have you ever used smokeless tobacco? 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 Family History Relationship Description Onset Age of this Age Resolved Age Notes LastModified by Organization Details LastModified Time Unspecified Relation Diabetes mellitus Not available 2017 11:04:45 Unspecified Relation Family history of malignant neoplasm Not available 2017 11:04:56 Mother Disorder of thyroid gland Not available 2019 09:53:53 Father Disorder of thyroid gland Not available 2019 09:53:53 Medical History Condition Response Diabetes N Anxiety Disorder Y Bleeding Disorder N Kidney Stones Y Anesthesia Complications N Migraines Y Hypertension N Gynecological HistoryNo gynecological history recorded. Obstetrics History GPAL:G 0 P 0 0 0 0 Past Encounters Encounter ID Performer Location Encounter Start Date Encounter Closed Date Diagnosis/Indication Diagnosis SNOMED-CT Code Diagnosis ICD10 Code Diagnosis Note [id number] KEVIN CRESPO MD UROLOGY [facility] [address] [place] [address] 08/30/2017 10:34:06 09/04/2017 08:26:34 Kidney stone 39575549 N20.0 Pt with persistent R flank pain. [...] Will set up ESWL. Blood in urine 82704493 R31.9 [id number] KEVIN CRESPO MD UROLOGY [facility] [address] [place] [address] 09/13/2017 13:28:22 09/25/2017 08:46:17 Kidney stone 22411335 N20.0 KUB difficult to see the stone due to cartilagin ous changes of ribs. Discussed that the stone was in a non-obstru cting position prior to ESWL and unlikely to make a difference in her pain. She now has bilateral mid back pain and MRI recently showed no significan t abnormalit ies. Discussed conservati ve options of musculoske letal pain. [id number] BELIA ARRINGTON MD [facility] [address] [place] [address] 07/16/2019 09:21:10 07/18/2019 18:22:05 Sphenoidal sinusitis 71312540 J32.3 -REC. RIGHT SPHENOIDOT KENIA/ETHMOI DECTOMY FOR DIAGNOSIS AND TREATMENT Asymmetric al sensorineural hearing loss 223789781 H90.5 -LEFT SNHL MILD [id number] NICOLE TROTTER [facility] [address] [place] [address] 07/26/2019 17:02:34 07/26/2019 17:04:05 Sensorineural hearing loss in left ear 7929376599 9109 H90.42 Bilateral tinnitus 74476 84887 102 H93.13 Ear pressu re sensation 706481017 H93.8X3 Dizziness and giddiness 865267348 R42 [id number] BELIA ARRINGTON MD [facility] [address] [place] [address] 07/30/2019 09:58:13 08/02/2019 17:10:20 Sphenoidal sinusitis 61217623 J32.3 -REC. RIGHT SPHENOIDOT KENIA/ETHMOI DECTOMY FOR DIAGNOSIS AND TREATMENT Asymmetric al sensorineural hearing loss 267458411 H90.5 -LEFT SNHL MILD Headache 94045718 R51 Anxiety 12441745 F41.9 Posterior rhinorrhea 758 92955 R09.82 [id number] JOEY CARSON III, MD [facility] [address] [place] [address] 08/09/2019 13:31:16 08/12/2019 09:23:00 Chronic sinusitis 15470100 J32.9 Nasal mucosa dry 2855764 2 J34.89 Tobacco user 780708680 Z 72.0 Hypertroph y of nasal turbinates 67291461 J34.3 Hypertroph y of tonsils 28342851 J35.1 Cryptic tonsil 133542354 J35.8 Headache 61008727 R51 [id number] BELIA ARRINGTON MD [facility] [address] [place] [address] 08/14/2019 09:06:57 08/14/2019 10:17:18 Chronic sinusitis 13046385 J32.9 Nasal mucosa dry 7514832 2 J34.89 Tobacco user 907899481 Z 72.0 Hypertroph y of nasal turbinates 43132868 J34.3 Headache 09807558 R51 Sneezing 75405131 R06.7 Cough 33626340 R05 Posterior rhinorrhea 758 94375 R09.82 [id number] NATALY DEL VALLE MD NEUROLOGY [facility] [address] [place] [address] 10/30/2019 12:42:30 10/30/2019 13:30:35 Migraine 22744601 G43.909 Migraine without aura 56 284134 G43.009 [id number] SHERICEMARY SLOAN APRN UROLOGY [facility] [address] [place] [address] 06/16/2023 08:38:40 06/16/2023 11:09:42 Kidney stone 28415355 N20.0 [id number] SHERICE SLOAN APRN UROLOGY [facility] [address] [place] [address] 1 06/23/2023 09:49:54 06/23/2023 12:40:22 Kidney stone 95176196 N20.0 [id number] KENNETH HERNANDEZ MD SURGERY SCHEDULE [address] [place] [address] 1 06/30/2023 13:56:36 06/30/2023 13:59:45 Ureteric stone 68651550 N20.1 Postoperative pain 90497 9007 G89.18 [id number] KENNETH HERNANDEZ MD UROLOGY [facility] [address] [place] [address] 1 07/05/2023 15:35:48 07/08/2023 04:14:27 Kidney stone 72117834 N20.0 Renal colic 2193761 N23 Hydronephrosis 34403717 N13.30 Health Concerns Section Related Observation LastModified by Organization Detai ls LastModified Time None Recorded Concern Status LastModified by Organization Details LastModified Time None Recorded Advance Directives Directive None Recorded Payers Insurance Date Sequence Insurance Name Policy Number Policy Reilly Covered Member ID Reilly Member ID Guarantor Name 07/31/2023 1 [place] [id number] Kash Hernandez [id number] Yoon Hernandez 08/29/2017 1 *SELF PAY* Gladys Hernandez Notes Date Note Type Note Provider [...] Never tried triptans. 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 She is a previous patient of Dr. Crespo. She underwent right ESWL in 2018. Follow-up KUBs were negative for stones. She noticed increased suprapubic pressure about 2 weeks ago. She thought she had a yeast infection and has been treating herself with bgrb-zsg-dvaooho yeast cream. On Monday evening, she developed severe left flank pain. She was seen in the ER at [facility]. She says a CT scan showed [...] is a smoker. SHERICE SLOAN APRN [address] [place], [address], [facility] 06/16/2023 09:32:59 06/23/2023 text/html 42-year-old femroger huber with history of urolithiasis. She is a previous patient of Dr. Crespo. She underwent right ESWL in 2018. Follow-up KUBs were negative for stones. She noticed increased suprapubic pressure about 2 weeks ago. She thought she had a yeast infection and has been treating herself with vksd-cpp-jpkqefs yeast cream. On Monday evening, she developed severe left flank pain. She was seen in the ER at [facility]. She says a CT scan showed 2 left ureteral stones. She was told 1 stone was in the mid ureter and the other was closer to the bladder. She was given hydrocodone and Flomax.She is a smoker. HPI: She returns today for follow-up with left distal uretral stones. She was seen by me one week ago.A CT scan at [facility] 3 weeks ago showed 2 [...] is miserable and unable to work. SHERICE SLOAN, DUCT LAYER SUPERVISOR [address] [place], [address], [facility] 06/23/2023 10:52:32 07/05/2023 text/html Diagnosis: Urolithiasis 42-year-old white female with a history of urolithiasis. She saw Dr. Schaefer in 2016 for back pain and bilateral renal stones. She underwent right ESWL [place] [address] Crespo. Stone analysis showed calcium oxalate and carbonate appetite. A Follow-up KUB showed no stones. She had suprapubic pressure and left flank pain. She went to the [facility] emergency room twice. CT scans 05/29/2023 and 06/28/2023 showed 2 left distal ureteral stones up to 5 mm and bilateral small renal stones. She underwent left ureteroscopic laser lithotripsy and stent 06/30/2023. 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 HPI: The patient is here with her for continued pain after laser lithotripsy last week. The stent came out partially the following day and she subsequently removed it. She went to the [facility] emergency room 07/01/[address] scan and [facility] emergency room 07/04/2023 where a [...] 5 mg and ketorolac. KENNETH HERNANDEZ MD [address] [place], [address], [facility] 07/07/2023 09:05:41 OBGyn Episode No OBEpisode recorded.
[2024-11-24 16:40] VITALS: BP 114/68; PULSE 81; RESP 18; TEMP 36.9; O2SAT 98; BMI 23.0
--- NOTE | 2024-11-24 16:53 | ED_ITS ---
Discharge Plan Disposition Patient Disposition: Home, Self-Care Condition: Good Prescriptions Prescriptions: No Action levothyroxine 50 mcg tablet 50 mcg PO DAILY lidocaine 5 % adhesive patch,medicated See Rx Instructions .ROUTE .COMPLEX Qty: 15 0RF Rx Instructions: Apply to most painful area and leave on for 12 hours. Remove and leave off for 12 hours before using a new patch. methocarbamol 500 mg tablet 500 mg PO TID PRN (Reason: muscle spasm) Qty: 90 0RF apixaban 5 mg tablet 5 mg PO BID 90 Days Qty: 194 0RF Rx Instructions: Take 2 tablets (10mg) by mouth twice daily for 7 days. Then take 1 tablet (5mg) twice daily until you run out. Referrals Follow up/Referrals: Guerline Guthrie MD [Primary Care Provider] - See instructions Activity Restrictions/Add. Instructions Additional Instructions/Restrictions: Keep wrap on the finger until tomorrow and then change it as instructed. May call me at the office if you have any trouble with it during the day tomorrow. Clinical Impressions Clinical Impression: Laceration Instructions Patient Instructions: DI for Laceration Repair Print Language Print Language: Czech Discharge ED Provider: Blas Vieira General Adult HPI <Cinthia Orona (ED), DAIRY EQUIPMENT REPAIRER - Last Filed: 11/24/24 17:00> General Chief complaint: Wound/Laceration Stated complaint: Middle finger left hand Time Seen by Provider: 11/24/24 16:37 Mode of Arrival: Ambulatory Source of Information: Patient Description of Symptoms (Recalled from ER Triage Doc. by RN): Pt states she was cutting velcro and accidently cut her left middle finger with scissors. Pt is on a blood thinner, but is unable to recall which one. Slight bloody drainage noted from the site. Pt is UTD on her t-dap History of Present Illness HPI narrative: 43-year-old female presents to the ED today for accidental cut to her middle finger. Patient was cutting Velcro and and accidentally cut her finger with scissors. She is on Eliquis and would not stop bleeding. Otherwise she has no other symptoms. Related Data Home Medications ?Medication ?Instructions ?Recorded ?Confirmed levothyroxine 50 mcg tablet 50 mcg PO DAILY thyroid 01/09/24 10/22/24 Previous Rx's ?Medication ?Instructions ?Recorded apixaban 5 mg tablet 5 mg PO BID 90 days #194 tabs 10/23/24 lidocaine 5 % topical patch See Rx Instructions topical 10/23/24 .COMPLEX #15 ea methocarbamol 500 mg tablet 500 mg PO TID PRN muscle spasm #90 10/23/24 tabs Allergies Allergy/AdvReac Type Severity Reaction Status Date / Time No Known Allergies Allergy Verified 06/11/23 11:44 [facility] <Cinthia Orona (ED), DAIRY EQUIPMENT REPAIRER - Last Filed: 11/24/24 17:00> [facility] Disclaimer: The information contained in this section may have been updated after the patient was seen, as this information can be updated by other users. Medical History (Updated 11/24/24 @ 16:54 by Cinthia Orona (ED), DAIRY EQUIPMENT REPAIRER) Kidney stone Tobacco user Stress incontinence in female History of endometriosis Dyspareunia Overweight (BMI 25.0-29.9) Nephrolithiasis Felon of digit Abscess of right thigh Atypical chest pain Cellulitis and abscess of right leg Lateral epicondylitis of elbow Surgical History History of hysterectomy with bilateral oophorectomy Social History Smoking Status: Never smoker alcohol intake: never substance use type: denies use current occupational status: other Travel in the last 8 weeks?: None household members: spouse and children housing: house 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 Have you lived/traveled outside US in past 30 days?: No Contact w/someone who lives/traveled outside US past 30 days?: No Exposure to someone with infectious disease in past 14 days?: No Do you have a fever (greater than 100.4 F or 38 C)?: No Have you tested positive for COVID-19?: No Exposed to someone with COVID-19 in past 14 days?: No Do you have a sore throat?: No Do you have a cough?: No Do you have any weakness?: No Do you have any diarrhea?: No Are you experiencing any unusual bleeding?: No Do you have any muscle aches/pain?: No Do you have any abdominal pain?: No Are you experiencing loss of taste or smell?: No Other Medical History Have you received the Flu Vaccine for this season: Yes Have you received the Pneumonia Vaccine: No <Cinthia [facility] (ED), DAIRY EQUIPMENT REPAIRER - Last Filed: 11/24/24 17:00> ROS Obtained: Yes Systems reviewed as appropriate & no additional complaints except as documented Constitutional Constitutional: Reports as per HPI Physical Exam <Cinthiaedi Puentesjoan (ED), DAIRY EQUIPMENT REPAIRER - Last Filed: 11/24/24 17:00> General General appearance: alert and in no apparent distress Head Head exam: atraumatic and normocephalic Eye Eye exam: Present PERRL and EOMI ENT ENT exam: Present normal oropharynx and mucous membranes moist Neck Neck exam: Present full ROM and trachea midline Respiratory Respiratory exam: Present normal lung sounds bilaterally Cardiovascular Cardiovascular exam: Present regular rate, normal rhythm, normal heart sounds, +S1 and +S2 Extremities Exam Extremities exam: Present normal capillary refill and other (Right middle finger with less than 1 cm laceration bleeding now controlled.) Neurological Exam Neurological exam: Present alert and oriented X3 Skin Skin exam: Present warm and dry Medical Decision Making <Cinthia [facility] (ED), DAIRY EQUIPMENT REPAIRER - Last Filed: 11/24/24 17:00> Medical Records Medical records reviewed: Yes I reviewed the patient's medical records. Screening: Per USPSTF and CDC recommendations, given the prevalence of disease in our region, it is our hospital?s policy to screen for HIV and viral Hepatitis for all patients aged 18 and over and those with ongoing risk factors. Alcon Inquiry Pt receiving controlled substance: No Vital Signs: 11/24/24 16:40 11/24/24 16:57 Temperature 98.5 F 98.7 F Temperature Source Temporal Artery Scan Pulse Rate 78 Pulse Rate [Right] 81 Respiratory Rate 18 18 Blood Pressure 116/86 Blood Pressure [Right Arm] 114/68 Blood Pressure Mean [Right Arm] 83 Blood Pressure Source [Right Arm] Automatic Cuff Blood Pressure Position [Right Arm] Sitting 02 Sat by Pulse Oximetry 98 Oxygen Delivery Method Room Air Medical Decision Narrative: Insert review patient is a 43-year-old female presenting to the emergency department for evaluation of laceration to right middle finger. Patient is hemodynamically stable and nontoxic-appearing upon arrival, afebrile. Differential diagnosis includes laceration. No workup needed, patient laceration glued and Steri-Stripped. Patient told to follow-up. Patient safe for discharge home <Blas Vieira MD - Last Filed: 11/24/24 18:11> Vital Signs: 11/24/24 16:40 11/24/24 16:57 Temperature 98.5 F 98.7 F Temperature Source Temporal Artery Scan Pulse Rate 78 Pulse Rate [Right] 81 Respiratory Rate 18 18 Blood Pressure 116/86 Blood Pressure [Right Arm] 114/68 Blood Pressure Mean [Right Arm] 83 Blood Pressure Source [Right Arm] Automatic Cuff Blood Pressure Position [Right Arm] Sitting 02 Sat by Pulse Oximetry 98 Oxygen Delivery Method Room Air Medical Decision Narrative: Insert review patient is a 43-year-old female presenting to the emergency department for evaluation of laceration to right middle finger. Patient is hemodynamically stable and nontoxic-appearing upon arrival, afebrile. Differential diagnosis includes laceration. No workup needed, patient laceration glued and Steri-Stripped. Patient told to follow-up. Patient safe for discharge home I was consulted by the [facility], and we discussed the complexity of the problems being addressed. I approved the treatment and management plan for this patient's care in the Emergency Department, thus performing a substantive portion of the medical decision making. Blas Vieira MD Critical Care <Cinthia Orona (ED), DAIRY EQUIPMENT REPAIRER - Last Filed: 11/24/24 17:00> Critical Care Time Critical Care Time: No
[2024-11-24 16:57] VITALS: BP 116/86; PULSE 78; RESP 18; TEMP 37.1; O2SAT 98
== END 2024-11-24 16:57 | disposition home or self-care (01) ==
PROVIDERS: Emergency Provider Emergency Medicine; PCP Family Medicine
DX: S61.213A Laceration without foreign body of left middle finger without damage to nail, initial encounter (principal); W27.2XXA Contact with scissors, initial encounter
CPT/HCPCS: 99282

== ENCOUNTER 2024-12-21 03:42 | Emergency (ER) | payer BC, SELFPAY ==
--- NOTE | 2024-12-21 03:44 | CT_ITS ---
PROCEDURE INFORMATION: Exam: CT Abdomen And Pelvis With Contrast Exam date and time: 12/21/2024 4:18 AM Age: 43 years old Clinical indication: Abdominal pain; Flank; Right; Additional info: Flank pain, CVA ttp R flank HX stones TECHNIQUE: Imaging protocol: Computed tomography of the abdomen and pelvis with contrast. Radiation optimization: All CT scans at this facility use at least one of these dose optimization techniques: automated exposure control; mA and/or kV adjustment per patient size (includes targeted exams where dose is matched to clinical indication); or iterative reconstruction. Contrast material: ISOVUE; Contrast volume: 75 ml; Contrast route: IV; COMPARISON: CT ANGIO ABDOMEN PELVIS 01/09/2024 5:47 AM FINDINGS: Liver: Unremarkable. Gallbladder and biliary ducts: Cholecystectomy. Pancreas: Normal. No ductal dilation. Spleen: Unremarkable. Adrenal glands: Unremarkable. Kidneys and ureters: 4 x 2 mm calcified obstructing stone at the right UVJ with moderate hydronephrosis. Bilateral nonobstructive calcified calyceal renal stones. Stomach and bowel: Unremarkable. No obstruction. No mucosal thickening. Appendix: Appendix not definitely seen. No right lower quadrant inflammation identified. Intraperitoneal space: No free air. No fluid collection. Vasculature: Unremarkable. No abdominal aortic aneurysm. Lymph nodes: No enlarged lymph nodes. Urinary bladder: Unremarkable as visualized. Reproductive: Hysterectomy. Bones/joints: Pectus excavatum. Soft tissues: Unremarkable. IMPRESSION: 4 x 2 mm calcified obstructing stone at the right UVJ with moderate hydronephrosis.
[2024-12-21 03:50] VITALS: BP 160/89; PULSE 76; RESP 22; TEMP 36.5; O2SAT 100; BMI 22.5
--- NOTE | 2024-12-21 03:51 | [facility].EDGENADL ---
Discharge Plan Disposition Patient Disposition: Home, Self-Care Condition: Good Prescriptions Prescriptions: New ondansetron 4 mg tablet,disintegrating 4 mg PO Q6H PRN (Reason: nausea and vomiting) Qty: 12 0RF tamsulosin 0.4 mg capsule 0.4 mg PO HS Qty: 10 0RF oxycodone 5 mg tablet 5 mg PO Q6H PRN (Reason: pain (scale score 7-10)) Qty: 12 0RF No Action levothyroxine 50 mcg tablet 50 mcg PO DAILY lidocaine 5 % adhesive patch,medicated See Rx Instructions .ROUTE .COMPLEX Qty: 15 0RF Rx Instructions: Apply to most painful area and leave on for 12 hours. Remove and leave off for 12 hours before using a new patch. methocarbamol 500 mg tablet 500 mg PO TID PRN (Reason: muscle spasm) Qty: 90 0RF apixaban 5 mg tablet 5 mg PO BID 90 Days Qty: 194 0RF Rx Instructions: Take 2 tablets (10mg) by mouth twice daily for 7 days. Then take 1 tablet (5mg) twice daily until you run out. Referrals Follow up/Referrals: Guerline Guthrie MD [Primary Care Provider, Medical] - See instructions Fred Hein MD [Referring, Urology] - See instructions Referral Note: 4 mm distal right ureteral stone with hydronephrosis but no kidney dysfunction Activity Restrictions/Add. Instructions Additional Instructions/Restrictions: You were evaluated in the ER and are believed to be appropriate for discharge at this time. Drink plenty of water to encourage good hydration, good kidney function, and increased urination to help pass the stone. Take Tylenol and ibuprofen if needed for pain, do not exceed the recommended dose on the bottle. Drink water and eat a small snack each time you take these medications to avoid side effects. If Tylenol and ibuprofen do not control your pain, then take the prescribed oxycodone. This is a controlled substance and has the potential for abuse, addiction, and has side effects including difficulty breathing and constipation. Do not drive or operate machinery after taking this medication. Only take this medication as directed. Take the prescribed tamsulosin as directed. Take prescribed ondansetron (Zofran) if needed for nausea or vomiting. Urinate through the provided strainer to capture stone if it passes. Call Dr. Hein's office first thing [place] morning and make an appointment for outpatient follow-up. If you are able to find your previous urologist's number, you can also follow-up with them. What is most important is that you have very close outpatient follow-up with urology. Return to the ER with any new, worsening, or otherwise concerning symptoms including but not limited to worsening or uncontrollable pain, fever, painful urination, or other signs of infection as discussed. Clinical Impressions Clinical Impression: Calculus of distal right ureter, Hydronephrosis Instructions Patient Instructions: DI for Acute Abdominal Pain Print Language Print Language: Monegasque Discharge ED Provider: Lor Benavidez General Adult HPI General Chief complaint: Abdominal Pain Stated complaint: possible kidney stone Time Seen by Provider: 12/21/24 03:44 History of Present Illness HPI narrative: 43-year-old female with history of multiple previous kidney stones that in the past have required removal, lithotripsy, stents presents to the ER with right flank pain. Patient reports 3 days ago she felt a right sided stone moved and since that time she has had some pressure and discomfort radiating into the right groin but reports her pain was tolerable. The initial day that her pain started she took a Lortab but has not taken other pain medications at home since that time. She states tonight she felt the pain in her right flank significantly intensify. She has been having burning with urination and has been taking Azo at home. She states this is not relieved much of her symptoms. She denies fevers, she states she has nausea but no vomiting, no other associated symptoms. Related Data Home Medications ?Medication ?Instructions ?Recorded ?Confirmed levothyroxine 50 mcg tablet 50 mcg PO DAILY thyroid 01/09/24 10/22/24 Previous Rx's ?Medication ?Instructions ?Recorded apixaban 5 mg tablet 5 mg PO BID 90 days #194 tabs 10/23/24 lidocaine 5 % topical patch See Rx Instructions topical 10/23/24 .COMPLEX #15 ea methocarbamol 500 mg tablet 500 mg PO TID PRN muscle spasm #90 10/23/24 tabs ondansetron 4 mg disintegrating 4 mg PO Q6H PRN nausea and 12/21/24 tablet vomiting #12 tabs oxycodone 5 mg tablet 5 mg PO Q6H PRN pain (scale score 12/21/24 7-10) #12 tabs tamsulosin 0.4 mg capsule 0.4 mg PO HS #10 caps 12/21/24 Allergies Allergy/AdvReac Type Severity Reaction Status Date / Time No Known Allergies Allergy Verified 06/11/23 11:44 [facility] Disclaimer: The information contained in this section may have been updated after the patient was seen, as this information can be updated by other users. Medical History (Updated 12/21/24 @ 05:00 by Lor Benavidez MD) Kidney stone Tobacco user Stress incontinence in female History of endometriosis Dyspareunia Overweight (BMI 25.0-29.9) Nephrolithiasis Felon of digit Abscess of right thigh Atypical chest pain Cellulitis and abscess of right leg Lateral epicondylitis of elbow Surgical History History of hysterectomy with bilateral oophorectomy Social History Smoking Status: Current every day smoker tobacco type: cigarettes packs per day: 1 alcohol intake: never substance use type: denies use current occupational status: other Travel in the last 8 weeks?: None household members: spouse and children housing: house current occupation: [employer]: Yes Have you lived/traveled outside US in past 30 days?: No Contact w/someone who lives/traveled outside US past 30 days?: No Exposure to someone with infectious disease in past 14 days?: No Do you have a fever (greater than 100.4 F or 38 C)?: No Have you tested positive for COVID-19?: No Exposed to someone with COVID-19 in past 14 days?: No Do you have a sore throat?: No Do you have a cough?: No Do you have any weakness?: No Do you have any diarrhea?: No Are you experiencing any unusual bleeding?: No Do you have any muscle aches/pain?: No Do you have any abdominal pain?: Yes Are you experiencing loss of taste or smell?: No Other Medical History Have you received the Flu Vaccine for this season: Yes Have you received the Pneumonia Vaccine: No ROS Obtained: Yes Systems reviewed as appropriate & no additional complaints except as documented per HPI Physical Exam General General appearance: alert Comment: Obviously in significant pain but nontoxic appearing Head Head exam: atraumatic and normocephalic Eye Eye exam: Present PERRL and EOMI ENT ENT exam: Present mucous membranes moist Neck Neck exam: Present normal inspection and full ROM Chest Chest inspection: Present symmetric chest wall rise Respiratory Respiratory exam: Present normal lung sounds bilaterally; Absent respiratory distress, wheezes or stridor Cardiovascular Cardiovascular exam: Present regular rate and normal rhythm Abdominal Exam Abdominal exam: Present soft and tenderness (Suprapubic, right lower quadrant); Absent distention, guarding or rebound Extremities Exam Extremities exam: Present full ROM Back Exam Back exam: Present CVA tenderness (R); Absent CVA tenderness (L) Neurological Exam Neurological exam: Present alert, oriented X3 and normal gait; Absent motor sensory deficit Psychiatric Psychiatric exam: Present normal affect and normal mood Skin Skin exam: Present warm and dry Medical Decision Making Medical Records Medical records reviewed: Yes I reviewed the patient's medical records. Screening: Per USPSTF and CDC recommendations, given the prevalence of disease in our region, it is our hospital?s policy to screen for HIV and viral Hepatitis for all patients aged 18 and over and those with ongoing risk factors. Alcon Inquiry Pt receiving controlled substance: Yes Alcon was queried for this patient: No Reason not queried -: Emergent pt cond-no time (PDMP reviewed demonstrating only 1 controlled substance in the last year) Risks and benefits of using a controlled substance: were discussed with pt by me Vital Signs: 12/21/24 03:50 12/21/24 04:32 Temperature 97.7 F Temperature Source Oral Pulse Rate 68 Pulse Rate [Left] 76 Respiratory Rate 22 Blood Pressure 150/104 H Blood Pressure [Right Arm] 160/89 H Blood Pressure Mean [Right Arm] 112 Blood Pressure Source [Right Arm] Automatic Cuff Blood Pressure Position [Right Arm] Sitting 02 Sat by Pulse Oximetry 100 100 Oxygen Delivery Method Room Air Lab Data Lab Results 12/21/24 03:52: WBC 8.8, RBC 5.32, Hgb 16.1, Hct 49.6 H, MCV 93.2, MCH 30.3, MCHC 32.5, RDW 12.4, Plt Count 224, MPV 10.6 H, Neut % (Auto) 58.0, Lymph % (Auto) 32.6, [place] % (Auto) 6.8, Eos % (Auto) 1.5, Baso % (Auto) 0.8, Neut # (Auto) 5.1, Lymph # (Auto) 2.9, [place] # (Auto) 0.6, Eos # (Auto) 0.1, Baso # (Auto) 0.1, Sodium 138, Potassium 4.2, Chloride 106, Carbon Dioxide 27, Anion Gap 9.2, BUN 12, Creatinine 0.80, Estimated Creat Clear 95, Estimated GFR 79, Est GFR ( Amer) 96, Glucose 121 H, Calcium 10.8 H, Total Bilirubin 0.7, AST 31, ALT 30, Alkaline Phosphatase 81, Total Protein 8.1, Albumin 4.8, Globulin 3.3 H, Albumin/Globulin Ratio 1.5, Serum HCG, Qual Negative 12/21/24 04:10: Urine Color Yellow, Urine Appearance Cloudy, Urine pH 6.0, Ur Specific [place] >= 1.030, Urine Protein 1+ A, Urine Glucose (UA) Negative, Urine Ketones Negative, Urine Blood 3+ A, Urine Nitrate Negative, Urine Bilirubin Negative, Urine Urobilinogen 0.2, Ur Leukocyte Esterase Trace, Urine RBC 50-100, Urine WBC Occasional, Ur Squamous Epith Cells 5-10, Urine Bacteria 1+ 12/21/24 03:52 12/21/24 03:52 Orders (Tests/Meds): ED MEDICATIONS Generic Name Dose Route Start Last Admin Trade Name Freq PRN Reason Stop Dose Admin Sodium Chloride 10 ml 12/21/24 04:21 12/21/24 04:22 Sodium Chloride 0.9% 10ml Syr (Rad Only) IV 01/20/25 04:20 10 ml NEEDED PRN Administration Maintain IV Site Discontinued Medications Generic Name Dose Route Start Last Admin Trade Name Freq PRN Reason Stop Dose Admin Lactated Ringer's 1,000 mls @ 999 mls/hr 12/21/24 03:44 12/21/24 04:04 Lactated Ringer's 1000 Ml Bag IV 12/21/24 04:44 999 mls/hr .Q1H1M ONE Administration Iopamidol 75 ml 12/21/24 04:21 12/21/24 04:22 Iopamidol-370 (76%);100ml Bottle IV 12/21/24 04:22 75 ml ONCE ONE Administration Ketorolac Tromethamine 15 mg 12/21/24 03:44 12/21/24 04:04 Ketorolac 30mg/Ml Vial IV 12/21/24 03:45 15 mg ONCE ONE Administration Ketorolac Tromethamine 15 mg 12/21/24 04:58 12/21/24 05:02 Ketorolac 30mg/Ml Vial IV 12/21/24 04:59 15 mg ONCE ONE Administration Morphine Sulfate 4 mg 12/21/24 03:44 12/21/24 04:04 Morphine 4mg/Ml Syringe IV 12/21/24 03:45 4 mg ONCE ONE Administration Morphine Sulfate 4 mg 12/21/24 04:55 12/21/24 05:03 Morphine 4mg/Ml Syringe IV 12/21/24 04:56 4 mg ONCE ONE Administration Ondansetron HCl 4 mg 12/21/24 03:44 12/21/24 04:04 Ondansetron 4mg/2ml Vial IV 12/21/24 03:45 4 mg ONCE ONE Administration Tamsulosin HCl 0.4 mg 12/21/24 04:33 12/21/24 04:40 Tamsulosin 0.4mg Capsule PO 12/21/24 04:34 0.4 mg ONCE ONE Administration ORDERS Category Date Time Status CT abdomen pelvis w con Stat Cat Scan 12/21/24 03:44 Completed CBC w/Auto Diff [Complete Blood Count Auto Diff] Stat Lab 12/21/24 03:52 Completed CMP [Comprehensive Metabolic Panel] Stat Lab 12/21/24 03:52 Completed HCG Qualitative, Serum Stat Lab 12/21/24 03:52 Completed Urinalysis and Microscopic Stat Lab 12/21/24 04:10 Completed Medical Decision Narrative: In summary, this 43-year-old female with comorbidities described in the HPI presents to the emergency department today with right flank pain radiating to the groin. On initial evaluation patient is hemodynamically stable, afebrile, obviously uncomfortable but nontoxic, exam notable for suprapubic and right lower quadrant tenderness to palpation without rebound or guarding, low right CVA tenderness present. Differential diagnosis includes but is not limited to ureterolithiasis, hydronephrosis, kidney dysfunction, urinary tract infection, infected stone, among others. Based on these concerns, I ordered serum labs, urine studies, CT imaging. Patient received Toradol, morphine, Zofran, IV fluids initially for treatment. Labs personally reviewed demonstrate no leukocytosis or anemia, normal platelets, CMP nonactionable, patient has good kidney function with no evidence of nephropathy, hCG negative, UA nitrate negative with only occasional WBCs but contaminated with squamous cells. No suspicion for infection at this time given this urinalysis and patient's lack of infectious symptoms. CT abdomen pelvis personally interpreted demonstrates distal right ureteral stone causing upstream hydronephrosis, stone measures approximately 4 to 5 mm. Possible additional stone in the bladder. See radiology read for final interpretation which is in agreement that there is a right UVJ stone with hydronephrosis measuring 4 mm On reassessment patient's pain was significantly improved, she would prefer to go home if possible but still required some additional pain management. She states Toradol really helps her and the morphine also took the edge off. She received a second low-dose of Toradol and morphine. Symptoms are adequately controlled at this time. I believe she is appropriate for discharge and patient is comfortable with this plan as well. I prescribed oxycodone after review of PDMP demonstrated only 1 controlled substance prescription in the last year, Zofran, tamsulosin for outpatient management. I gave the patient instructions on continued home symptomatic monitoring and management, straining the urine, referral to Dr. Hein with urology as well as instructions to follow-up with PCP. Additionally gave instructions for strict return precautions for the ER. She indicated understanding and the patient was discharged in stable condition. Critical Care Critical Care Time Critical Care Time: No
[2024-12-21] MEDS: LACTATED RINGERS 1000ML 1,000 ML 999 ML IV (04:04)
[2024-12-21] MEDS: KETOROLAC 30MG/ML VIAL 15 MG IV ×2 (04:04→05:02)
[2024-12-21] MEDS: MORPHINE 4MG/ML SYRINGE 4 MG IV ×2 (04:04→05:03)
[2024-12-21] MEDS: ONDANSETRON 4MG/2ML VIAL 4 MG IV (04:04)
[2024-12-21 04:07] LABS: Basophils # 0.1 K/mm3 (0-0.2); Basophils % 0.8 % (0.1-2.0); Eosinophils # 0.1 Kmm3 (0.0-0.4); Eosinophils % 1.5 % (0.1-12.0); Hematocrit 49.6 % (37.0-47.0); Hemoglobin 16.1 g/dL (12.2-16.2); Immature Granulocytes # 0.03 10^3uL; Immature Granulocytes % 0.3 %; Lymphocytes # 2.9 K/mm3 (0.7-4.5); Lymphocytes % 32.6 % (10-50); Mean Corpuscular HGB Conc 32.5 g/dL (31.8-35.4); Mean Corpuscular Hemoglobin 30.3 pg (27.0-31.2); Mean Corpuscular Volume 93.2 fl (81-99); Mean Platelet Volume 10.6 fl (7.4-10.4); Monocytes # 0.6 K/mm3 (0.1-1.0); Monocytes % 6.8 % (1.7-9.3); Neutrophils # 5.1 K/mm3 (1.8-7.8); Nucleated Red Blood Cells # 0 10^3/uL; Nucleated Red Blood Cells % 0 %; Platelet Count 224 K/mm3 (142-424); Red Blood Count 5.32 M/mm3 (4.20-5.40); Red Cell Distribution Width 12.4 % (11.5-17.5); Red Cell Distribution Width-SD 42.4 fL; White Blood Count 8.8 K/mm3 (4.8-10.8)
[2024-12-21 04:10] LABS: Alanine Aminotransferase 30 U/L (12-78); Albumin Level 4.8 g/dl (3.5-5.0); Albumin/Globulin Ratio 1.5 (1.1-1.8); Alkaline Phosphatase 81 U/L (38-126); Anion Gap 9.2 mEq/L (5-15); Aspartate Amino Transferase 31 U/L (14-36); Bilirubin,Total 0.7 mg/dl (0.2-1.3); Blood Urea Nitrogen 12 mg/dl (7-17); Calcium 10.8 mg/dl (8.4-10.2); Carbon Dioxide 27 mmol/L (22.0-30.0); Chloride 106 mmol/L (98-107); Creatinine Clearance Estimated 95 mL/min (50-200); Estimated Glomerular Filt Rate 79 ml/min (>60); GFR (African American) 96 ML/MIN (>60); Globulin 3.3 g/dL (1.3-3.2); Glucose 121 mg/dl (74-100); Potassium 4.2 mmoL/L (3.5-5.1); Sodium 138 mmol/L (136-145); Total Protein,Serum 8.1 g/dl (6.3-8.2)
--- OUTSIDE RECORDS SUMMARY | 2024-12-21 04:12 | XMS_ITS | Clinical Summary ---
Author Organization [facility] Address [address] [place] [address] Care Team Providers Care Golf Course Architect Name Role Phone Unavailable Primary Care Provider Unavailabl e Allergies No known active allergies Social History Tobacco Use Types Packs/Day Years Used Date Smoking Tobacco: Never Assessed Interpersonal Safety Answer Date Record ed Family or friends hurt you Not on file 07/19 Family or friends insult you Not on file 04/2024 Family or friends threaten you Not on file 0 07/19/2023 Family or friends scream or curse at you Not on file 07/19/2023 Housing Stability Answer Date Recorded Living situation today Not on file Living situation problems Not on file 2023 Food Insecurity Answer Date Recorded Food run out past 12 months Not on file 07/10 Food did not last past 12 months Not on file 07/19/2023 Employment Answer Date Recorded Help finding and keeping a job Not on file 0 07/19/2023 Family and Community Support Answer Jerome e Recorded Help with Day to Day Activities Not on file 07/19/2023 Feeling Lonely or Isolated Not on file 07/19 Educational Attainment Answer Date Tuan rded Speak language other than Liberian at home Not on file 07/19/2023 Want help with school or training Not on file 07/19/2023 Depression Answer Date Recorded PHQ-2 Risk Not on file 07/19/2023 Disabilities Answer Date Recorded Difficulty concentrating Not on file 024 Difficulty doing errands alone Not on file 0 07/19/2023 Substance Use Answer Date Recorded Used prescription meds for non-medical reasons N ot on file 07/19/2023 Used illegal drugs past 12 months Not on file 07/19/2023 Comments Unknown Sex and Gender Information Value Date Recorded Sex Assigned at Not on file Legal Sex Female 5:28 PM CDT Gender Identity Not on file Sexual Orientation Not on file Last Filed Vital Signs Vital Sign Reading Time Taken Comments Blood Pressure 116/70 07/04/2023 1:45 PM EST Pulse 70 07/04/2023 1:45 PM EST Temperature 36.6 C (97.9 F) 07/04/2023 6:21 AM EST Respiratory Rate 18 07/04/2023 6:21 AM EST Oxygen Saturation 95% 07/04/2023 1:45 PM EST Inhaled Oxygen Concentration - - Weight 86.2 kg (190 lb) 07/04/2023 6:21 AM EST Height 167.6 cm (5' 6 ) 07/04/2023 6:21 AM EST Body Mass Index 30.67 07/04/2023 6:21 AM EST Plan of Treatment Health Maintenance Due Date Last Done Comments Depression Screening (12+) 1994 Tobacco Cessation Counseling and Screening (12+) 1994 HIV Screening 1997 Hepatitis C Screening 2000 Pap Smear 12/26/2003 Lipid Panel 06/17/2019 06/17/2016 Breast Cancer Screening 2022 COVID-19 VACCINE (2023-2 5 season) 2024 Influenza Vaccine (Season Ended) 2025 DTAP/TDAP/TD VACCINES (2 - T d or Tdap) 07/01/2031 07/01/2021 Pneumococcal Vaccine: 0-49 Years Aged Out No longer eligible based on patient's age to complete this topic Insurance BLUE CROSS/BLUE SHIELD
--- OUTSIDE RECORDS SUMMARY | 2024-12-21 04:12 | XMS_ITS | Encounter Summary ---
Author Organization [facility] Address [address] [place] [address] Care Team Providers Care Certified Physical Therapist Assistant Name Role Phone Unavailable Primary Care Provider Unavailabl e Encounter Details Date Type Department Care Team (Late st Contact Info) Description 04/14/2020 Transcribed Document [facility] [place] Family Medicine [facility] [place] [address] ProviderJordyn MD [address] [place] [address] [phone] Social History Tobacco Use Types Packs/Day Years Used Date Smoking Tobacco: Never Assessed Comments Unknown Sex and Gender Information Value Date Recorded Sex Assigned at Not on file Legal Sex Female 5:28 PM CDT Gender Identity Not on file Sexual Orientation Not on file documented as of this encounter Miscellaneous Notes * Cerner Conversion Note - Jordyn Flowers MD - 04/14/2020 9:53 AM CDT Patient: YOON HERNANDEZ Age: 39 years Sex: Female : 1980 Associated Diagnoses: None Author: JOSR CERNA II, MD-ANS Left sided Tarsal Tunnel Injection Pre Procedure Diagnosis: Left sided Tarsal Tunnel syndrome Post Procedure Diagnosis: Same Anesthesia: Local only Complictions: none Description of Procedure: The risks and benefits were explained and informed consent was obtained. The patient was placed in a left lateral decubitus position. Landmarks were identified on the right ankle. Aseptic technique was utilized. I then used a 25 gauge needle that was directed just posterior to the lateral malleolus in an inferior direction at about a 30-45 degree angle. I obtained access into the tarsal tunnel. Negative aspiration for blood and no paresthesia. I then injected 1cc of 0.5% Ropivacaine along with 40mg of Depo Medrol. The patient tolerated the procedure well. documented in this encounter Plan of Treatment Not on file documented as of this encounter Visit Diagnoses Not on filedocumented in this encounter
--- OUTSIDE RECORDS SUMMARY | 2024-12-21 04:12 | XMS_ITS | Referral Summary ---
Author Organization [facility] In [facility] Address [address] [place] [id number] Care Team Providers Care Estimator Printing Plate Making Name Role Phone Unavailable Primary Care Provider [...] Date Tuan rded Speak language other than Niuean at home Not on file 07/19/2023 Want [...] 07/04/2023 6:21 AM EST Plan of Treatment Not on file Insurance BLUE CROSS/BLUE SHIELD
--- OUTSIDE RECORDS SUMMARY | 2024-12-21 04:12 | XMS_ITS | Encounter Summary ---
Author Organization [facility] [facility] Address [address] [place] [address] Care Team Providers Care Special Events Assistant Name Role Phone Unavailable Primary Care Provider Unavailabl e Encounter Details Date Type Department Care Team (Late st Contact Info) Description 05/01/2020 Transcribed Document [facility] [place] [facility] [address] ProviderJordyn MD [address] [place] [address] [phone] Social History Tobacco Use Types Packs/Day Years Used Date Smoking Tobacco: Never Assessed Comments Unknown Sex and Gender Information Value Date Recorded Sex Assigned at Not on file Legal Sex Female 5:28 PM CDT Gender Identity Not on file Sexual Orientation Not on file documented as of this encounter Miscellaneous Notes * Cerner Conversion Note - Historical ProviderMD - 05/01/2020 11:23 AM CDT Patient: YOON HERNANDEZ Age: 39 Years Sex: Female : 1980 INITIAL PATIENT EVALUATION DATE OF SERVICE: 04/14/2020 CHIEF COMPLAINT: Left foot pain. HISTORY OF PRESENT ILLNESS: Ms. Hernandez is a 39-year-old lady who has had issues with her left foot since August of this year. 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 Jose Ludwig. He felt like she had symptomatic plantar fasciitis but also evidence of nerve entrapment, tarsal tunnel syndrome as not only was the patient complaining of heel pain with walking but she was also complaining of pain in the left foot when pushing off of the foot during ambulation. She stated that pain would frequently radiate down the foot into the big toe. Dr. Ludwig consulted me by phone to see if I could do a left foot tarsal tunnel injection to help him differentiate whether this might be amenable to surgical intervention. The patient rates her pain a 3/10 on most days. She states it is worse with walking. HISTORY: Allergies: No known drug allergies. Past Medical History: Gallstones. Ongoing tobacco use. Migraine headaches. Thyroid disease. Past Family History: Cancer. Diabetes. Stroke. Coronary artery disease. Migraine headaches. Thyroid disease. Social History: Marital status: . Current work status: She does work. Current tobacco use: She smokes about half a pack of cigarettes a day. Illicit drug use: She is requesting no medications through our clinic but we have reviewed her TACHO report. PHYSICAL EXAMINATION: Vital signs: Blood pressure is 125/85, heart rate is 88. The patient is 5'7 and weighs 180 lb. Constitutional: The patient is conversant and in no acute distress. Musculoskeletal: Directed examination of the left foot reveals tenderness just inferior and distal to the malleolus that extends down into the dorsum of the foot. She does have tenderness to percussion of the heel itself and through the plantar fascia but this seems to be less than the malleolar pain. There is good range of motion of the toes. No focal deficits are appreciable. IMPRESSION: 1. Left tarsal tunnel syndrome. 2. History of plantar fasciitis. DISCUSSION: Ms. Hernandez and I have discussed things at length. Again, she has been referred here for a left foot tarsal tunnel injection under fluoroscopic-guidance. Risks and benefits of the procedure have been explained. She wishes to proceed. She will followup with Dr. Ludwig. Dominick Galarza II, M.D. DIOGENES/addi documented in this encounter Plan of Treatment Not on file documented as of this encounter Visit Diagnoses Not on filedocumented in this encounter
--- OUTSIDE RECORDS SUMMARY | 2024-12-21 04:12 | XMS_ITS | Clinical Summary ---
Author Organization [facility] Address [address] [place] [phone] Phone Care Team Providers Care Director Of Career Resources Name Role Phone Unavailable Primary Care Provider Unavailabl e Allergies No known active allergies Medications azithromycin (ZITHROMAX) 250 mg Oral Tablet 3 Active PAXLOVID, EUA, Oral tablets therapy pack FOLLOW PACKAGE DIRECTIONS 3 Active venlafaxine (EFFEXOR-XR) 75 mg Oral Capsule, Sust. Release 24 hr 3 Active LEVOthyroxine (SYNTHROID) 50 mcg Oral Tablet Take 50 mcg by mouth daily. Active Active Problems Problem Noted Date Diagnosed Date Pelvic floor dysfunction 09/27/2022 Stress incontinence 09/27/2022 Social History Tobacco Use Types Packs/Day Years Used Date Smoking Tobacco: Every Day Cigarettes Smokeless Tobacco: Never Tobacco Cessation:Ready to Q uit: Not Asked; Counseling Given: Not Answered Alcohol Use Standard Drinks/Week Comments Not Currently 0 (1 standard drink = 0.6 oz pur e alcohol) Sexually Active Control Partners Comments Yes Other-see comments Male total hys terectomy Comments Unknown Sex and Gender Information Value Date Recorded Sex Assigned at Not on file Legal Sex Female 11:03 AM EST Gender Identity Not on file Sexual Orientation Not on file Obstetrics History Para Term AB IAB SAB Ectopic Multiple Livin g Live Births 3 2 2 Date Outcome GA Total Labor Labor/2nd/3rd Weight Sex Type Anes PTL Jaylin A1 A5 Name Clin Para Para Last Filed Vital Signs Vital Sign Reading Time Taken Comments Blood Pressure 124/74 09/27/2022 11:22 AM EDT Pulse 84 07/19/2023 11:00 AM EST Temperature - - Respiratory Rate - - Oxygen Saturation 98% 07/19/2023 11:00 AM EST Inhaled Oxygen Concentration - - Weight 93 kg (205 lb) 07/19/2023 11:00 AM EST Height - - Body Mass Index - - Plan of Treatment Health Maintenance Due Date Last Done Comments Annual Wellness Exam 1985 Pneumococcal Vaccine 0-49 (1 of 2 - PCV) 2001 Cervical Cancer Screening 12/26/2003 Pap Smear 12/26/2003 HPV/Pap Cotest 2012 Hepatitis B Vaccine (2 of 3 - Hep B Twinrix 3-dose series) 07/16/2018 06/18/2018 Breast Cancer Screening 2022 COVID-19 Vaccine ( - 2023-2 5 season) 2024 Influenza Vaccine (Season Ended) 2025 03/24/20 DTaP/TDaP/Td (2 - Td or Tdap) 07/01/2031 07/01/2021 Meningococcal B Vaccine Aged Out No l onger eligible based on patient's age to complete this topic Insurance [facility] [place] [id number] L[place] PPO 6 Supportie [facility] PPO
--- OUTSIDE RECORDS SUMMARY | 2024-12-21 04:12 | XMS_ITS | Clinical Summary ---
Author Organization [facility] Address [address] [place] [address] Care Team Providers Care Supervisory Training Specialist Name Role Phone Kenneth Peterson MD Primary Care Provider [phone] Family History Medical History Relation Name Comments Anxiety disorder Father Hypertension Father Anxiety disorder Mother Hypercholesterolemia Mother Hypertension Mother Menorrhagia Other Diabetes Paternal Grandmother Relation Name Status Comments Father Mother Other Paternal Grandmother Social History Tobacco Use Types Packs/Day Years Used Date Smoking Tobacco: Every Day Comments:Wishing to stop smo madi Alcohol Use Standard Drinks/Week Comments Yes 0 (1 standard drink = 0.6 oz pure alcohol) Alcoholic Drinks/day: Rarely consumes alcohol Comments Unknown Sex and Gender Information Value Date Recorded Sex Assigned at Not on file Legal Sex Female 8:50 PM EDT Gender Identity Not on file Sexual Orientation Not on file Last Filed Vital Signs Vital Sign Reading Time Taken Comments Blood Pressure 109/70 08/28/2017 11:02 AM EST Pulse 67 08/28/2017 11:02 AM EST Temperature - - Respiratory Rate - - Oxygen Saturation - - Inhaled Oxygen Concentration - - Weight 71.2 kg (157 lb 0.2 oz) 08/28/2017 11:02 AM EST Height 170.2 cm (5' 7 ) 08/28/2017 11:02 AM EST Body Mass Index 24.59 08/28/2017 11:02 AM EST Plan of Treatment Not on file Care Teams Supervisory Training Specialist Relationship Specialty Start Date End Date Kenneth Peterson MD [address] [place] [phone] PCP - General 11/20/20
--- OUTSIDE RECORDS SUMMARY | 2024-12-21 04:12 | XMS_ITS | Data Portability ---
Author Organization [facility] [facility] Address [address] [facility] [facility] [facility] [address] [place] [address] Care Team Providers Care Recorder [employer] Name Role Phone NATALY DEL VALLE Neurologist DANIEL MENA Primary Care Provider CAR FRANKLIN [...] she knows to call anytime if needed. [email or web address] Not available 10/30/2019 13:27:20 06/16/2023 06/16/2023 42-year-old female with history of urolithiasis. She was seen in the ER at [facility] 06/11/2023. She was told she has 2 left ureteral stones. She was discharged home with hydrocodone and Flomax. She will continue taking Flomax and use hydrocodone as needed for pain. She was given a strainer and specimen cup in case she is able to catch the stones. We have requested the CT records from [facility]. I will contact her if the [...] She was seen in the ER at [facility] 06/11/2023. She was told she has [...] medication as needed. Go to ER in [place] if symptoms fail to improve or worsen. [...] left renal colic and CT scans at [facility] showed 2 left distal ureteral stones. She has been unable to pass the stones and opts for stone extraction. DRAIN: Left ureteral stent 6-Syrian x 24 cm, strings intact. OPERATIVE NOTE: After informed consent, the patient was taken to the operating room in stable condition. Anesthesia was induced without complications. She was placed in the lithotomy position. The genitalia and groins were prepped and draped. A time-out was taken to identify the correct patient and procedure and side. A 22-Syrian cystoscope was placed per urethra into the [...] fragment the stones into smaller pieces. A 1.9-Syrian ZeroTip basket was used to extract the fragments into the bladder. Followup ureteroscopy into the upper ureter showed no other stones. The ureteroscope was withdrawn and removed. The cystoscope was placed over the wire into the bladder. A 6-Syrian x 24 cm double-J ureteral stent was [...] 09:18:13 urinalysis , microscopi c 2022 023 [facility], [address] [place] [address], [id number], 14:33:15 Referral None recorded. Procedures None recorded. Surgeries None recorded. Imaging CT, abdomen + pelvis, w/o contrast 2022 023 [facility], [address] [place] [address], [address], 3 10:14:32 Medication Orders tamsulosin 0.4 mg capsule 2022 023 [facility], [address], [address], [place], [address], 3 17:01:32 Percocet 5 mg-325 mg tablet 2022 023 [facility], [address], [address], [place], [address], 3 16:51:46 oxycodone- acetaminop hen 7.5 mg-325 mg tablet 2022 023 [facility], [address] [place] [address], [address], [place], [address], 3 10:28:54 ketorolac 10 mg tablet 2022 023 [facility], [address] [place] [address], [address], [place], [address], 3 10:28:52 ketorolac 30 mg/mL injection solution 2022 023 [facility] Not [facility] 3 12:09:08 tamsulosin 0.4 mg capsule 2022 023 [facility], [facility] [address], [address], [place], [address], 3 09:29:11 hydrocodon e 5 mg-acetami nophen 325 mg tablet 2022 023 [facility], [facility] [address], [address], [place], [address], 3 09:24:17 Aimovig Autoinject or 140 mg/mL subcutaneo us auto-injec tor 2019 020 INTERFACE [facility], [address] [place] [address], [address], [place], [address], 0 13:25:39 rizatripta n 10 mg tablet 2019 020 INTERFACE [facility], [address], [address], [place], [address], 0 13:25:41 Patient TargetsNo targets recorded. Patient InstructionsNo instructions recorded. Reason for Referral None Reported. Results Created Date Observation Date Name Description Value Unit Range Abnormal Flag Note LastModifiedBy Organization Detail LastModifiedTime 06/16/20 23 06/16/2023 urina lysis , dipst ick Unknown Analyte Yellow Not Available [facility] [address] [place], [address], 06/16/2023 09:03:01 06/16/20 23 06/16/2023 urina lysis , dipst ick Unknown Analyte Clear Not Available [facility] [address] [place], [address], 06/16/2023 09:03:01 06/16/2006/16/2023 urina lysis , dipst ick Unknown Analyte 1.020 Not Available [facility] [address] [place] [address], [address], 06/16/2023 09:03:01 06/16/20 23 06/16/2023 urina lysis , dipst ick Unknown Analyte 5.0 Not Available [facility] [address] [place], [address], 06/16/2023 09:03:01 06/16/20 23 06/16/2023 urina lysis , dipst ick Unknown Analyte Negati ve Not Available [facility] [address] [place] [address], [address], 06/16/2023 09:03:01 06/16/20 23 06/16/2023 urina lysis , dipst ick Unknown Analyte Negati ve Not Available [facility] [address] [place], [address], 06/16/2023 09:03:01 06/16/20 23 06/16/2023 urina lysis , dipst ick Unknown Analyte Negati ve Not Available [facility] [address] [place] [address], [address], 06/16/2023 09:03:01 06/16/20 23 06/16/2023 urina lysis , dipst ick Unknown Analyte Normal Not Available [facility] [address] [place], [address], 06/16/2023 09:03:01 06/16/20 23 06/16/2023 urina lysis , dipst ick Unknown Analyte Negati ve Not Available [facility] [address] [place], [address], 06/16/2023 09:03:01 06/16/20 23 06/16/2023 urina lysis , dipst ick Unknown Analyte Normal Not Available [facility] [address] [place], [address], 06/16/2023 09:03:01 06/16/20 23 06/16/2023 urina lysis , dipst ick Unknown Analyte Negati ve Not Available [facility] [address] [place], [address], 06/16/2023 09:03:01 06/16/20 23 06/16/2023 urina lysis , dipst ick Unknown Analyte Negati ve Not Available [facility] [address] [place], [address], 06/16/2023 09:03:01 06/16/20 23 06/16/2023 urina lysis , dipst ick Unknown Analyte Clean Catch Not Available [facility] [address] [place], [address], 06/16/2023 09:03:01 06/16/20 23 06/16/2023 urina lysis , dipst ick Unknown Analyte Visual Not Available [facility] [address] [place], [address], 06/16/2023 09:03:01 06/23/20 23 06/23/2023 urina lysis , dipst ick Unknown Analyte Yellow Not Available [facility] [address] [place], [address], 06/23/2023 08:14:06 06/23/20 23 06/23/2023 urina lysis , dipst ick Unknown Analyte Clear Not Available [facility] [address] [place], [address], 06/23/2023 08:14:06 06/23/20 23 06/23/2023 urina lysis , dipst ick Unknown Analyte 1.005 Not Available [facility] [address] [place], [address], 06/23/2023 08:14:06 06/23/20 23 06/23/2023 urina lysis , dipst ick Unknown Analyte 5.0 Not Available [facility] [address] [place] [address], [address], 06/23/2023 08:14:06 06/23/20 23 06/23/2023 urina lysis , dipst ick Unknown Analyte Negati ve Not Available [facility] [address] [place], [address], 06/23/2023 08:14:06 06/23/20 23 06/23/2023 urina lysis , dipst ick Unknown Analyte Negati ve Not Available [facility] [address] [place] [address], [address], 06/23/2023 08:14:06 06/23/20 23 06/23/2023 urina lysis , dipst ick Unknown Analyte Negati ve Not Available [facility] [address] [place] [address], [address], 06/23/2023 08:14:06 06/23/20 23 06/23/2023 urina lysis , dipst ick Unknown Analyte Normal Not Available [facility] [address] [place], [address], 06/23/2023 08:14:06 06/23/20 23 06/23/2023 urina lysis , dipst ick Unknown Analyte Negati ve Not Available [facility] [address] [place], [address], 06/23/2023 08:14:06 06/23/20 23 06/23/2023 urina lysis , dipst ick Unknown Analyte Normal Not Available [facility] [address] [place], [address], 06/23/2023 08:14:06 06/23/20 23 06/23/2023 urina lysis , dipst ick Unknown Analyte Negati ve Not Available [facility] [address] [place], [address], 06/23/2023 08:14:06 06/23/20 23 06/23/2023 urina lysis , dipst ick Unknown Analyte Negati ve Not Available [facility] [address] [place] [address], [address], 06/23/2023 08:14:06 06/23/20 23 06/23/2023 urina lysis , dipst ick Unknown Analyte Clean Catch Not Available [facility] [address] [place], [address], 06/23/2023 08:14:06 06/23/20 23 06/23/2023 urina lysis , dipst ick Unknown Analyte Visual Not Available [facility] [address] [place], [address], 06/23/2023 08:14:06 06/30/20 23 06/30/2023 urina lysis panel , auto Unknown Analyte Clean Catch Not Available [facility] [address], [address], 06/30/2023 14:46:14 06/30/20 23 06/30/2023 urina lysis panel , auto Unknown Analyte Yellow Not Available [facility] [address] [place] [address], [place], [address], 06/30/2023 14:46:14 06/30/20 23 06/30/2023 urina lysis panel , auto Unknown Analyte Clear Not Available [facility] [address] [place] [address], [place], [address], 06/30/2023 14:46:14 06/30/20 23 06/30/2023 urina lysis panel , auto Unknown Analyte 1.[address] [facility] [address] [place] [address], [address], 06/30/2023 14:46:14 06/30/20 23 06/30/2023 urina lysis panel , auto Unknown Analyte 1.003- 1.035 Not Available [facility] [address] [place] [address], [place], [address], 06/30/2023 14:46:14 06/30/20 23 06/30/2023 urina lysis panel , auto Unknown Analyte 5.[address] [facility] [address] [place] [address], [address], 06/30/2023 14:46:14 06/30/20 23 06/30/2023 urina lysis panel , auto Unknown Analyte 5.0-8. 0 Not [address] [facility] [address] [place] [address], [address], 06/30/2023 14:46:14 06/30/20 23 06/30/2023 urina lysis panel , auto Unknown Analyte 75 Patrica/ul (+) Not Available [facility] [address] [place] [address] [place], [address], 06/30/2023 14:46:14 06/30/20 23 06/30/2023 urina lysis panel , auto Unknown Analyte Negati ve Not Available [facility] [address] [place] [address], [place], [address], 06/30/2023 14:46:14 06/30/20 23 06/30/2023 urina lysis panel , auto Unknown Analyte Negati ve Not Available [facility] [address] [place] [address], [address], 06/30/2023 14:46:14 06/30/20 23 06/30/2023 urina lysis panel , auto Unknown Analyte Negati ve Not Available [facility] [address] [place] [address], [address], 06/30/2023 14:46:14 06/30/20 23 06/30/2023 urina lysis panel , auto Unknown Analyte Trace Not Available [facility] [address] [place] [address], [address], 06/30/2023 14:46:14 06/30/20 23 06/30/2023 urina lysis panel , auto Unknown Analyte Negati ve Not Available [facility] [address] [place] [address], [address], 06/30/2023 14:46:14 06/30/20 23 06/30/2023 urina lysis panel , auto Unknown Analyte Normal Not Available [facility] [address] [place] [address], [address], 06/30/2023 14:46:14 06/30/20 23 06/30/2023 urina lysis panel , auto Unknown Analyte Normal Not Available [facility] [address] [place] [address], [address], 06/30/2023 14:46:14 06/30/20 23 06/30/2023 urina lysis panel , auto Unknown Analyte 15 mg/dl (Sm) Not Available [facility] [address] [place] [address], [place], [address], 06/30/2023 14:46:14 06/30/20 23 06/30/2023 urina lysis panel , auto Unknown Analyte Negati ve Not Available [facility] [address] [place] [address], [place], [address], 06/30/2023 14:46:14 06/30/20 23 06/30/2023 urina lysis panel , auto Unknown Analyte Normal Not Available [facility] [address] [place] [address], [place], [address], 06/30/2023 14:46:14 06/30/20 23 06/30/2023 urina lysis panel , auto Unknown Analyte Normal 1 mg/dl Not Available [facility] [address] [place] [address], [place], [address], 06/30/2023 14:46:14 06/30/20 23 06/30/2023 urina lysis panel , auto Unknown Analyte 1 mg/dl (+) Not Available [facility] [address] [place] [address], [place], [address], 06/30/2023 14:46:14 06/30/20 23 06/30/2023 urina lysis panel , auto Unknown Analyte Negati ve Not Available [facility] [address] [place] [address], [address], 06/30/2023 14:46:14 06/30/20 23 06/30/2023 urina lysis panel , auto Unknown Analyte 250 Bandar/ul Not Available [facility] [address] [place] [address], [place], [address], 06/30/2023 14:46:14 06/30/20 23 06/30/2023 urina lysis panel , auto Unknown Analyte Negati ve Not Available [facility] [address] [address], [place], [address], 06/30/2023 14:46:14 07/04/20 23 07/13/2023 STONE JUAN SIS composition SEE BELOW normal Calci um Oxala te Dihyd rate (Wedd ellit e) 15% Calci um Oxala te Monoh ydrat e (Whew ellit e) 70% Carbo lisy Apati te (Dahl lite) 15% See Note 1 Not Available [facility] [address] [place], [address], 07/13/2023 14:59:00 07/04/20 23 07/13/2023 STONE JUAN SIS weight 0.017 g normal Note 1 This test was devel oped and its juan tical perfo rmanc e joe cteri stics have been deter mined by [facility]. It has not been clear ed or appro john by the FDA. This assay has been valid ated pursu ant to the CLIA regul ation s and is used for clini cody purpo ses. Not Available [facility] [address] [place], [address], 07/13/2023 14:59:00 07/05/20 23 07/05/2023 urina lysis , dipst ick Unknown Analyte Yellow Not Available [facility] [address] [place], [address], 07/05/2023 16:15:03 07/05/20 23 07/05/2023 urina lysis , dipst ick Unknown Analyte Clear Not Available [facility] [address] [place], [address], 07/05/2023 16:15:03 07/05/20 23 07/05/2023 urina lysis , dipst ick Unknown Analyte 1.025 Not Available [facility] [address] [place], [address], 07/05/2023 16:15:03 07/05/20 23 07/05/2023 urina lysis , dipst ick Unknown Analyte 5.0 Not Available [facility] [address] [place], [address], 07/05/2023 16:15:03 07/05/20 23 07/05/2023 urina lysis , dipst ick Unknown Analyte Negati ve Not Available [facility] [address] [place] [address], [address], 07/05/2023 16:15:03 07/05/20 23 07/05/2023 urina lysis , dipst ick Unknown Analyte Negati ve Not Available [facility] [address] [place] [address], [address], 07/05/2023 16:15:03 07/05/20 23 07/05/2023 urina lysis , dipst ick Unknown Analyte Negati ve Not Available [facility] [address] [place] [address], [address], 07/05/2023 16:15:03 07/05/20 23 07/05/2023 urina lysis , dipst ick Unknown Analyte Normal Not Available [facility] [address] [place] [address], [address], 07/05/2023 16:15:03 07/05/20 23 07/05/2023 urina lysis , dipst ick Unknown Analyte Negati ve Not Available [facility] [address] [place] [address], [address], 07/05/2023 16:15:03 07/05/20 23 07/05/2023 urina lysis , dipst ick Unknown Analyte Normal Not Available [facility] [address] [place], [address], 07/05/2023 16:15:03 07/05/20 23 07/05/2023 urina lysis , dipst ick Unknown Analyte Negati ve Not Available [facility] [address] [place], [address], 07/05/2023 16:15:03 07/05/20 23 07/05/2023 urina lysis , dipst ick Unknown Analyte Negati ve Not Available [facility] [address] [place], [address], 07/05/2023 16:15:03 07/05/20 23 07/05/2023 urina lysis , dipst ick Unknown Analyte Clean Catch Not Available [facility] [address] [place], [address], 07/05/2023 16:15:03 07/05/20 23 07/05/2023 urina lysis , dipst ick Unknown Analyte Visual Not Available [facility] [address] [place], [address], 07/05/2023 16:15:03 06/27/20 23 06/20/2023 CT, abdom en, w/o contr ast No observ ation record ed. BARCODE Not Available 2022 16:13:31 07/28/19 24 07/28/2023 CT, abdom en + pelvi s, w/wo contr ast [facility] [address] [place] [address] Mitesh joe Name: JV Wong : [birth year] [...] 350 (1 x 100 mL bottle of [facility] [address]-9 1). None was wasted and discar [...] Ambar Pedro MD on 024 11:54 AM [email or web address] [facility] [address] , [place], [address], 08/01/2023 10:26:29 Result Notes Documentation Provider Name and Address Organization Details Recorded Time Ct, Abdomen + Pelvis, W/wo Contrast : [address] [place] [address] Patient Name: YOON HERNANDEZ Patient : 1980 Patient Ordering Provider: KENNETH HERNANDEZ EXAM DATE: 07/28/2023 EXAM: CT ABD/PELVIS W/WO CONTRAST CLINICAL INFORMATION: Lithotripsy 2022. Persistent left flank pain. Hydronephrosis on outside CT TECHNIQUE: No POC testing for eGFR was performed due to absence of risk factors. Multiple axial CT images of the abdomen were obtained before and in the combined nephrographic and excretory phases after a split injection of 100 mL Omnipaque 350 (1 x 100 mL bottle of [facility] [address]-52). None was wasted and discarded. Bowel was marked with water. COMPARISON: Outside CT 06/20/[address] ABDOMEN: LOWER THORAX: Lung bases are clear. No obvious cardiac abnormality. URINARY TRACT: Both kidneys are normal in location, size, shape, outline and parenchymal thickness. 2 mm nonobstructing stones are seen in the right kidney. 1 mm nonobstructing stones are seen in the left kidney. Previously seen left distal ureteric stones are present. Bilateral parenchymal enhancement is normal without delay. No focal renal lesion is seen. There is adequate opacification of collecting systems and ureters without dilatation. Previously seen left hydronephrosis is not visualized on today's examination. No filling defect is seen. Urinary bladder is normal in outline and wall thickness without filling defect or mass. OTHER UPPER ABDOMINAL ORGANS: Gallbladder is surgically absent. Liver, spleen, pancreas, and adrenals are normal. BOWEL AND MESENTERY: Stomach, small bowel and colon are normal. No mesenteric lymphadenopathy or peritoneal free fluid. RETROPERITONEUM: Aorta, IVC and their branches are patent and normal. No retroperitoneal lymphadenopathy. ABDOMINAL WALL AND SKELETAL STRUCTURES: Normal. FINDINGS ON CT PELVIS: PELVIC CAVITY: Rectum and sigmoid colon are normal. Uterus is surgically absent. Ovaries are not visualized. No pelvic or inguinal lymphadenopathy, mass or fluid. MUSCULOSKELETAL STRUCTURES: Normal. IMPRESSION: 1. Small nonobstructing bilateral renal stones. 2. Previously seen distal left ureteric stone is not present any longer. Previously seen left hydronephrosis is resolved. 3. No new abnormality. Interpreted By: Maciej Pedro MD Shira neal [facility] 08/01/2023 10:26:29 Problems Name Problem SNOMED Code Status Onset Date Resolution Date Notes Provider Name and Address Organization Details Recorded Time Blood in urine 92665925 Active 2015 Provide r: Mika Schaefer;[facility]: Active Not Available [facility] 6 08:00:13 Microscopic hematuria 165192511 Active 2015 Provide r: Mika Schaefer;[facility]: Active Not Available [facility] 6 08:00:13 Kidney stone 44237873 Active 2015 Provide r: Mika Schaefer;[facility]: Active Not Available [facility] 6 08:00:13 Problem Notes Documentation Provider Name and Address Organization Details Recorded Time Neurologist Consult Note : [facility] [address] [facility] [id number], MICHELLE (id #[id number], : 1980) [facility] [address] [facility] [address] [place] [address] Date: 10/30/2019RE: Yoon Hernandez, : 1980, PT ID #[id number] Arrington MD / [facility], [facility], I would like to thank you for referring Yoon Hernandez to our practice for consultation and evaluation. I have enclosed a copy of the office evaluation for your records. Sincerely, Electronically Signed by: Sherron COOK Reason/DateNone recorded 10/30/2019 - 01:00PM - NEUROLOGY [facility] History of Present Illness Visit today is [...] pulsatile tinnitus. She works third shift at [employer] in [place]. sleeps during the day, variably well.other systems [...] knows to call anytime if needed. 1. PoeijikqM39.909: Migraine, unspecified, not intractable, without status migrainosus Aimovig Autoinjector 140 mg/mL subcutaneous auto-injector -Inject 1 mL every month by subcutaneous route for 30 days. Qty: 1 1 mL syringe(s) Refills: 5 Pharmacy: [facility] rizatriptan 10 mg tablet -one at onset of migraine; may repeat in 2 hours if needed max 2 in 24 hrs. Qty: 9 tablet(s) Refills: 6 Pharmacy: [facility] 2. Migraine without auraG43.009: Migraine without aura, not intractable, without status migrainosus Return to Office to see NATALY DEL VALLE MD at [facility]UROLOGY [facility] on or around 12/11/2019 BELIA ARRINGTON MD [address] [place] [address], [phone], [facility] 11/01/2019 08:54:00 Urology Note : [facility] [address] [place] [id number], Michelle (id #[id number], : 1980) [facility] [address] [place] [phone] Date: 06/16/2023RE: Yoon Hernandez, : 1980, PT ID #[id number] Arrington MD, I would like to thank you for referring Yoon Hernandez to our practice for consultation and evaluation. I have enclosed a copy of the office evaluation for your records. Sincerely, Electronically Signed by: SHERICE SLOAN APRN, NPEncounter Reason/Date kidney stones 06/16/2023 - 09:00AM - UROLOGY [facility] History of Present [id number]-[id number] female with history of urolithiasis. She is a previous patient of Dr. Hein. She underwent right ESWL in 2018. Follow-up KUBs were negative for stones. She noticed increased suprapubic pressure about 2 weeks ago. She thought she had a yeast infection and has been treating herself with tbwm-kuk-rujgmnn yeast cream. On Monday evening, she developed severe left flank pain. She was seen in the ER at [facility]. She says a CT scan showed [...] Residual; Ultrasound:Post Void Residual Source: Ultrasound Volume: 24mlAssessment/Vuex98-utkb-ug d female with history of urolithiasis. She was seen in the ER at [facility] 06/11/2023. She was told she has 2 left ureteral stones. She was discharged home with hydrocodone and Flomax. She will continue taking Flomax and use hydrocodone as needed for pain. She was given a strainer and specimen cup in case she is able to catch the stones. We have requested the CT records from [facility]. I will contact her if the [...] if symptoms have not resolved. 1. Kidney dposiA59.0: Calculus of kidney URINALYSIS, DIPSTICK - Specimen source: Urine clean catch Urine Collection Type: Midstream URINE MICROSCOPIC, CULTURE IF INDICATED - Specimen source: URINE, CLEAN CATCH tamsulosin 0.4 mg capsule - Take 1 capsule(s) every day by oral route for 30 days. Qty: (30) capsule Refills: 1 Pharmacy: [facility] hydrocodone 5 mg-acetaminophen 325 mg tablet - Take 1 tablet(s) every 6 hours by oral route for 5 days. Qty: (20) tablet Refills: 0 Pharmacy: [facility] CT R/O KIDNEY STONES (A/P W/O) Weight (lbs): 186 Place of service: OFFICE Procedure code: 26485 URINALYSIS, DIPSTICK Urine Collection Type: Midstream Urinalysis Dipstick (auto) Result Reference Range Color Yellow Appearance Clear Specific gravity 1.020 pH 5.0 Leukocyte Esterase Negative Nitrite Negative Protein Negative Glucose Normal Ketones Negative Urobilinogen Normal Bilirubin Negative Blood Negative Specimen Source Clean Catch Urine Dip Method Visual Comments Return to Office Patient will return to the office as needed BEATA Carbajal [facility] 09/18/2023 11:27:19 Urology Note : [address] [address]JULJRB, Michelle (id #[id number], : 1980) [address] [address] Encounter Summary - Progress Note Date Printed: 06/23/2023 Documents sent via fax will include the [...] received this fax in error, please visit [email or web address] to notify the sender and confirm that the information will be destroyed. If you do not have internet access, please call to notify the sender and confirm that the information will be destroyed. Thank you for your attention and cooperation. [ID:[id number]] Patient Yoon Hernandez (42yo, F) #[id number] 1980 Patient Demographics: Address [address] [place] [phone] Work Phone Encounter Notes: Encounter Reason/Date left ureteral stones 06/23/2023 - 09:40AM - UROLOGY SB History of Present Vezzzet62-sfhj-ucv female with history of urolithiasis. She is a previous patient of Dr. Hein. She underwent right ESWL in 2018. Follow-up KUBs were negative for stones. She noticed increased suprapubic pressure about 2 weeks ago. She thought she had a yeast infection and has been treating herself with jnls-sch-ekwctvj yeast cream. On Monday evening, she developed severe left flank pain. She was seen in the ER at [facility]. She says a CT scan showed 2 left ureteral stones. She was told 1 stone was in the mid ureter and the other was closer to the bladder. She was given hydrocodone and Flomax.She is a smoker. HPI: She returns today for follow-up with left distal uretral stones. She was seen by me one week ago.A CT scan at [facility] 3 weeks ago showed 2 left ureteral [...] reports no rashes. She reports no fatigue. [id number] 09:55 Ht: 5 ft 6 in Wt: [...] UA negative. Procedure DocumentationNone recorded Assessment and Juak57-afmf-pvb female with history of urolithiasis. She was seen in the ER at [facility] 06/11/2023. She was told she has [...] medication as needed. Go to ER in [place] if symptoms fail to improve or worsen. 1. Kidney mwludA35.0: Calculus of kidney URINALYSIS, DIPSTICK - Specimen source: Urine clean catch oxycodone-acetaminophen 7.5 mg-325 mg tablet - Take 1 tablet(s) every 6 hours by oral route for 5 days. Qty: (20) tablet Refills: 0 Pharmacy: [facility] ketorolac 10 mg tablet - Take 1 tablet(s) every 6 hours by oral route for 5 days. Qty: (20) tablet Refills: 0 Pharmacy: [facility] ketorolac 30 mg/mL injection solution - Inject 1 mL by intravenous route. Quantity: (30) mg Lot #: [id number] Route: Intramuscular Site: Hip, Left Masticator: [id number] Exp Date: 06/02/2023 Administered URINALYSIS, DIPSTICK Urinalysis Dipstick (auto) Result [...] every month by subcutaneous route for 30 days.12/08/19 filled [facility] Aimovig Autoinjector 70 mg/mL subcutaneous auto-injectorwas given samples took 3-4 wreeks ago10/30/19 entered Darlyn Bañuelos azithromycin 250 mg qikepq57/31/23 filled surescripts cephALEXin 500 mg azrchnh95/13/20 filled [facility] diclofenac sodium 50 mg tablet,delayed /29/20 filled [facility] estradioL 2 mg meeyee74/11/20 filled [facility] fluconazole 150 mg /03/23 filled surescripts fluocinolone 0.025 % topical /21/20 filled [facility] HYDROcodone 5 mg-acetaminophen 325 mg tabletTake 1 tablet(s) every 6 hours by oral route for 5 days.06/16/23 prescribed SHERICE SLOAN APRN ibuprofen 800 mg losarq82/04/23 filled surescripts ketorolac 10 mg tabletTake 1 tablet(s) every 6 hours by oral route for 5 days.06/23/23 prescribed SHERICE SLOAN APRN ketorolac 30 mg/mL injection solutionInject 1 mL by intravenous route. Administer Note: injection given without gviumakqnrad90/15/23 administered SHERICE SLOAN APRN meloxicam 7.5 mg seylmf77/14/23 filled surescripts methocarbamoL 750 mg nqqecm22/14/23 filled surescripts ondansetron 4 mg disintegrating fxtnij94/04/23 filled surescripts oxyCODONE-acetaminophen 7.5 mg-325 mg tabletTake 1 tablet(s) every 6 hours by oral route for 5 days.06/23/23 prescribed SHERICE SLOAN APRN Paxlovid 300 mg (150 mg x 2)-100 mg tablets in a dose packFOLLOW PACKAGE CBKGOAMXNR25/31/23 filled surescripts predniSONE 20 mg /20/20 filled [facility] rizatriptan 10 mg tabletone at onset of migraine; may repeat in 2 hours if needed max 2 in 24 hrs.10/30/19 filled [facility] sucralfate 1 gram weahtb14/20/20 filled [facility] Synthroid 50 mcg rjucop27/30/20 filled [facility] tamsulosin 0.4 mg capsuleTake 1 capsule(s) every day by oral route for 30 days.06/17/23 filled surescripts venlafaxine ER 75 mg capsule,extended release 24 hr07/22/22 filled surescripts Family HistoryReviewed Family History Unspecified Relation - Diabetes mellitus - Family history of cancer Mother - Disorder of thyroid gland Father - Disorder of thyroid gland Past Medical HistoryReviewed Past Medical History Anxiety Disorder:Y Vaccine HistoryNone recorded Electronically Signed by: SHERICE SLOAN APRN, SAILING INSTRUCTOR Rosalia Chase [facility] 09/18/2023 11:10:06 Urology Note : [address] [address]LJRSVZ, Michelle (id #[id number], : 1980) [address] [address] Encounter Summary - Progress Note Date Printed: 07/07/2023 Documents sent via fax will include the [...] received this fax in error, please visit [email or web address] to notify the sender and confirm that the information will be destroyed. If you do not have internet access, please call to notify the sender and confirm that the information will be destroyed. Thank you for your attention and cooperation. [ID:[id number]] Patient Yoon Hernandez (42yo, F) #[id number] 1980 Patient Demographics: Address [address] [place] [phone] Work Phone Encounter Notes: Encounter Reason/Date Pain after laser lithotripsy 07/05/2023 - 03:45PM - UROLOGY SB History of Present IllnessDiagnosis: Urolithiasis 42-year-old white female with a history of urolithiasis. She saw Dr. Schaefer in 2016 for back pain and bilateral renal stones. She underwent right ESWL [place] [address] Hein. Stone analysis showed calcium oxalate and carbonate appetite. A Follow-up KUB showed no stones. She had suprapubic pressure and left flank pain. She went to the [facility] emergency room twice. CT scans 05/29/2023 and 06/28/2023 showed 2 left distal ureteral stones up to 5 mm and bilateral small renal stones. She underwent left ureteroscopic laser lithotripsy and stent 06/30/2023. 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 HPI: The patient is here with her for continued pain after laser lithotripsy last week. The stent came out partially the following day and she subsequently removed it. She went to the [facility] emergency room 07/01/[address] [...] no fever. She reports no difficulty urinating. [id number] 16:22 Ht: 5 ft 6 in Wt: 186 lbs BMI: 30 Results/Interpretations URINALYSIS, DIPSTICK Urinalysis Dipstick (auto) Result Reference Range Color Yellow Appearance Clear Specific gravity 1.025 pH 5.0 Leukocyte Esterase Negative Nitrite Negative Protein Negative Glucose Normal Ketones Negative Urobilinogen Normal Bilirubin Negative Blood Negative Specimen Source Clean Catch Urine Dip Method Visual Comments Physical ExamNone recorded Procedure DocumentationNone recorded Assessment and Gatn78-eqbm-cpe female with a history of urolithiasis. She [...] if she does not improve. 1. Kidney aspeaT57.0: Calculus of kidney URINALYSIS, DIPSTICK - Specimen source: Urine clean catch 2. Renal vizonP20: Unspecified renal colic tamsulosin 0.4 mg capsule - Take 1 capsule(s) every day by oral route in the evening for 30 days. Qty: (30) capsule Refills: 1 Pharmacy: [facility] 3. VpquynrwyslqqtL19.30: Unspecified hydronephrosis URINALYSIS, DIPSTICK Urinalysis Dipstick (auto) [...] every month by subcutaneous route for 30 days.12/08/19 filled [facility] Aimovig Autoinjector 70 mg/mL subcutaneous auto-injectorwas given samples took 3-4 wreeks ago10/30/19 entered Darlyn Bañuelos cefdinir 300 mg sbmocrl31/26/23 filled surescripts diclofenac sodium 50 mg tablet,delayed tpjdgoz10/29/20 filled [facility] estradioL 2 mg sbbtaq62/11/20 filled [facility] fluconazole 150 mg gehoeu46/03/23 filled surescripts fluocinolone 0.025 % topical rrqyczmc63/21/20 filled [facility] HYDROcodone 5 mg-acetaminophen 325 mg tabletTake 1 tablet(s) every 6 hours by oral route for 5 days.06/16/23 prescribed SHERICE SLOAN APRN ibuprofen 800 mg qwjjtu06/04/23 filled surescripts ketorolac 10 mg tabletTake 1 tablet(s) every 6 hours by oral route for 5 days.06/23/23 filled su[facility]cripts ketorolac 30 mg/mL injection solutionInject 1 mL by intravenous route. Administer Note: injection given without hrqjvbezyzuy74/15/23 administered SHERICE SLOAN APRN meloxicam 7.5 mg /14/23 filled surescripts methocarbamoL 750 mg /14/23 filled surescripts ondansetron 4 mg disintegrating ortwkt41/04/23 filled surescripts oxyCODONE-acetaminophen 5 mg-325 mg tabletTake 1 tablet(s) every 4-6 hours by oral route as needed for 3 days.06/30/23 filled surescripts oxyCODONE-acetaminophen 7.5 mg-325 mg tabletTake 1 tablet(s) every 6 hours by oral route for 5 days.06/23/23 prescribed SHERICE SLOAN APRN Paxlovid 300 mg (150 mg x 2)-100 mg tablets in a dose packFOLLOW PACKAGE TTJRPESHKX58/31/23 filled surescripts predniSONE 20 mg amkhdl08/20/20 filled [facility] rizatriptan 10 mg tabletone at onset of migraine; may repeat in 2 hours if needed max 2 in 24 hrs.10/30/19 filled [facility] sucralfate 1 gram uhnhtc19/20/20 filled [facility] Synthroid 50 mcg sflejs38/30/20 filled [facility] tamsulosin 0.4 mg capsuleTake 1 capsule(s) every day by oral route in the evening for 30 days.07/05/23 prescribed KENNETH HERNANDEZ MD venlafaxine ER 75 mg capsule,extended release 24 hr07/22/22 filled surescripts Family HistoryReviewed Family History Unspecified Relation - Diabetes mellitus - Family history of cancer Mother - Disorder of thyroid gland Father - Disorder of thyroid gland Past Medical HistoryReviewed Past Medical History Anxiety Disorder:Y Kidney Stones:Y Vaccine HistoryNone recorded Electronically Signed by: KENNETH HERNANDEZ MD Rosalia neal [facility] 09/18/2023 11:26:29 Procedures Surgical History Date Name Laterality Status Provider Name and Address Organization Details Recorded Time 06/16/20 23 Post Void Residual; Ultrasound completed Korin Fuller [facility] 06/16/2023 09:23:37 07/26/19 20 Tympanogram completed NICOLE TROTTER [address] [place], [address], [facility] 07/26/2019 17:03:11 07/26/19 20 Audiogram completed NICOLE TROTTER [address] [place], [address], [facility] 07/26/2019 17:03:10 07/16/19 20 Endoscopy Nasal; Diagnostic completed BELIA ARRINGTON MD [address] [place], [address], [facility] 07/16/2019 14:10:05 09/08/19 18 EXTRA CORPOREAL SHOCK WAVE LITHOTRIPSY (SURG) completed Kunal Kevin [facility] 11/01/2017 10:40:36 Cholecystectomy completed Hazel Sandoval [facility] 08/30/2017 11:05:27 delivery completed Hazel Sandoval [facility] 08/30/2017 11:05:34 Hysterectomy completed Hazel Sandoval [facility] 08/30/2017 11:05:39 Kidney Stones completed KENNETH HERNANDEZ MD [address] [place], [address], [facility] 06/30/2023 16:38:12 Imaging Results None recorded. Procedure Notes None recorded. Medical Equipment None [...] e 50 mcg/actua tion nasal spray,carol pension [place] 2 sprays twice a day by intranas [...] Updated DateTime 10/30/2019 167.64 cm Darlyn Bañuelos [facility] 10/30/2019 12:42:44 Date Recorded Body height Body mass index (BMI) Body weight Provider Name and Address Organization Details Last Updated DateTime 06/16/2023 167.64 cm 30 kg/m2 44463.18 g [facility] 06/16/2023 09:20:38 Date Recorded Body height Body mass index (BMI) Body weight Provider Name and Address Organization Details Last Updated DateTime 06/23/2023 167.64 cm 30 kg/m2 80834.18 g [facility] 06/23/2023 09:55:20 Date Recorded Body height Body mass index (BMI) Body weight Provider Name and Address Organization Details Last Updated DateTime 07/05/2023 167.64 cm 30 kg/m2 83269.18 g [facility] 07/05/2023 16:22:42 Social History Question Answer Notes LastModified by Organizat ion Details LastModified Time Tobacco Smoking Status Current Every Day Smoker Hazel Sandoval [facility] 08/30/2017 11:04:58 How Much Tobacco Do You Chew? None Information not available 07/16/2019 Marital Status [email or web address] Informatio n not available 08/30/2017 What Was [...] is your level of alcohol consumption? None [email or web address] Information not available 08/30/2017 Do you or have you ever used smokeless tobacco? 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 Family History Relationship Description Onset Age of this Age Resolved Age Notes LastModified by Organization Details LastModified Time Unspecified Relation Diabetes mellitus Not available 2017 11:04:45 Unspecified Relation Family history of malignant neoplasm [email or web address] Not available 2017 11:04:56 Mother Disorder of thyroid gland Not available 2019 09:53:53 Father Disorder of thyroid gland Not available 2019 09:53:53 Medical History Condition Response Kidney Stones Y Anxiety Disorder Y Migraines Y Bleeding Disorder N Anesthesia Complications N Diabetes N Hypertension N Gynecological HistoryNo gynecological history recorded. Obstetrics History GPAL:G 0 P 0 0 0 0 Past Encounters Encounter ID Performer Location Encounter Start Date Encounter Closed Date Diagnosis/Indication Diagnosis SNOMED-CT Code Diagnosis ICD10 Code Diagnosis Note [id number] KEVIN HEIN MD UROLOGY [address] [place] [address] 08/30/2017 10:34:06 09/04/2017 08:26:34 Kidney stone 95138450 N20.0 Pt with persistent R flank pain. [...] Will set up ESWL. Blood in urine 06972375 R31.9 [id number] KEVIN HEIN MD UROLOGY [address] [place] [address] 09/13/2017 13:28:22 09/25/2017 08:46:17 Kidney stone 25128354 N20.0 KUB difficult to see the stone due to cartilagin ous changes of ribs. Discussed that the stone was in a non-obstru cting position prior to ESWL and unlikely to make a difference in her pain. She now has bilateral mid back pain and MRI recently showed no significan t abnormalit ies. Discussed conservati ve options of musculoske letal pain. [id number] BELIA ARRINGTON MD [facility] [address] [place] [address] 07/16/2019 09:21:10 07/18/2019 18:22:05 Sphenoidal sinusitis 14324322 J32.3 -REC. RIGHT SPHENOIDOT KENIA/ETHMOI DECTOMY FOR DIAGNOSIS AND TREATMENT Asymmetric al sensorineural hearing loss 538830159 H90.5 -LEFT SNHL MILD [id number] NICOLE TROTTER [facility] [address] [place] [address] 07/26/2019 17:02:34 07/26/2019 17:04:05 Sensorineural hearing loss in left ear 6369045433 9109 H90.42 Bilateral tinnitus 42020 26210 102 H93.13 Ear pressu re sensation 819645811 H93.8X3 Dizziness and giddiness 163435460 R42 [id number] BELIA ARRINGTON MD [facility] [address] [place] [address] 07/30/2019 09:58:13 08/02/2019 17:10:20 Sphenoidal sinusitis 21041204 J32.3 -REC. RIGHT SPHENOIDOT KENIA/ETHMOI DECTOMY FOR DIAGNOSIS AND TREATMENT Asymmetric al sensorineural hearing loss 062484784 H90.5 -LEFT SNHL MILD Headache 01820145 R51 Anxiety 00680114 F41.9 Posterior rhinorrhea 758 43565 R09.82 [id number] JOEY CARSON III, MD [facility] [address] [place] [address] 08/09/2019 13:31:16 08/12/2019 09:23:00 Chronic sinusitis 58985217 J32.9 Nasal mucosa dry 1374141 2 J34.89 Tobacco user 576706401 Z 72.0 Hypertroph y of nasal turbinates 04565970 J34.3 Hypertroph y of tonsils 39265271 J35.1 Cryptic tonsil 571832687 J35.8 Headache 52664934 R51 [id number] BELIA ARRINGTON MD [facility] [address] [place] [address] 08/14/2019 09:06:57 08/14/2019 10:17:18 Chronic sinusitis 47440808 J32.9 Nasal mucosa dry 3162013 2 J34.89 Tobacco user 976385169 Z 72.0 Hypertroph y of nasal turbinates 89504030 J34.3 Headache 05107347 R51 Sneezing 79430663 R06.7 Cough 51891417 R05 Posterior rhinorrhea 758 37591 R09.82 [id number] NATALY DEL VALLE MD NEUROLOGY [facility] [address] [place] [address] 10/30/2019 12:42:30 10/30/2019 13:30:35 Migraine 45123872 G43.909 Migraine without aura 56 612402 G43.009 [id number] SHERICE SLOAN APRN UROLOGY [facility] [address] [place] [address] 06/16/2023 08:38:40 06/16/2023 11:09:42 Kidney stone 96785697 N20.0 [id number] SHERICE SLOAN APRN UROLOGY [facility] [address] [place] [address] 06/23/2023 09:49:54 06/23/2023 12:40:22 Kidney stone 72429341 N20.0 [id number] KENNETH HERNANDEZ MD SURGERY SCHEDULE [address] [place] [address] 06/30/2023 13:56:36 06/30/2023 13:59:45 Ureteric stone 44384433 N20.1 Postoperative pain 76798 9007 G89.18 [id number] KENNETH HERNANDEZ MD UROLOGY [facility] [address] [place] [address] 07/05/2023 15:35:48 07/08/2023 04:14:27 Kidney stone 43587039 N20.0 Renal colic 6336159 N23 Hydronephrosis 30914224 N13.30 Health Concerns Section Related Observation LastModified by Organization Detai ls LastModified Time None Recorded Concern Status LastModified by Organization Details LastModified Time None Recorded Advance Directives Directive None Recorded Payers Insurance Date Sequence Insurance Name Policy Number Policy Reilly Covered Member ID Reilly Member ID Guarantor Name 07/31/2023 1 [place] [id number] Kash Jing [id number] Yoon Hernandez 08/29/2017 1 *SELF PAY* Gladys [...] tried triptans. NATALY DEL VALLE MD [address] [place], [address], [facility] 10/30/2019 13:27:58 06/16/2023 text/html 42-year-old elías huber with history of urolithiasis. She is a previous patient of Dr. Hein. She underwent right ESWL in 2018. Follow-up KUBs were negative for stones. She noticed increased suprapubic pressure about 2 weeks ago. She thought she had a yeast infection and has been treating herself with obap-zff-reasccx yeast cream. On Monday evening, she developed severe left flank pain. She was seen in the ER at [facility]. She says a CT scan showed 2 left ureteral stones. She was told 1 stone was in the mid ureter and the other was closer to the bladder. She was given hydrocodone and Flomax. She says left flank pain has resolved but she continues to have suprapubic pain. She has not passed any stones to her knowledge. She is a smoker. SHERICE SLOAN, MINNA [address] [place], [address], [facility] 06/16/2023 09:32:59 06/23/2023 text/html 42-year-old elías huber with history of urolithiasis. She is a previous patient of Dr. Hein. She underwent right ESWL in 2018. Follow-up KUBs were negative for stones. She noticed increased suprapubic pressure about 2 weeks ago. She thought she had a yeast infection and has been treating herself with ekji-vzd-qqxbnii yeast cream. On Monday evening, she developed severe left flank pain. She was seen in the ER at [facility]. She says a CT scan showed 2 left ureteral stones. She was told 1 stone was in the mid ureter and the other was closer to the bladder. She was given hydrocodone and Flomax.She is a smoker. HPI: She returns today for follow-up with left distal uretral stones. She was seen by me one week ago.A CT scan at [facility] 3 weeks ago showed 2 left ureteral [...] miserable and unable to work. SHERICE SLOAN, COMMUNITY ARTIST [address] [place], [address], [facility] 06/23/2023 10:52:32 07/05/2023 text/html Diagnosis: Urolithiasis 42-year-old white female with a history of urolithiasis. She saw Dr. Schaefer in 2016 for back pain and bilateral renal stones. She underwent right ESWL [place] [address] Hein. Stone analysis showed calcium oxalate and carbonate appetite. A Follow-up KUB showed no stones. She had suprapubic pressure and left flank pain. She went to the [facility] emergency room twice. CT scans 05/29/2023 and 06/28/2023 showed 2 left distal ureteral stones up to 5 mm and bilateral small renal stones. She underwent left ureteroscopic laser lithotripsy and stent 06/30/2023. 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 HPI: The patient is here with her for continued pain after laser lithotripsy last week. The stent came out partially the following day and she subsequently removed it. She went to the [facility] emergency room 07/01/[address] [...] 5 mg and ketorolac. KENNETH HERNANDEZ MD [address] [place] [address], [address], [facility] 07/07/2023 09:05:41 OBGyn Episode No OBEpisode recorded.
[2024-12-21 04:13] LABS: Microscopic, Urine URINE MICROSCOPIC (MICROSCOPIC)
[2024-12-21 04:13] LABS: HCG Qualitative, Serum Negative (Negative)
[2024-12-21] MEDS: IOPAMIDOL-370 (76%);100ML BOTTLE 75 ML IV (04:22)
[2024-12-21] MEDS: SODIUM CHLORIDE 0.9% 10ML SYR (RAD ONLY) 10 ML IV (04:22)
[2024-12-21 04:32] VITALS: BP 150/104; PULSE 68; O2SAT 100
[2024-12-21] MEDS: TAMSULOSIN 0.4MG CAPSULE 0.4 MG PO (04:40)
[2024-12-21 05:00] VITALS: BP 134/93; PULSE 57; O2SAT 100
[2024-12-21 05:18] LABS: Appearance,Urine CLOUDY (Clear); Bilirubin,Urine Negative (Negative); Blood, Urine 3+ (Negative); Color,Urine YELLOW (Yellow); Glucose,Urine (UA) Negative (Negative); Ketones,Urine Negative (Negative); Leukocyte Esterase,Urine TRACE (Negative); Nitrate,Urine Negative (Negative); Protein,Urine 1+ (Negative); Specific Gravity, Urine >= 1.030 (1.005-1.030); Urobilinogen,Urine 0.2 EU/dl (0.2)
[2024-12-21 05:30] VITALS: BP 123/84; PULSE 57; O2SAT 100
[2024-12-21 05:49] LABS: RBC,Urine 50-100 #/hpf (0-3); WBC,Urine Occasional #/hpf (0-3)
[2024-12-21 05:50] LABS: Bacteria,Urine 1+ /lpf
[2024-12-21 06:00] VITALS: BP 134/87; PULSE 60; O2SAT 100
[2024-12-21 06:22] VITALS: BP 134/87; PULSE 60; RESP 16; TEMP 36.6; O2SAT 100
== END 2024-12-21 06:29 | disposition home or self-care (01) ==
PROVIDERS: Emergency Provider Emergency Medicine; PCP Family Medicine
DX: N13.0 Hydronephrosis with ureteropelvic junction obstruction (principal); R10.31 Right lower quadrant pain; F17.210 Nicotine dependence, cigarettes, uncomplicated
CPT/HCPCS: 74177; 80053; 81001; 84703; 85025; 96361; 96374; 96375; 96376; 99285; J1885; J2270; J2405; J7120; Q9967

== ENCOUNTER 2025-01-21 09:01 | Outpatient (CLI) | payer BC, SELFPAY ==
--- NOTE | 2025-01-21 09:03 | US_ITS ---
FINAL REPORT CLINICAL HISTORY: palp area in lt axilla FINDINGS: Limited sonographic images of the left axilla were obtained. There are a few normal-appearing lymph nodes in the deep left axilla, largest measures 16 mm. No mass or enlarged node identified to account for the palpable abnormality. IMPRESSION: Unremarkable exam. Reviewed, Interpreted and Dictated by Swati Luna MD Transcribed by Annika Demarco Authenticated and [facility]
--- NOTE | 2025-01-21 09:03 | CT_ITS ---
FINAL REPORT CLINICAL HISTORY: LYMPHADENOPATHY AND NECK PAIN COMPARISON: CTA neck soft tissue 10/22/2024 FINDINGS: CT NECK WITH CONTRAST TECHNIQUE: Axial CT with IV contrast administration. This study was performed with techniques to keep radiation doses as low as reasonably achievable, (ALARA). Individualized dose reduction techniques using automated exposure control or adjustment of mA and/or kV according to the patient's size were employed. FINDINGS: Salivary glands are normal. Mild right upper jugular adenopathy with a lymph node measuring 14 x 10 mm, unchanged. Borderline left upper jugular adenopathy with the largest node measuring 13 x 9 mm, also unchanged. No adenopathy in the lower neck. Larynx is unremarkable. Thyroid gland is unremarkable. IMPRESSION: Mild adenopathy upper jugular chain favored to be benign/reactive. No dominant mass. Consider CT follow-up in 6 months. Reviewed, Interpreted and Dictated by Swati Luna MD Transcribed by Darlyn Lowry Authenticated and [facility]
--- OUTSIDE RECORDS SUMMARY | 2025-01-21 09:04 | XMS_ITS | Clinical Summary ---
Author Organization Healthcare Address [address] [place] [address] Care Team Providers Care Irrigation Pump Installer Name Role Phone Kenneth Peterson MD Primary Care Provider [phone] Family History Medical History Relation Name Comments [...] of Treatment Not on file Care Teams Irrigation Pump Installer Relationship Specialty Start Date End Date Kenneth Peterson MD [address] [place] [id number] PCP - General 11/20/20
--- OUTSIDE RECORDS SUMMARY | 2025-01-21 09:04 | XMS_ITS | Clinical Summary ---
Author Organization [employer] ([place], [place], [place], [place]) Address [address] [place] [address] Care Team Providers Care Stage Settings Painter Name Role Phone Unavailable Primary Care Provider Unavailabl e Allergies No known active allergies Social History Tobacco Use Types Packs/Day Years Used Date Smoking Tobacco: Never Assessed Food Insecurity Answer Date Recorded Food run [...] Date Tuan rded Speak language other than Micronesian at home Not on file 07/19/2023 Want help with school or training Not on file 07/19/2023 Substance Use Answer Date Recorded Used [...] VACCINE (2023-2 5 season) 2024 Influenza Vaccine (#1) 2025 DTAP/TDAP/TD VACCINES (2 - T d or Tdap) 07/01/2031 07/01/2021 Pneumococcal Vaccine: 0-49 Years Aged Out No longer eligible based on patient's age to complete this topic Insurance BLUE CROSS/BLUE SHIELD
--- OUTSIDE RECORDS SUMMARY | 2025-01-21 09:04 | XMS_ITS | Referral Summary ---
Author Organization [employer] ([place], [place], [place], [place]) Address [address] [place] [address] Care Team Providers Care Yard Manager Name Role Phone Unavailable Primary Care Provider [...] Date Tuan rded Speak language other than Martiniquais at home Not on file 07/19/2023 Want [...]
--- OUTSIDE RECORDS SUMMARY | 2025-01-21 09:04 | XMS_ITS | Encounter Summary ---
Author Organization [employer] ([place], [place], [place], [place]) Address [address] [place] [address] Care Team Providers Care Senior Asset Manager Name Role Phone Unavailable Primary Care Provider Unavailabl e Encounter Details Date Type Department Care Team (Late st Contact Info) Description 05/01/2020 Transcribed Document [facility] [place] [facility] [place] [address] ProviderJordyn MD [address] [place] [id number] Social History Tobacco Use Types Packs/Day Years Used Date Smoking Tobacco: Never Assessed Comments Unknown Sex and Gender Information Value Date Recorded Sex Assigned at Not on file Legal Sex Female 5:28 PM CDT Gender Identity Not on file Sexual Orientation Not on file documented as of this encounter Miscellaneous Notes * Cerner Conversion Note - Jordyn Flowers MD - 05/01/2020 11:23 AM CDT Patient: YOON HERNANDEZ Age: 39 Years Sex: Female : 1980 INITIAL PATIENT EVALUATION DATE OF SERVICE: 04/14/2020 CHIEF COMPLAINT: Left foot pain. HISTORY OF PRESENT ILLNESS: Ms. Hernandez is a 39-year-old lady who has had issues with her left foot since August of this year. 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
--- OUTSIDE RECORDS SUMMARY | 2025-01-21 09:04 | XMS_ITS | Clinical Summary ---
Author Organization [facility] Address [address] [place] [phone] Phone Care Team Providers Care Babysitter Name Role Phone Unavailable Primary Care Provider [...] - 2023-2 5 season) 2024 Influenza Vaccine (#1) 2025 03/24/2020 DTaP/TDaP/Td (2 - Td or Tdap) 07/01/2031 07/01/2021 Meningococcal B Vaccine Aged Out No l onger eligible based on patient's age to complete this topic Insurance [facility] [employer] [place] [id number] LUC[employer] PPO L[employer] PPO
--- OUTSIDE RECORDS SUMMARY | 2025-01-21 09:04 | XMS_ITS | Encounter Summary ---
Author Organization [employer] ([place], [place], [place], [place]) Address [address] [place] [address] Care Team Providers Care Account Service Representative Name Role Phone Unavailable Primary Care Provider Unavailabl e Encounter Details Date Type Department Care Team (Late st Contact Info) Description 04/14/2020 Transcribed Document [facility] [facility] [place] [address] ProviderJordyn MD [address] [place] [phone] Social History Tobacco Use Types Packs/Day Years [...]
--- OUTSIDE RECORDS SUMMARY | 2025-01-21 09:04 | XMS_ITS | Data Portability ---
Author Organization [place] R[facility] Address [address] [facility] [address] [place] [address] Care Team Providers Care Delivery Engineer Name Role Phone NATALY DEL VALLE Neurologist DANIEL MENA Primary Care Provider [phone] CAR FRANKLIN Primary Care Provider [phone] Assessment Encounter Date Assessment Date Assessment LastModified [...] she knows to call anytime if needed. [email or web address] Not available 10/30/2019 13:27:20 06/16/2023 06/16/2023 42-year-old female with history of urolithiasis. She was seen in the ER at [facility] 06/11/2023. She was told she has 2 left ureteral stones. She was discharged home with hydrocodone and Flomax. She will continue taking Flomax and use hydrocodone as needed for pain. She was given a strainer and specimen cup in case she is able to catch the stones. We have requested the CT records from [facility]. I will contact her if [...] She was seen in the ER at [facility] 06/11/2023. She was told she [...] medication as needed. Go to ER in [place] if symptoms fail to improve or worsen. [...] colic and CT scans at [facility] showed 2 left distal ureteral stones. She [...] and strings in 4 days on Monday morning and may come to the office if [...] emergency room twice. A CT scan at [facility] 07/04/2023 showed left hydroureter but no ureteral [...] , dipstick 2022 023 [email or web address] Not available 16:51:11 urinalysis , dipstick 2022 023 [email or web address] Not available 3 10:21:53 urinalysis , dipstick 2022 023 [email or web address] Not available 3 09:18:13 urinalysis , microscopi c 2022 023 [email or web address] [facility], [address] [place] [address], [address], 3 14:33:15 Referral None recorded. Procedures None recorded. Surgeries None recorded. Imaging CT, abdomen + pelvis, w/o contrast 2022 023 [email or web address] [facility], [address] [place] [address], [address], 3 10:14:32 Medication Orders tamsulosin 0.4 mg capsule 2022 023 [facility], [address], [address], [place], [address], 3 17:01:32 Percocet 5 mg-325 mg tablet 2022 023 [facility], [address], [address], [place], [address], 3 16:51:46 oxycodone- acetaminop hen 7.5 mg-325 mg tablet 2022 023 [facility], [address] [place] [address], [address], [place], [address], 3 10:28:54 ketorolac 10 mg tablet 2022 023 [facility], [address] [place] [address], [address], [place], [address], 3 10:28:52 ketorolac 30 mg/mL injection solution 2022 023 [facility] Not available 3 12:09:08 tamsulosin 0.4 mg capsule 2022 023 [facility], [address] [place] [address], [address], [place], [address], 3 09:29:11 hydrocodon e 5 mg-acetami nophen 325 mg tablet 2022 023 [facility], [address] [place] [address], [address], [place], [address], 3 09:24:17 Aimovig Autoinject or 140 mg/mL subcutaneo us auto-injec tor 2019 020 INTERFACE [facility], [address] [place] [address], [address], [place], [address], 0 13:25:39 rizatripta n 10 mg tablet 2019 020 INTERFACE [facility], [facility] [address] [facility], [address], [place], [address], 0 13:25:41 Patient TargetsNo targets recorded. Patient InstructionsNo instructions recorded. Reason for Referral None Reported. Results Created Date Observation Date Name Description Value Unit Range Abnormal Flag Note LastModifiedBy Organization Detail LastModifiedTime 06/16/2006/16/2023 urina lysis , dipst ick Unknown Analyte Yellow Not Available [facility] [address] [place] [address], [address], 06/16/2023 09:03:01 06/16/20 23 06/16/2023 urina lysis , dipst ick Unknown Analyte Clear Not Available [facility] [address] [place] [address], [address], 06/16/2023 09:03:01 06/16/20 23 06/16/2023 urina lysis , dipst ick Unknown Analyte 1.020 Not Available [facility] [address] [place] [address], [address], 06/16/2023 09:03:01 06/16/20 23 06/16/2023 urina lysis , dipst ick Unknown Analyte 5.0 Not Available [facility] [address] [place], [address], 06/16/2023 09:03:01 06/16/20 23 06/16/2023 urina lysis , dipst ick Unknown Analyte Negati ve Not Available [facility] [address] [place] [address], [address], 06/16/2023 09:03:01 06/16/20 23 06/16/2023 urina lysis , dipst ick Unknown Analyte Negati ve Not Available [facility] [address] [place], [address], 06/16/2023 09:03:01 06/16/20 23 06/16/2023 urina lysis , dipst ick Unknown Analyte Negati ve Not Available [facility] [address] [place] [address], [address], 06/16/2023 09:03:01 06/16/20 23 06/16/2023 urina lysis , dipst ick Unknown Analyte Normal Not Available [facility] [address] [place], [address], 06/16/2023 09:03:01 06/16/20 23 06/16/2023 urina lysis , dipst ick Unknown Analyte Negati ve Not Available [facility] [address] [place], [address], 06/16/2023 09:03:01 06/16/2006/16/2023 urina lysis , dipst ick Unknown Analyte Normal Not Available [facility] [address] [place], [address], 06/16/2023 09:03:01 06/16/20 23 06/16/2023 urina lysis , dipst ick Unknown Analyte Negati ve Not Available [facility] [address] [place], [address], 06/16/2023 09:03:01 06/16/20 23 06/16/2023 urina lysis , dipst ick Unknown Analyte Negati ve Not Available [facility] [address] [place], [address], 06/16/2023 09:03:01 06/16/20 23 06/16/2023 urina lysis , dipst ick Unknown Analyte Clean Catch Not Available [facility] [address] [place], [address], 06/16/2023 09:03:01 06/16/20 23 06/16/2023 urina lysis , dipst ick Unknown Analyte Visual Not Available [facility] [address] [place], [address], 06/16/2023 09:03:01 06/23/20 23 06/23/2023 urina lysis , dipst ick Unknown Analyte Yellow Not Available [facility] [address] [place], [address], 06/23/2023 08:14:06 06/23/20 23 06/23/2023 urina lysis , dipst ick Unknown Analyte Clear Not Available [facility] [address] [place], [address], 06/23/2023 08:14:06 06/23/20 23 06/23/2023 urina lysis , dipst ick Unknown Analyte 1.005 Not Available [facility] [address] [place], [address], 06/23/2023 08:14:06 06/23/20 23 06/23/2023 urina lysis , dipst ick Unknown Analyte 5.0 Not Available [facility] [address] [place] [address], [address], 06/23/2023 08:14:06 06/23/20 23 06/23/2023 urina lysis , dipst ick Unknown Analyte Negati ve Not Available [facility] [address] [place] [address], [address], 06/23/2023 08:14:06 06/23/20 23 06/23/2023 urina lysis , dipst ick Unknown Analyte Negati ve Not Available [facility] [address] [place] [address], [address], 06/23/2023 08:14:06 06/23/2006/23/2023 urina lysis , dipst ick Unknown Analyte Negati ve Not Available [facility] [address] [place] [address], [address], 06/23/2023 08:14:06 06/23/20 23 06/23/2023 urina lysis , dipst ick Unknown Analyte Normal Not Available [facility] [address] [place], [address], 06/23/2023 08:14:06 06/23/20 23 06/23/2023 urina lysis , dipst ick Unknown Analyte Negati ve Not Available [facility] [address] [place], [address], 06/23/2023 08:14:06 06/23/20 23 06/23/2023 urina lysis , dipst ick Unknown Analyte Normal Not Available [facility] [address] [place], [address], 06/23/2023 08:14:06 06/23/20 23 06/23/2023 urina lysis , dipst ick Unknown Analyte Negati ve Not Available [facility] [address] [place] [address], [address], 06/23/2023 08:14:06 06/23/20 23 06/23/2023 urina lysis , dipst ick Unknown Analyte Negati ve Not Available [facility] [address] [place] [address], [address], 06/23/2023 08:14:06 06/23/20 23 06/23/2023 urina lysis , dipst ick Unknown Analyte Clean Catch Not Available [facility] [address] [place] [address], [address], 06/23/2023 08:14:06 06/23/20 23 06/23/2023 urina lysis , dipst ick Unknown Analyte Visual Not Available [facility] [address] [place], [address], 06/23/2023 08:14:06 06/30/20 23 06/30/2023 urina lysis panel , auto Unknown Analyte Clean Catch Not Available [facility] [address] [place], [address], 06/30/2023 14:46:14 06/30/20 23 06/30/2023 urina lysis panel , auto Unknown Analyte Yellow Not Available [facility] [address] [place] [address], [place], [address], 06/30/2023 14:46:14 06/30/20 23 06/30/2023 urina lysis panel , auto Unknown Analyte Clear Not Available [facility] [address] [place] [address], [place], [address], 06/30/2023 14:46:14 06/30/20 23 06/30/2023 urina lysis panel , auto Unknown Analyte 1.[address] [facility] [address] [place] [address], [place], [address], 06/30/2023 14:46:14 06/30/20 23 06/30/2023 urina lysis panel , auto Unknown Analyte 1.003- 1.035 Not Available [facility] [address] [place] [address], [place], [address], 06/30/2023 14:46:14 06/30/20 23 06/30/2023 urina lysis panel , auto Unknown Analyte 5.[address] [facility] [address] [place] [address], [address], 06/30/2023 14:46:14 06/30/20 23 06/30/2023 urina lysis panel , auto Unknown Analyte 5.0-8. 0 Not [address] [facility] [address] [place] [address], [place], [address], 06/30/2023 14:46:14 06/30/20 23 06/30/2023 urina lysis panel , auto Unknown Analyte 75 Patrica/ul (+) Not Available [facility] [address] [place] [address], [place], [address], 06/30/2023 14:46:14 06/30/20 23 06/30/2023 urina lysis panel , auto Unknown Analyte Negati ve Not Available [facility] [address] [place] [address], [place], [address], 06/30/2023 14:46:14 06/30/20 23 06/30/2023 urina lysis panel , auto Unknown Analyte Negati ve Not Available [facility] [address] [place] [address], [address], 06/30/2023 14:46:14 06/30/20 23 06/30/2023 urina lysis panel , auto Unknown Analyte Negati ve Not Available [facility] [address] [place] [address], [address], 06/30/2023 14:46:14 06/30/20 23 06/30/2023 urina lysis panel , auto Unknown Analyte Trace Not Available [facility] [address] [place] [address], [address], 06/30/2023 14:46:14 06/30/20 23 06/30/2023 urina lysis panel , auto Unknown Analyte Negati ve Not Available [facility] [address] [place] [address], [address], 06/30/2023 14:46:14 06/30/20 23 06/30/2023 urina lysis panel , auto Unknown Analyte Normal Not Available [facility] [address] [place] [address], [address], 06/30/2023 14:46:14 06/30/20 23 06/30/2023 urina lysis panel , auto Unknown Analyte Normal Not Available [facility] [address] [place] [address], [address], 06/30/2023 14:46:14 06/30/20 23 06/30/2023 urina lysis panel , auto Unknown Analyte 15 mg/dl (Sm) Not Available [facility] [address] [place] [address], [place], [address], 06/30/2023 14:46:14 06/30/20 23 06/30/2023 urina lysis panel , auto Unknown Analyte Negati ve Not Available [facility] [address] [place] [address], [place], [address], 06/30/2023 14:46:14 06/30/20 23 06/30/2023 urina lysis panel , auto Unknown Analyte Normal Not Available [facility] [address] [place] [address], [place], [address], 06/30/2023 14:46:14 06/30/20 23 06/30/2023 urina lysis panel , auto Unknown Analyte Normal 1 mg/dl Not Available [facility] [address] [place] [address], [place], [address], 06/30/2023 14:46:14 06/30/20 23 06/30/2023 urina lysis panel , auto Unknown Analyte 1 mg/dl (+) Not Available [facility] [address] [place] [address], [place], [address], 06/30/2023 14:46:14 06/30/20 23 06/30/2023 urina lysis panel , auto Unknown Analyte Negati ve Not Available [facility] [address] [place] [address], [place], [address], 06/30/2023 14:46:14 06/30/20 23 06/30/2023 urina lysis panel , auto Unknown Analyte 250 Bandar/ul Not Available [facility] [address] [place] [address], [place], [address], 06/30/2023 14:46:14 06/30/20 23 06/30/2023 urina lysis panel , auto Unknown Analyte Negati ve Not Available [facility] [address] [facility] [address], [place], [address], 06/30/2023 14:46:14 07/04/20 23 07/13/2023 STONE JUAN SIS composition SEE BELOW normal Calci um Oxala te Dihyd rate (Wedd ellit e) 15% Calci um Oxala te Monoh ydrat e (Whew ellit e) 70% Carbo lisy Apati te (Dahl lite) 15% See Note 1 Not Available [facility] [address] [place], [address], 07/13/2023 14:59:00 07/04/20 23 07/13/2023 STONE JUAN SIS weight 0.017 g normal Note 1 This test was devel oped and its juan tical perfo rmanc e joe cteri stics have been deter mined by [facility]. It has not been clear ed or appro john by the FDA. This assay has been valid ated pursu ant to the CLIA regul ation s and is used for clini cody purpo ses. Not Available [facility] [address] [place], [address], 07/13/2023 14:59:00 07/05/20 23 07/05/2023 urina lysis , dipst ick Unknown Analyte Yellow Not Available [facility] [address] [place], [address], 07/05/2023 16:15:03 07/05/20 23 07/05/2023 urina lysis , dipst ick Unknown Analyte Clear Not Available [facility] [address] [place], [address], 07/05/2023 16:15:03 07/05/20 23 07/05/2023 urina lysis , dipst ick Unknown Analyte 1.025 Not Available [facility] [address] [place], [address], 07/05/2023 16:15:03 07/05/20 23 07/05/2023 urina lysis , dipst ick Unknown Analyte 5.0 Not Available [facility] [address] [place], [address], 07/05/2023 16:15:03 07/05/20 23 07/05/2023 urina lysis , dipst ick Unknown Analyte Negati ve Not Available [facility] [address] [place] [address], [address], 07/05/2023 16:15:03 07/05/20 23 07/05/2023 urina lysis , dipst ick Unknown Analyte Negati ve Not Available [facility] [address] [place] [address], [address], 07/05/2023 16:15:03 07/05/20 23 07/05/2023 urina lysis , dipst ick Unknown Analyte Negati ve Not Available [facility] [address] [place] [address], [address], 07/05/2023 16:15:03 07/05/20 23 07/05/2023 urina lysis , dipst ick Unknown Analyte Normal Not Available [facility] [address] [place] [address], [address], 07/05/2023 16:15:03 07/05/20 23 07/05/2023 urina lysis , dipst ick Unknown Analyte Negati ve Not Available [facility] [address] [place] [address], [address], 07/05/2023 16:15:03 07/05/20 23 07/05/2023 urina lysis , dipst ick Unknown Analyte Normal Not Available [facility] [address] [place], [address], 07/05/2023 16:15:03 07/05/20 23 07/05/2023 urina lysis , dipst ick Unknown Analyte Negati ve Not Available [facility] [address] [place], [address], 07/05/2023 16:15:03 07/05/20 23 07/05/2023 urina lysis , dipst ick Unknown Analyte Negati ve Not Available [facility] [address] [place], [address], 07/05/2023 16:15:03 07/05/20 23 07/05/2023 urina lysis , dipst ick Unknown Analyte Clean Catch Not Available [facility] [address] [place], [address], 07/05/2023 16:15:03 07/05/20 23 07/05/2023 urina lysis , dipst ick Unknown Analyte Visual Not Available [facility] [address] [place], [address], 07/05/2023 16:15:03 06/27/20 23 06/20/2023 CT, abdom en, w/o contr ast No observ ation record ed. BARCODE Not Available 2022 16:13:31 07/28/19 24 07/28/2023 CT, abdom en + pelvi s, w/wo contr ast [facility] [address] [place] [address] Mitesh joe Name: JV Wong : 11[birth year] [...] 350 (1 x 100 mL bottle of [facility] 2001 [id number] [id number]). None was wasted and discar [...] Ambar Pedro MD on 024 11:54 AM [email or web address] [facility] [address] , [place], [address], 08/01/2023 10:26:29 Result Notes Documentation Provider Name and Address Organization Details Recorded Time Ct, Abdomen + Pelvis, W/wo Contrast : [address] [place] [address] Patient Name: YOON HERNANDEZ Patient : 1980 [...] 350 (1 x 100 mL bottle of [facility] 2001 [id number]). None was wasted and discarded. Bowel was [...] new abnormality. Interpreted By: Maciej Pedro MD [facility] 08/01/2023 10:26:29 Problems Name Problem SNOMED Code Status Onset Date Resolution Date Notes Provider Name and Address Organization Details Recorded Time Blood in urine 79408371 Active 2015 Provide r: Hardik Schaefer atus: Active Not Available [facility] 6 08:00:13 Microscopic hematuria 736526549 Active 2015 Provide r: Hardik Schaefer atus: Active Not Available [facility] 6 08:00:13 Kidney stone 93821225 Active 2015 Provide r: Mika Schaefer;St atus: Active Not Available [facility] 6 08:00:13 Problem Notes Documentation Provider Name and Address Organization Details Recorded Time Neurologist Consult Note : [facility] [address] [facility] [address]SPPFFV, MICHELLE (id #[id number], : 1980) [facility] [address] [place] [address] [address] [place] [address] Date: 10/30/2019RE: Yoon Hernandez, : 1980, PT ID #[id number] Arrington MD / [facility], [facility], I would like to thank you for referring Yoon Hernandez to our practice for consultation and evaluation. I have enclosed a copy of the office evaluation for your records. Sincerely, Electronically Signed by: NATALY DEL VALLE MDEncounter Reason/DateNone recorded 10/30/2019 - 01:00PM - NEUROLOGY [...] pulsatile tinnitus. She works third shift at [employer] in [place]. sleeps during the day, variably well.other systems [...] knows to call anytime if needed. 1. NhonvtsyC73.909: Migraine, unspecified, not intractable, without status migrainosus Aimovig Autoinjector 140 mg/mL subcutaneous auto-injector -Inject 1 mL every month by subcutaneous route for 30 days. Qty: 1 1 mL syringe(s) Refills: 5 Pharmacy: [facility] rizatriptan 10 mg tablet -one at onset of migraine; may repeat in 2 hours if needed max 2 in 24 hrs. Qty: 9 tablet(s) Refills: 6 Pharmacy: [facility] 2. Migraine without auraG43.009: Migraine without aura, not intractable, without status migrainosus Return to Office to see NATALY DEL VALLE MD at NEUROLOGY [facility] on or around 12/11/2019 BELIA ARRINGTON MD [address] [place] [address], [address], [facility] 11/01/2019 08:54:00 Urology Note : [facility] [address] [place] [id number], Michelle (id #[id number], : 1980) [facility] [address] [place] [address] Date: 06/16/2023RE: Yoon Hernandez, : 1980, PT ID #[id number] Arrington MD, I would like to thank you for referring Yoon Hernandez to our practice for consultation and evaluation. I have enclosed a copy of the office evaluation for your records. Sincerely, Electronically Signed by: SHERICE SLOAN APRN, NPEncounter Reason/Date kidney stones 06/16/2023 - 09:00AM - UROLOGY SB History of Present Eenfocp62-eysz-uqy female with history of urolithiasis. She is a previous patient of Dr. Hein. She underwent right ESWL in 2018. Follow-up KUBs were negative for stones. She noticed increased suprapubic pressure about 2 weeks ago. She thought she had a yeast infection and has been treating herself with njbe-pgw-bdindas yeast cream. On Monday evening, she developed severe left flank pain. She was seen in the ER at [facility]. She says a CT scan [...] Residual; Ultrasound:Post Void Residual Source: Ultrasound Volume: 24mlAssessment/Wjhx28-wvqz-fc d female with history of urolithiasis. She was seen in the ER at [facility] 06/11/2023. She was told she has 2 left ureteral stones. She was discharged home with hydrocodone and Flomax. She will continue taking Flomax and use hydrocodone as needed for pain. She was given a strainer and specimen cup in case she is able to catch the stones. We have requested the CT records from [facility]. I will contact her if [...] if symptoms have not resolved. 1. Kidney bgeflS33.0: Calculus of kidney URINALYSIS, DIPSTICK - Specimen source: Urine clean catch Urine Collection Type: Midstream URINE MICROSCOPIC, CULTURE IF INDICATED - Specimen source: URINE, CLEAN CATCH tamsulosin 0.4 mg capsule - Take 1 capsule(s) every day by oral route for 30 days. Qty: (30) capsule Refills: 1 Pharmacy: [facility] hydrocodone 5 mg-acetaminophen 325 mg tablet - Take 1 tablet(s) every 6 hours by oral route for 5 days. Qty: (20) tablet Refills: 0 Pharmacy: [facility] CT R/O KIDNEY STONES (A/P W/O) Weight (lbs): 186 Place of service: OFFICE Procedure code: 52630 URINALYSIS, DIPSTICK Urine Collection Type: Midstream Urinalysis Dipstick (auto) Result Reference Range Color Yellow Appearance Clear Specific gravity 1.020 pH 5.0 Leukocyte Esterase Negative Nitrite Negative Protein Negative Glucose Normal Ketones Negative Urobilinogen Normal Bilirubin Negative Blood Negative Specimen Source Clean Catch Urine Dip Method Visual Comments Return to Office Patient will return to the office as needed BEATA Carbajal [facility] 09/18/2023 11:27:19 Urology Note : [address] [address]SRBBVU, Michelle (id #[id number], : 1980) [address] [address] Encounter Summary - Progress Note Date Printed: [...] received this fax in error, please visit [email or web address] to notify the sender and confirm that the information will be destroyed. If you do not have internet access, please call to notify the sender and confirm that the information will be destroyed. Thank you for your attention and cooperation. [ID:[id number]] Patient Yoon Hernandez (42yo, F) #[id number] 1980 Patient Demographics: Address [address] [place] [phone] Work Phone Encounter Notes: Encounter Reason/Date left ureteral stones 06/23/2023 - 09:40AM - UROLOGY SB History of Present Ngocdtc30-krxo-uri female with history of urolithiasis. She is a previous patient of Dr. Hein. She underwent right ESWL in 2018. Follow-up KUBs were negative for stones. She noticed increased suprapubic pressure about 2 weeks ago. She thought she had a yeast infection and has been treating herself with zkwi-ppo-dsvnbod yeast cream. On Monday evening, she developed severe left flank pain. She was seen in the ER at [facility]. She says a CT scan showed 2 left ureteral stones. She was told 1 stone was in the mid ureter and the other was closer to the bladder. She was given hydrocodone and Flomax.She is a smoker. HPI: She returns today for follow-up with left distal uretral stones. She was seen by me one week ago.A CT scan at [facility] 3 weeks ago showed 2 left ureteral [...] reports no rashes. She reports no fatigue. [id number] 09:55 Ht: 5 ft 6 in Wt: [...] UA negative. Procedure DocumentationNone recorded Assessment and Mvzj26-twcq-upy female with history of urolithiasis. She was seen in the ER at [facility] 06/11/2023. She was told she [...] medication as needed. Go to ER in [place] if symptoms fail to improve or worsen. 1. Kidney rafooB84.0: Calculus of kidney URINALYSIS, DIPSTICK - Specimen source: Urine clean catch oxycodone-acetaminophen 7.5 mg-325 mg tablet - Take 1 tablet(s) every 6 hours by oral route for 5 days. Qty: (20) tablet Refills: 0 Pharmacy: [facility] ketorolac 10 mg tablet - Take 1 tablet(s) every 6 hours by oral route for 5 days. Qty: (20) tablet Refills: 0 Pharmacy: [facility] ketorolac 30 mg/mL injection solution - Inject 1 mL by intravenous route. Quantity: (30) mg Lot #: [id number] Route: Intramuscular Site: Hip, Left Imaging Specialist: [employer] Exp Date: 06/02/2023 Administered URINALYSIS, DIPSTICK Urinalysis [...] ago10/30/19 entered Darlyn Bañuelos azithromycin 250 mg uhrtin95/31/23 filled [facility] cephALEXin 500 mg xaawpgf62/13/20 filled [facility] diclofenac sodium 50 mg tablet,delayed hknmugq16/29/20 filled [facility] estradioL 2 mg fcgrog30/11/20 filled [facility] fluconazole 150 mg ouukgf55/03/23 filled [facility] fluocinolone 0.025 % topical rurnfyvg27/21/20 filled [facility] HYDROcodone 5 mg-acetaminophen 325 mg tabletTake 1 tablet(s) every 6 hours by oral route for 5 days.06/16/23 prescribed SHERICE SLOAN APRN ibuprofen 800 mg /04/23 filled [facility] ketorolac 10 mg tabletTake 1 tablet(s) every 6 hours by oral route for 5 days.06/23/23 prescribed SHERICE SLOAN APRN ketorolac 30 mg/mL injection solutionInject 1 mL by intravenous route. Administer Note: injection given without xiyyvdcbyhep74/15/23 administered SHERICE SLOAN APRN meloxicam 7.5 mg /14/23 filled [facility] methocarbamoL 750 mg cdolxc10/14/23 filled [facility] ondansetron 4 mg disintegrating /04/23 filled [facility] oxyCODONE-acetaminophen 7.5 mg-325 mg tabletTake 1 tablet(s) every 6 hours by oral route for 5 days.06/23/23 prescribed SHERICE SLOAN APRN Paxlovid 300 mg (150 mg x 2)-100 mg tablets in a dose packFOLLOW PACKAGE JKOZGBXIUL47/31/23 filled [facility] predniSONE 20 mg jjnpyd61/20/20 filled [facility] rizatriptan 10 mg tabletone at onset of migraine; may repeat in 2 hours if needed max 2 in 24 hrs.10/30/19 filled [facility] sucralfate 1 gram kghhyb90/20/20 filled [facility] Synthroid 50 mcg dgerra37/30/20 filled [facility] tamsulosin 0.4 mg capsuleTake 1 [...] recorded Electronically Signed by: SHERICE SLOAN APRN, DIGITAL TECHNICIAN BEATA Carbajal - [facility] 09/18/2023 11:10:06 Urology Note : [address] [address]LZJKNV, Michelle (id #[id number], : 1980) [address] [address] Encounter Summary - Progress Note Date Printed: [...] received this fax in error, please visit [email or web address] to notify the sender and confirm that the information will be destroyed. If you do not have internet access, please call to notify the sender and confirm that the information will be destroyed. Thank you for your attention and cooperation. [ID:[id number]] Patient Yoon Hernandez (42yo, F) #[id number] 1980 Patient Demographics: Address [address] [place] [id number] Work Phone Encounter Notes: Encounter Reason/Date Pain [...] pain. She went to the [facility] emergency room twice. CT scans 05/29/2023 and 06/28/2023 showed 2 left distal ureteral stones up to 5 mm and bilateral small renal stones. She underwent left ureteroscopic laser lithotripsy and stent 06/30/2023. 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 HPI: The patient is here with her for continued pain after laser lithotripsy last week. The stent came out partially the following day and she subsequently removed it. She went to the [facility] emergency room 07/01/[address] scan and [facility] emergency room 07/04/[address] scan [...] no fever. She reports no difficulty urinating. [id number] 16:22 Ht: 5 ft 6 in Wt: 186 lbs BMI: 30 Results/Interpretations URINALYSIS, DIPSTICK Urinalysis Dipstick (auto) Result Reference Range Color Yellow Appearance Clear Specific gravity 1.025 pH 5.0 Leukocyte Esterase Negative Nitrite Negative Protein Negative Glucose Normal Ketones Negative Urobilinogen Normal Bilirubin Negative Blood Negative Specimen Source Clean Catch Urine Dip Method Visual Comments Physical ExamNone recorded Procedure DocumentationNone recorded Assessment and Ktfv20-mqux-mwk female with a history of urolithiasis. She underwent right ESWL in 2018 and left ureteroscopic laser lithotripsy 06/30/2023. The stent came out the following day. She has had ongoing significant left flank and abdominal pain. She went to the emergency room twice. A CT scan at [facility] 07/04/2023 showed left hydroureter but no ureteral [...] if she does not improve. 1. Kidney udeneR54.0: Calculus of kidney URINALYSIS, DIPSTICK - Specimen source: Urine clean catch 2. Renal caxzsI99: Unspecified renal colic tamsulosin 0.4 mg capsule - Take 1 capsule(s) every day by oral route in the evening for 30 days. Qty: (30) capsule Refills: 1 Pharmacy: [facility] 3. OjvzoovqplbyuvU33.30: Unspecified hydronephrosis URINALYSIS, DIPSTICK Urinalysis Dipstick (auto) [...] ago10/30/19 entered Darlyn Bañuelos cefdinir 300 mg unaudkv56/26/23 filled [facility] diclofenac sodium 50 mg tablet,delayed asmzhth92/29/20 filled [facility] estradioL 2 mg qbopsg51/11/20 filled [facility] fluconazole 150 mg /03/23 filled [facility] fluocinolone 0.025 % topical drcubbsm16/21/20 filled [facility] HYDROcodone 5 mg-acetaminophen 325 mg tabletTake 1 tablet(s) every 6 hours by oral route for 5 days.06/16/23 prescribed SHERICE SLOAN APRN ibuprofen 800 mg hoqenu92/04/23 filled [facility] ketorolac 10 mg tabletTake 1 tablet(s) every 6 hours by oral route for 5 days.06/23/23 filled [facility] ketorolac 30 mg/mL injection solutionInject 1 mL by intravenous route. Administer Note: injection given without jkbkdteghedx68/15/23 administered SHERICE SLOAN APRN meloxicam 7.5 mg seekva40/14/23 filled [facility] methocarbamoL 750 mg /14/23 filled [facility] ondansetron 4 mg disintegrating /04/23 filled [facility] oxyCODONE-acetaminophen 5 mg-325 mg tabletTake 1 tablet(s) every 4-6 hours by oral route as needed for 3 days.06/30/23 filled [facility] oxyCODONE-acetaminophen 7.5 mg-325 mg tabletTake 1 tablet(s) every 6 hours by oral route for 5 days.06/23/23 prescribed SHERICE SLOAN APRN Paxlovid 300 mg (150 mg x 2)-100 mg tablets in a dose packFOLLOW PACKAGE UGNYNGWYHU74/31/23 filled [facility] predniSONE 20 mg etpvvi44/20/20 filled [facility] rizatriptan 10 mg tabletone at onset of migraine; may repeat in 2 hours if needed max 2 in 24 hrs.10/30/19 filled [facility] sucralfate 1 gram urqilp41/20/20 filled [facility] Synthroid 50 mcg uvussn20/30/20 filled [facility] tamsulosin 0.4 mg capsuleTake 1 [...] Electronically Signed by: KENNETH HERNANDEZ [facility] 11:26:29 Procedures Surgical History Date Name Laterality Status Provider Name and Address Organization Details Recorded Time 06/16/20 23 Post Void Residual; Ultrasound completed Korin Fuller [facility] 06/16/2023 09:23:37 07/26/19 20 Tympanogram completed KARLO CORONA, NICOLE [address] [place], [address], [facility] 07/26/2019 17:03:11 07/26/19 20 Audiogram completed NICOLE TROTTER [address] [place], [address], [facility] 07/26/2019 17:03:10 07/16/19 20 Endoscopy Nasal; Diagnostic completed MD Amor SCOTT[address] [place], [address], [facility] 07/16/2019 14:10:05 09/08/19 18 EXTRA CORPOREAL SHOCK WAVE LITHOTRIPSY (SURG) completed Kunal Kevin [facility] 11/01/2017 10:40:36 Cholecystectomy completed Hazel Sandoval [facility] 08/30/2017 11:05:27 delivery completed Hazelleo Sandoval [facility] 08/30/2017 11:05:34 Hysterectomy completed Hazel Sandoval [facility] 08/30/2017 11:05:39 Kidney Stones completed KENNETH HERNANDEZ MD [address] [place], [address], [facility] 06/30/2023 16:38:12 Imaging Results None recorded. Procedure [...] e 50 mcg/actua tion nasal spray,[facility] 2 sprays twice a day by intranas [...] Updated DateTime 10/30/2019 167.64 cm Darlyn Bañuelos [facility] 10/30/2019 12:42:44 Date Recorded Body height Body mass index (BMI) Body weight Provider Name and Address Organization Details Last Updated DateTime 06/16/2023 167.64 cm 30 kg/m2 32991.18 g [facility] 06/16/2023 09:20:38 Date Recorded Body height Body mass index (BMI) Body weight Provider Name and Address Organization Details Last Updated DateTime 06/23/2023 167.64 cm 30 kg/m2 89353.18 g [facility] 06/23/2023 09:55:20 Date Recorded Body height Body mass index (BMI) Body weight Provider Name and Address Organization Details Last Updated DateTime 07/05/2023 167.64 cm 30 kg/m2 37482.18 g [facility] 07/05/2023 16:22:42 Social History Question Answer Notes LastModified by Organizat ion Details LastModified Time Tobacco Smoking Status Current Every Day Smoker Hazel Sandoval [facility] 08/30/2017 11:04:58 How Much Tobacco Do You Chew? None Information not available 07/16/2019 Marital Status Informatio n not available 08/30/2017 What Was The Date Of Your Most Recent Tobacco Screening? 09/13/2017 [id number] Information not available 08/27/2019 What Is Your Relationship Status? [email or web address] Information not available 06/23/2023 How Much Tobacco Do You Smoke? No Information not available 07/16/2019 How Many Years Have You Smoked Tobacco? 22 Information not available 07/16/2019 Sex: Unknown Functional Status Question Answer Note LastModified by Organizat ion Details LastModified Time What is your level of alcohol consumption? None Information not available 08/30/2017 Do you or have you ever used smokeless tobacco? 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 Family History Relationship Description Onset Age of this Age Resolved Age Notes LastModified by Organization Details LastModified Time Unspecified Relation Diabetes mellitus [email or web address] Not available 2017 11:04:45 Unspecified Relation Family history of malignant neoplasm [email or web address] Not available 2017 11:04:56 Mother Disorder of [...] SNOMED-CT Code Diagnosis ICD10 Code Diagnosis Note [id number] KEVIN HEIN MD [facility] [address] [facility] [place] [address] 08/30/2017 10:34:06 09/04/2017 08:26:34 Kidney stone 42296216 N20.0 Pt with persistent R flank pain. [...] Will set up ESWL. Blood in urine 15315797 R31.9 [id number] KEVIN HEIN MD UROLOGY [facility] [address] [address] [place] [address] 09/13/2017 13:28:22 09/25/2017 08:46:17 Kidney stone 03962194 N20.0 KUB difficult to see the stone due to cartilagin ous changes of ribs. Discussed that the stone was in a non-obstru cting position prior to ESWL and unlikely to make a difference in her pain. She now has bilateral mid back pain and MRI recently showed no significan t abnormalit ies. Discussed conservati ve options of musculoske letal pain. [id number] BELIA ARRINGTON MD [facility] [address] [place] [address] 07/16/2019 09:21:10 07/18/2019 18:22:05 Sphenoidal sinusitis 94274331 J32.3 -REC. RIGHT SPHENOIDOT KENIA/ETHMOI DECTOMY FOR DIAGNOSIS AND TREATMENT Asymmetric al sensorineural hearing loss 058931463 H90.5 -LEFT SNHL MILD [id number] NICOLE TROTTER ID ENT [address] [place] [address] 07/26/2019 17:02:34 07/26/2019 17:04:05 Sensorineural hearing loss in left ear 2438962995 9109 H90.42 Bilateral tinnitus 94806 74690 102 H93.13 Ear pressu re sensation 765377304 H93.8X3 Dizziness and giddiness 022189602 R42 [id number] MD BEATA SCOTT ENT [address] [place] [address] 07/30/2019 09:58:13 08/02/2019 17:10:20 Sphenoidal sinusitis 28501816 J32.3 -REC. RIGHT SPHENOIDOT KENIA/ETHMOI DECTOMY FOR DIAGNOSIS AND TREATMENT Asymmetric al sensorineural hearing loss 617924458 H90.5 -LEFT SNHL MILD Headache 74960143 R51 Anxiety 80039242 F41.9 Posterior rhinorrhea 758 00289 R09.82 [id number] JOEY CARSON III, MD [facility] [address] [place] [address] 08/09/2019 13:31:16 08/12/2019 09:23:00 Chronic sinusitis 71099126 J32.9 Nasal mucosa dry 9563491 2 J34.89 Tobacco user 130420484 Z 72.0 Hypertroph y of nasal turbinates 75661173 J34.3 Hypertroph y of tonsils 92774684 J35.1 Cryptic tonsil 826438587 J35.8 Headache 94807229 R51 [id number] BELIA ARRINGTON MD ID ENT [address] [place] [address] 08/14/2019 09:06:57 08/14/2019 10:17:18 Chronic sinusitis 69866012 J32.9 Nasal mucosa dry 5873812 2 J34.89 Tobacco user 514870765 Z 72.0 Hypertroph y of nasal turbinates 39248632 J34.3 Headache 38201980 R51 Sneezing 74065640 R06.7 Cough 79340033 R05 Posterior rhinorrhea 758 21042 R09.82 [id number] NATALY DEL VALLE MD NEUROLOGY [facility] [address] [address] [place] [address] 10/30/2019 12:42:30 10/30/2019 13:30:35 Migraine 56970773 G43.909 Migraine without aura 56 203950 G43.009 [id number] SHERICE SLOAN APRN UROLOGY [address] [place] [address] 06/16/2023 08:38:40 06/16/2023 11:09:42 Kidney stone 12754684 N20.0 [id number] SHERICE SLOAN APRN UROLOGY [facility] [place] [address] 06/23/2023 09:49:54 06/23/2023 12:40:22 Kidney stone 31083074 N20.0 [id number] KENNETH HERNANDEZ MD SURGERY SCHEDULE [address] [place] [address] 06/30/2023 13:56:36 06/30/2023 13:59:45 Ureteric stone 29328716 N20.1 Postoperative pain 89202 9007 G89.18 [id number] KENNETH HERNANDEZ MD UROLOGY [address] [place] [address] 07/05/2023 15:35:48 07/08/2023 04:14:27 Kidney stone 52005531 N20.0 Renal colic 1125728 N23 Hydronephrosis 66921450 N13.30 Health Concerns Section Related Observation LastModified by Organization Detai ls LastModified Time None Recorded Concern Status LastModified by Organization Details LastModified Time None Recorded Advance Directives Directive None Recorded Payers Insurance Date Sequence Insurance Name Policy Number Policy Reilly Covered Member ID Reilly Member ID Guarantor Name 07/31/2023 1 [place] [id number] Kash Jing [id number] Yoon Hernandez 08/29/2017 1 *SELF PAY* Gladys [...] Never tried triptans. NATALY DEL VALLE MD [facility] [place], [address], [facility] 10/30/2019 13:27:58 06/16/2023 text/html 42-year-old elías huber with history of urolithiasis. She is a previous patient of Dr. Hein. She underwent right ESWL in 2018. Follow-up KUBs were negative for stones. She noticed increased suprapubic pressure about 2 weeks ago. She thought she had a yeast infection and has been treating herself with lbfs-fbx-axgnciz yeast cream. On Monday evening, she developed severe left flank pain. She was seen in the ER at [facility]. She says a CT scan [...] is a smoker. SHERICE SLOAN, MINNA [address] [place], [address], [facility] 06/16/2023 09:32:59 06/23/2023 text/html 42-year-old elías huber with history of urolithiasis. She is a previous patient of Dr. Hein. She underwent right ESWL in 2018. Follow-up KUBs were negative for stones. She noticed increased suprapubic pressure about 2 weeks ago. She thought she had a yeast infection and has been treating herself with zfmr-gsi-wtwerqo yeast cream. On Monday evening, she developed severe left flank pain. She was seen in the ER at [facility]. She says a CT scan showed 2 left ureteral stones. She was told 1 stone was in the mid ureter and the other was closer to the bladder. She was given hydrocodone and Flomax.She is a smoker. HPI: She returns today for follow-up with left distal uretral stones. She was seen by me one week ago.A CT scan at [facility] 3 weeks ago showed 2 left ureteral [...] miserable and unable to work. SHERICE SLOAN, TELECOM NETWORK MANAGER [address] [place], [address], [facility] 06/23/2023 10:52:32 07/05/2023 text/html Diagnosis: Urolithiasis [...] pain. She went to the [facility] emergency room twice. CT scans 05/29/2023 and 06/28/2023 showed 2 left distal ureteral stones up to 5 mm and bilateral small renal stones. She underwent left ureteroscopic laser lithotripsy and stent 06/30/2023. 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 HPI: The patient is here with her for continued pain after laser lithotripsy last week. The stent came out partially the following day and she subsequently removed it. She went to the [facility] emergency room 07/01/[address] scan and [facility] emergency room 07/04/[address] scan [...] 5 mg and ketorolac. KENNETH HERNANDEZ MD [facility] [place], [address], [facility] 07/07/2023 09:05:41 OBGyn Episode No OBEpisode recorded.
[2025-01-21] MEDS: IOPAMIDOL-370 (76%);100ML BOTTLE 75 ML IV (09:28)
[2025-01-21] MEDS: SODIUM CHLORIDE 0.9% 10ML SYR (RAD ONLY) 10 ML IV (09:28)
== END 2025-01-21 23:59 | disposition home or self-care (01) ==
LOC: RAD 09:01
PROVIDERS: PCP Family Medicine; Visit Provider Nurse Practitioner
DX: R59.1 Generalized enlarged lymph nodes (principal); M54.2 Cervicalgia
CPT/HCPCS: 70491; 76642; Q9967

== ENCOUNTER 2025-01-24 16:51 | Outpatient (CLI) | payer BC, SELFPAY ==
--- OUTSIDE RECORDS SUMMARY | 2025-01-24 16:53 | XMS_ITS | Clinical Summary ---
[facility] Address [address] [place] [address] Care Team Providers Care Lace Winder Name Role Phone Provider, No Known Primary Care Provider Unavail able Social History Tobacco Use Types Packs/Day Years Used Date Smoking Tobacco: Never Assessed Abuse Screen Answer Date Recorded Unsafe at Home or Work/School Not on file Feels Threatened by Someone? Not on file 02/2023 Does Anyone Keep You from Co ntacting Others or Doint Things Outside the Home? Not on file 04/16/2023 Physical Sign of Abuse Present Not on file 1 Housing Stability Answer Date Recorded Current Living Arrangements Not on file 02/2023 Potentially Unsafe Housing Conditions Not on josue e 04/16/2023 Family and Community Support Answer Jerome e Recorded Help with Day-to-Day Activities Not on file 04/16/2023 Lonely or Isolated Not on file 04/16/2023 Employment Answer Date Recorded Do you want help finding or keeping work or a malvin b? Not on file 04/16/2023 Disabilities Answer Date Recorded Concentrating, Remembering, or Making Decisions Difficulty Not on file 04/16/2023 Doing Errands Independently Difficulty Not on fi le 04/16/2023 Education Answer Date Recorded Help with school or training? Not on file Preferred Language Not on file 04/16/2023 Comments Unknown Sex and Gender Information Value Date Recorded Sex Assigned at Not on file Legal Sex Female 1:44 PM EDT Gender Identity Not on file Sexual Orientation Not on file Plan of Treatment Health Maintenance Due Date Last Done Comments ANNUAL PHYSICAL 1980 Annual Gynecologic Pelvic an d Breast Exam 1980 HEPATITIS C SCREENING 1980 TDAP/TD VACCINES (1 - Tdap) 2001 MAMMOGRAM 2022 COVID-19 Vaccine ( - 2023-2 5 season) 2024 INFLUENZA VACCINE 04/09/2025 Pneumococcal Vaccine 0-49 Aged Out No longer eligible based on patient's age to complete this topic Insurance PPO Care Teams Lace Winder Relationship Specialty Start Date End Date Provider, [place] [address] PCP - General 05/19/15
--- OUTSIDE RECORDS SUMMARY | 2025-01-24 16:53 | XMS_ITS | Encounter Summary ---
Author Organization [employer] ([place], [place], [place], [place]) Address [address] [place] [address] Care Team Providers Care Rabies Inspector Name Role Phone Unavailable Primary Care Provider Unavailabl e Encounter Details Date Type Department Care Team (Late st Contact Info) Description 05/01/[address] [facility] [place] [address] ProviderJordyn MD [address] [place] [address] Social History Tobacco Use Types Packs/Day Years [...] had multiple injections by way of a hollow tile partition erector without a whole lot of relief and [...]
--- OUTSIDE RECORDS SUMMARY | 2025-01-24 16:53 | XMS_ITS | Referral Summary ---
Author Organization [employer] ([place], [place], [place], [place]) Address [address] [place] [address] Care Team Providers Care Blacksmith Supervisor Name Role Phone Unavailable Primary Care Provider [...] Date Tuan rded Speak language other than Jamaican at home Not on file 07/19/2023 Want [...]
--- OUTSIDE RECORDS SUMMARY | 2025-01-24 16:53 | XMS_ITS | Encounter Summary ---
Author Organization [employer] ([place], [place], [place], [place]) Address [address] [place] [address] Care Team Providers Care Desk Clerk Name Role Phone Unavailable Primary Care Provider Unavailabl e Encounter Details Date Type Department Care Team (Late st Contact Info) Description 04/14/2020 Transcribed Document [facility] [place] [address] ProviderJordyn MD [address] [place] [address] Social History Tobacco Use Types Packs/Day Years [...] Medrol. The patient tolerated the procedure well. Electronically signed by Mario Bill Conversion Senior User Experience Architect Cerner at 10/25/2022 11:28 PM CDT documented in this encounter Plan of Treatment Not on file documented as of this encounter Visit Diagnoses Not on filedocumented in this encounter
--- OUTSIDE RECORDS SUMMARY | 2025-01-24 16:53 | XMS_ITS | Data Portability ---
Author Organization [facility] [place] [facility] Address [address] [facility] [facility] [address] [place] [address] Care Team Providers Care Reading Professor Name Role Phone NATALY DEL VALLE Neurologist [phone] DANIEL MENA Primary Care Provider CAR FRANKLIN [...] she knows to call anytime if needed. [email or web address] Not available 10/30/2019 13:27:20 06/16/2023 06/16/2023 42-year-old female with history of urolithiasis. She was seen in the ER at [facility] 06/11/2023. She was told she has 2 left ureteral stones. She was discharged home with hydrocodone and Flomax. She will continue taking Flomax and use hydrocodone as needed for pain. She was given a strainer and specimen cup in case she is able to catch the stones. We have requested the CT records from [facility]. I will contact her if the CT [...] She was seen in the ER at [facility] 06/11/2023. She was told she has 2 [...] medication as needed. Go to ER in [place] if symptoms fail to improve or worsen. [...] colic and CT scans at [facility] showed 2 left distal ureteral stones. She has been unable to pass the stones and opts for stone extraction. DRAIN: Left ureteral stent 6-Omani x 24 cm, strings intact. OPERATIVE NOTE: After informed consent, the patient was taken to the operating room in stable condition. Anesthesia was induced without complications. She was placed in the lithotomy position. The genitalia and groins were prepped and draped. A time-out was taken to identify the correct patient and procedure and side. A 22-Omani cystoscope was placed per urethra into the [...] fragment the stones into smaller pieces. A 1.9-Omani ZeroTip basket was used to extract the fragments into the bladder. Followup ureteroscopy into the upper ureter showed no other stones. The ureteroscope was withdrawn and removed. The cystoscope was placed over the wire into the bladder. A 6-Omani x 24 cm double-J ureteral stent was [...] 09:18:13 urinalysis , microscopi c 2022 023 [email or web address] [facility], [address] [place] [address], [address], 3 14:33:15 Referral None recorded. Procedures None recorded. Surgeries None recorded. Imaging CT, abdomen + pelvis, w/o contrast 2022 023 evickers [facility], [address] [place] [address], [phone], 3 10:14:32 Medication Orders tamsulosin 0.4 mg capsule 2022 023 [facility], [address], [address], [place], [address], 3 17:01:32 Percocet 5 mg-325 mg tablet 2022 023 [facility], [address], [address], [place], [address], 3 16:51:46 oxycodone- acetaminop hen 7.5 mg-325 mg tablet 2022 023 [facility], [address] [place] [address], [address], [place], [address], 3 10:28:54 ketorolac 10 mg tablet 2022 023 [facility], [address] [place] [address], [address], [place], [address], 3 10:28:52 ketorolac 30 mg/mL injection solution 2022 023 [facility] Not available 3 12:09:08 tamsulosin 0.4 mg capsule 2022 023 [facility], [address] [place] [address], [address], [place], [address], 3 09:29:11 hydrocodon e 5 mg-acetami nophen 325 mg tablet 2022 023 [facility], [address] [place] [address], [address], [place], [address], 3 09:24:17 Aimovig Autoinject or 140 mg/mL subcutaneo us auto-injec tor [address] [facility], [address] [place] [address], [address], [place], [address], 0 13:25:39 rizatripta n 10 mg tablet [address] [facility], [facility] [address], [address], [place], [address], 0 13:25:41 Patient TargetsNo targets recorded. Patient InstructionsNo instructions recorded. Reason for Referral None Reported. Results Created Date Observation Date Name Description Value Unit Range Abnormal Flag Note LastModifiedBy Organization Detail LastModifiedTime 06/16/2006/16/2023 urina lysis , dipst ick Unknown Analyte Yellow Not Available [facility] [address] [place] [address], [address], 06/16/2023 09:03:01 06/16/20 23 06/16/2023 urina lysis , dipst ick Unknown Analyte Clear Not Available [facility] [address] [place] [address], [address], 06/16/2023 09:03:01 06/16/20 23 06/16/2023 urina lysis , dipst ick Unknown Analyte 1.020 Not Available [facility] [address] [place] [address], [address], 06/16/2023 09:03:01 06/16/20 23 06/16/2023 urina lysis , dipst ick Unknown Analyte 5.0 Not Available [facility] [address] [place], [address], 06/16/2023 09:03:01 06/16/20 23 06/16/2023 urina lysis , dipst ick Unknown Analyte Negati ve Not Available [facility] [address] [place] [address], [address], 06/16/2023 09:03:01 06/16/20 23 06/16/2023 urina lysis , dipst ick Unknown Analyte Negati ve Not Available [facility] [address] [place], [address], 06/16/2023 09:03:01 06/16/20 23 06/16/2023 urina lysis , dipst ick Unknown Analyte Negati ve Not Available [facility] [address] [place] [address], [address], 06/16/2023 09:03:01 06/16/20 23 06/16/2023 urina lysis , dipst ick Unknown Analyte Normal Not Available [facility] [address] [place], [address], 06/16/2023 09:03:01 06/16/20 23 06/16/2023 urina lysis , dipst ick Unknown Analyte Negati ve Not Available [facility] [address] [place], [address], 06/16/2023 09:03:01 06/16/2006/16/2023 urina lysis , dipst ick Unknown Analyte Normal Not Available [facility] [address] [place], [address], 06/16/2023 09:03:01 06/16/20 23 06/16/2023 urina lysis , dipst ick Unknown Analyte Negati ve Not Available [facility] [address] [place], [address], 06/16/2023 09:03:01 06/16/20 23 06/16/2023 urina lysis , dipst ick Unknown Analyte Negati ve Not Available [facility] [address] [place], [address], 06/16/2023 09:03:01 06/16/20 23 06/16/2023 urina lysis , dipst ick Unknown Analyte Clean Catch Not Available [facility] [address] [place], [address], 06/16/2023 09:03:01 06/16/20 23 06/16/2023 urina lysis , dipst ick Unknown Analyte Visual Not Available [facility] [address] [place], [address], 06/16/2023 09:03:01 06/23/20 23 06/23/2023 urina lysis , dipst ick Unknown Analyte Yellow Not Available [facility] [address] [place], [address], 06/23/2023 08:14:06 06/23/20 23 06/23/2023 urina lysis , dipst ick Unknown Analyte Clear Not Available [facility] [address] [place], [address], 06/23/2023 08:14:06 06/23/20 23 06/23/2023 urina lysis , dipst ick Unknown Analyte 1.005 Not Available [facility] [address] [place], [address], 06/23/2023 08:14:06 06/23/20 23 06/23/2023 urina lysis , dipst ick Unknown Analyte 5.0 Not Available [facility] [address] [place] [address], [address], 06/23/2023 08:14:06 06/23/20 23 06/23/2023 urina lysis , dipst ick Unknown Analyte Negati ve Not Available [facility] [address] [place] [address], [address], 06/23/2023 08:14:06 06/23/20 23 06/23/2023 urina lysis , dipst ick Unknown Analyte Negati ve Not Available [facility] [address] [place] [address], [address], 06/23/2023 08:14:06 06/23/2006/23/2023 urina lysis , dipst ick Unknown Analyte Negati ve Not Available [facility] [address] [place] [address], [address], 06/23/2023 08:14:06 06/23/20 23 06/23/2023 urina lysis , dipst ick Unknown Analyte Normal Not Available [facility] [address] [place], [address], 06/23/2023 08:14:06 06/23/20 23 06/23/2023 urina lysis , dipst ick Unknown Analyte Negati ve Not Available [facility] [address] [place], [address], 06/23/2023 08:14:06 06/23/20 23 06/23/2023 urina lysis , dipst ick Unknown Analyte Normal Not Available [facility] [address] [place], [address], 06/23/2023 08:14:06 06/23/20 23 06/23/2023 urina lysis , dipst ick Unknown Analyte Negati ve Not Available [facility] [address] [place] [address], [address], 06/23/2023 08:14:06 06/23/20 23 06/23/2023 urina lysis , dipst ick Unknown Analyte Negati ve Not Available [facility] [address] [place] [address], [address], 06/23/2023 08:14:06 06/23/20 23 06/23/2023 urina lysis , dipst ick Unknown Analyte Clean Catch Not Available [facility] [address] [place] [address], [address], 06/23/2023 08:14:06 06/23/20 23 06/23/2023 urina lysis , dipst ick Unknown Analyte Visual Not Available [facility] [address] [place], [address], 06/23/2023 08:14:06 06/30/20 23 06/30/2023 urina lysis panel , auto Unknown Analyte Clean Catch Not Available [facility] [address] [place], [address], 06/30/2023 14:46:14 06/30/20 23 06/30/2023 urina lysis panel , auto Unknown Analyte Yellow Not Available [facility] [address] [place] [address], [place], [address], 06/30/2023 14:46:14 06/30/20 23 06/30/2023 urina lysis panel , auto Unknown Analyte Clear Not Available [facility] [address] [place] [address], [place], [address], 06/30/2023 14:46:14 06/30/20 23 06/30/2023 urina lysis panel , auto Unknown Analyte 1.[address] [facility] [address] [place] [address], [place], [address], 06/30/2023 14:46:14 06/30/20 23 06/30/2023 urina lysis panel , auto Unknown Analyte 1.003- 1.035 Not Available [facility] [address] [place] [address], [place], [address], 06/30/2023 14:46:14 06/30/20 23 06/30/2023 urina lysis panel , auto Unknown Analyte 5.[address] [facility] [address] [place] [address], [address], 06/30/2023 14:46:14 06/30/20 23 06/30/2023 urina lysis panel , auto Unknown Analyte 5.0-8. 0 Not [address] [facility] [address] [place] [address], [place], [address], 06/30/2023 14:46:14 06/30/20 23 06/30/2023 urina lysis panel , auto Unknown Analyte 75 Patrica/ul (+) Not Available [facility] [address] [place] [address], [place], [address], 06/30/2023 14:46:14 06/30/20 23 06/30/2023 urina lysis panel , auto Unknown Analyte Negati ve Not Available [facility] [address] [place] [address], [place], [address], 06/30/2023 14:46:14 06/30/20 23 06/30/2023 urina lysis panel , auto Unknown Analyte Negati ve Not Available [facility] [address] [place] [address], [address], 06/30/2023 14:46:14 06/30/20 23 06/30/2023 urina lysis panel , auto Unknown Analyte Negati ve Not Available [facility] [address] [place] [address], [address], 06/30/2023 14:46:14 06/30/20 23 06/30/2023 urina lysis panel , auto Unknown Analyte Trace Not Available [facility] [address] [place] [address], [address], 06/30/2023 14:46:14 06/30/20 23 06/30/2023 urina lysis panel , auto Unknown Analyte Negati ve Not Available [facility] [address] [place] [address], [address], 06/30/2023 14:46:14 06/30/20 23 06/30/2023 urina lysis panel , auto Unknown Analyte Normal Not Available [facility] [address] [place] [address], [address], 06/30/2023 14:46:14 06/30/20 23 06/30/2023 urina lysis panel , auto Unknown Analyte Normal Not Available [facility] [address] [place] [address], [address], 06/30/2023 14:46:14 06/30/20 23 06/30/2023 urina lysis panel , auto Unknown Analyte 15 mg/dl (Sm) Not Available [facility] [address] [place] [address], [place], [address], 06/30/2023 14:46:14 06/30/20 23 06/30/2023 urina lysis panel , auto Unknown Analyte Negati ve Not Available [facility] [address] [place] [address], [place], [address], 06/30/2023 14:46:14 06/30/20 23 06/30/2023 urina lysis panel , auto Unknown Analyte Normal Not Available [facility] [address] [place] [address], [place], [address], 06/30/2023 14:46:14 06/30/20 23 06/30/2023 urina lysis panel , auto Unknown Analyte Normal 1 mg/dl Not Available [facility] [address] [place] [address], [place], [address], 06/30/2023 14:46:14 06/30/20 23 06/30/2023 urina lysis panel , auto Unknown Analyte 1 mg/dl (+) Not Available [facility] [address] [place] [address], [place], [address], 06/30/2023 14:46:14 06/30/20 23 06/30/2023 urina lysis panel , auto Unknown Analyte Negati ve Not Available [facility] [address] [place] [address], [place], [address], 06/30/2023 14:46:14 06/30/20 23 06/30/2023 urina lysis panel , auto Unknown Analyte 250 Bandar/ul Not Available [facility] [address] [place] [address] [address], [place], [address], 06/30/2023 14:46:14 06/30/20 23 06/30/2023 urina lysis panel , auto Unknown Analyte Negati ve Not Available [facility] [address] [facility] [address], [place], [address], 06/30/2023 14:46:14 07/04/20 23 07/13/2023 STONE JUAN SIS composition SEE BELOW normal Calci um Oxala te Dihyd rate (Wedd ellit e) 15% Calci um Oxala te Monoh ydrat e (Whew ellit e) 70% Carbo lisy Apati te (Dahl lite) 15% See Note 1 Not Available [facility] [address] [place], [address], 07/13/2023 14:59:00 07/04/20 23 07/13/2023 STONE JUAN [...] for clini cody purpo ses. Not Available [facility] [address] [place], [address], 07/13/2023 14:59:00 07/05/20 23 07/05/2023 urina lysis , dipst ick Unknown Analyte Yellow Not Available [facility] [address] [place], [address], 07/05/2023 16:15:03 07/05/20 23 07/05/2023 urina lysis , dipst ick Unknown Analyte Clear Not Available [facility] [address] [place], [address], 07/05/2023 16:15:03 07/05/20 23 07/05/2023 urina lysis , dipst ick Unknown Analyte 1.025 Not Available [facility] [address] [place], [address], 07/05/2023 16:15:03 07/05/20 23 07/05/2023 urina lysis , dipst ick Unknown Analyte 5.0 Not Available [facility] [address] [place], [address], 07/05/2023 16:15:03 07/05/20 23 07/05/2023 urina lysis , dipst ick Unknown Analyte Negati ve Not Available [facility] [address] [place] [address], [address], 07/05/2023 16:15:03 07/05/20 23 07/05/2023 urina lysis , dipst ick Unknown Analyte Negati ve Not Available [facility] [address] [place] [address], [address], 07/05/2023 16:15:03 07/05/20 23 07/05/2023 urina lysis , dipst ick Unknown Analyte Negati ve Not Available [facility] [address] [place] [address], [address], 07/05/2023 16:15:03 07/05/20 23 07/05/2023 urina lysis , dipst ick Unknown Analyte Normal Not Available [facility] [address] [place] [address], [address], 07/05/2023 16:15:03 07/05/20 23 07/05/2023 urina lysis , dipst ick Unknown Analyte Negati ve Not Available [facility] [address] [place] [address], [address], 07/05/2023 16:15:03 07/05/20 23 07/05/2023 urina lysis , dipst ick Unknown Analyte Normal Not Available [facility] [address] [place], [address], 07/05/2023 16:15:03 07/05/20 23 07/05/2023 urina lysis , dipst ick Unknown Analyte Negati ve Not Available [facility] [address] [place], [address], 07/05/2023 16:15:03 07/05/20 23 07/05/2023 urina lysis , dipst ick Unknown Analyte Negati ve Not Available [facility] [address] [place], [address], 07/05/2023 16:15:03 07/05/20 23 07/05/2023 urina lysis , dipst ick Unknown Analyte Clean Catch Not Available [facility] [address] [place], [address], 07/05/2023 16:15:03 07/05/20 23 07/05/2023 urina lysis , dipst ick Unknown Analyte Visual Not Available [facility] [address] [place], [address], 07/05/2023 16:15:03 06/27/20 23 06/20/2023 CT, abdom en, w/o contr ast No observ ation record ed. BARCODE Not Available 2022 16:13:31 07/28/19 24 07/28/2023 CT, abdom en + pelvi s, w/wo contr ast [facility] [address] [place] [address] Mitesh joe Name: JV Wong : [birth year] [...] 350 (1 x 100 mL bottle of [facility] [address]- 1414-9 1). None was wasted and discar [...] Ambar Pedro MD on 024 11:54 AM [facility] [address] , [place], [address], 08/01/2023 10:26:29 Result Notes Documentation Provider Name and Address Organization Details Recorded Time Ct, Abdomen + Pelvis, W/wo Contrast : [address] [place] [address] Patient Name: YOON HERNANDEZ Patient : 1980 [...] 350 (1 x 100 mL bottle of [facility] [address]-55). None was wasted and discarded. Bowel was [...] Interpreted By: Maciej Pedro MD A [facility] 08/01/2023 10:26:29 Problems Name Problem SNOMED Code Status Onset Date Resolution Date Notes Provider Name and Address Organization Details Recorded Time Blood in urine 18994991 Active 2015 Provide r: Hardik Schaefer atus: Active Not Available [facility] 6 08:00:13 Microscopic hematuria 149612142 Active 2015 Provide r: Hardik Schaefer atus: Active Not Available [facility] 6 08:00:13 Kidney stone 58851103 Active 2015 Provide r: Mika Schaefer;St atus: Active Not Available [facility] 6 08:00:13 Problem Notes Documentation Provider Name and Address Organization Details Recorded Time Neurologist Consult Note : [facility] [address] [facility] [id number], MICHELLE (id #[id number], : 1980) [facility] [address] [place] [address] [address] [place] [address] Date: 10/30/2019RE: Yoon Hernandez, : 1980, PT ID #[id number] Arrington MD / [facility], [facility], I would like to thank you [...] pulsatile tinnitus. She works third shift at [employer] in [place]. sleeps during the day, variably well.other systems [...] knows to call anytime if needed. 1. NdqognmgU44.909: Migraine, unspecified, not intractable, without status migrainosus Aimovig Autoinjector 140 mg/mL subcutaneous auto-injector -Inject 1 mL every month by subcutaneous route for 30 days. Qty: 1 1 mL syringe(s) Refills: 5 Pharmacy: [facility] rizatriptan 10 mg tablet -one at onset of migraine; may repeat in 2 hours if needed max 2 in 24 hrs. Qty: 9 tablet(s) Refills: 6 Pharmacy: [facility] 2. Migraine without auraG43.009: Migraine without aura, not intractable, without status migrainosus Return to Office to see NATALY DEL VALLE MD at NEUROLOGY [facility] on or around 12/11/2019 BELIA ARRINGTON MD [address] [place] [address], [address], [facility] 11/01/2019 08:54:00 Urology Note : [facility] [address] [place] [id number], Michelle (id #[id number], : 1980) [facility] [address] [place] [address] Date: 06/16/2023RE: Yoon Hernandez, : 1980, PT ID #[id number] Arrington MD, I would like to thank you for referring Yoon Hernandez to our practice for consultation and evaluation. I have enclosed a copy of the office evaluation for your records. Sincerely, Electronically Signed by: SHERICE SLOAN APRN, NPEncounter Reason/Date kidney stones 06/16/2023 - 09:00AM - UROLOGY SB History of Present Vwapzqm91-aovf-eqw female with history of urolithiasis. She is a previous patient of Dr. Hein. She underwent right ESWL in 2018. Follow-up KUBs were negative for stones. She noticed increased suprapubic pressure about 2 weeks ago. She thought she had a yeast infection and has been treating herself with gtqc-glm-lsgjhln yeast cream. On Monday evening, she developed severe left flank pain. She was seen in the ER at [facility]. She says a CT scan showed 2 [...] Residual; Ultrasound:Post Void Residual Source: Ultrasound Volume: 24mlAssessment/Psek19-okve-ki d female with history of urolithiasis. She was seen in the ER at [facility] 06/11/2023. She was told she has 2 left ureteral stones. She was discharged home with hydrocodone and Flomax. She will continue taking Flomax and use hydrocodone as needed for pain. She was given a strainer and specimen cup in case she is able to catch the stones. We have requested the CT records from [facility]. I will contact her if the CT [...] if symptoms have not resolved. 1. Kidney phwgkD27.0: Calculus of kidney URINALYSIS, DIPSTICK - Specimen source: Urine clean catch Urine Collection Type: Midstream URINE MICROSCOPIC, CULTURE IF INDICATED - Specimen source: URINE, CLEAN CATCH tamsulosin 0.4 mg capsule - Take 1 capsule(s) every day by oral route for 30 days. Qty: (30) capsule Refills: 1 Pharmacy: [facility] hydrocodone 5 mg-acetaminophen 325 mg tablet - Take 1 tablet(s) every 6 hours by oral route for 5 days. Qty: (20) tablet Refills: 0 Pharmacy: [facility] CT R/O KIDNEY STONES (A/P W/O) Weight (lbs): 186 Place of service: OFFICE Procedure code: 86994 URINALYSIS, DIPSTICK Urine Collection Type: Midstream Urinalysis Dipstick (auto) Result Reference Range Color Yellow Appearance Clear Specific gravity 1.020 pH 5.0 Leukocyte Esterase Negative Nitrite Negative Protein Negative Glucose Normal Ketones Negative Urobilinogen Normal Bilirubin Negative Blood Negative Specimen Source Clean Catch Urine Dip Method Visual Comments Return to Office Patient will return to the office as needed BEATA Carbajal [facility] 09/18/2023 11:27:19 Urology Note : [address] [id number], Michelle (id #[id number], : 1980) [address] [address] Encounter Summary - Progress Note Date Printed: [...] received this fax in error, please visit [email or web address] to notify the sender and confirm that the information will be destroyed. If you do not have internet access, please call to notify the sender and confirm that the information will be destroyed. Thank you for your attention and cooperation. [ID:[id number]] Patient Yoon Hernandez (42yo, F) #[id number] 1980 Patient Demographics: Address [address] [place] [phone] Work Phone Encounter Notes: Encounter Reason/Date left ureteral stones 06/23/2023 - 09:40AM - UROLOGY SB History of Present Njvcyit39-fibg-sri female with history of urolithiasis. She is a previous patient of Dr. Hein. She underwent right ESWL in 2018. Follow-up KUBs were negative for stones. She noticed increased suprapubic pressure about 2 weeks ago. She thought she had a yeast infection and has been treating herself with nwjd-jzt-nmmjvlf yeast cream. On Monday evening, she developed severe left flank pain. She was seen in the ER at [facility]. She says a CT scan showed 2 left ureteral stones. She was told 1 stone was in the mid ureter and the other was closer to the bladder. She was given hydrocodone and Flomax.She is a smoker. HPI: She returns today for follow-up with left distal uretral stones. She was seen by me one week ago.A CT scan at [facility] 3 weeks ago showed 2 left ureteral [...] reports no rashes. She reports no fatigue. [id number] 09:55 Ht: 5 ft 6 in Wt: [...] UA negative. Procedure DocumentationNone recorded Assessment and Fwhc37-jhoh-xxn female with history of urolithiasis. She was seen in the ER at [facility] 06/11/2023. She was told she has 2 [...] medication as needed. Go to ER in [place] if symptoms fail to improve or worsen. 1. Kidney lctwaD19.0: Calculus of kidney URINALYSIS, DIPSTICK - Specimen source: Urine clean catch oxycodone-acetaminophen 7.5 mg-325 mg tablet - Take 1 tablet(s) every 6 hours by oral route for 5 days. Qty: (20) tablet Refills: 0 Pharmacy: [facility] ketorolac 10 mg tablet - Take 1 tablet(s) every 6 hours by oral route for 5 days. Qty: (20) tablet Refills: 0 Pharmacy: [facility] ketorolac 30 mg/mL injection solution - Inject 1 mL by intravenous route. Quantity: (30) mg Lot #: [id number] Route: Intramuscular Site: Hip, Left Mold Technician: Ayudarum Exp Date: 06/02/2023 Administered URINALYSIS, DIPSTICK Urinalysis [...] ago10/30/19 entered Darlyn Bañuelos azithromycin 250 mg wvuefc68/31/23 filled [facility] cephALEXin 500 mg spadgzs55/13/20 filled [facility] diclofenac sodium 50 mg tablet,delayed wpuolej96/29/20 filled [facility] estradioL 2 mg pazjmd02/11/20 filled [facility] fluconazole 150 mg vbytzq94/03/23 filled [facility] fluocinolone 0.025 % topical bzwntild88/21/20 filled [facility] HYDROcodone 5 mg-acetaminophen 325 mg tabletTake 1 tablet(s) every 6 hours by oral route for 5 days.06/16/23 prescribed SHERICE SLOAN APRN ibuprofen 800 mg gpeiff40/04/23 filled [facility] ketorolac 10 mg tabletTake 1 tablet(s) every 6 hours by oral route for 5 days.06/23/23 prescribed SHERICE SLOAN APRN ketorolac 30 mg/mL injection solutionInject 1 mL by intravenous route. Administer Note: injection given without pygfgxswxcuu00/15/23 administered SHERICE SLOAN APRN meloxicam 7.5 mg /14/23 filled [facility] methocarbamoL 750 mg enykgw29/14/23 filled [facility] ondansetron 4 mg disintegrating gnjutt00/04/23 filled [facility] oxyCODONE-acetaminophen 7.5 mg-325 mg tabletTake 1 tablet(s) every 6 hours by oral route for 5 days.06/23/23 prescribed SHERICE SLOAN APRN Paxlovid 300 mg (150 mg x 2)-100 mg tablets in a dose packFOLLOW PACKAGE MKQHZDLXDW57/31/23 filled [facility] predniSONE 20 mg nhvybo57/20/20 filled [facility] rizatriptan 10 mg tabletone at onset of migraine; may repeat in 2 hours if needed max 2 in 24 hrs.10/30/19 filled [facility] sucralfate 1 gram adhzgy13/20/20 filled [facility] Synthroid 50 mcg apmcwr04/30/20 filled [facility] tamsulosin 0.4 mg capsuleTake 1 [...] recorded Electronically Signed by: SHERICE SLOAN APRN, FACULTY HEAD BEATA Carbajal - [facility] 09/18/2023 11:10:06 Urology Note : [address] [address]RGIQEA, Michelle (id #[id number], : 1980) [address] [address] Encounter Summary - Progress Note Date Printed: [...] received this fax in error, please visit [email or web address] to notify the sender and confirm that the information will be destroyed. If you do not have internet access, please call to notify the sender and confirm that the information will be destroyed. Thank you for your attention and cooperation. [ID:[id number]] Patient Yoon Hernandez (42yo, F) #[id number] 1980 Patient Demographics: Address [address] [place] [phone] Work Phone Encounter Notes: Encounter Reason/Date Pain [...] pain. She went to the [facility] emergency room twice. CT scans 05/29/2023 and 06/28/2023 showed 2 left distal ureteral stones up to 5 mm and bilateral small renal stones. She underwent left ureteroscopic laser lithotripsy and stent 06/30/2023. 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 HPI: The patient is here with her for continued pain after laser lithotripsy last week. The stent came out partially the following day and she subsequently removed it. She went to the [facility] emergency room 07/01/[address] [...] no fever. She reports no difficulty urinating. [id number] 16:22 Ht: 5 ft 6 in Wt: 186 lbs BMI: 30 Results/Interpretations URINALYSIS, DIPSTICK Urinalysis Dipstick (auto) Result Reference Range Color Yellow Appearance Clear Specific gravity 1.025 pH 5.0 Leukocyte Esterase Negative Nitrite Negative Protein Negative Glucose Normal Ketones Negative Urobilinogen Normal Bilirubin Negative Blood Negative Specimen Source Clean Catch Urine Dip Method Visual Comments Physical ExamNone recorded Procedure DocumentationNone recorded Assessment and Gxfa66-fdpr-ldq female with a history of urolithiasis. She [...] if she does not improve. 1. Kidney cjoaoQ87.0: Calculus of kidney URINALYSIS, DIPSTICK - Specimen source: Urine clean catch 2. Renal omxepW16: Unspecified renal colic tamsulosin 0.4 mg capsule - Take 1 capsule(s) every day by oral route in the evening for 30 days. Qty: (30) capsule Refills: 1 Pharmacy: [facility] 3. DcwuufthpfuzzwK97.30: Unspecified hydronephrosis URINALYSIS, DIPSTICK Urinalysis Dipstick (auto) [...] ago10/30/19 entered Darlyn Bañuelos cefdinir 300 mg wimyohx60/26/23 filled [facility] diclofenac sodium 50 mg tablet,delayed /29/20 filled [facility] estradioL 2 mg rtenyi32/11/20 filled [facility] fluconazole 150 mg vwrzis80/03/23 filled [facility] fluocinolone 0.025 % topical txamkwlg07/21/20 filled [facility] HYDROcodone 5 mg-acetaminophen 325 mg tabletTake 1 tablet(s) every 6 hours by oral route for 5 days.06/16/23 prescribed SHERICE SLOAN APRN ibuprofen 800 mg /04/23 filled [facility] ketorolac 10 mg tabletTake 1 tablet(s) every 6 hours by oral route for 5 days.06/23/23 filled [facility] ketorolac 30 mg/mL injection solutionInject 1 mL by intravenous route. Administer Note: injection given without xoeiemtetmeu99/15/23 administered SHERICE SLOAN APRN meloxicam 7.5 mg ybeqyu83/14/23 filled [facility] methocarbamoL 750 mg azdksj37/14/23 filled [facility] ondansetron 4 mg disintegrating oxmmcy75/04/23 filled [facility] oxyCODONE-acetaminophen 5 mg-325 mg tabletTake 1 tablet(s) every 4-6 hours by oral route as needed for 3 days.06/30/23 filled [facility] oxyCODONE-acetaminophen 7.5 mg-325 mg tabletTake 1 tablet(s) every 6 hours by oral route for 5 days.06/23/23 prescribed SHERICE SLOAN APRN Paxlovid 300 mg (150 mg x 2)-100 mg tablets in a dose packFOLLOW PACKAGE NLVUBDDEAD60/31/23 filled [facility] predniSONE 20 mg tncini64/20/20 filled [facility] rizatriptan 10 mg tabletone at onset of migraine; may repeat in 2 hours if needed max 2 in 24 hrs.10/30/19 filled [facility] sucralfate 1 gram asmkte17/20/20 filled [facility] Synthroid 50 mcg /30/20 filled [facility] tamsulosin 0.4 mg capsuleTake 1 [...] Signed by: KENNETH HERNANDEZ [facility] 11:26:29 Procedures Surgical History Date Name Laterality Status Provider Name and Address Organization Details Recorded Time 06/16/20 23 Post Void Residual; Ultrasound completed Korin Fuller [facility] 06/16/2023 09:23:37 07/26/19 20 Tympanogram completed KARLO CORONA, NICOLE [address] [place], [address], [facility] 07/26/2019 17:03:11 07/26/19 20 Audiogram completed NICOLE TROTTER [address] [place], [address], [facility] 07/26/2019 17:03:10 07/16/19 20 Endoscopy Nasal; Diagnostic completed MD Amor SCOTT[address] [place], [address], [facility] 07/16/2019 14:10:05 09/08/19 18 EXTRA CORPOREAL SHOCK WAVE LITHOTRIPSY (SURG) completed Kunal Kevin [facility] 11/01/2017 10:40:36 Cholecystectomy completed Hazel Sandoval [facility] 08/30/2017 11:05:27 delivery completed Hazelleo Sandoval [facility] 08/30/2017 11:05:34 Hysterectomy completed Hazel Sandoval [facility] 08/30/2017 11:05:39 Kidney Stones completed KENNETH HERNANDEZ MD [address] [place], [address], [facility] 06/30/2023 16:38:12 Imaging Results None recorded. [...] e 50 mcg/actua tion nasal spray,carol pension [place] 2 sprays twice a day by intranas [...] Updated DateTime 10/30/2019 167.64 cm [facility] 12:42:44 Date Recorded Body height Body mass index (BMI) Body weight Provider Name and Address Organization Details Last Updated DateTime 06/16/2023 167.64 cm 30 kg/m2 20615.18 g [facility] 06/16/2023 09:20:38 Date Recorded Body height Body mass index (BMI) Body weight Provider Name and Address Organization Details Last Updated DateTime 06/23/2023 167.64 cm 30 kg/m2 29299.18 g [facility] 06/23/2023 09:55:20 Date Recorded Body height Body mass index (BMI) Body weight Provider Name and Address Organization Details Last Updated DateTime 07/05/2023 167.64 cm 30 kg/m2 56735.18 g [facility] 07/05/2023 16:22:42 Social History Question Answer Notes LastModified by Organizat ion Details LastModified Time Tobacco Smoking Status Current Every Day Smoker Hazel Sandoval [facility] 08/30/2017 11:04:58 How Much Tobacco Do [...] is your level of alcohol consumption? None [email or web address] Information not available 08/30/2017 Do you or have you ever used smokeless tobacco? 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 Family History Relationship Description Onset Age of this Age Resolved Age Notes LastModified by Organization Details LastModified Time Unspecified Relation Diabetes mellitus [email or web address] Not available 2017 11:04:45 Unspecified Relation Family history of malignant neoplasm [email or web address] Not available 2017 11:04:56 Mother Disorder of [...] SNOMED-CT Code Diagnosis ICD10 Code Diagnosis Note [id number] KEVIN HEIN MD [facility] [address] [place] [address] 08/30/2017 10:34:06 09/04/2017 08:26:34 Kidney stone 07621747 N20.0 Pt with persistent R flank pain. [...] Will set up ESWL. Blood in urine [id number] R31.9 [id number] KEVIN HEIN MD UROLOGY [facility] [address] [facility] [place] [address] 09/13/2017 13:28:22 09/25/2017 08:46:17 Kidney stone 55989000 N20.0 KUB difficult to see the stone due to cartilagin ous changes of ribs. Discussed that the stone was in a non-obstru cting position prior to ESWL and unlikely to make a difference in her pain. She now has bilateral mid back pain and MRI recently showed no significan t abnormalit ies. Discussed conservati ve options of musculoske letal pain. [id number] BELIA ARRINGTON MD [facility] [address] [place] [address] 07/16/2019 09:21:10 07/18/2019 18:22:05 Sphenoidal sinusitis 14304635 J32.3 -REC. RIGHT SPHENOIDOT KENIA/ETHMOI DECTOMY FOR DIAGNOSIS AND TREATMENT Asymmetric al sensorineural hearing loss 785140649 H90.5 -LEFT SNHL MILD [id number] NICOLE TROTTER [facility] [address] [place] [address] 07/26/2019 17:02:34 07/26/2019 17:04:05 Sensorineural hearing loss in left ear 3703755098 9109 H90.42 Bilateral tinnitus 73636 68246 102 H93.13 Ear pressu re sensation 438141772 H93.8X3 Dizziness and giddiness 666736683 R42 [id number] MD BEATA SCOTT ENT [address] [place] [address] 07/30/2019 09:58:13 08/02/2019 17:10:20 Sphenoidal sinusitis 98648931 J32.3 -REC. RIGHT SPHENOIDOT KENIA/ETHMOI DECTOMY FOR DIAGNOSIS AND TREATMENT Asymmetric al sensorineural hearing loss 581729060 H90.5 -LEFT SNHL MILD Headache 17782192 R51 Anxiety 67018175 F41.9 Posterior rhinorrhea 758 65013 R09.82 [id number] JOEY CARSON III, MD [facility] [address] [place] [address] 08/09/2019 13:31:16 08/12/2019 09:23:00 Chronic sinusitis 73523961 J32.9 Nasal mucosa dry 8539375 2 J34.89 Tobacco user 418106435 Z 72.0 Hypertroph y of nasal turbinates 78575059 J34.3 Hypertroph y of tonsils 00003625 J35.1 Cryptic tonsil 164240108 J35.8 Headache 68040044 R51 [id number] BELIA ARRINGTON MD [facility] [address] [place] [address] 08/14/2019 09:06:57 08/14/2019 10:17:18 Chronic sinusitis 98259802 J32.9 Nasal mucosa dry 4113684 2 J34.89 Tobacco user 259445460 Z 72.0 Hypertroph y of nasal turbinates 29463888 J34.3 Headache 52199093 R51 Sneezing 32386686 R06.7 Cough 95702367 R05 Posterior rhinorrhea 758 81640 R09.82 [id number] NATALY DEL VALLE MD NEUROLOGY [facility] [address] [address] [place] [address] 10/30/2019 12:42:30 10/30/2019 13:30:35 Migraine 81502649 G43.909 Migraine without aura 56 388598 G43.009 [id number] SHERICE SLOAN APRN UROLOGY [address] [place] [address] 06/16/2023 08:38:40 06/16/2023 11:09:42 Kidney stone 74075167 N20.0 [id number] SHERICE SLOAN APRN UROLOGY [address] [place] [address] 06/23/2023 09:49:54 06/23/2023 12:40:22 Kidney stone 28205692 N20.0 [id number] KENNETH HERNANDEZ MD SURGERY SCHEDULE [address] [place] [address] 06/30/2023 13:56:36 06/30/2023 13:59:45 Ureteric stone 81740094 N20.1 Postoperative pain 82424 9007 G89.18 [id number] KENNETH HERNANDEZ MD UROLOGY [address] [place] [address] 07/05/2023 15:35:48 07/08/2023 04:14:27 Kidney stone 96042706 N20.0 Renal colic 0486172 N23 Hydronephrosis 13594835 N13.30 Health Concerns Section Related Observation LastModified by Organization Detai ls LastModified Time None Recorded Concern Status LastModified by Organization Details LastModified Time None Recorded Advance Directives Directive None Recorded Payers Insurance Date Sequence Insurance Name Policy Number Policy Reilly Covered Member ID Reilly Member ID Guarantor Name 07/31/2023 1 [place] [id number] Kash Jing [id number] Yoon Hernandez 08/29/2017 1 *SELF PAY* Gladys [...] Never tried triptans. NATALY DEL VALLE MD [facility] [place], [address], [facility] 10/30/2019 13:27:58 06/16/2023 text/html 42-year-old elías huber with history of urolithiasis. She is a previous patient of Dr. Hein. She underwent right ESWL in 2018. Follow-up KUBs were negative for stones. She noticed increased suprapubic pressure about 2 weeks ago. She thought she had a yeast infection and has been treating herself with pstk-yrx-ckkayfk yeast cream. On Monday evening, she developed severe left flank pain. She was seen in the ER at [facility]. She says a CT scan showed 2 [...] is a smoker. SHERICE SLOAN, MINNA [address] [place], [address], [facility] 06/16/2023 09:32:59 06/23/2023 text/html 42-year-old elías huber with history of urolithiasis. She is a previous patient of Dr. Hein. She underwent right ESWL in 2018. Follow-up KUBs were negative for stones. She noticed increased suprapubic pressure about 2 weeks ago. She thought she had a yeast infection and has been treating herself with wpdy-wzl-zgoziwc yeast cream. On Monday evening, she developed severe left flank pain. She was seen in the ER at [facility]. She says a CT scan showed 2 left ureteral stones. She was told 1 stone was in the mid ureter and the other was closer to the bladder. She was given hydrocodone and Flomax.She is a smoker. HPI: She returns today for follow-up with left distal uretral stones. She was seen by me one week ago.A CT scan at [facility] 3 weeks ago showed 2 left ureteral [...] miserable and unable to work. SHERICE SLOAN, MANAGER STARS [address] [place], [address], [facility] 06/23/2023 10:52:32 07/05/2023 text/html Diagnosis: Urolithiasis [...] pain. She went to the [facility] emergency room twice. CT scans 05/29/2023 and 06/28/2023 showed 2 left distal ureteral stones up to 5 mm and bilateral small renal stones. She underwent left ureteroscopic laser lithotripsy and stent 06/30/2023. 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 HPI: The patient is here with her for continued pain after laser lithotripsy last week. The stent came out partially the following day and she subsequently removed it. She went to the [facility] emergency room 07/01/[address] [...] 5 mg and ketorolac. KENNETH HERNANDEZ MD [facility] [place], [address], [facility] 07/07/2023 09:05:41 OBGyn Episode No OBEpisode recorded.
--- OUTSIDE RECORDS SUMMARY | 2025-01-24 16:53 | XMS_ITS | Clinical Summary ---
Author Organization Healthcare Address [address] [place] [address] Care Team Providers Care Literacy Education Professor Name Role Phone Kenneth Peterson MD Primary Care Provider [phone] Family History Medical History Relation Name Comments [...] of Treatment Not on file Care Teams Literacy Education Professor Relationship Specialty Start Date End Date Kenneth Peterson MD [address] [place] [address] PCP - General 11/20/20
--- OUTSIDE RECORDS SUMMARY | 2025-01-24 16:53 | XMS_ITS | Clinical Summary ---
Author Organization [facility] Address [address] [place] [address] Phone Care Team Providers Care Production Support Manager Name Role Phone Unavailable Primary Care [...] patient's age to complete this topic Insurance [facility] [place] [id number] LUCAS PPO LUCAS PPO
--- OUTSIDE RECORDS SUMMARY | 2025-01-24 16:53 | XMS_ITS | Clinical Summary ---
Author Organization [facility] ([place], [place], [place], [place]) Address [address] [place] [address] Care Team Providers Care Front Counter Attendant Name Role Phone Unavailable Primary Care Provider [...] Date Tuan rded Speak language other than Bolivian at home Not on file 07/19/2023 Want [...]
--- NOTE | 2025-01-24 16:59 | MR_ITS ---
PROCEDURE INFORMATION: Exam: MR Left Upper Extremity Joint Without Contrast; Shoulder Exam date and time: 01/24/2025 4:57 PM Age: 44 years old Clinical indication: Left shoulder pain , swelling from neck around shoulder and starting down left arm , swelling started x 2 weeks. No injury; Additional info: Trapezius muscle spasm TECHNIQUE: Imaging protocol: Magnetic resonance imaging of the left upper extremity without contrast. Exam focused on the shoulder. COMPARISON: US - CA VENOUS DOPPLER UE LT 10/23/2024 1:54 PM FINDINGS: Bones/joints: Unremarkable. No bone abnormalities. Articular cartilage normal. No joint effusion. Glenoid labrum: Unremarkable. No evidence of tear. Supraspinatus tendon: Unremarkable. No evidence of tear. Infraspinatus tendon: Unremarkable. No evidence of tear. Subscapularis tendon: Unremarkable. No evidence of tear. Teres minor tendon: Unremarkable. No evidence of tear. Tendon of biceps brachii: Unremarkable. No evidence of tear. Glenohumeral ligaments: Unremarkable. Soft tissues: Unremarkable. IMPRESSION: No identifiable structural abnormality of the left shoulder.
== END 2025-01-24 23:59 | disposition home or self-care (01) ==
LOC: RAD 16:52
PROVIDERS: PCP Nurse Practitioner; Visit Provider Nurse Practitioner
DX: M62.838 Other muscle spasm (principal)
CPT/HCPCS: 73221

== ENCOUNTER 2025-03-27 18:09 | Emergency (ER) | payer BC, SELFPAY ==
--- OUTSIDE RECORDS SUMMARY | 2025-03-27 18:16 | XMS_ITS | Clinical Summary ---
Author Organization Healthcare Address [address] [place] [address] Care Team Providers Care Academic Adviser Name Role Phone Kenneth Peterson MD Primary Care Provider [phone] Family History Medical History Relation Name Comments [...] of Treatment Not on file Care Teams Academic Adviser Relationship Specialty Start Date End Date Kenneth Peterson MD [address] [place] [address] PCP - General 11/20/20
--- OUTSIDE RECORDS SUMMARY | 2025-03-27 18:16 | XMS_ITS | Clinical Summary ---
Author Organization [facility] Address [address] [place] [phone] Phone Care Team Providers Care Microbiology Lab Assistant Name Role Phone Unavailable Primary Care [...] COVID-19 Vaccine ( - 2023-2 5 season) 2025 Influenza Vaccine (#1) 2025 03/24/2020 DTaP/TDaP/Td (2 - Td or Tdap) 07/01/2031 07/01/2021 Meningococcal B Vaccine Aged Out No l onger eligible based on patient's age to complete this topic Insurance [facility] [email or web address] [place] [id number] LUCAS PPO LUCAS PPO
--- OUTSIDE RECORDS SUMMARY | 2025-03-27 18:16 | XMS_ITS | Clinical Summary ---
[facility] Address [address] [place] [address] Care Team Providers Care Relief Map Modeler Name Role Phone Provider, No Known Primary [...] VACCINES (1 - Tdap) 2001 MAMMOGRAM 2022 INFLUENZA VACCINE 02/07/2025 Pneumococcal Vaccine 0-49 Aged Out No longer eligible based on patient's age to complete this topic Insurance PPO Care Teams Relief Map Modeler Relationship Specialty Start Date End Date Provider, No Known [facility] [place] [address] PCP - General 05/19/15
--- NOTE | 2025-03-27 18:19 | XR_ITS ---
PROCEDURE INFORMATION: Exam: XR Left Hand Exam date and time: 03/27/2025 7:10 PM Age: 44 years old Clinical indication: Injury or trauma; Other: Left middle finger foreign body/needle stuck in it TECHNIQUE: Imaging protocol: Radiologic exam of the left hand. Views: 3 or more views. COMPARISON: No relevant prior studies available. FINDINGS: Bones/joints: A needle like foreign body noted within the lateral aspect of the distal 3rd finger adjacent to the lateral margin of the 3rd distal phalange. Underlying bony involvement can not be totally excluded. Soft tissues: Normal. IMPRESSION: Needle foreign body in the distal 3rd finger as above.
[2025-03-27 18:20] VITALS: BP 132/87; PULSE 85; RESP 16; TEMP 37.3; O2SAT 100; O2SAT 99; BMI 24.1
--- NOTE | 2025-03-27 18:20 | ED_ITS ---
<Statement entered by Mercedes Fowler DO - 03/30/25 01:20> I was consulted by the GWEN, and we discussed the complexity of problems being addressed. I approve the treatment and management plan for this patient's care in the emergency department, thus performing a substantial portion of the medical decision making. Mercedes Fowler DO Discharge Plan Disposition Patient Disposition: Home, Self-Care Condition: Good Prescriptions Prescriptions: New cephalexin 500 mg capsule 1,000 mg PO BID 5 Days Qty: 20 0RF cephalexin 500 mg capsule 500 mg PO Q6H 5 Days Qty: 20 0RF No Action levothyroxine 50 mcg tablet 50 mcg PO DAILY lidocaine 5 % adhesive patch,medicated See Rx Instructions .ROUTE .COMPLEX Qty: 15 0RF Rx Instructions: Apply to most painful area and leave on for 12 hours. Remove and leave off for 12 hours before using a new patch. methocarbamol 500 mg tablet 500 mg PO TID PRN (Reason: muscle spasm) Qty: 90 0RF apixaban 5 mg tablet 5 mg PO BID 90 Days Qty: 194 0RF Rx Instructions: Take 2 tablets (10mg) by mouth twice daily for 7 days. Then take 1 tablet (5mg) twice daily until you run out. ondansetron 4 mg tablet,disintegrating 4 mg PO Q6H PRN (Reason: nausea and vomiting) Qty: 12 0RF tamsulosin 0.4 mg capsule 0.4 mg PO HS Qty: 10 0RF oxycodone 5 mg tablet 5 mg PO Q6H PRN (Reason: pain (scale score 7-10)) Qty: 12 0RF Referrals Follow up/Referrals: Provider,Referral, MD [Primary Care Provider, Medical] - See instructions Activity Restrictions/Add. Instructions Additional Instructions/Restrictions: Please call [facility] hand surgery at [phone] visit the website at [facility] hand care. Please take your antibiotic as prescribed. Please utilize Tylenol and ibuprofen and generalized wound care, please return to the emergency department any worsening signs or symptoms. 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 Patient is unsure of tetanus prophylaxis, she denies any other acute signs or symptoms, no active bleeding at this time. Patient is a current everyday smoker, denies any alcohol or drug use, patient was previously on anticoagulation therapy with Eliquis, hypothyroidism, stress incontinence, initial triage vitals are unremarkable. Please note that above description of symptoms, in this electronic medical record under categorization of recalled from ER triage doctor by RN are reflective of an initial nursing assessment, however, is not reflective of my full history and physical exam that was personally taken and clarified. Consequentially, this preceding description of symptoms, which may include the patient's categorized chief complaint in the EMR, do not reflect my personal clinical impression, and the ultimate description of history of present illness and patient stated complaints should be deferred to this section of the note. Unless stated otherwise or congruent with this section of the note, additional signs, symptoms, or incongruence should be interpreted as inaccurate with my clinical impression. Onset (ago): hour(s) Related Data Home Medications ?Medication ?Instructions ?Recorded ?Confirmed levothyroxine 50 mcg tablet 50 mcg PO DAILY thyroid 10/22/24 Previous Rx's ?Medication ?Instructions ?Recorded apixaban 5 mg tablet 5 mg PO BID 90 days #194 tab s 10/23/24 lidocaine 5 % topical patch See Rx Instructions topica l 10/23/24 .COMPLEX #15 ea methocarbamol 500 mg tablet 500 mg PO TID PRN muscle s pasm #90 10/23/24 tabs ondansetron 4 mg disintegrating 4 mg PO Q6H PRN nausea and 12/21/24 tablet vomiting #12 tabs oxycodone 5 mg tablet 5 mg PO Q6H PRN pain (scale score 12/21/24 7-10) #12 tabs tamsulosin 0.4 mg capsule 0.4 mg PO HS #10 caps cephalexin 500 mg capsule 1,000 mg (2 x 500 mg) PO BID 5 03/27/25 days #20 caps cephalexin 500 mg capsule 500 mg PO Q6H 5 days #20 cap s 03/27/25 Allergies Allergy/AdvReac Type Severity Reaction Status Date / Time No Known Allergies Allergy Verified 06/11/23 11:44 [facility] Disclaimer: The information contained in this section may have been updated after the patient was seen, as this information can be updated by other users. Medical History (Updated 03/27/25 @ 20:27 by Nakul Lobato RN) Kidney stone Tobacco user Stress incontinence in female History of endometriosis Dyspareunia Overweight (BMI 25.0-29.9) Nephrolithiasis Felon of digit Abscess of right thigh Atypical chest pain Cellulitis and abscess of right leg Lateral epicondylitis of elbow Surgical History History of hysterectomy with bilateral oophorectomy Family History (Updated 03/27/25 @ 18:21 by Hazel Cam RN) Other No significant family history Social History Smoking Status: Current every day smoker tobacco type: cigarettes packs per day: 1 alcohol intake: never substance use type: denies use current occupational status: other Travel in the last 8 weeks?: None household members: spouse and children housing: house 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 Have you lived/traveled outside US in past 30 days?: No Contact w/someone who lives/traveled outside US past 30 days?: No Exposure to someone with infectious disease in past 14 days?: No Do you have a fever (greater than 100.4 F or 38 C)?: No Have you tested positive for COVID-19?: No Exposed to someone with COVID-19 in past 14 days?: No Do you have a sore throat?: No Do you have a cough?: No Do you have any weakness?: No Do you have any diarrhea?: No Are you experiencing any unusual bleeding?: No Do you have any muscle aches/pain?: No Do you have any abdominal pain?: No Are you experiencing loss of taste or smell?: No Other Medical History Have you received the Flu Vaccine for this season: Yes Have you received the Pneumonia Vaccine: No ROS Obtained: Yes All systems reviewed & no additional complaints except as documented Physical Exam General General appearance: alert and in no apparent distress Head Head exam: atraumatic and normocephalic Eye Eye exam: Present PERRL and EOMI ENT ENT exam: Present mucous membranes moist Neck Neck exam: Present normal inspection Chest Chest inspection: Present normal inspection and symmetric chest wall rise Respiratory Respiratory exam: Present normal lung sounds bilaterally; Absent respiratory distress Cardiovascular Cardiovascular exam: Present regular rate and normal rhythm Abdominal Exam Abdominal exam: Present soft; Absent tenderness Extremities Exam Extremities exam: Present normal inspection Neurological Exam Neurological exam: Present alert and oriented X3 Psychiatric Psychiatric exam: Present normal affect Skin Skin exam: Present warm, dry and other (There is a small, abrasion, with dried blood, over the distal aspect of the left third digit, no obvious foreign body laceration or puncture wound, neurovascular intact) Medical Decision Making Medical Records Medical records reviewed: Yes I reviewed the patient's medical records. Screening: Per USPSTF and CDC recommendations, given the prevalence of disease in our region, it is our hospital?s policy to screen for HIV and viral Hepatitis for all patients aged 18 and over and those with ongoing risk factors. Alcon Inquiry Pt receiving controlled substance: No Alcon was queried for this patient: No Vital Signs: 03/27/25 18:20 03/27/25 18:20 03/27/25 19:14 Temperature 99.1 F 99.1 F Temperature Source Oral Pulse Rate 85 75 Pulse Rate [Right] 85 Respiratory Rate 16 16 16 Blood Pressure 132/87 120/85 Blood Pressure [Right Arm] 132/87 Blood Pressure Mean [Right Arm] 102 02 Sat by Pulse Oximetry 99 100 99 Oxygen Delivery Method Room Air Room Air 03/27/25 20:06 Temperature Temperature Source Pulse Rate 74 Pulse Rate [Right] Respiratory Rate Blood Pressure 119/73 Blood Pressure [Right Arm] Blood Pressure Mean [Right Arm] 02 Sat by Pulse Oximetry 98 Oxygen Delivery Method Room Air Orders (Tests/Meds): ED MEDICATIONS Discontinued Medications Generic Name Dose Route Start Last Admin Trade Name Freq PRN Reason Stop Dose Admin Acetaminophen 500 mg 03/27/25 19:16 03/27/25 19:26 Acetaminophen 500mg Tab PO 03/27/25 19:17 500 mg ONCE ONE Administration Lidocaine HCl 10 ml 03/27/25 19:19 Lidocaine 1% 10ml Mdv IJ 03/27/25 19:20 ONCE ONE Lidocaine HCl 20 ml 03/27/25 20:01 03/27/25 20:04 Lidocaine 1% 20ml Mdv IJ 03/27/25 20:02 20 ml ONCE ONE Administration Tetanus/Reduced Diphtheria/Acell Pertussis 0.5 ml 03/27/25 18:19 03/27/25 18:38 Tet/Diphth/Pert-Adult 0.5ml Syringe IM 03/27/25 18:20 0.5 ml .ONCE ONE Administration ORDERS Category Date Time Status XR hand LT min 3V Stat Exams 03/27/25 18:19 Taken XR hand LT min 3V Stat Exams 03/27/25 19:48 Taken Medical Decision Narrative: 44-year-old female presents the emergency department with a left finger foreign body believes she has a needle , stuck in it, differential diagnose include but not limited to, wound, abrasion, foreign body in the finger among others. I discussed this patient's case with the attending physician Dr. Fowler Will obtain x-ray of the left hand for further evaluation as characterization, and update patient's tetanus prophylaxis, and will give 500 mg p.o. Tylenol for pain. Dependently reviewed patient's x-ray of the hand, there is an obvious metallic foreign body to the medial aspect of the patient's DIP joint I along with the attending physician attempted to remove the patient's foreign body, utilizing approximately 5 mL of of 1% lidocaine doing digital nerve block, after 2 linear incisions with 11 blade, exploring with hemostats/forceps, unable to remove patient's foreign body, will place patient on Keflex 500 mg p.o. every 6 for 5 days, will give patient hand surgery follow-up. Patient voiced understanding and agreement with current treatment plan/discharge plan. Patient will follow-up and return to the emergency room with any worsening signs or symptoms. Will give patient generalized wound care here, and give 5 mg p.o. Percocet and first dose of 500 mg Keflex prior to discharge for pain and infection prophylaxis. Critical Care Critical Care Time Critical Care Time: No
[2025-03-27] MEDS: TET/DIPHTH/PERT-ADULT 0.5ML SYRINGE 0.5 ML IM (18:38)
[2025-03-27 19:14] VITALS: BP 120/85; PULSE 75; RESP 16; O2SAT 99
[2025-03-27] MEDS: ACETAMINOPHEN 500MG TAB 500 MG PO (19:26)
--- NOTE | 2025-03-27 19:48 | XR_ITS ---
PROCEDURE INFORMATION: Exam: XR Left Hand Exam date and time: 03/27/2025 7:49 PM Age: 44 years old Clinical indication: Injury or trauma; Other: Left digit fb TECHNIQUE: Imaging protocol: Radiologic exam of the left hand. Views: 3 or more views. COMPARISON: CR XR HAND LT MIN 3V 03/27/2025 7:10 PM FINDINGS: Bones/joints: Stable position of the needle foreign body within the distal lateral 3rd finger. No new findings. Soft tissues: Normal. IMPRESSION: Stable position distal 3rd finger foreign body.
[2025-03-27] MEDS: LIDOCAINE 1% 20ML MDV 20 ML IJ (20:04)
[2025-03-27 20:06] VITALS: BP 119/73; PULSE 74; O2SAT 98
[2025-03-27 20:25] VITALS: BP 119/73; PULSE 73; RESP 16; TEMP 37.1; O2SAT 97
--- NOTE | 2025-03-27 20:30 | ED_ITS ---
<Statement entered by Mercedes Fowler DO - 03/30/25 01:29> Duplicate note, please see other note. Discharge Plan Disposition Patient Disposition: Home, Self-Care Condition: Good Prescriptions Prescriptions: New cephalexin 500 mg capsule 500 mg PO Q6H 5 Days Qty: 20 0RF No Action levothyroxine 50 mcg tablet 50 mcg PO DAILY lidocaine 5 % adhesive patch,medicated See Rx Instructions .ROUTE .COMPLEX Qty: 15 0RF Rx Instructions: Apply to most painful area and leave on for 12 hours. Remove and leave off for 12 hours before using a new patch. methocarbamol 500 mg tablet 500 mg PO TID PRN (Reason: muscle spasm) Qty: 90 0RF apixaban 5 mg tablet 5 mg PO BID 90 Days Qty: 194 0RF Rx Instructions: Take 2 tablets (10mg) by mouth twice daily for 7 days. Then take 1 tablet (5mg) twice daily until you run out. ondansetron 4 mg tablet,disintegrating 4 mg PO Q6H PRN (Reason: nausea and vomiting) Qty: 12 0RF tamsulosin 0.4 mg capsule 0.4 mg PO HS Qty: 10 0RF oxycodone 5 mg tablet 5 mg PO Q6H PRN (Reason: pain (scale score 7-10)) Qty: 12 0RF Referrals Follow up/Referrals: Provider,Referral, MD [Primary Care Provider, Medical] - See instructions Activity Restrictions/Add. Instructions Additional Instructions/Restrictions: Please call [facility] hand surgery at [phone] visit the website at [facility] hand care. Please take your antibiotic as prescribed. Please utilize Tylenol and ibuprofen and generalized wound care, please return to the emergency department any worsening signs or symptoms. Clinical Impressions Clinical Impression: Foreign body of left middle finger Print Language Print Language: Afghan Discharge ED Provider: Mercedes Fowler General Adult HPI General Chief complaint: Skin/Abscess/Foreign Body Stated complaint: AO 9-18 left hand needle in middle finger Time Seen by Provider: 03/27/25 18:13 Mode of Arrival: Ambulatory Source of Information: Patient Limitations: No Limitations History of Present Illness Onset (ago): hour(s) Related Data Home Medications ?Medication ?Instructions ?Recorded ?Confirmed levothyroxine 50 mcg tablet 50 mcg PO DAILY thyroid 10/22/24 Previous Rx's ?Medication ?Instructions ?Recorded apixaban 5 mg tablet 5 mg PO BID 90 days #194 tab s 10/23/24 lidocaine 5 % topical patch See Rx Instructions topica l 10/23/24 .COMPLEX #15 ea methocarbamol 500 mg tablet 500 mg PO TID PRN muscle s pasm #90 10/23/24 tabs ondansetron 4 mg disintegrating 4 mg PO Q6H PRN nausea and 12/21/24 tablet vomiting #12 tabs oxycodone 5 mg tablet 5 mg PO Q6H PRN pain (scale score 12/21/24 7-10) #12 tabs tamsulosin 0.4 mg capsule 0.4 mg PO HS #10 caps cephalexin 500 mg capsule 500 mg PO Q6H 5 days #20 cap s 03/27/25 Allergies Allergy/AdvReac Type Severity Reaction Status Date / Time No Known Allergies Allergy Verified 06/11/23 11:44 [facility] Disclaimer: The information contained in this section may have been updated after the patient was seen, as this information can be updated by other users. Medical History (Updated 03/27/25 @ 20:34 by Kiel Delatorre RN) Kidney stone Tobacco user Stress incontinence in female History of endometriosis Dyspareunia Overweight (BMI 25.0-29.9) Nephrolithiasis Felon of digit Abscess of right thigh Atypical chest pain Cellulitis and abscess of right leg Lateral epicondylitis of elbow Surgical History History of hysterectomy with bilateral oophorectomy Family History (Updated 03/27/25 @ 18:21 by Hazel Cam RN) Other No significant family history Social History Smoking Status: Current every day smoker tobacco type: cigarettes packs per day: 1 alcohol intake: never substance use type: denies use current occupational status: other Travel in the last 8 weeks?: None household members: spouse and children housing: house 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 Have you lived/traveled outside US in past 30 days?: No Contact w/someone who lives/traveled outside US past 30 days?: No Exposure to someone with infectious disease in past 14 days?: No Do you have a fever (greater than 100.4 F or 38 C)?: No Have you tested positive for COVID-19?: No Exposed to someone with COVID-19 in past 14 days?: No Do you have a sore throat?: No Do you have a cough?: No Do you have any weakness?: No Do you have any diarrhea?: No Are you experiencing any unusual bleeding?: No Do you have any muscle aches/pain?: No Do you have any abdominal pain?: No Are you experiencing loss of taste or smell?: No Other Medical History Have you received the Flu Vaccine for this season: Yes Have you received the Pneumonia Vaccine: No ROS Obtained: Yes All systems reviewed & no additional complaints except as documented Physical Exam General General appearance: alert and in no apparent distress Respiratory Respiratory exam: Present normal lung sounds bilaterally Cardiovascular Cardiovascular exam: Present regular rate Neurological Exam Neurological exam: Present alert and oriented X3 Medical Decision Making Medical Records Screening: Per USPSTF and CDC recommendations, given the prevalence of disease in our region, it is our hospital?s policy to screen for HIV and viral Hepatitis for all patients aged 18 and over and those with ongoing risk factors. Alcon Inquiry Pt receiving controlled substance: No Vital Signs: 03/27/25 18:20 03/27/25 18:20 03/27/25 19:14 Temperature 99.1 F 99.1 F Temperature Source Oral Pulse Rate 85 75 Pulse Rate [Right] 85 Respiratory Rate 16 16 16 Blood Pressure 132/87 120/85 Blood Pressure [Right Arm] 132/87 Blood Pressure Mean [Right Arm] 102 Blood Pressure Source Blood Pressure Position 02 Sat by Pulse Oximetry 99 100 99 Oxygen Delivery Method Room Air Room Air 03/27/25 20:06 03/27/25 20:25 Temperature 98.7 F Temperature Source Oral Pulse Rate 74 73 Pulse Rate [Right] Respiratory Rate 16 Blood Pressure 119/73 119/73 Blood Pressure [Right Arm] Blood Pressure Mean [Right Arm] Blood Pressure Source Automatic Cuff Blood Pressure Position Sitting 02 Sat by Pulse Oximetry 98 Oxygen Delivery Method Room Air Room Air Orders (Tests/Meds): ED MEDICATIONS Discontinued Medications Generic Name Dose Route Start Last Admin Trade Name Freq PRN Reason Stop Dose Admin Acetaminophen 500 mg 03/27/25 19:16 03/27/25 19:26 Acetaminophen 500mg Tab PO 03/27/25 19:17 500 mg ONCE ONE Administration Cephalexin HCl 500 mg 03/27/25 20:28 03/27/25 20:39 Cephalexin 500mg Capsule PO 03/27/25 20:29 500 mg ONCE ONE Administration Lidocaine HCl 10 ml 03/27/25 19:19 03/27/25 20:28 Lidocaine 1% 10ml Mdv IJ 03/27/25 19:20 Not Given ONCE ONE Lidocaine HCl 20 ml 03/27/25 20:01 03/27/25 20:04 Lidocaine 1% 20ml Mdv IJ 03/27/25 20:02 20 ml ONCE ONE Administration Oxycodone HCl 5 mg 03/27/25 20:28 03/27/25 20:39 Oxycodone 5mg Immediate Release Tablet PO 03/27/25 20:29 5 mg ONCE ONE Administration Tetanus/Reduced Diphtheria/Acell Pertussis 0.5 ml 03/27/25 18:19 03/27/25 18:38 Tet/Diphth/Pert-Adult 0.5ml Syringe IM 03/27/25 18:20 0.5 ml .ONCE ONE Administration ORDERS Category Date Time Status XR hand LT min 3V Stat Exams 03/27/25 18:19 Completed XR hand LT min 3V Stat Exams 03/27/25 19:48 Completed Procedures Foreign Body Removal Time Out Performed: No Site: left Description of foreign body: needle Sedation/Analgesia: other Technique: manual removal, removal with forceps, incision made to facilitate removal and irrigation Confirmed by:: radiograph Complications: bleeding Post-procedure exam: awake, alert Neurovascular: no change from pre-procedure Critical Care Critical Care Time Critical Care Time: No
[2025-03-27] MEDS: OXYCODONE 5MG IMMEDIATE RELEASE TABLET 5 MG PO (20:39)
== END 2025-03-27 20:41 | disposition home or self-care (01) ==
PROVIDERS: Emergency Provider Student in an Organized Health Care Education/Training Program
DX: S60.453A Superficial foreign body of left middle finger, initial encounter (principal); W45.8XXA Other foreign body or object entering through skin, initial encounter
CPT/HCPCS: 10121; 73130; 90471; 90715; 99285

== ENCOUNTER 2025-04-24 14:22 | Outpatient (CLI) | payer BC, SELFPAY ==
--- OUTSIDE RECORDS SUMMARY | 2025-04-24 14:36 | XMS_ITS | Clinical Summary ---
Author Organization [employer] ([place], [place], [place], [place]) Address [address] [place] [address] Care Team Providers Care Graphic Designer Name Role Phone Unavailable Primary Care Provider [...] Date Tuan rded Speak language other than Macanese at home Not on file 07/19/2023 Want [...] Screening 2022 COVID-19 VACCINE (2023-2 5 season) 2025 Influenza Vaccine (#1) 2025 DTAP/TDAP/TD VACCINES (2 - T d or Tdap) 07/01/2031 07/01/2021 Pneumococcal Vaccine: 0-49 Years Aged Out No longer eligible based on patient's age to complete this topic Insurance BLUE CROSS/BLUE SHIELD
--- OUTSIDE RECORDS SUMMARY | 2025-04-24 14:36 | XMS_ITS | Clinical Summary ---
[facility] Address [address] [place] [address] Care Team Providers Care Real Estate Administrative Assistant Name Role Phone Provider, No Known Primary [...] complete this topic Insurance PPO Care Teams Real Estate Administrative Assistant Relationship Specialty Start Date End Date Provider, No Known [facility] [place] [address] PCP - General 05/19/15
--- OUTSIDE RECORDS SUMMARY | 2025-04-24 14:36 | XMS_ITS | Data Portability ---
Author Organization [facility] Address [address] [place] [address] Care Team Providers Care Brand Recorder Name Role Phone NATALY DEL VALLE Neurologist [...] she knows to call anytime if needed. [email or web address] Not available 10/30/2019 13:27:20 06/16/2023 06/16/2023 42-year-old female with history of urolithiasis. She was seen in the ER at [facility] 06/11/2023. She was told she has 2 left ureteral stones. She was discharged home with hydrocodone and Flomax. She will continue taking Flomax and use hydrocodone as needed for pain. She was given a strainer and specimen cup in case she is able to catch the stones. We have requested the CT records from [facility]. I will contact her if the [...] She was seen in the ER at [facility] 06/11/2023. She was told she has [...] medication as needed. Go to ER in [place] if symptoms fail to improve or worsen. [...] colic and CT scans at [facility] showed 2 left distal ureteral stones. She has been unable to pass the stones and opts for stone extraction. DRAIN: Left ureteral stent 6-Turkish x 24 cm, strings intact. OPERATIVE NOTE: After informed consent, the patient was taken to the operating room in stable condition. Anesthesia was induced without complications. She was placed in the lithotomy position. The genitalia and groins were prepped and draped. A time-out was taken to identify the correct patient and procedure and side. A 22-Turkish cystoscope was placed per urethra into the [...] fragment the stones into smaller pieces. A 1.9-Turkish ZeroTip basket was used to extract the fragments into the bladder. Followup ureteroscopy into the upper ureter showed no other stones. The ureteroscope was withdrawn and removed. The cystoscope was placed over the wire into the bladder. A 6-Turkish x 24 cm double-J ureteral stent was [...] emergency room twice. A CT scan at [facility] 07/04/2023 showed left hydroureter but [...] 09:18:13 urinalysis , microscopi c 2022 023 [email or web address] [facility], [address] [place] [address], [phone], 3 14:33:15 Referral None recorded. Procedures None recorded. Surgeries None recorded. Imaging CT, abdomen + pelvis, w/o contrast 2022 023 [email or web address] [facility], [address] [place] [address], [address], 3 10:14:32 Medication Orders tamsulosin 0.4 mg capsule 2022 023 [facility], [address], [address], [place], [address], 3 17:01:32 Percocet 5 mg-325 mg tablet 2022 023 [facility], [address], [address], [place], [address], 3 16:51:46 oxycodone- acetaminop hen 7.5 mg-325 mg tablet 2022 023 [facility], [address] [place] [address], [address], [place], [address], 3 10:28:54 ketorolac 10 mg tablet 2022 023 [facility], [address] [place] [address], [address], [place], [address], 3 10:28:52 ketorolac 30 mg/mL injection solution 2022 023 [facility] Not available 3 12:09:08 tamsulosin 0.4 mg capsule 2022 023 [facility], [address] [place] [address], [address], [place], [address], 3 09:29:11 hydrocodon e 5 mg-acetami nophen 325 mg tablet 2022 023 [facility], [address] [place] [address], [address], [place], [address], 3 09:24:17 Aimovig Autoinject or 140 mg/mL subcutaneo us auto-injec tor 2019 020 INTERFACE [facility], [address] [place] [address], [address], [place], [address], 0 13:25:39 rizatripta n 10 mg tablet 2019 020 INTERFACE [facility], [facility] [address], [address], [place], [address], 0 13:25:41 Patient TargetsNo targets recorded. Patient InstructionsNo instructions recorded. Reason for Referral None Reported. Results Created Date Observation Date Name Description Value Unit Range Abnormal Flag Note LastModifiedBy Organization Detail LastModifiedTime 06/16/2006/16/2023 urina lysis , dipst ick Unknown Analyte Yellow Not Available [facility] [address] [place] [address], [phone], 06/16/2023 09:03:01 06/16/20 23 06/16/2023 urina lysis , dipst ick Unknown Analyte Clear Not Available [facility] [address] [place] [address], [phone], 06/16/2023 09:03:01 06/16/20 23 06/16/2023 urina lysis , dipst ick Unknown Analyte 1.020 Not Available [facility] [address] [place] [address], [address], 06/16/2023 09:03:01 06/16/20 23 06/16/2023 urina lysis , dipst ick Unknown Analyte 5.0 Not Available [facility] [address] [place], [address], 06/16/2023 09:03:01 06/16/20 23 06/16/2023 urina lysis , dipst ick Unknown Analyte Negati ve Not Available [facility] [address] [place] [address], [phone], 06/16/2023 09:03:01 06/16/20 23 06/16/2023 urina lysis , dipst ick Unknown Analyte Negati ve Not Available [facility] [address] [place], [address], 06/16/2023 09:03:01 06/16/20 23 06/16/2023 urina lysis , dipst ick Unknown Analyte Negati ve Not Available [facility] [address] [place] [address], [address], 06/16/2023 09:03:01 06/16/20 23 06/16/2023 urina lysis , dipst ick Unknown Analyte Normal Not Available [facility] [address] [place], [address], 06/16/2023 09:03:01 06/16/20 23 06/16/2023 urina lysis , dipst ick Unknown Analyte Negati ve Not Available [facility] [address] [place], [address], 06/16/2023 09:03:01 06/16/2006/16/2023 urina lysis , dipst ick Unknown Analyte Normal Not Available [facility] [address] [place], [address], 06/16/2023 09:03:01 06/16/20 23 06/16/2023 urina lysis , dipst ick Unknown Analyte Negati ve Not Available [facility] [address] [place], [address], 06/16/2023 09:03:01 06/16/20 23 06/16/2023 urina lysis , dipst ick Unknown Analyte Negati ve Not Available [facility] [address] [place], [address], 06/16/2023 09:03:01 06/16/20 23 06/16/2023 urina lysis , dipst ick Unknown Analyte Clean Catch Not Available [facility] [address] [place], [address], 06/16/2023 09:03:01 06/16/20 23 06/16/2023 urina lysis , dipst ick Unknown Analyte Visual Not Available [facility] [address] [place], [address], 06/16/2023 09:03:01 06/23/20 23 06/23/2023 urina lysis , dipst ick Unknown Analyte Yellow Not Available [facility] [address] [place], [address], 06/23/2023 08:14:06 06/23/20 23 06/23/2023 urina lysis , dipst ick Unknown Analyte Clear Not Available [facility] [address] [place], [address], 06/23/2023 08:14:06 06/23/20 23 06/23/2023 urina lysis , dipst ick Unknown Analyte 1.005 Not Available [facility] [address] [place], [address], 06/23/2023 08:14:06 06/23/20 23 06/23/2023 urina lysis , dipst ick Unknown Analyte 5.0 Not Available [facility] [address] [place] [address], [address], 06/23/2023 08:14:06 06/23/20 23 06/23/2023 urina lysis , dipst ick Unknown Analyte Negati ve Not Available [facility] [address] [place] [address], [address], 06/23/2023 08:14:06 06/23/20 23 06/23/2023 urina lysis , dipst ick Unknown Analyte Negati ve Not Available [facility] [address] [place] [address], [address], 06/23/2023 08:14:06 06/23/2006/23/2023 urina lysis , dipst ick Unknown Analyte Negati ve Not Available [facility] [address] [place] [address], [address], 06/23/2023 08:14:06 06/23/20 23 06/23/2023 urina lysis , dipst ick Unknown Analyte Normal Not Available [facility] [address] [place], [address], 06/23/2023 08:14:06 06/23/20 23 06/23/2023 urina lysis , dipst ick Unknown Analyte Negati ve Not Available [facility] [address] [place], [address], 06/23/2023 08:14:06 06/23/20 23 06/23/2023 urina lysis , dipst ick Unknown Analyte Normal Not Available [facility] [address] [place], [address], 06/23/2023 08:14:06 06/23/20 23 06/23/2023 urina lysis , dipst ick Unknown Analyte Negati ve Not Available [facility] [address] [place] [address], [phone], 06/23/2023 08:14:06 06/23/20 23 06/23/2023 urina lysis , dipst ick Unknown Analyte Negati ve Not Available [facility] [address] [place] [address], [address], 06/23/2023 08:14:06 06/23/20 23 06/23/2023 urina lysis , dipst ick Unknown Analyte Clean Catch Not Available [facility] [address] [place] [address], [address], 06/23/2023 08:14:06 06/23/20 23 06/23/2023 urina lysis , dipst ick Unknown Analyte Visual Not Available [facility] [address] [place], [address], 06/23/2023 08:14:06 06/30/20 23 06/30/2023 urina lysis panel , auto Unknown Analyte Clean Catch Not Available [facility] [address] [place], [address], 06/30/2023 14:46:14 06/30/20 23 06/30/2023 urina lysis panel , auto Unknown Analyte Yellow Not Available [facility] [address] [place] [address], [place], [address], 06/30/2023 14:46:14 06/30/20 23 06/30/2023 urina lysis panel , auto Unknown Analyte Clear Not Available [facility] [address] [place] [address], [place], [address], 06/30/2023 14:46:14 06/30/20 23 06/30/2023 urina lysis panel , auto Unknown Analyte 1.[address] [facility] [address] [place] [address], [place], [address], 06/30/2023 14:46:14 06/30/20 23 06/30/2023 urina lysis panel , auto Unknown Analyte 1.003- 1.035 Not Available [facility] [address] [place] [address], [place], [address], 06/30/2023 14:46:14 06/30/20 23 06/30/2023 urina lysis panel , auto Unknown Analyte 5.[address] [facility] [address] [place] [address], [address], 06/30/2023 14:46:14 06/30/20 23 06/30/2023 urina lysis panel , auto Unknown Analyte 5.0-8. 0 Not [address] [facility] [address] [place] [address], [place], [address], 06/30/2023 14:46:14 06/30/20 23 06/30/2023 urina lysis panel , auto Unknown Analyte 75 Patrica/ul (+) Not Available [facility] [address] [place] [address], [place], [address], 06/30/2023 14:46:14 06/30/20 23 06/30/2023 urina lysis panel , auto Unknown Analyte Negati ve Not Available [facility] [address] [place] [address], [place], [address], 06/30/2023 14:46:14 06/30/20 23 06/30/2023 urina lysis panel , auto Unknown Analyte Negati ve Not Available [facility] [address] [place] [address], [address], 06/30/2023 14:46:14 06/30/20 23 06/30/2023 urina lysis panel , auto Unknown Analyte Negati ve Not Available [facility] [address] [place] [address], [address], 06/30/2023 14:46:14 06/30/20 23 06/30/2023 urina lysis panel , auto Unknown Analyte Trace Not Available [facility] [address] [place] [address], [address], 06/30/2023 14:46:14 06/30/20 23 06/30/2023 urina lysis panel , auto Unknown Analyte Negati ve Not Available [facility] [address] [place] [address], [address], 06/30/2023 14:46:14 06/30/20 23 06/30/2023 urina lysis panel , auto Unknown Analyte Normal Not Available [facility] [address] [place] [address], [address], 06/30/2023 14:46:14 06/30/20 23 06/30/2023 urina lysis panel , auto Unknown Analyte Normal Not Available [facility] [address] [place] [address], [address], 06/30/2023 14:46:14 06/30/20 23 06/30/2023 urina lysis panel , auto Unknown Analyte 15 mg/dl (Sm) Not Available [facility] [address] [place] [address], [place], [address], 06/30/2023 14:46:14 06/30/20 23 06/30/2023 urina lysis panel , auto Unknown Analyte Negati ve Not Available [facility] [address] [place] [address], [place], [address], 06/30/2023 14:46:14 06/30/20 23 06/30/2023 urina lysis panel , auto Unknown Analyte Normal Not Available [facility] [address] [place] [address], [place], [address], 06/30/2023 14:46:14 06/30/20 23 06/30/2023 urina lysis panel , auto Unknown Analyte Normal 1 mg/dl Not Available [facility] [address] [place] [address], [place], [address], 06/30/2023 14:46:14 06/30/20 23 06/30/2023 urina lysis panel , auto Unknown Analyte 1 mg/dl (+) Not Available [facility] [address] [place] [address], [place], [address], 06/30/2023 14:46:14 06/30/20 23 06/30/2023 urina lysis panel , auto Unknown Analyte Negati ve Not Available [facility] [address] [place] [address], [place], [address], 06/30/2023 14:46:14 06/30/20 23 06/30/2023 urina lysis panel , auto Unknown Analyte 250 Bandar/ul Not Available [facility] [address] [place] [address] [address], [place], [address], 06/30/2023 14:46:14 06/30/20 23 06/30/2023 urina lysis panel , auto Unknown Analyte Negati ve Not Available [facility] [address] [facility] [address], [place], [address], 06/30/2023 14:46:14 07/04/20 23 07/13/2023 STONE JUAN SIS composition SEE BELOW normal Calci um Oxala te Dihyd rate (Wedd ellit e) 15% Calci um Oxala te Monoh ydrat e (Whew ellit e) 70% Carbo lisy Apati te (Dahl lite) 15% See Note 1 Not Available [facility] [address] [place], [address], 07/13/2023 14:59:00 07/04/20 23 07/13/2023 STONE JUAN [...] for clini cody purpo ses. Not Available [facility] [address] [place], [address], 07/13/2023 14:59:00 07/05/20 23 07/05/2023 urina lysis , dipst ick Unknown Analyte Yellow Not Available [facility] [address] [place], [address], 07/05/2023 16:15:03 07/05/20 23 07/05/2023 urina lysis , dipst ick Unknown Analyte Clear Not Available [facility] [address] [place], [address], 07/05/2023 16:15:03 07/05/20 23 07/05/2023 urina lysis , dipst ick Unknown Analyte 1.025 Not Available [facility] [address] [place], [address], 07/05/2023 16:15:03 07/05/20 23 07/05/2023 urina lysis , dipst ick Unknown Analyte 5.0 Not Available [facility] [address] [place], [address], 07/05/2023 16:15:03 07/05/20 23 07/05/2023 urina lysis , dipst ick Unknown Analyte Negati ve Not Available [facility] [address] [place] [address], [address], 07/05/2023 16:15:03 07/05/20 23 07/05/2023 urina lysis , dipst ick Unknown Analyte Negati ve Not Available [facility] [address] [place] [address], [address], 07/05/2023 16:15:03 07/05/20 23 07/05/2023 urina lysis , dipst ick Unknown Analyte Negati ve Not Available [facility] [address] [place] [address], [address], 07/05/2023 16:15:03 07/05/20 23 07/05/2023 urina lysis , dipst ick Unknown Analyte Normal Not Available [facility] [address] [place] [address], [address], 07/05/2023 16:15:03 07/05/20 23 07/05/2023 urina lysis , dipst ick Unknown Analyte Negati ve Not Available [facility] [address] [place] [address], [address], 07/05/2023 16:15:03 07/05/20 23 07/05/2023 urina lysis , dipst ick Unknown Analyte Normal Not Available [facility] [address] [place], [address], 07/05/2023 16:15:03 07/05/20 23 07/05/2023 urina lysis , dipst ick Unknown Analyte Negati ve Not Available [facility] [address] [place], [address], 07/05/2023 16:15:03 07/05/20 23 07/05/2023 urina lysis , dipst ick Unknown Analyte Negati ve Not Available [facility] [address] [place], [address], 07/05/2023 16:15:03 07/05/20 23 07/05/2023 urina lysis , dipst ick Unknown Analyte Clean Catch Not Available [facility] [address] [place], [address], 07/05/2023 16:15:03 07/05/20 23 07/05/2023 urina lysis , dipst ick Unknown Analyte Visual Not Available [facility] [address] [place], [address], 07/05/2023 16:15:03 06/27/20 23 06/20/2023 CT, abdom en, w/o contr ast No observ ation record ed. BARCODE Not Available 2022 16:13:31 07/28/19 24 07/28/2023 CT, abdom en + pelvi s, w/wo contr ast [facility] [address] [place] [address] Mitesh joe Name: JV Wong : 11[birth year] [...] 350 (1 x 100 mL bottle of [facility] [address]-9 1). None was wasted and discar [...] No new abnorm ality. Interp reted By: Ambra Pedro MD Electr onical ly Signed By: Ambar Pedro MD on 024 11:54 AM [email or web address] [facility] [address] , [place], [address], 08/01/2023 10:26:29 Result Notes Documentation Provider Name and Address Organization Details Recorded Time Ct, Abdomen + Pelvis, W/wo Contrast : [address] [place] [address] Patient Name: YOON HERNANDEZ Patient : 1980 [...] 350 (1 x 100 mL bottle of [facility] [address]-05). None was wasted and discarded. Bowel was [...] Interpreted By: Maciej Pedro MD A Toure [facility] 08/01/2023 10:26:29 Problems Name Problem SNOMED Code Status Onset Date Resolution Date Notes Provider Name and Address Organization Details Recorded Time Blood in urine 94481313 Active 2015 Provide r: Hardik Schaefer atus: Active Not Available [facility] 6 08:00:13 Microscopic hematuria 322420486 Active 2015 Provide r: Hardik Schaefer atus: Active Not Available [facility] 6 08:00:13 Kidney stone 04260438 Active 2015 Provide r: Mika Schaefer;St atus: Active Not Available [facility] 6 08:00:13 Problem Notes Documentation Provider Name and Address Organization Details Recorded Time Neurologist Consult Note : [facility] [address] [facility] [id number], MICHELLE (id #[id number], : 1980) [facility] [address] [place] [address] [address] [place] [address] Date: 10/30/2019RE: Yoon Hernandez, : 1980, PT ID #[id number] Arrington MD / [facility], [facility], I would like to thank you [...] pulsatile tinnitus. She works third shift at [employer] in [place]. sleeps during the day, variably well.other systems [...] knows to call anytime if needed. 1. WqhyoxqhJ09.909: Migraine, unspecified, not intractable, without status migrainosus Aimovig Autoinjector 140 mg/mL subcutaneous auto-injector -Inject 1 mL every month by subcutaneous route for 30 days. Qty: 1 1 mL syringe(s) Refills: 5 Pharmacy: [facility] rizatriptan 10 mg tablet -one at onset of migraine; may repeat in 2 hours if needed max 2 in 24 hrs. Qty: 9 tablet(s) Refills: 6 Pharmacy: [facility] 2. Migraine without auraG43.009: Migraine without aura, not intractable, without status migrainosus Return to Office to see NATALY DEL VALLE MD at NEUROLOGY [facility] on or around 12/11/2019 BELIA ARRINGTON MD [address] [place] [address], [address], [facility] 11/01/2019 08:54:00 Urology Note : [facility] [address] [place] [id number], Michelle (id #[id number], : 1980) [facility] [address] [place] [address] Date: 06/16/2023RE: Yoon Hernandez, : 1980, PT ID #[id number] Arrington MD, I would like to thank you for referring Yoon Hernandez to our practice for consultation and evaluation. I have enclosed a copy of the office evaluation for your records. Sincerely, Electronically Signed by: SHERICE SLOAN APRN, NPEncounter Reason/Date kidney stones 06/16/2023 - 09:00AM - UROLOGY SB History of Present Rgfvwez33-nmve-kqh female with history of urolithiasis. She is a previous patient of Dr. Hein. She underwent right ESWL in 2018. Follow-up KUBs were negative for stones. She noticed increased suprapubic pressure about 2 weeks ago. She thought she had a yeast infection and has been treating herself with yzin-bqg-bcjwzgq yeast cream. On Monday evening, she developed severe left flank pain. She was seen in the ER at [facility]. She says a CT scan showed [...] Residual; Ultrasound:Post Void Residual Source: Ultrasound Volume: 24mlAssessment/Mcyh82-nyso-ab d female with history of urolithiasis. She was seen in the ER at [facility] 06/11/2023. She was told she has 2 left ureteral stones. She was discharged home with hydrocodone and Flomax. She will continue taking Flomax and use hydrocodone as needed for pain. She was given a strainer and specimen cup in case she is able to catch the stones. We have requested the CT records from [facility]. I will contact her if the [...] if symptoms have not resolved. 1. Kidney jdqdvO41.0: Calculus of kidney URINALYSIS, DIPSTICK - Specimen source: Urine clean catch Urine Collection Type: Midstream URINE MICROSCOPIC, CULTURE IF INDICATED - Specimen source: URINE, CLEAN CATCH tamsulosin 0.4 mg capsule - Take 1 capsule(s) every day by oral route for 30 days. Qty: (30) capsule Refills: 1 Pharmacy: [facility] hydrocodone 5 mg-acetaminophen 325 mg tablet - Take 1 tablet(s) every 6 hours by oral route for 5 days. Qty: (20) tablet Refills: 0 Pharmacy: [facility] CT R/O KIDNEY STONES (A/P W/O) Weight (lbs): 186 Place of service: OFFICE Procedure code: 11920 URINALYSIS, DIPSTICK Urine Collection Type: Midstream Urinalysis Dipstick (auto) Result Reference Range Color Yellow Appearance Clear Specific gravity 1.020 pH 5.0 Leukocyte Esterase Negative Nitrite Negative Protein Negative Glucose Normal Ketones Negative Urobilinogen Normal Bilirubin Negative Blood Negative Specimen Source Clean Catch Urine Dip Method Visual Comments Return to Office Patient will return to the office as needed BEATA Carbajal [facility] 09/18/2023 11:27:19 Urology Note : [address] [id number], Michelle (id #[id number], : 1980) [address] [address] Encounter Summary - Progress Note Date Printed: [...] received this fax in error, please visit [email or web address] to notify the sender and confirm that the information will be destroyed. If you do not have internet access, please call to notify the sender and confirm that the information will be destroyed. Thank you for your attention and cooperation. [ID:[id number]] Patient Yoon Hernandez (42yo, F) #[id number] 1980 Patient Demographics: Address [address] [place] [phone] Work Phone Encounter Notes: Encounter Reason/Date left ureteral stones 06/23/2023 - 09:40AM - UROLOGY SB History of Present Wyqorfr23-cktg-ylx female with history of urolithiasis. She is a previous patient of Dr. Hein. She underwent right ESWL in 2018. Follow-up KUBs were negative for stones. She noticed increased suprapubic pressure about 2 weeks ago. She thought she had a yeast infection and has been treating herself with ctpy-vtm-yxpfkon yeast cream. On Monday evening, she developed severe left flank pain. She was seen in the ER at [facility]. She says a CT scan showed 2 left ureteral stones. She was told 1 stone was in the mid ureter and the other was closer to the bladder. She was given hydrocodone and Flomax.She is a smoker. HPI: She returns today for follow-up with left distal uretral stones. She was seen by me one week ago.A CT scan at [facility] 3 weeks ago showed 2 left ureteral [...] reports no rashes. She reports no fatigue. [id number] 09:55 Ht: 5 ft 6 in Wt: [...] UA negative. Procedure DocumentationNone recorded Assessment and Zymj57-grru-fbe female with history of urolithiasis. She was seen in the ER at [facility] 06/11/2023. She was told she has [...] medication as needed. Go to ER in [place] if symptoms fail to improve or worsen. 1. Kidney qsgxwZ25.0: Calculus of kidney URINALYSIS, DIPSTICK - Specimen source: Urine clean catch oxycodone-acetaminophen 7.5 mg-325 mg tablet - Take 1 tablet(s) every 6 hours by oral route for 5 days. Qty: (20) tablet Refills: 0 Pharmacy: [facility] ketorolac 10 mg tablet - Take 1 tablet(s) every 6 hours by oral route for 5 days. Qty: (20) tablet Refills: 0 Pharmacy: [facility] ketorolac 30 mg/mL injection solution - Inject 1 mL by intravenous route. 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: [employer] Exp Date: 06/02/2023 Administered URINALYSIS, DIPSTICK Urinalysis [...] ago10/30/19 entered Darlyn Bañuelos azithromycin 250 mg wixsse05/31/23 filled [facility] cephALEXin 500 mg /13/20 filled [facility] diclofenac sodium 50 mg tablet,delayed fmovdgh17/29/20 filled [facility] estradioL 2 mg hvczwy45/11/20 filled [facility] fluconazole 150 mg ubrmlz46/03/23 filled su[facility]cripts fluocinolone 0.025 % topical udqxtngi56/21/20 filled [facility] HYDROcodone 5 mg-acetaminophen 325 mg tabletTake 1 tablet(s) every 6 hours by oral route for 5 days.06/16/23 prescribed SHERICE SLOAN APRN ibuprofen 800 mg /04/23 filled [facility] ketorolac 10 mg tabletTake 1 tablet(s) every 6 hours by oral route for 5 days.06/23/23 prescribed SHERICE SLOAN APRN ketorolac 30 mg/mL injection solutionInject 1 mL by intravenous route. Administer Note: injection given without rzibnqwdtrhy44/15/23 administered SHERICE SLOAN APRN meloxicam 7.5 mg ulbcbr65/14/23 filled [facility] methocarbamoL 750 mg hmhodw45/14/23 filled [facility] ondansetron 4 mg disintegrating pxyomq86/04/23 filled [facility] oxyCODONE-acetaminophen 7.5 mg-325 mg tabletTake 1 tablet(s) every 6 hours by oral route for 5 days.06/23/23 prescribed SHERICE SLOAN APRN Paxlovid 300 mg (150 mg x 2)-100 mg tablets in a dose packFOLLOW PACKAGE FKKAHWLTZF69/31/23 filled [facility] predniSONE 20 mg /20/20 filled [facility] rizatriptan 10 mg tabletone at onset of migraine; may repeat in 2 hours if needed max 2 in 24 hrs.10/30/19 filled [facility] sucralfate 1 gram itxqup68/20/20 filled [facility] Synthroid 50 mcg vbicao13/30/20 filled [facility] tamsulosin 0.4 mg capsuleTake 1 [...] Electronically Signed by: SHERICE SLOAN APRN, DEVELOPMENT SPEC BEATA Carbajal - [facility] 09/18/2023 11:10:06 Urology Note : [address] [address]DMRLAD, Michelle (id #[id number], : 1980) [address] [address] Encounter Summary - Progress Note Date Printed: [...] received this fax in error, please visit [email or web address] to notify the sender and confirm that the information will be destroyed. If you do not have internet access, please call to notify the sender and confirm that the information will be destroyed. Thank you for your attention and cooperation. [ID:[id number]] Patient Yoon Hernandez (42yo, F) #[id number] 1980 Patient Demographics: Address [address] [place] [id number] Work Phone Encounter Notes: Encounter Reason/Date Pain [...] pain. She went to the [facility] emergency room twice. CT scans 05/29/2023 and 06/28/2023 showed 2 left distal ureteral stones up to 5 mm and bilateral small renal stones. She underwent left ureteroscopic laser lithotripsy and stent 06/30/2023. 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 HPI: The patient is here with her for continued pain after laser lithotripsy last week. The stent came out partially the following day and she subsequently removed it. She went to the [facility] emergency room 07/01/[address] scan and [facility] emergency room 07/04/2023 where a [...] no fever. She reports no difficulty urinating. [id number] 16:22 Ht: 5 ft 6 in Wt: 186 lbs BMI: 30 Results/Interpretations URINALYSIS, DIPSTICK Urinalysis Dipstick (auto) Result Reference Range Color Yellow Appearance Clear Specific gravity 1.025 pH 5.0 Leukocyte Esterase Negative Nitrite Negative Protein Negative Glucose Normal Ketones Negative Urobilinogen Normal Bilirubin Negative Blood Negative Specimen Source Clean Catch Urine Dip Method Visual Comments Physical ExamNone recorded Procedure DocumentationNone recorded Assessment and Qimh44-xhtl-wls female with a history of urolithiasis. She underwent right ESWL in 2018 and left ureteroscopic laser lithotripsy 06/30/2023. The stent came out the following day. She has had ongoing significant left flank and abdominal pain. She went to the emergency room twice. A CT scan at [facility] 07/04/2023 showed left hydroureter but [...] if she does not improve. 1. Kidney njlvtE91.0: Calculus of kidney URINALYSIS, DIPSTICK - Specimen source: Urine clean catch 2. Renal imkukI18: Unspecified renal colic tamsulosin 0.4 mg capsule - Take 1 capsule(s) every day by oral route in the evening for 30 days. Qty: (30) capsule Refills: 1 Pharmacy: [facility] 3. OmqlchjpyzfzdlH44.30: Unspecified hydronephrosis URINALYSIS, DIPSTICK Urinalysis Dipstick (auto) [...] ago10/30/19 entered Darlyn Bañuelos cefdinir 300 mg snavjjw14/26/23 filled [facility] diclofenac sodium 50 mg tablet,delayed pltphis25/29/20 filled [facility] estradioL 2 mg elixxr76/11/20 filled [facility] fluconazole 150 mg /03/23 filled su[facility]cripts fluocinolone 0.025 % topical rkwlwcak77/21/20 filled [facility] HYDROcodone 5 mg-acetaminophen 325 mg tabletTake 1 tablet(s) every 6 hours by oral route for 5 days.06/16/23 prescribed SHERICE SLOAN APRN ibuprofen 800 mg opnpdh06/04/23 filled [facility] ketorolac 10 mg tabletTake 1 tablet(s) every 6 hours by oral route for 5 days.06/23/23 filled [facility] ketorolac 30 mg/mL injection solutionInject 1 mL by intravenous route. Administer Note: injection given without bwvvfzqxeimn30/15/23 administered SHERICE SLOAN APRN meloxicam 7.5 mg /14/23 filled [facility] methocarbamoL 750 mg rxbows91/14/23 filled [facility] ondansetron 4 mg disintegrating aowfpw94/04/23 filled [facility] oxyCODONE-acetaminophen 5 mg-325 mg tabletTake 1 tablet(s) every 4-6 hours by oral route as needed for 3 days.06/30/23 filled [facility] oxyCODONE-acetaminophen 7.5 mg-325 mg tabletTake 1 tablet(s) every 6 hours by oral route for 5 days.06/23/23 prescribed SHERICE SLOAN APRN Paxlovid 300 mg (150 mg x 2)-100 mg tablets in a dose packFOLLOW PACKAGE WJGLUXBIIS12/31/23 filled [facility] predniSONE 20 mg pamzde44/20/20 filled [facility] rizatriptan 10 mg tabletone at onset of migraine; may repeat in 2 hours if needed max 2 in 24 hrs.10/30/19 filled [facility] sucralfate 1 gram /20/20 filled [facility] Synthroid 50 mcg zaadst84/30/20 filled [facility] tamsulosin 0.4 mg capsuleTake 1 [...] Electronically Signed by: KENNETH HERNANDEZ [facility] 11:26:29 Procedures Surgical History Date Name Laterality Status Provider Name and Address Organization Details Recorded Time 06/16/20 23 Post Void Residual; Ultrasound completed Korin Fuller [facility] 06/16/2023 09:23:37 07/26/19 20 Tympanogram completed KARLO CORONA, NICOLE [address] [place], [address], [facility] 07/26/2019 17:03:11 07/26/19 20 Audiogram completed NICOLE TROTTER [address] [place], [address], [facility] 07/26/2019 17:03:10 07/16/19 20 Endoscopy Nasal; Diagnostic completed MD Amor [address] [place], [address], [facility] 07/16/2019 14:10:05 09/08/19 18 EXTRA CORPOREAL SHOCK WAVE LITHOTRIPSY (SURG) completed Kunal Kevin [facility] 11/01/2017 10:40:36 Cholecystectomy completed Hazel Sandoval [facility] 08/30/2017 11:05:27 delivery completed Hazelleo Sandoval [facility] 08/30/2017 11:05:34 Hysterectomy completed Hazel Sandoval [facility] 08/30/2017 11:05:39 Kidney Stones completed KENNETH HERNANDEZ MD [address] [place], [address], [facility] 06/30/2023 16:38:12 Imaging Results None recorded. Procedure [...] e 50 mcg/actua tion nasal spray,carol pension [place] 2 sprays twice a day by intranas [...] Updated DateTime 10/30/2019 167.64 cm [facility] 10/30/2019 12:42:44 Date Recorded Body height Body mass index (BMI) Body weight Provider Name and Address Organization Details Last Updated DateTime 06/16/2023 167.64 cm 30 kg/m2 12996.18 g [facility] 06/16/2023 09:20:38 Date Recorded Body height Body mass index (BMI) Body weight Provider Name and Address Organization Details Last Updated DateTime 06/23/2023 167.64 cm 30 kg/m2 14007.18 g [facility] 06/23/2023 09:55:20 Date Recorded Body height Body mass index (BMI) Body weight Provider Name and Address Organization Details Last Updated DateTime 07/05/2023 167.64 cm 30 kg/m2 88771.18 g [facility] 07/05/2023 16:22:42 Social History Question Answer Notes LastModified by Organizat ion Details LastModified Time Tobacco Smoking Status Current Every Day Smoker Hazel Sandoval [facility] 08/30/2017 11:04:58 How Much Tobacco Do You Chew? None Information not available 07/16/2019 Marital Status [email or web address] Informatio n not available 08/30/2017 What Was [...] is your level of alcohol consumption? None [email or web address] Information not available 08/30/2017 Do you or have you ever used smokeless tobacco? 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 Family History Relationship Description Onset Age of this Age Resolved Age Notes LastModified by Organization Details LastModified Time Unspecified Relation Diabetes mellitus [email or web address] Not available 2017 11:04:45 Unspecified Relation Family [...] Diagnosis SNOMED-CT Code Diagnosis ICD10 Code Diagnosis IMO Codes Diagnosis Note [id number] KEVIN HEIN MD [facility] [address] [facility] [place] [address] 08/30/2017 10:34:06 09/04/2017 08:26:34 Kidney stone 93408570 N20.0 Pt with persistent R flank pain. [...] Will set up ESWL. Blood in urine 95478705 R31.9 [id number] KEVIN HEIN MD [facility] [address] [facility] [place] [address] 09/13/2017 13:28:22 09/25/2017 08:46:17 Kidney stone 96673193 N20.0 KUB difficult to see the stone due to cartilagin ous changes of ribs. Discussed that the stone was in a non-obstru cting position prior to ESWL and unlikely to make a difference in her pain. She now has bilateral mid back pain and MRI recently showed no significan t abnormalit ies. Discussed conservati ve options of musculoske letal pain. [id number] BELIA ARRINGTON MD [place] [facility] [address] [facility] [address] [place] [address] 07/16/2019 09:21:10 07/18/2019 18:22:05 Sphenoidal sinusitis 88927014 J32.3 -REC. RIGHT SPHENOIDOT KENIA/ETHMOI DECTOMY FOR DIAGNOSIS AND TREATMENT Asymmetric al sensorineural hearing loss 269967922 H90.5 -LEFT SNHL MILD [id number] NICOLE TROTTER [facility] [address] [place] [address] 07/26/2019 17:02:34 07/26/2019 17:04:05 Sensorineural hearing loss in left ear 6944127491 9109 H90.42 Bilateral tinnitus 72045 84383 102 H93.13 Ear pressu re sensation 409418974 H93.8X3 Dizziness and giddiness 496048994 R42 [id number] BELIA ARRINGTON MD [place] [facility] [address] [place] [address] 07/30/2019 09:58:13 08/02/2019 17:10:20 Sphenoidal sinusitis 92493054 J32.3 -REC. RIGHT SPHENOIDOT KENIA/ETHMOI DECTOMY FOR DIAGNOSIS AND TREATMENT Asymmetric al sensorineural hearing loss 124499774 H90.5 -LEFT SNHL MILD Headache 71414790 R51 Anxiety 03719310 F41.9 Posterior rhinorrhea 758 29455 R09.82 [id number] JOEY CARSON III, MD [place] [facility] [address] [place] [address] 08/09/2019 13:31:16 08/12/2019 09:23:00 Chronic sinusitis 99198518 J32.9 Nasal mucosa dry 5510078 2 J34.89 Tobacco user 948377050 Z 72.0 Hypertroph y of nasal turbinates 35709343 J34.3 Hypertroph y of tonsils 78055574 J35.1 Cryptic tonsil 056930066 J35.8 Headache 90166307 R51 [id number] BELIA ARRINGTON MD [place] [facility] [address] [place] [address] 08/14/2019 09:06:57 08/14/2019 10:17:18 Chronic sinusitis 34440963 J32.9 Nasal mucosa dry 2203977 2 J34.89 Tobacco user 999431345 Z 72.0 Hypertroph y of nasal turbinates 03411912 J34.3 Headache 99834768 R51 Sneezing 92074255 R06.7 Cough 83062092 R05 Posterior rhinorrhea 758 53404 R09.82 [id number] NATALY DEL VALLE MD NEUROLOGY [facility] [address] [place] [address] 10/30/2019 12:42:30 10/30/2019 13:30:35 Migraine 13383794 G43.909 Migraine without aura 56 922002 G43.009 [id number] SHERICE SLOAN APRN UROLOGY [address] [place] [address] 06/16/2023 08:38:40 06/16/2023 11:09:42 Kidney stone 45142698 N20.0 [id number] SHERICE SLOAN APRN UROLOGY [facility] [address] [place] [address] 06/23/2023 09:49:54 06/23/2023 12:40:22 Kidney stone 54889056 N20.0 [id number] KENNETH HERNANDEZ MD SURGERY SCHEDULE [address] [place] [address] 06/30/2023 13:56:36 06/30/2023 13:59:45 Ureteric stone 77309843 N20.1 Postoperative pain 35673 9007 G89.18 [id number] KENNETH HERNANDEZ MD UROLOGY [facility] [place] [address] 07/05/2023 15:35:48 07/08/2023 04:14:27 Kidney stone 07048836 N20.0 Renal colic 8803402 N23 Hydronephrosis 79730127 N13.30 Health Concerns Section Related Observation LastModified by Organization Detai ls LastModified Time None Recorded Concern Status LastModified by Organization Details LastModified Time None Recorded Advance Directives Directive None Recorded Payers Insurance Date Sequence Insurance Name Policy Number Policy Reilly Covered Member ID Reilly Member ID Guarantor Name 07/31/2023 1 [place] [id number] Kash Jing [id number] Yoon Hernandez 08/29/2017 1 *SELF PAY* Gladys garciale Jing Notes Date Note Type Note Provider Name [...] tried triptans. NATALY DEL VALLE MD [address] [place], [address], [facility] 10/30/2019 13:27:58 06/16/2023 text/html 42-year-old female with history of urolithiasis. She is a previous patient of Dr. Hein. She underwent right ESWL in 2018. Follow-up KUBs were negative for stones. She noticed increased suprapubic pressure about 2 weeks ago. She thought she had a yeast infection and has been treating herself with xans-jnk-lmspmpa yeast cream. On Monday evening, she developed severe left flank pain. She was seen in the ER at [facility]. She says a CT scan showed [...] is a smoker. SHERICE SLOAN APRN [address] [place], [address], [facility] 06/16/2023 09:32:59 06/23/2023 text/html 42-year-old female with history of urolithiasis. She is a previous patient of Dr. Hein. She underwent right ESWL in 2018. Follow-up KUBs were negative for stones. She noticed increased suprapubic pressure about 2 weeks ago. She thought she had a yeast infection and has been treating herself with zsok-xye-fmhwqsq yeast cream. On Monday evening, she developed severe left flank pain. She was seen in the ER at [facility]. She says a CT scan showed 2 left ureteral stones. She was told 1 stone was in the mid ureter and the other was closer to the bladder. She was given hydrocodone and Flomax.She is a smoker. HPI: She returns today for follow-up with left distal uretral stones. She was seen by me one week ago.A CT scan at [facility] 3 weeks ago showed 2 left ureteral [...] miserable and unable to work. SHERICE SLOAN, TRACK MANAGER [address] [place], [address], [facility] 06/23/2023 10:52:32 07/05/2023 text/html Diagnosis: [...] pain. She went to the [facility] emergency room twice. CT scans 05/29/2023 and 06/28/2023 showed 2 left distal ureteral stones up to 5 mm and bilateral small renal stones. She underwent left ureteroscopic laser lithotripsy and stent 06/30/2023. 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 HPI: The patient is here with her for continued pain after laser lithotripsy last week. The stent came out partially the following day and she subsequently removed it. She went to the [facility] emergency room 07/01/[address] scan and [facility] emergency room 07/04/2023 where a [...] 5 mg and ketorolac. KENNETH HERNANDEZ MD [facility] [place], [address], [facility] 07/07/2023 09:05:41 OBGyn Episode No OBEpisode recorded.
--- OUTSIDE RECORDS SUMMARY | 2025-04-24 14:36 | XMS_ITS | Clinical Summary ---
Author Organization Healthcare Address [address] [place] [address] Care Team Providers Care Spanish Lecturer Name Role Phone Kenneth Peterson MD Primary Care Provider [phone] Family History Medical History Relation Name Comments [...] of Treatment Not on file Care Teams Spanish Lecturer Relationship Specialty Start Date End Date Kenneth Peterson MD [address] [place] [address] PCP - General 11/20/20
--- OUTSIDE RECORDS SUMMARY | 2025-04-24 14:36 | XMS_ITS | Referral Summary ---
Author Organization [employer] ([place], [place], [place], [place]) Address [address] [place] [address] Care Team Providers Care Claims Vice President Name Role Phone Unavailable Primary Care Provider [...] Date Tuan rded Speak language other than Beninese at home Not on file 07/19/2023 Want [...]
--- OUTSIDE RECORDS SUMMARY | 2025-04-24 14:36 | XMS_ITS | Encounter Summary ---
Author Organization [employer] ([place], [place], [place], [place]) Address [address] [place] [address] Care Team Providers Care Enterprise Systems Manager Name Role Phone Unavailable Primary Care Provider Unavailabl e Encounter Details Date Type Department Care Team (Late st Contact Info) Description 05/01/2020 Transcribed Document [facility] [facility] [place] [address] ProviderJordyn MD [address] [place] [address] Social History Tobacco Use Types Packs/Day Years [...] had multiple injections by way of a tapering machine operator without a whole lot of [...]
--- OUTSIDE RECORDS SUMMARY | 2025-04-24 14:36 | XMS_ITS | Clinical Summary ---
Author Organization [facility] Address [address] [place] [phone] Phone Care Team Providers Care Set Key Driver Name Role Phone Unavailable Primary Care Provider [...] patient's age to complete this topic Insurance [facility] [employer] [place] [id number] LUCAS PPO LUCAS PPO
--- OUTSIDE RECORDS SUMMARY | 2025-04-24 14:36 | XMS_ITS | Encounter Summary ---
Author Organization [facility] ([place], [place], [place], [place]) Address [address] [place] [address] Care Team Providers Care American History Professor Name Role Phone Unavailable Primary Care Provider Unavailabl e Encounter Details Date Type Department Care Team (Late st Contact Info) Description 04/14/2020 Transcribed Document [facility] [place] [facility] [place] [address] ProviderJordyn MD [address] [place] [address] Social History Tobacco Use Types Packs/Day Years [...]
--- NOTE | 2025-04-24 14:38 | ECG_ITS ---
APPROVED REPORT Exam: Resting ECG HR:69 bpm ECG Measurements Heart Rate 69 AXES [place] 159 P 60 QRSd 89 QRS 1 QT 402 T 17 QTc 422 Conclusion SINUS RHYTHM POSSIBLE LEFT ATRIAL ENLARGEMENT [-0.1mV P-WAVE IN V1/V2] LOW QRS VOLTAGE IN PRECORDIAL LEADS [QRS DEFLECTION < 1.0 mV IN CHEST LEADS] POSSIBLE RIGHT VENTRICULAR CONDUCTION DELAY [RSR (QR) IN V1/V2] BORDERLINE ECG UNCONFIRMED REPORT Electronically signed by : Kenneth Mcqueen MD 04/25/2025 21:58:53
[2025-04-24 14:46] VITALS: BMI 23.1
[2025-04-24 14:55] LABS: Hematocrit 41.6 % (37.0-47.0); Hemoglobin 13.4 g/dL (12.2-16.2); Immature Granulocytes % 0.4 %; Mean Corpuscular HGB Conc 32.2 g/dL (31.8-35.4); Mean Corpuscular Hemoglobin 30.0 pg (27.0-31.2); Mean Corpuscular Volume 93.3 fl (81-99); Nucleated Red Blood Cells % 0 %; Platelet Count 223 K/mm3 (142-424); Red Blood Count 4.46 M/mm3 (4.20-5.40); Red Cell Distribution Width-SD 45.4 fL; White Blood Count 8.4 K/mm3 (4.8-10.8)
[2025-04-24 15:00] LABS: Anion Gap 13.8 mEq/L (5-15); Blood Urea Nitrogen 15 mg/dl (7-17); Calcium 9.3 mg/dl (8.4-10.2); Carbon Dioxide 26 mmol/L (22.0-30.0); Chloride 105 mmol/L (98-107); Creatinine Clearance Estimated 111 mL/min (50-200); Creatinine,Serum 0.70 mg/dl (0.52-1.04); Estimated Glomerular Filt Rate 92 ml/min (>60); GFR (African American) 111 ML/MIN (>60); Glucose 91 mg/dl (74-100); Potassium 3.8 mmoL/L (3.5-5.1); Sodium 141 mmol/L (136-145)
== END 2025-04-24 23:59 | disposition home or self-care (01) ==
LOC: PREOP 14:23
PROVIDERS: PCP Family Medicine; Visit Provider Surgery
DX: Z01.812 Encounter for preprocedural laboratory examination (principal)
CPT/HCPCS: 80048; 85025; 93005

== ENCOUNTER 2025-05-20 09:34 | Outpatient (CLI) | payer BC, SELFPAY ==
--- NOTE | 2025-05-20 09:30 | US_ITS ---
FINAL REPORT CLINICAL HISTORY: Cyst inner rt thigh FINDINGS: Limited sonographic images of the right inner thigh was obtained. There is a tiny superficial fluid collection in the right medial thigh measuring 15 x 3 x 10 mm which is nonspecific, could be posttraumatic or less likely infectious. IMPRESSION: Small nonspecific fluid collection at the area of interest. If lesion progresses clinically, recommend repeat imaging. Reviewed, Interpreted and Dictated by Swati Luna MD Transcribed by Annika Demarco Authenticated and [facility]
== END 2025-05-20 23:59 | disposition home or self-care (01) ==
LOC: RAD 09:35
PROVIDERS: PCP Family Medicine; Visit Provider Surgery
DX: L02.415 Cutaneous abscess of right lower limb (principal); R93.6 Abnormal findings on diagnostic imaging of limbs
CPT/HCPCS: 76882

== ENCOUNTER 2025-06-22 09:48 | Outpatient (CLI) | payer BC, SELFPAY ==
[2025-06-22 21:42] LABS: Coronavirus 19, PCR Not Detected (NotDetected); Influenza A, PCR Not Detected (NotDetected); Influenza B, PCR Not Detected (NotDetected)
--- OUTSIDE RECORDS SUMMARY | 2025-06-24 10:15 | XMS_ITS | Referral Summary ---
Author Organization [employer] ([place], [place], [place], [place], [place]) Address [address] [place] [address] Care Team Providers Care Dry Talc Racker Name Role Phone Unavailable Primary Care Provider [...] Date Tuan rded Speak language other than Azeri at home Not on file 07/19/2023 Want [...]
--- OUTSIDE RECORDS SUMMARY | 2025-06-24 10:15 | XMS_ITS | Clinical Summary ---
Author Organization [facility] Address [address] [place] [phone] Phone Care Team Providers Care Crochet Beader Name Role Phone Unavailable Primary Care Provider [...] 06/18/2018 Breast Cancer Screening 2022 COVID-19 Vaccine (1 - 2024-2 6 season) 2025 Influenza Vaccine (#1) 2025 03/24/2020 DTaP/TDaP/Td (2 - Td or Tdap) 07/01/2031 07/01/2021 Meningococcal B Vaccine Aged Out No l onger eligible based on patient's age to complete this topic Insurance [facility] [employer] [place] [id number] LUCAS PPO LUCAS PPO
--- OUTSIDE RECORDS SUMMARY | 2025-06-24 10:15 | XMS_ITS | Encounter Summary ---
Author Organization [employer] ([place], [place], [place], [place], [place]) Address [address] [place] [address] Care Team Providers Care Digital Specialist Name Role Phone Unavailable Primary Care Provider Unavailabl e Encounter Details Date Type Department Care Team (Late st Contact Info) Description 04/14/2020 Transcribed Document [facility] [place] [facility] [place] [address] ProviderJordyn MD [address] [place] [id number] Social History Tobacco Use Types Packs/Day Years [...]
--- OUTSIDE RECORDS SUMMARY | 2025-06-24 10:15 | XMS_ITS | Encounter Summary ---
Author Organization [employer] ([place], [place], [place], [place], [place]) Address [address] [place] [address] Care Team Providers Care Gang Investigator Name Role Phone Unavailable Primary Care Provider Unavailabl e Encounter Details Date Type Department Care Team (Late st Contact Info) Description 05/01/2020 Transcribed Document [facility] [place] Medicine [address] [place] [address] ProviderJordyn MD [address] [place] [address] Social History Tobacco Use Types Packs/Day Years [...] had multiple injections by way of a heel shaver without a whole lot of relief and [...]
--- OUTSIDE RECORDS SUMMARY | 2025-06-24 10:15 | XMS_ITS | Clinical Summary ---
[facility] Organization [facility] Address [address] [place] [address] Care Team Providers Care Sewage Plant Operator Name Role Phone Provider, No Known Primary [...] complete this topic Insurance PPO Care Teams Sewage Plant Operator Relationship Specialty Start Date End Date Provider, No Known [facility] [place] [address] PCP - General 05/19/15
--- OUTSIDE RECORDS SUMMARY | 2025-06-24 10:15 | XMS_ITS ---
Author Organization Unknown ENCOUNTERS Encounter Performer Location Date Diagnosis Diagnosis Status Emergency [facility] [address] [place] [address] [id number] GUI Pre Admit Mercedes [facility] [address] [facility] [address] [place] [address] [id number] Pre Admit [facility] [address] [place] [address] [id number] Emergency [facility] [address] [place] [address] [phone] GUI Pre Admit [facility] [address] [place] [address] [phone] Emergency [facility] [address] [place] [address] [phone] GUI Pre Admit [facility] [address] [place] [address] [phone] Emergency [facility] [address] [place] [address] [phone] GUI Emergency Faith Diop [facility] [address] [place] [address] [id number] GUI Emergency [facility] [address] [place] [address] [phone] GUI Pre Admit [facility] [address] [place] [address] [phone] Emergency [facility] [address] [place] [address] [id number] GUI Pre Admit [facility] [address] [place] [address] [id number] [facility] Ad[facility] [address] [place] [address] [id number] Emergency Kingsley Liz [facility] [address] [place] [address] [phone] GUI Emergency Yamilka [facility] [address] [place] [address] [id number] GUI Pre Admit Yamilka [facility] [address] [address] [place] [address] [id number] Emergency Geovanni [facility] [address] [place] [address] [phone] GUI Pre Admit [facility] [address] [address] [place] [address] [id number] Emergency Hayder [facility] [address] [place] [address] [phone] GUI Emergency Kaushal Delatorre ([facility] [address] [place] [address] [phone] GUI Emergency [facility] [address] [place] [address] [phone] GUI Emergency [facility] [address] [place] [address] [phone] GUI Emergency Faith Diop [facility] [address] [place] [address] [phone] GUI *Note: Encounters from your own facility or health system may be excluded. Allergies, Adverse Reactions, Alerts Allergen Type Severity Identification Date Medications Name Date Quantity Days Supplied GPI Number
--- OUTSIDE RECORDS SUMMARY | 2025-06-24 10:15 | XMS_ITS | Clinical Summary ---
Author Organization Healthcare Address [address] [place] [address] Care Team Providers Care Stone Driller Helper Name Role Phone Kenneth Peterson MD Primary Care Provider [phone] Family History Medical History Relation Name Comments [...] of Treatment Not on file Care Teams Stone Driller Helper Relationship Specialty Start Date End Date Kenneth Peterson MD [address] [place] [id number] PCP - General 11/20/20
--- OUTSIDE RECORDS SUMMARY | 2025-06-24 10:15 | XMS_ITS | Clinical Summary ---
Author Organization [employer] ([place], [place], [place], [place], [place]) Address [address] [place] [address] Care Team Providers Care Masonry Inspector Name Role Phone Unavailable Primary Care [...] Date Tuan rded Speak language other than Frisian at home Not on file 07/19/2023 Want [...]
--- OUTSIDE RECORDS SUMMARY | 2025-06-24 10:15 | XMS_ITS | Patient Health Record ---
Author Organization [facility] Address [address] [facility] [address] [place] [address] Care Team Providers Care Foam Gun Operator Name Role Phone Doris Leal Unavailable [phone] Reason For Referral No Information Problems Problem Type SNOMED Code ICD Code Onset Dates Problem Status W/U Status Risk Notes Problem Noninflammatory disorder of the vagina (67574823) Bloody vaginal discharge (N89.8) 07/14/19 21 Active confirmed Vaginal irritation Plan Of Treatment No Information Medical (General) History Medical History History ICD Code None noted SOCIAL HX: See risks SOCIAL HX: See risks MENSTR FLOW: Heavy ESTRADIOL 2 MG ORAL TABLET, ORAL Surgical History Surgery Date(Month/Year) 02, 07, Gallbladder 03, Appendectomy, total hysterectomy
== END 2025-06-22 23:59 | disposition home or self-care (01) ==
LOC: LAB.DROPOF 06-24 09:49
PROVIDERS: PCP Family Medicine; Visit Provider Student in an Organized Health Care Education/Training Program
DX: J06.9 Acute upper respiratory infection, unspecified (principal)
CPT/HCPCS: 87631